=== PATIENT | female | born 1965 | race African-American/Black ===

== ENCOUNTER 2019-09-28 08:46 | Day surgery (SDC) | payer OTHER ==
--- NOTE | 2019-09-24 13:13 | RAD REPORT ---
EXAM DESCRIPTION: RAD - Chest Pa And Lat (2 Views) - 09/24/2019 1:00 pm CLINICAL HISTORY: pre op Chest pain. COMPARISON: Chest Single View dated 02/20/2017; Chest Single View dated 02/16/2017; Chest Pa And Lat (2 Views) dated 02/08/2017; Chest Single View dated 01/30/2017 FINDINGS: The lungs are clear. The heart is normal in size. No displaced fractures. IMPRESSION: No acute or concerning finding suspected.
[2019-09-24 13:45] LABS: Absolute Lymphocytes (CBC) 2.5 K/uL (0.7-4.9); Basophils % 0.7 % (0-1.3); Hematocrit 39.5 % (36.0-45.0); Lymphocytes % 36.2 % (15.3-44.8); MPV 9.6 fL (7.6-11.3); RBC Red Blood Cell Count 4.82 M/uL (3.86-4.86)
[2019-09-24 14:02] LABS: ALT/SGPT 22 U/L (12-78); AST/SGOT 16 U/L (15-37); Albumin 3.5 g/dL (3.4-5.0); Alkaline Phosphatase 84 U/L (45-117); Amylase 81 U/L (25-115); BUN Blood Urea Nitrogen 17 mg/dL (7-18); Bicarbonate 31 mmol/L (21-32); Bilirubin Direct < 0.1 mg/dL (0-0.2); Bilirubin Total 0.3 mg/dL (0.2-1.0); Glucose Level 131 mg/dL (74-106); Potassium 4.1 mmol/L (3.5-5.1); Protein, Total 7.7 g/dL (6.4-8.2); Sodium Level 143 mmol/L (136-145)
[2019-09-28] MEDS ORDERED: NA CHLORIDE 0.9% 1,000 ML ONE (09:14)
[2019-09-28] MEDS ORDERED: CEFOXITIN/SWI 1gm 1 GM/10 ML SYR ONE (09:19)
[2019-09-28] MEDS ORDERED: ALBUTEROL 2.5 MG/3 ML NEB SOL ONE (09:23)
[2019-09-28] MEDS ORDERED: FENTANYL CITR 100 MCG/2 ML ONE (09:30)
[2019-09-28] MEDS ORDERED: MIDAZOLAM HCL 2 MG/2 ML INJ ONE (09:30)
[2019-09-28] MEDS ORDERED: LIDOCAINE 1% MPF 5 ML VIAL ONE (09:30)
[2019-09-28] MEDS ORDERED: propofoL 200 MG/20 ML VIAL IV ONE (09:30)
[2019-09-28] MEDS ORDERED: ROCURONIUM 50 MG/5 ML VIAL IV ONE (09:31)
--- NOTE | 2019-09-28 10:14 | EKG ---
Test Date: 2019-09-28 Test Time: 09:29:46 Installer Soft Top: LETY MEASUREMENT RESULTS: Intervals: Rate: 79 AL: 156 QRSD: 84 QT: 408 QTc: 467 Canby: P: 57 AL: 156 QRS: -3 T: 28 INTERPRETIVE STATEMENTS: Normal sinus rhythm Low voltage QRS Cannot rule out Anterior infarct, age undetermined Abnormal ECG Compared to ECG 02/20/2017 10:36:27 Low QRS voltage now present Sinus arrhythmia no longer present Myocardial infarct finding still present Electronically Signed On 09-28-19 10:13:44 CDT by Joshua Thomas
[2019-09-28] MEDS ORDERED: dexAMETHasone 10 MG/ML VIAL ONE (10:28)
[2019-09-28] MEDS ORDERED: KETOROLAC 30 MG/ML INJ ONE (10:28)
[2019-09-28] MEDS ORDERED: NEOSTIGMINE 1 MG/ML -5 ML ONE (10:28)
[2019-09-28] MEDS ORDERED: GLYCOPYRROLATE 0.2 MG/ML SYR ONE (10:28)
[2019-09-28] MEDS ORDERED: ONDANSETRON 4 MG/2 ML VIAL ONE ×2 (10:28→11:37)
--- OUTSIDE RECORDS SUMMARY | 2019-09-28 11:15 | XMS REPORT | Clinical Summary ---
:1965 Author Organization [facility] Address [address] [place] [id number] Care Team Providers Name Role Phone Unavailable Primary Care Provider Unavailable Allergies Not on File Medications Not on file Active Problems Not on file Social History Tobacco Use Types Packs/Day Years Used Date Never Assessed Sex Assigned at Date Recorded Not on file Job Start Date Occupation Industry Not on file Not on file Not on file Travel History Travel Start Travel End No recent travel history available. Last Filed Vital Signs Not on file Plan of Treatment Not on file Results Not on fileafter 09/27/2018 Insurance Payer Benefit Plan / Group Subscriber ID Type Phone A ddress [employer] EXCHANGE xxxxxxxxxx
[2019-09-28] MEDS: HYDROMORPHONE HCL 1 MG/ML INJ ONE ×2 (11:45→12:15)
--- NOTE | 2019-09-28 12:02 | OP ---
Date of Procedure: 09/28/2019 Surgeon: Dom Sutton MD Sleeve Separator: BILL Francisco. Preoperative Diagnoses: Umbilical hernia and symptomatic cholelithiasis. Postoperative Diagnoses: Umbilical hernia and symptomatic cholelithiasis. Procedures Performed: Laparoscopic cholecystectomy and repair of umbilical hernia. Estimated Blood Loss: Minimal. Specimen: Hernia sac and gallbladder. Findings: As above. Anesthesia: General. Complications: None. Disposition: The patient tolerated procedure in stable condition, taken to Recovery in good general condition. Description Of Procedure: The patient was brought to the OR and placed in supine position. General anesthesia begun. The patient was prepped and draped in usual sterile fashion. Marcaine 0.5% was in filtrated locally. A 15-blade was used to make a 2 cm incision over the hernia itself, just above th e umbilicus. Subcutaneous tissues were divided. Hernia sac was identified and freed from the surrou nding tissue and approximately 2 cm edge remained. Good fascial edges were obtained. #1 Vicryl stay suture was placed. Peritoneal cavity was entered with sharp and blunt dissection. Then, 12 mm troc ar was placed into the peritoneal cavity under direct vision. Pneumoperitoneum was established. Thr ee 5 mm trocars were placed, 1 in the epigastrium, just to the right of midline and 2 in the right lackey bcostal region. Laparoscopy revealed some adhesions to the gallbladder, body and infundibulum which were taken down with sharp and blunt dissection. Bleeding was controlled with cautery. Fundus was r etracted superiorly. Infundibulum was identified and retracted inferolaterally. Cystic duct and cys tic artery were clearly identified with blunt dissection. Clips were placed. Both structures were d ivided. Cautery was used to remove the gallbladder from the liver bed. Bleeding on the liver bed wa s controlled with cautery. The gallbladder was retrieved through the umbilicus via an EndoCatch bag. Right upper quadrant was irrigated. Effluent was clear. No evidence of bleeding or bile leakage a s appreciated. Subsequently, all trocars were removed under direct vision. Stay sutures were tied t o each other to close the hernia defect. Subcutaneous wounds were irrigated. Bleeding was controlle d with cautery. A 3-0 chromic used to approximate the subcutaneous tissue and piyush were used to cl ose the skin. Sterile dressing was applied. The patient was awakened and taken to Recovery in good general condition. Discharge Note: The patient will go to day surgery and home when stable. Disposition: Home. Condition: Stable. Discharge Instructions: Resume home medications and diet. Activity as tolerated. No heavy lifting. Remove outer dressing in 2 days. Shower. Keep wound clean and dry. Follow up in my office in 1 w chipewwa. Call for appointment. Tylenol No. 3 one tablet p.o. q.4 p.r.n. pain. Incentive spirometry as ordered. /MODL Voice ID: [id number] Report ID: [id number]
[2019-09-28] MEDS ORDERED: NA CHLORIDE 0.9% 500 ML ONE (12:20)
[2019-09-28] MEDS ORDERED: HYDROCODONE/APAP 7.5/325 MG TAB ONE (13:10)
[2019-09-28 14:04] VITALS: BP 151/82; TEMP 97.4; O2SAT 92
== END 2019-09-28 13:55 | disposition home or self-care (01) ==
LOC: OR 08:46
PROVIDERS: ATTEND Surgery
PROC: 0FT44ZZ Resection of Gallbladder, Percutaneous Endoscopic Approach (ICD-10-PCS; principal; 2019-09-28 10:00)
PROC: 0WQF0ZZ Repair Abdominal Wall, Open Approach (ICD-10-PCS; 2019-09-28 10:00)
DX: K80.20 Calculus of gallbladder without cholecystitis without obstruction (principal); K42.9 Umbilical hernia without obstruction or gangrene; E11.9 Type 2 diabetes mellitus without complications; I10 Essential (primary) hypertension; I25.10 Atherosclerotic heart disease of native coronary artery without angina pectoris; R01.1 Cardiac murmur, unspecified; E03.9 Hypothyroidism, unspecified; J45.909 Unspecified asthma, uncomplicated; Z11.59 Encounter for screening for other viral diseases; Z80.0 Family history of malignant neoplasm of digestive organs; Z82.49 Family history of ischemic heart disease and other diseases of the circulatory system; Z82.3 Family history of stroke; Z83.3 Family history of diabetes mellitus; Z82.5 Family history of asthma and other chronic lower respiratory diseases
CPT/HCPCS: 93005; 85025; 80048; 36415; 82150; 82947 ×2; 80076; 88302; 88304; 71046; 47562; 49585; U0002; J2704; J2250; J3010; J1100; J1170; J2710; J7040; J7030; J2405 ×2

== ENCOUNTER 2019-12-30 10:14 | Emergency (ER) | payer OTHER ==
[2019-12-30 10:52] LABS: Absolute Lymphocytes (CBC) 2.5 K/uL (0.7-4.9); Basophils % 0.8 % (0-1.3); Hematocrit 39.7 % (36.0-45.0); Lymphocytes % 27.7 % (15.3-44.8); MPV 9.1 fL (7.6-11.3); RBC Red Blood Cell Count 4.91 M/uL (3.86-4.86)
[2019-12-30 11:13] LABS: ALT/SGPT 27 U/L (12-78); AST/SGOT 16 U/L (15-37); Albumin 3.5 g/dL (3.4-5.0); Alkaline Phosphatase 110 U/L (45-117); BUN Blood Urea Nitrogen 15 mg/dL (7-18); Bicarbonate 31 mmol/L (21-32); Bilirubin Direct 0.1 mg/dL (0-0.2); Bilirubin Total 0.4 mg/dL (0.2-1.0); Glucose Level 110 mg/dL (74-106); Lipase 97 U/L (73-393); Potassium 3.7 mmol/L (3.5-5.1); Protein, Total 8.3 g/dL (6.4-8.2); Sodium Level 137 mmol/L (136-145)
[2019-12-30] MEDS ORDERED: NA CHLORIDE 0.9% 1,000 ML ONE (11:43)
[2019-12-30] MEDS ORDERED: KETOROLAC 30 MG/ML INJ ONE (11:43)
--- NOTE | 2019-12-30 12:17 | RAD REPORT ---
EXAM DESCRIPTION: CT - Abdomen Pelvis W Contrast - 12/30/2019 11:58 am CLINICAL HISTORY: Abdominal pain COMPARISON: August 2019 TECHNIQUE: Computed axial tomography of the abdomen pelvis was obtained. 100 cc Isovue-300 was admin istered intravenously. Oral contrast was not requested which limits evaluation of bowel. All CT scans are performed using dose optimization technique as appropriate and may include automated exposure control or mA/KV adjustment according to patient size. FINDINGS: Cholecystectomy. Several splenic lesions without obvious change. The largest measures 2 centimeters Renal cysts unchanged. Mild fatty liver. The pancreas and adrenals unremarkable There is no evidence of diverticulitis. A periumbilical hernia has a neck 2.5 centimeters. It contains a portion of nondilated small bowel IMPRESSION: A periumbilical hernia has a neck 2.5 centimeters. It contains a portion of nondilated s mall bowel Splenic lesions. Ultrasound recommended for further evaluation
--- OUTSIDE RECORDS SUMMARY | 2019-12-30 12:24 | XMS REPORT | Clinical Summary ---
:1965 Author Organization [facility] Address [address] [place] [id number] Care Team Providers Name Role Phone Unavailable Primary Care Provider Unavailable Allergies Not on File Medications Not on file Active Problems Not on file Social History Tobacco Use Types Packs/Day Years Used Date Never Assessed Sex Assigned at Date Recorded Not on file Last Filed Vital Signs Not on file Plan of Treatment Not on file Results Not on fileafter 12/29/2018 Insurance Payer Benefit Plan / Subscriber ID Effective Dates Phone Addre ss Type Group [employer] [id number] 2018-Present EXCHANGE
--- NOTE | 2019-12-30 12:32 | EDPHYS ---
Physician Documentation [facility] Name: Ernestina Link Age: 54 yrs Sex: Female : 1965 Arrival Date: 12/30/2019 Time: 10:16 Bed 5 Private MD: Doni Marie E ED Physician James Sutherland HPI: 12/29 12:25 This 54 yrs old Black Female presents to ER via Ambulatory with complaints of Side Pain.kb 12:29 The patient presents with abdominal pain in the right upper quadrant. Onset: The kb symptoms/episode began/occurred 1 week(s) ago. The symptoms do not radiate. Associated signs and symptoms: none. The symptoms are described as constant. Modifying factors: The symptoms are alleviated by remaining still, the symptoms are aggravated by movement, pressure. Severity of pain: At its worst the pain was moderate in the emergency department the pain is unchanged. The patient has not experienced similar symptoms in the past. The patient has not recently seen a physician. Pt reports RUQ pain that is worse with movement. Denies fever, n/v/d, recent trauma.. 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 - Post-menopause jl7 Historical: - Allergies: 10:38 No Known Allergies; iw - Home Meds: 10:38 metformin 1,000 mg oral tab 2 times per day [Active]; levothyroxine 137 mcg oral tab iw once daily [Active]; lisinopril-hydrochlorothiazide 20-12.5 mg oral tab 1 tab once daily [Active]; nortriptyline 10 mg Oral cap [Active]; sertraline 100 mg oral tab once daily [Active]; hydrocodone-acetaminophen 10-325 mg Oral tab as needed [Active]; montelukast 10 mg oral tab 1 tab once daily [Active]; clonazepam 1 mg Oral tab [Active]; atorvastatin 20 mg oral tab 1 tab once daily [Active]; gabapentin 600 mg oral tab 1 tab 3 times per day [Active]; Centrum Silver 400-250 mcg oral chew daily [Active]; Vitamin B-12 Oral daily [Active]; Melatonin Oral nightly [Active]; - PMHx: 10:38 Asthma; Diabetes - NIDDM; Hypertension; Hypothyroidism; iw - PSHx: 10:38 Tonsillectomy; Appendectomy; Tubal ligation; ; iw - Immunization history:: Adult Immunizations up to date. - Social history:: Smoking status: Patient denies any tobacco usage or history of. ROS: 12:24 Constitutional: Negative for fever, chills, and weight loss, Cardiovascular: Negative kb for chest pain, palpitations, and edema, Respiratory: Negative for shortness of breath, cough, wheezing, and pleuritic chest pain, Back: Negative for injury and pain, MS/Extremity: Negative for injury and deformity, Skin: Negative for injury, rash, and discoloration, Neuro: Negative for headache, weakness, numbness, tingling, and seizure. 12:24 Abdomen/GI: Positive for abdominal pain, Negative for nausea, vomiting, and diarrhea. Exam: 12:24 Constitutional: This is a well developed, well nourished patient who is awake, alert, kb and in no acute distress. Head/Face: Normocephalic, atraumatic. Chest/axilla: Normal chest wall appearance and motion. Nontender with no deformity. No lesions are appreciated. Cardiovascular: Regular rate and rhythm with a normal S1 and S2. No gallops, murmurs, or rubs. Normal PMI, no JVD. No pulse deficits. Respiratory: Lungs have equal breath sounds bilaterally, clear to auscultation and percussion. No rales, rhonchi or wheezes noted. No increased work of breathing, no retractions or nasal flaring. Back: No spinal tenderness. No costovertebral tenderness. Full range of motion. Skin: Warm, dry with normal turgor. Normal color with no rashes, no lesions, and no evidence of cellulitis. MS/ Extremity: Pulses equal, no cyanosis. Neurovascular intact. Full, normal range of motion. Neuro: Awake and alert, GCS 15, oriented to person, place, time, and situation. Cranial nerves II-XII grossly intact. Motor strength 5/5 in all extremities. Sensory grossly intact. Cerebellar exam normal. Normal gait. 12:24 Abdomen/GI: Inspection: obese Bowel sounds: normal, in all quadrants, Palpation: soft, in all quadrants, mild abdominal tenderness, in the right upper quadrant. Vital Signs: 10:33 BP 137 / 76; Pulse 82; Resp 16; Temp 97.9; Pulse Ox 96% on R/A; Weight 122.92 kg; iw Height 5 ft. 11 in. (180.34 cm); Pain 12/17; 12:21 BP 115 / 80; Pulse 70; Resp 15; Pulse Ox 97% ; jl7 10:33 Body Mass Index 37.80 (122.92 kg, 180.34 cm) iw MDM: 10:19 Patient medically screened. kb 12:24 Data reviewed: vital signs, nurses notes. Data interpreted: Pulse oximetry: on room air kb is 97 %. Interpretation: normal. Counseling: I had a detailed discussion with the patient and/or guardian regarding: the historical points, exam findings, and any diagnostic results supporting the discharge/admit diagnosis, lab results, radiology results, the need for outpatient follow up, a family practitioner, to return to the emergency department if symptoms worsen or persist or if there are any questions or concerns that arise at home. 12:30 ED course: Pt reports pain resolved after toradol. No tenderness to periumbilical area. kb Pt educated on splenic lesions that were again noted on CT. . 12/29 10:29 Order name: Basic Metabolic Panel; Complete Time: 11:18 kb 12/29 10:29 Order name: CBC with Diff; Complete Time: 10:55 kb 12/29 10:29 Order name: Hepatic Function; Complete Time: 11:18 kb 12/29 10:29 Order name: Lipase; Complete Time: 11:18 kb 12/29 11:19 Order name: CT Abd/Pelvis - IV Contrast Only; Complete Time: 12:21 kb 12/29 10:29 Order name: IV Saline Lock; Complete Time: 10:48 kb 12/29 10:29 Order name: Labs collected and sent; Complete Time: 10:48 kb Administered Medications: 11:38 Drug: NS 0.9% 1000 ml Route: IV; Rate: 1000 ml; Site: right forearm; iw 11:38 Drug: TORadol - Ketorolac 15 mg Route: IVP; Site: right forearm; iw Disposition: 12/30/19 12:32 Discharged to Home. Impression: Upper abdominal pain, unspecified. - Condition is Stable. - Discharge Instructions: Musculoskeletal Pain, Abdominal Pain, Adult, [id number]. - Prescriptions for Diclofenac Sodium 75 mg Oral Tablet, Delayed Release (E.C.) - take 1 tablet by ORAL route 2 times per day As needed; 30 tablet. - Medication Reconciliation Form, Thank You Letter, Antibiotic Education, Prescription Opioid Use form. - Follow up: Emergency Department; When: As needed; Reason: Worsening of condition. Follow up: Doni Marie MD; When: 2 - 3 days; Reason: Recheck today's complaints, Continuance of care, Re-evaluation by your physician. Addendum: 12/31/2019 14:37 Co-signature as Attending Physician, James Sutherland MD I agree with the assessment and k dr plan of care. Signatures: Dispatcher [employer] EDMS Melissa Lopez, SUPERVISOR STERILE PROCESSING-C SUPERVISOR STERILE PROCESSING-Ckb James Sutherland MD MD kdr Bryanna Naylor RN RN iw Corrections: (The following items were deleted from the chart) 12/29 12:44 12:32 12/30/2019 12:32 Discharged to Home. Impression: Upper abdominal pain, iw unspecified. Condition is Stable. Forms are Medication Reconciliation Form, Thank You Letter, Antibiotic Education, Prescription Opioid Use. Follow up: Emergency Department; When: As needed; Reason: Worsening of condition. Follow up: Doni Marie; When: 2 - 3 days; Reason: Recheck today's complaints, Continuance of care, Re-evaluation by your physician. kb
--- NOTE | 2019-12-30 12:32 | ER ---
Nurse's Notes [facility] Name: Ernestina Link Age: 54 yrs Sex: Female : 1965 Arrival Date: 12/30/2019 Time: 10:16 Bed 5 Private MD: Doni Marie E Diagnosis: Upper abdominal pain, unspecified Presentation: 12/29 10:30 Chief complaint: Patient states: right flank pain X 2 days, tender to touch, denies iw vomiting r diarrhea, reports constipation, last BM was last night is on hydrocodone, also reports dark colored urine. Coronavirus screen: At this time, the client does not indicate any symptoms associated with coronavirus-19. Ebola Screen: Patient negative for fever greater than or equal to 101.5 degrees Fahrenheit, and additional compatible Ebola Virus Disease symptoms Patient denies exposure to infectious person. Patient denies travel to an Ebola-affected area in the 21 days before illness onset. No symptoms or risks identified at this time. Onset of symptoms was December 28, 2019. 10:30 Method Of Arrival: Ambulatory iw 10:30 Acuity: TAHIRA 3 iw 10:33 Initial Sepsis Screen: Does the patient meet any 2 criteria? No. Patient's initial iw sepsis screen is negative. Does the patient have a suspected source of infection? No. Patient's initial sepsis screen is negative. Risk Assessment: Do you want to hurt yourself or someone else? Patient reports no desire to harm self or others. 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-menopause jl7 Historical: - Allergies: 10:38 No Known Allergies; iw - Home Meds: 10:38 metformin 1,000 mg oral tab 2 times per day [Active]; levothyroxine 137 mcg oral tab iw once daily [Active]; lisinopril-hydrochlorothiazide 20-12.5 mg oral tab 1 tab once daily [Active]; nortriptyline 10 mg Oral cap [Active]; sertraline 100 mg oral tab once daily [Active]; hydrocodone-acetaminophen 10-325 mg Oral tab as needed [Active]; montelukast 10 mg oral tab 1 tab once daily [Active]; clonazepam 1 mg Oral tab [Active]; atorvastatin 20 mg oral tab 1 tab once daily [Active]; gabapentin 600 mg oral tab 1 tab 3 times per day [Active]; Centrum Silver 400-250 mcg oral chew daily [Active]; Vitamin B-12 Oral daily [Active]; Melatonin Oral nightly [Active]; - PMHx: 10:38 Asthma; Diabetes - NIDDM; Hypertension; Hypothyroidism; iw - PSHx: 10:38 Tonsillectomy; Appendectomy; Tubal ligation; ; iw - Immunization history:: Adult Immunizations up to date. - Social history:: Smoking status: Patient denies any tobacco usage or history of. Screenin:38 Abuse screen: Denies threats or abuse. Denies injuries from another. Nutritional iw screening: No deficits noted. Tuberculosis screening: No symptoms or risk factors identified. Fall Risk Fall in past 12 months (25 points). Assessment: 10:39 General: Appears in no apparent distress. Behavior is calm, cooperative. Pain: iw Complains of pain in posterior aspect of right lateral abdomen Pain does not radiate. Pain currently is 10 out of 10 on a pain scale. Pain began 2-3 days ago. Is continuous. Neuro: Level of Consciousness is awake, alert, obeys commands, Oriented to person, place, time, situation, Moves all extremities. Full function. Cardiovascular: Patient's skin is warm and dry. Respiratory: Respiratory effort is even, unlabored, Respiratory pattern is regular, symmetrical. GI: Abdomen is round obese, Abd is soft X 4 quads Abdomen is tender to palpation in posterior aspect of right lateral abdomen. Derm: Skin is intact, is healthy with good turgor. Musculoskeletal: Range of motion: intact in all extremities. 11:39 Reassessment: Patient appears in no apparent distress at this time. Patient and/or iw family updated on plan of care and expected duration. Pain level reassessed. Patient is alert, oriented x 3, equal unlabored respirations, skin warm/dry/pink. awaiting CT. Vital Signs: 10:33 BP 137 / 76; Pulse 82; Resp 16; Temp 97.9; Pulse Ox 96% on R/A; Weight 122.92 kg; iw Height 5 ft. 11 in. (180.34 cm); Pain 10/10; 12:21 BP 115 / 80; Pulse 70; Resp 15; Pulse Ox 97% ; jl7 10:33 Body Mass Index 37.80 (122.92 kg, 180.34 cm) iw ED Course: 10:16 Patient arrived in ED. ag5 10:17 Doni Marie MD is Private Physician. ag5 10:19 Melissa Lopez FNP-C [facility] kb 10:19 James Sutherland MD is Attending Physician. kb 10:30 Bryanna Naylor, RN is Primary Nurse. iw 10:33 Triage completed. iw 10:38 Arm band placed on. iw 10:39 Patient has correct armband on for positive identification. iw 10:45 Initial lab(s) drawn, sent to lab. Inserted saline lock: 20 gauge in right forearm, iw using aseptic technique. 11:59 CT Abd/Pelvis - IV Contrast Only In Process Unspecified. EDMS 12:31 Doni Marie MD is Referral Physician. kb 12:43 No provider procedures requiring assistance completed. IV discontinued, intact, iw bleeding controlled, No redness/swelling at site. Pressure dressing applied. Administered Medications: 11:38 Drug: NS 0.9% 1000 ml Route: IV; Rate: 1000 ml; Site: right forearm; iw 11:38 Drug: TORadol - Ketorolac 15 mg Route: IVP; Site: right forearm; iw Outcome: 12:32 Discharge ordered by MD. kb 12:43 Discharged to home ambulatory. iw 12:43 Condition: good 12:43 Discharge instructions given to patient, Instructed on discharge instructions, follow up and referral plans. medication usage, Demonstrated understanding of instructions, follow-up care, medications, Prescriptions given X 2. 12:44 Patient left the ED. iw Signatures: Dispatcher [employer] EDKS Melissa Lopez FNP-C FNP-Ckb Bryanna Naylor, RN RN Anselmo Damian RN RN jl7 Kandis Mccormick ag5
[2019-12-30 12:58] VITALS: TEMP 97.9
[2019-12-30 12:59] VITALS: BP 115/80; O2SAT 97
== END 2019-12-30 12:44 | disposition home or self-care (01) ==
LOC: ER 10:14
DX: R10.11 Right upper quadrant pain (principal); K42.9 Umbilical hernia without obstruction or gangrene; I10 Essential (primary) hypertension; E11.9 Type 2 diabetes mellitus without complications; E03.9 Hypothyroidism, unspecified; J45.909 Unspecified asthma, uncomplicated
CPT/HCPCS: 85025; 80048; 36415; 80076; 83690; 74177; 96374; 99284; Q9967; J7030

== ENCOUNTER 2020-03-02 13:57 | Emergency (ER) | payer OTHER ==
--- OUTSIDE RECORDS SUMMARY | 2020-03-02 14:11 | XMS REPORT | Clinical Summary ---
:1965 Author Organization [facility] Address [address] [place] [id number] Care Team Providers Name Role Phone Unavailable Primary Care Provider Unavailable Allergies Not on File Medications Not on file Active Problems Not on file Social History Tobacco Use Types Packs/Day Years Used Date Never Assessed Sex Assigned at Date Recorded Not on file Last Filed Vital Signs Not on file Plan of Treatment Not on file Results Not on fileafter 03/02/2019 Insurance Payer Benefit Plan / Subscriber ID Effective Dates Phone Addre ss Type Group [employer] [id number] 2018-Present EXCHANGE
--- NOTE | 2020-03-02 17:20 | RAD REPORT ---
EXAM DESCRIPTION: RAD - Chest Single View - 03/02/2020 4:45 pm CLINICAL HISTORY: COUGH Chest pain. COMPARISON: Chest Pa And Lat (2 Views) dated 09/24/2019; Chest Single View dated 02/20/2017; Chest Si ngle View dated 02/16/2017; Chest Pa And Lat (2 Views) dated 02/08/2017 FINDINGS: Portable technique limits examination quality. The lungs are grossly clear. The heart is normal in size. No displaced fractures. IMPRESSION: No acute intrathoracic process suspected.
[2020-03-02 17:31] LABS: Absolute Lymphocytes (CBC) 2.4 K/uL (0.7-4.9); Basophils % 0.7 % (0-1.3); Hematocrit 40.7 % (36.0-45.0); Lymphocytes % 38.9 % (15.3-44.8); MPV 8.8 fL (7.6-11.3); RBC Red Blood Cell Count 5.03 M/uL (3.86-4.86)
[2020-03-02 17:40] LABS: Protime INR 1.08
[2020-03-02] MEDS ORDERED: dexAMETHasone 10 MG/ML VIAL ONE (17:50)
[2020-03-02] MEDS ORDERED: NA CHLORIDE 0.9% 500 ML ONE (17:50)
[2020-03-02] MEDS ORDERED: ASPIRIN 81 MG CHEWABLE TABLET ONE (17:50)
[2020-03-02] MEDS ORDERED: CEFTRIAXONE/SWI 1gm 1 GM/10 ML SYR ONE (17:51)
[2020-03-02] MEDS ORDERED: FAMOTIDINE 20 MG/2 ML VIAL IV ONE (17:51)
[2020-03-02] MEDS ORDERED: NA CHLORIDE 0.9% 250 ML ONE (17:55)
[2020-03-02] MEDS ORDERED: AZITHROMYCIN 500 MG INJ IVPB ONE (17:55)
[2020-03-02] MEDS ORDERED: WATER FOR INJ,STERILE 10 ML ONE (17:56)
[2020-03-02 18:00] LABS: ALT/SGPT 37 U/L (12-78); AST/SGOT 26 U/L (15-37); Albumin 3.4 g/dL (3.4-5.0); Alkaline Phosphatase 96 U/L (45-117); BUN Blood Urea Nitrogen 13 mg/dL (7-18); Bicarbonate 34 mmol/L (21-32); Bilirubin Direct < 0.1 mg/dL (0-0.2); Bilirubin Total 0.3 mg/dL (0.2-1.0); Glucose Level 97 mg/dL (74-106); Magnesium 2.2 mg/dL (1.8-2.4); NT PRO-BNP 7 pg/mL (<125); Potassium 3.4 mmol/L (3.5-5.1); Protein, Total 7.8 g/dL (6.4-8.2); Sodium Level 141 mmol/L (136-145); Troponin (Emerg Dept Use Only) < 0.02 ng/mL (0.0-0.045)
--- NOTE | 2020-03-02 18:32 | RAD REPORT ---
EXAM DESCRIPTION: CT - Chest For Pe Angio - 03/02/2020 6:22 pm CLINICAL HISTORY: Chest pain. CHEST PAIN COMPARISON: Chest For Pe Angio dated 02/16/2017 TECHNIQUE: CT angiogram of the pulmonary arteries was performed with MIP. All CT scans are performed using dose optimization technique as appropriate and may include automated exposure control or mA/KV adjustment according to patient size. FINDINGS: No evidence of pulmonary thromboembolism. No acute aortic finding demonstrated. Mild ground-glass opacity both lung cueva. No significant pericardial or pleural fluid. No concerning bony finding. IMPRESSION: No evidence of pulmonary thromboembolism. Mild bilateral ground-glass opacity may indicate a pneumonitis.
--- NOTE | 2020-03-02 19:02 | EDPHYS ---
Physician Documentation [facility] Name: Ernestina Link Age: 55 yrs Sex: Female : 1965 Arrival Date: 03/02/2020 Time: 14:02 Bed 20 Private MD: ED Physician Kong Borrego HPI: 03/02 16:22 This 55 yrs old Black Female presents to ER via Wheelchair with complaints of Shortness solitario Of Breath - covid+. 16:22 The patient has shortness of breath at rest, with light activity. Onset: The solitario symptoms/episode began/occurred 2 day(s) ago. Duration: The symptoms are continuous, and are steadily getting worse. The patient's shortness of breath has no apparent modifying factors. Associated signs and symptoms: Pertinent positives: chest pain, non-productive cough, dizziness. Severity of symptoms: At their worst the symptoms were mild in the emergency department the symptoms are unchanged. The patient has not experienced similar symptoms in the past. Historical: - Allergies: 14:12 No Known Allergies; ll1 - PMHx: 14:12 Asthma; Hypertension; Hypothyroidism; Diabetes - NIDDM; ll1 - PSHx: 14:12 Tonsillectomy; Appendectomy; Tubal ligation; ; Cholecystectomy; ll1 - Immunization history:: Pneumococcal vaccine is up to date, Flu vaccine is up to date. - Social history:: Smoking status: Patient denies any tobacco usage or history of. - Family history:: not pertinent. ROS: 16:22 Constitutional: Negative for fever, chills, and weight loss, Eyes: Negative for injury, solitario pain, redness, and discharge, ENT: Negative for injury, pain, and discharge, Neck: Negative for injury, pain, and swelling, Abdomen/GI: Negative for abdominal pain, nausea, vomiting, diarrhea, and constipation, Back: Negative for injury and pain, : Negative for injury, bleeding, discharge, and swelling, MS/Extremity: Negative for injury and deformity, Skin: Negative for injury, rash, and discoloration, Neuro: Negative for headache, weakness, numbness, tingling, and seizure, Psych: Negative for depression, anxiety, suicide ideation, homicidal ideation, and hallucinations, Allergy/Immunology: Negative for hives, rash, and allergies, Endocrine: Negative for neck swelling, polydipsia, polyuria, polyphagia, and marked weight changes, Hematologic/Lymphatic: Negative for swollen nodes, abnormal bleeding, and unusual bruising. 16:22 Cardiovascular: Positive for chest pain, palpitations. 16:22 Respiratory: Positive for cough, shortness of breath, at rest. 16:22 MS/extremity: Negative for acute changes. Exam: 16:22 Constitutional: This is a well developed, well nourished patient who is awake, alert, solitario and in no acute distress. Head/Face: Normocephalic, atraumatic. Eyes: Pupils equal round and reactive to light, extra-ocular motions intact. Lids and lashes normal. Conjunctiva and sclera are non-icteric and not injected. Cornea within normal limits. Periorbital areas with no swelling, redness, or edema. ENT: Nares patent. No nasal discharge, no septal abnormalities noted. Tympanic membranes are normal and external auditory canals are clear. Oropharynx with no redness, swelling, or masses, exudates, or evidence of obstruction, uvula midline. Mucous membranes moist. Neck: Trachea midline, no thyromegaly or masses palpated, and no cervical lymphadenopathy. Supple, full range of motion without nuchal rigidity, or vertebral point tenderness. No Meningismus. Chest/axilla: Normal chest wall appearance and motion. Nontender with no deformity. No lesions are appreciated. Respiratory: Lungs have equal breath sounds bilaterally, clear to auscultation and percussion. No rales, rhonchi or wheezes noted. No increased work of breathing, no retractions or nasal flaring. Abdomen/GI: Soft, non-tender, with normal bowel sounds. No distension or tympany. No guarding or rebound. No evidence of tenderness throughout. Back: No spinal tenderness. No costovertebral tenderness. Full range of motion. Skin: Warm, dry with normal turgor. Normal color with no rashes, no lesions, and no evidence of cellulitis. MS/ Extremity: Pulses equal, no cyanosis. Neurovascular intact. Full, normal range of motion. Neuro: Awake and alert, GCS 15, oriented to person, place, time, and situation. Cranial nerves II-XII grossly intact. Motor strength 5/5 in all extremities. Sensory grossly intact. Cerebellar exam normal. Normal gait. 16:22 Cardiovascular: Rate: tachycardic, Rhythm: regular, Pulses: Pulses are 4+ in bilateral radial, brachial, femoral, popliteal, posterior tibial and and dorsalis pedis arteries.. Heart sounds: normal, Edema: is not appreciated, JVD: is not appreciated. 16:22 Musculoskeletal/extremity: DVT Exam: No signs of deep vein thrombosis. no pain, no swelling, no tenderness, negative Homans' sign noted on exam, no appreciated bluish discoloration, no erythema, no increased warmth. 18:22 ECG was reviewed by the Attending Physician. [facility] Vital Signs: 14:10 BP 114 / 83; Pulse 100; Resp 18; Temp 98.6; Pulse Ox 95% on R/A; Weight 122.92 kg; ll1 Height 5 ft. 11 in. (180.34 cm); Pain 6/10; 18:00 BP 122 / 78; Pulse 87; Resp 18; Pulse Ox 97% on R/A; ph 19:15 BP 141 / 83; Pulse 70; Resp 16; Pulse Ox 95% on R/A; jb4 14:10 Body Mass Index 37.80 (122.92 kg, 180.34 cm) ll1 MDM: 16:12 Patient medically screened. [facility] 16:24 Differential diagnosis: Anemia Anxiety Reaction Bronchitis CHF exacerbation, Chronic solitario Obstructive Pulmonary Disease Myocardial Infarction pulmonary edema, Pulmonary Embolism reactive airway disease, Sepsis. Antibiotic administration: Rocephin and Zithromax given. The patient's Wells Deep Vein Thrombosis Score was calculated as follows: Total Score: 0-2 Pts- Low Risk. The patient's pulmonary embolism risk score was calculated as follows: Total Score: 0-2 points. This patient was found to be at low risk for a pulmonary embolism by using the Well's assessment criteria. Immunization status: Influenza vaccine: Data reviewed: vital signs, nurses notes, lab test result(s), EKG, radiologic studies. Data interpreted: curriculum coordinator: rate is 100 beats/min, rhythm is regular, Pulse oximetry: on room air is 95 %. Test interpretation: by ED physician or midlevel provider: ECG, plain radiologic studies. Counseling: I had a detailed discussion with the patient and/or guardian regarding: the historical points, exam findings, and any diagnostic results supporting the discharge/admit diagnosis, lab results, radiology results, the need for outpatient follow up. 03/02 16:21 Order name: Basic Metabolic Panel [facility] 03/02 16:21 Order name: CBC with Diff [facility] 03/02 16:21 Order name: LFT's [facility] 03/02 16:21 Order name: Magnesium [facility] 03/02 16:21 Order name: NT PRO-BNP [facility] 03/02 16:21 Order name: PT-INR [facility] 03/02 16:21 Order name: Troponin (emerg Dept Use Only) [facility] 03/02 16:21 Order name: Blood Culture Adult (2) [facility] 03/02 16:21 Order name: CRP; Complete Time: 18:18 [facility] 03/02 16:21 Order name: Ferritin; Complete Time: 18:18 [facility] 03/02 16:22 Order name: Basic Metabolic Panel; Complete Time: 18:18 [facility] 03/02 16:22 Order name: CBC with Automated Diff; Complete Time: 18:18 [facility] 03/02 16:22 Order name: Liver (Hepatic) Function; Complete Time: 18:18 [facility] 03/02 16:22 Order name: Magnesium; Complete Time: 18:18 [facility] 03/02 16:21 Order name: XRAY Chest (1 view); Complete Time: 17:29 [facility] 03/02 16:21 Order name: EKG; Complete Time: 16:23 [facility] 03/02 16:21 Order name: Cardiac monitoring; Complete Time: 19:36 [facility] 03/02 16:21 Order name: EKG - Nurse/Tech; Complete Time: 17:24 [facility] 03/02 16:21 Order name: CT Chest For PE Angio; Complete Time: 19:01 [facility] 03/02 16:22 Order name: NT PRO-BNP; Complete Time: 18:18 [facility] 03/02 16:22 Order name: Protime (+INR); Complete Time: 18:18 [facility] 03/02 16:22 Order name: Troponin (Emerg Dept Use Only); Complete Time: 18:18 [facility] 03/02 16:21 Order name: IV Saline Lock; Complete Time: 17:19 [facility] 03/02 16:21 Order name: Labs collected and sent; Complete Time: 17:19 [facility] 03/02 16:21 Order name: O2 Per Protocol; Complete Time: 17:24 [facility] 03/02 16:21 Order name: O2 Sat Monitoring; Complete Time: 17:24 [facility] EC:22 Rate is 71 beats/min. Rhythm is regular. QRS Eva is Normal. [place] interval is normal. QRS solitario interval is normal. QT interval is normal. No Q waves. T waves are Normal. No ST changes noted. Clinical impression: NSR w/ Non-specific ST/T Changes and No evidence of ischemia. Interpreted by me. Reviewed by me. Administered Medications: 17:45 Drug: Aspirin 162 mg Route: PO; ph 18:39 Follow up: Response: No adverse reaction ph 17:45 Drug: NS 0.9% 500 ml Route: IV; Rate: bolus; Site: right antecubital; ph 18:41 Follow up: Response: No adverse reaction; IV Status: Completed infusion ph 17:46 Drug: Rocephin 1 grams Route: IV; Rate: per protocol; Site: right antecubital; ph 18:41 Follow up: Response: No adverse reaction; IV Status: Completed infusion ph 17:48 Drug: Decadron - Dexamethasone 6 mg Route: IVP; Site: right antecubital; ph 18:38 Follow up: Response: No adverse reaction ph 17:49 Drug: Pepcid 20 mg Route: IVP; Site: right antecubital; ph 18:40 Follow up: Response: No adverse reaction ph 17:55 Drug: Zithromax 500 mg Route: IVPB; Infused Over: 1 hrs; Site: right antecubital; ph 19:00 Follow up: Response: No adverse reaction; IV Status: Completed infusion; IV Intake: jb4 250ml 19:47 Drug: Potassium Effervescent Tablet 25 mEq Route: PO; jb4 20:02 Follow up: Response: No adverse reaction jb4 20:00 Not Given (Patient Refused): NS 0.9% 1000 ml IV at 125 ml/hr continuous jb4 Disposition: 03/02/20 19:02 Discharged to Home. Impression: Dyspnea, SARS-associated coronavirus as the cause of diseases classified elsewhere - covid 19, Other chest pain, Type 2 diabetes mellitus, Hypokalemia, Other viral pneumonia - bilateral multi focal covid 19. - Condition is Stable. - Discharge Instructions: Nonspecific Chest Pain, Type 2 Diabetes Mellitus, Diagnosis, Adult, Potassium Content of Foods, Shortness of Breath, Shortness of Breath, [id number], Nonspecific Chest Pain, Izig-[id number], Aspirin and Your Heart, Type 2 Diabetes Mellitus, Diagnosis, Adult, Rvyd-[id number], Hypokalemia, COVID-19. - Prescriptions for dexamethasone 2 mg Oral tablet - take 1 tablet by ORAL route 3 times per day; 15 tablet. Pepcid 20 mg Oral Tablet - take 1 tablet by ORAL route every 12 hours for 10 days; 20 tablet. Albuterol Sulfate 2.5 mg /3 mL (0.083 %) Inhalation Solution for Nebulization - inhale 1 unit by NEBULIZATION route every 8 hours As needed; 1 box. Albuterol Sulfate 90 mcg/actuation - inhale 1-2 puff by INHALATION route every 4-6 hours; 1 Inhaler. Zithromax 500 mg Oral Tablet - take 1 tablet by ORAL route once daily for 5 days; 5 tablet. - Medication Reconciliation Form, Thank You Letter, Antibiotic Education, Prescription Opioid Use form. - Follow up: Private Physician; When: 2 - 3 days; Reason: Recheck today's complaints, Continuance of care, Re-evaluation by your physician. Follow up: Paulo Begum; When: 2 - 3 days; Reason: Recheck today's complaints, Continuance of care, Re-evaluation by your physician. - Problem is new. - Symptoms have improved. Signatures: Dispatcher [employer] EDMS Kong Borrego MD MD cha Hall, Patricia, RN RN eRd Pitts RN RN jb4 Rekha Epstein RN RN ll1 Corrections: (The following items were deleted from the chart) 19:03 19:02 03/02/2020 19:02 Discharged to Home. Impression: Dyspnea; SARS-associated solitario coronavirus as the cause of diseases classified elsewhere - covid 19; Other chest pain; Type 2 diabetes mellitus; Hypokalemia. Condition is Stable. Discharge Instructions: Nonspecific Chest Pain, Type 2 Diabetes Mellitus, Diagnosis, Adult, Shortness of Breath, Shortness of Breath, [id number], Nonspecific Chest Pain, Crgc-[id number], Aspirin and Your Heart, Type 2 Diabetes Mellitus, Diagnosis, Adult, Zvau-[id number], COVID-19, Potassium Content of Foods, Hypokalemia. Prescriptions for dexamethasone 2 mg Oral tablet - take 1 tablet by ORAL route 3 times per day; 15 tablet, Pepcid 20 mg Oral Tablet - take 1 tablet by ORAL route every 12 hours for 10 days; 20 tablet, Albuterol Sulfate 2.5 mg /3 mL (0.083 %) Inhalation Solution for Nebulization - inhale 1 unit by NEBULIZATION route every 8 hours As needed; 1 box, Albuterol Sulfate 90 mcg/actuation - inhale 1-2 puff by INHALATION route every 4-6 hours; 1 Inhaler, Zithromax 500 mg Oral Tablet - take 1 tablet by ORAL route once daily for 5 days; 5 tablet. and Forms are Medication Reconciliation Form, Thank You Letter, Antibiotic Education, Prescription Opioid Use. Follow up: Private Physician; When: 2 - 3 days; Reason: Recheck today's complaints, Continuance of care, Re-evaluation by your physician. Follow up: Paulo Begum; When: 2 - 3 days; Reason: Recheck today's complaints, Continuance of care, Re-evaluation by your physician. Problem is new. Symptoms have improved. [facility] 20:02 19:03 03/02/2020 19:02 Discharged to Home. Impression: Dyspnea; SARS-associated jb4 coronavirus as the cause of diseases classified elsewhere - covid 19; Other chest pain; Type 2 diabetes mellitus; Hypokalemia; Other viral pneumonia - bilateral multi focal covid 19. Condition is Stable. Discharge Instructions: Nonspecific Chest Pain, Type 2 Diabetes Mellitus, Diagnosis, Adult, Shortness of Breath, Shortness of Breath, Ekcc-ee-Tjim, Nonspecific Chest Pain, Cmeq-gu-Ehsb, Aspirin and Your Heart, Type 2 Diabetes Mellitus, Diagnosis, Adult, [id number]-[id number], COVID-19, Potassium Content of Foods, Hypokalemia. Prescriptions for dexamethasone 2 mg Oral tablet - take 1 tablet by ORAL route 3 times per day; 15 tablet, Pepcid 20 mg Oral Tablet - take 1 tablet by ORAL route every 12 hours for 10 days; 20 tablet, Albuterol Sulfate 2.5 mg /3 mL (0.083 %) Inhalation Solution for Nebulization - inhale 1 unit by NEBULIZATION route every 8 hours As needed; 1 box, Albuterol Sulfate 90 mcg/actuation - inhale 1-2 puff by INHALATION route every 4-6 hours; 1 Inhaler, Zithromax 500 mg Oral Tablet - take 1 tablet by ORAL route once daily for 5 days; 5 tablet. and Forms are Medication Reconciliation Form, Thank You Letter, Antibiotic Education, Prescription Opioid Use. Follow up: Private Physician; When: 2 - 3 days; Reason: Recheck today's complaints, Continuance of care, Re-evaluation by your physician. Follow up: Paulo Begum; When: 2 - 3 days; Reason: Recheck today's complaints, Continuance of care, Re-evaluation by your physician. Problem is new. Symptoms have improved. solitario
--- NOTE | 2020-03-02 19:02 | ER ---
Nurse's Notes [facility] Name: Ernestina Link Age: 55 yrs Sex: Female : 1965 Arrival Date: 03/02/2020 Time: 14:02 Bed 20 Private MD: Diagnosis: Dyspnea;SARS-associated coronavirus as the cause of diseases classified elsewhere-covid 19;Other chest pain;Type 2 diabetes mellitus;Hypokalemia;Other viral pneumonia-bilateral multi focal covid 19 Presentation: 03/02 14:10 Chief complaint: Patient states: SOB for 1 day. Has had covid symptoms for 11 days, ll1 positive covid test Friday at [facility]. + nausea at times. Coronavirus screen: Client denies travel out of the [place] in the last 14 days. congestion, cough unrelated to allergies, difficulty breathing, fatigue, Client presents with at least one sign or symptom that may indicate coronavirus-19. Standard/surgical mask placed on the client. Client reports previous positive COVID test result. Ebola Screen: Patient denies travel to an Ebola-affected area in the 21 days before illness onset. Initial Sepsis Screen: Does the patient meet any 2 criteria? HR > 90 bpm. No. Patient's initial sepsis screen is negative. Does the patient have a suspected source of infection? Yes: Productive cough/pneumonia. Risk Assessment: Do you want to hurt yourself or someone else? Patient reports no desire to harm self or others. Onset of symptoms was February 20, 2020. 14:10 Method Of Arrival: Wheelchair ll1 14:10 Acuity: TAHIRA 3 ll1 Historical: - Allergies: 14:12 No Known Allergies; ll1 - PMHx: 14:12 Asthma; Hypertension; Hypothyroidism; Diabetes - NIDDM; ll1 - PSHx: 14:12 Tonsillectomy; Appendectomy; Tubal ligation; ; Cholecystectomy; ll1 - Immunization history:: Pneumococcal vaccine is up to date, Flu vaccine is up to date. - Social history:: Smoking status: Patient denies any tobacco usage or history of. - Family history:: not pertinent. Screenin:31 Abuse screen: Denies threats or abuse. Denies injuries from another. Nutritional ph screening: No deficits noted. Tuberculosis screenin:22 Fall Risk None identified. ph Assessment: 17:00 General: Appears in no apparent distress. comfortable, obese, well groomed, Behavior is ph calm, cooperative, appropriate for age, Denies fever. Pain: Denies pain. Neuro: Level of Consciousness is awake, alert, obeys commands, Oriented to person, place, time, situation, Reports weakness. Cardiovascular: Reports shortness of breath, Denies chest pain, Capillary refill < 3 seconds in bilateral fingers Patient's skin is warm and dry. Respiratory: Reports shortness of breath on exertion cough that is Airway is patent Respiratory effort is even, unlabored, Respiratory pattern is regular, symmetrical. GI: Reports nausea, Patient currently denies abdominal pain, diarrhea. : No signs and/or symptoms were reported regarding the genitourinary system. Derm: Skin is intact, is healthy with good turgor, Skin is pink, warm \T\ dry. Musculoskeletal: Circulation, motion, and sensation intact. Range of motion: intact in all extremities. 18:14 Reassessment: Patient appears in no apparent distress at this time. Patient and/or ph family updated on plan of care and expected duration. Pain level reassessed. Patient is alert, oriented x 3, equal unlabored respirations, skin warm/dry/pink. Pt taken to CT via stretcher. 19:00 Reassessment: Patient appears in no apparent distress at this time. Patient and/or jb4 family updated on plan of care and expected duration. Pain level reassessed. Patient is alert, oriented x 3, equal unlabored respirations, skin warm/dry/pink. 20:00 Reassessment: Patient appears in no apparent distress at this time. Patient and/or jb4 family updated on plan of care and expected duration. Pain level reassessed. Patient is alert, oriented x 3, equal unlabored respirations, skin warm/dry/pink. Vital Signs: 14:10 BP 114 / 83; Pulse 100; Resp 18; Temp 98.6; Pulse Ox 95% on R/A; Weight 122.92 kg; ll1 Height 5 ft. 11 in. (180.34 cm); Pain 6/10; 18:00 BP 122 / 78; Pulse 87; Resp 18; Pulse Ox 97% on R/A; ph 19:15 BP 141 / 83; Pulse 70; Resp 16; Pulse Ox 95% on R/A; jb4 14:10 Body Mass Index 37.80 (122.92 kg, 180.34 cm) ll1 ED Course: 14:02 Patient arrived in ED. as 14:09 Arm band placed on. ll1 14:11 Triage completed. ll1 16:11 Kong Borrego MD is Attending Physician. solitario 16:31 Erinn Dumont RN is Primary Nurse. ph 16:45 XRAY Chest (1 view) In Process Unspecified. EDMS 17:10 Inserted saline lock: 22 gauge in right antecubital area, using aseptic technique. ca1 Blood collected. 18:15 Patient has correct armband on for positive identification. Placed in gown. Bed in low ph position. Call light in reach. Side rails up X 1. court monitor on. Pulse ox on. NIBP on. Door closed. Noise minimized. Warm blanket given. 18:22 CT Chest For PE Angio In Process Unspecified. EDMS 19:02 Paulo Begum MD is Referral Physician. [facility] 19:57 Primary Nurse role handed off by Erinn Dumont RN mw2 20:01 No provider procedures requiring assistance completed. IV discontinued, intact, jb4 bleeding controlled, No redness/swelling at site. Administered Medications: 17:45 Drug: Aspirin 162 mg Route: PO; ph 18:39 Follow up: Response: No adverse reaction ph 17:45 Drug: NS 0.9% 500 ml Route: IV; Rate: bolus; Site: right antecubital; ph 18:41 Follow up: Response: No adverse reaction; IV Status: Completed infusion ph 17:46 Drug: Rocephin 1 grams Route: IV; Rate: per protocol; Site: right antecubital; ph 18:41 Follow up: Response: No adverse reaction; IV Status: Completed infusion ph 17:48 Drug: Decadron - Dexamethasone 6 mg Route: IVP; Site: right antecubital; ph 18:38 Follow up: Response: No adverse reaction ph 17:49 Drug: Pepcid 20 mg Route: IVP; Site: right antecubital; ph 18:40 Follow up: Response: No adverse reaction ph 17:55 Drug: Zithromax 500 mg Route: IVPB; Infused Over: 1 hrs; Site: right antecubital; ph 19:00 Follow up: Response: No adverse reaction; IV Status: Completed infusion; IV Intake: jb4 250ml 19:47 Drug: Potassium Effervescent Tablet 25 mEq Route: PO; jb4 20:02 Follow up: Response: No adverse reaction jb4 20:00 Not Given (Patient Refused): NS 0.9% 1000 ml IV at 125 ml/hr continuous jb4 Intake: 19:00 IV: 250ml; Total: 250ml. jb4 Outcome: 19:02 Discharge ordered by MD. jerez 20:01 Discharged to home via wheelchair. jb4 20:01 Condition: stable 20:01 Discharge instructions given to patient, Instructed on discharge instructions, follow up and referral plans. medication usage, Demonstrated understanding of instructions, follow-up care, medications, Prescriptions given X 5 20:02 Patient left the ED. jb4 Signatures: Dispatcher [employer] EDMS Kong Borrego MD MD cha Martinez, Amelia as Hall, Patricia, RN RN Red Pradhan RN RN jb4 Dorie Rodriguez mw2 Radha Milligan RN RN ca1 Rekha Epstein RN RN ll1
[2020-03-02] MEDS ORDERED: POTASSIUM 25 MEQ EFFERV TAB ONE (19:58)
[2020-03-02 20:28] VITALS: TEMP 98.6
[2020-03-02 20:31] VITALS: BP 141/83; O2SAT 95
== END 2020-03-02 20:02 | disposition home or self-care (01) ==
LOC: ER 13:57
DX: U07.1 COVID-19 (principal); J12.89 Other viral pneumonia; E87.6 Hypokalemia; R07.89 Other chest pain; E11.9 Type 2 diabetes mellitus without complications; I10 Essential (primary) hypertension
CPT/HCPCS: 96365; 93005; 87040 ×2; 85025; 80048; 36415; 83735; 85610; 80076; 84484; 82728; 83880; 86140; 71275; 71045; 96375; 99284; Q9967; J0456; J1100; J0696; J7050; J7040

== ENCOUNTER 2022-09-14 14:57 | Emergency (ER) | payer OTHER ==
--- OUTSIDE RECORDS SUMMARY | 2022-09-14 15:00 | XMS REPORT | Continuity of Care Document ---
:1965 Author Organization [facility] t Address [address] [place] [address] Care Team Providers Name Role Phone TORREY ALMANZA Primary Care Physician Unavailable RADIOLOGY Attending Clinician Unavailable Radiology Attending Clinician Unavailable Doctor Unassigned, [place] Attending Clinician Unavailable QUINTIN HARDWICK Attending Clinician Unavailable SANGITA SINGLETON Attending Clinician Unavailable Sangita Martines Attending Clinician Unknown, Attending Attending Clinician Unavailable MACKENZIE ELLIS Admitting Clinician Unavailable TORREY ALMANZA Admitting Clinician Unavailable Payers Payer Name Policy Type Policy Number Effective Date Expiration Date [employer] [id number] 2021 00:00:00 SPRING Problems Condition Condition Condition Status Onset Resolution Last Treating Co mments Source Name Details Category Date Date Treatment Clinician Date Morbid Morbid Disease Active Univers obesity obesity 3-28 [place] mass index 00 Me dical of 50 or of 50 or Branch higher higher Morbid Morbid Disease Recurre Univers obesity obesity nce 3-28 [place] of [place] body [place] mass [place] mass index 00 Me dical of of Branch 40.0-49.9 40.0-49.9 Allergies, Adverse Reactions, Alerts Allergy Allergy Status Severity Reaction(s) Onset Inactive Treating Comm ents Source Name Type Date Date Clinician NO KNOWN Drug Active Univers ALLERGIE Class ity of S [facility] Social History Social Habit Start Date Stop Date Quantity Comments Source Exposure to 2021-12-28 2022-01-07 Not sure [facility] SARS-CoV-2 (event) 00:00:00 13:54:00 Medica l Branch Sex Ass[birth year] EDIN [facility] Medical 00:00:00 00:00:00 Center Smoking Status Start Date Stop Date Source Tobacco [facility] consumption [facility] Medications Ordered Filled Start Stop Current Ordering Indication Dosage Frequency Signature Comments Components Source Medication Medication Date Date Medication? Clinician (SIG) Name Name levoFLOXaci 2021-03- No 500mg Take 500 Univers n 500 mg 0-31 10-31 mg by ity of tablet 14:41: 00:00 mouth [place] 34 :00 every 24 Medical (twenty-fo Branch ur) hours. silver 2021-03- No [id number] Apply to U nivers sulfADIAZIN 0- 1108 area(s) 2 it y of E 00:00: 05:59 (two) [place] (SILVADENE) 00 :00 times Medical 1 % cream daily for Branc h 7 days. cephALEXin 2021-03- No [id number] 500mg Take 1 Univers (KEFLEX) 0-01-15 capsule by ity of 500 mg 00:00: 05:59 mouth 4 [place] capsule 00 :00 (four) Medical times Branch daily for 7 days. cyclobenzap 2016-03 Yes 5mg Take 1 Univ ers rine 5 mg 1-28 tablet by ity o f tablet 00:00: mouth 3 [place] 00 (three) Medical times Branch daily. cyclobenzap 2016-03 Yes 5mg Take 1 Univ ers rine 5 mg 1-28 tablet by ity o f tablet 00:00: mouth 3 [place] 00 (three) Medical times Branch daily. cyclobenzap 2016-03 Yes 5mg Take 1 Univ ers rine 5 mg 1-28 tablet by ity o f tablet 00:00: mouth 3 [place] 00 (three) Medical times Branch daily. cyclobenzap 2016-03 Yes 5mg Take 1 Univ ers rine 5 mg 1-28 tablet by ity o f tablet 00:00: mouth 3 [place] 00 (three) Medical times Branch daily. cyclobenzap 2016-03 Yes 5mg Take 1 Univ ers rine 5 mg 1-28 tablet by ity o f tablet 00:00: mouth 3 [place] 00 (three) Medical times Branch daily. cyclobenzap 2016-03 Yes 5mg Take 1 Univ ers rine 5 mg -28 tablet by ity o f tablet 00:00: mouth 3 [place] 00 (three) Medical times Branch daily. levothyroxi 2016-03 Yes 75ug Take 75 Uni vers ne 75 mcg 1-27 mcg by ity of tablet 23:05: mouth [place] 46 every Medical morning. Branch famotidine 2016-03 Yes 40mg Take 40 mg U nivers 40 mg 1-27 by mouth ity of tablet 23:05: at [place] [address] bedtime. Medical Branch atorvastati 2016-03 Yes 20mg Take 20 mg Univers n 20 mg 1-27 by mouth ity of tablet 23:05: at [place] [address] bedtime. Medical Branch hydroCHLORO 2016-03 Yes 12.5mg Take 12.5 Univers thiazide 1-27 mg by ity of 12.5 mg 23:05: mouth [place] [facility] 46 daily. Medical Branch levothyroxi 2016-03 Yes 75ug Take 75 Uni vers ne 75 mcg 1-27 mcg by ity of tablet 23:05: mouth [place] 46 every Medical morning. Branch clopidogrel 2016-03 Yes 75mg Take 75 mg Univers (PLAVIX) 75 1-27 by mouth ity of mg tablet 23:05: daily. [place] [address] Medical Branch lisinopril 2016-03 Yes 20mg Take 20 mg U nivers 20 mg 1-27 by mouth ity of tablet 23:05: daily. [place] [address] Medical Branch pantoprazol 2016-03 Yes 40mg Take 40 mg Univers e 40 mg EC 1-27 by mouth ity o f tablet 23:05: every [place] [address] morning. Medical Branch SERTraline 2016-03 Yes 50mg Take 50 mg U nivers 50 mg 1-27 by mouth ity of tablet 23:05: daily. [place] [address] Medical Branch metroNIDAZO 2016-03 Yes 500mg Take 500 U nivers LE 500 mg 1-27 mg by ity of tablet 23:05: mouth [place] 46 every 8 Medical (eight) Branch hours. famotidine 2016-03 Yes 40mg Take 40 mg U nivers 40 mg 1-27 by mouth ity of tablet 23:05: at [place] [address] bedtime. Medical Branch levothyroxi 2016-03 Yes 75ug Take 75 Uni vers ne 75 mcg 1-27 mcg by ity of tablet 23:05: mouth [place] 46 every Medical morning. Branch famotidine 2016-03 Yes 40mg Take 40 mg U nivers 40 mg 1-27 by mouth ity of tablet 23:05: at [place] [address] bedtime. Medical Branch atorvastati 2016-03 Yes 20mg Take 20 mg Univers n 20 mg 1-27 by mouth ity of tablet 23:05: at [place] [address] bedtime. Medical Branch hydroCHLORO 2016-03 Yes 12.5mg Take 12.5 Univers thiazide 1-27 mg by ity of 12.5 mg 23:05: mouth [place] capsule 46 daily. Medical Branch clopidogrel 2016-03 Yes 75mg Take 75 mg Univers (PLAVIX) 75 1-27 by mouth ity of mg tablet 23:05: daily. [place] [address] Medical Branch lisinopril 2016-03 Yes 20mg Take 20 mg U nivers 20 mg 1-27 by mouth ity of tablet 23:05: daily. [place] [address] Medical Branch atorvastati 2016-03 Yes 20mg Take 20 mg Univers n 20 mg 1-27 by mouth ity of tablet 23:05: at [place] [address] bedtime. Medical Branch pantoprazol 2016-03 Yes 40mg Take 40 mg Univers e 40 mg EC 1-27 by mouth ity o f tablet 23:05: every [place] [address] morning. Medical Branch SERTraline 2016-03 Yes 50mg Take 50 mg U nivers 50 mg 1-27 by mouth ity of tablet 23:05: daily. [place] [address] Medical Branch metroNIDAZO 2016-03 Yes 500mg Take 500 U nivers LE 500 mg 1-27 mg by ity of tablet 23:05: mouth [place] [address] every 8 Medical (eight) Branch hours. hydroCHLORO 2016-03 Yes 12.5mg Take 12.5 Univers thiazide 1-27 mg by ity of 12.5 mg 23:05: mouth [place] capsule 46 daily. Medical Branch clopidogrel 2016-03 Yes 75mg Take 75 mg Univers (PLAVIX) 75 1-27 by mouth ity of mg tablet 23:05: daily. [place] [address] Medical Branch lisinopril 2016-03 Yes 20mg Take 20 mg U nivers 20 mg 1-27 by mouth ity of tablet 23:05: daily. [place] [address] Medical Branch pantoprazol 2016-03 Yes 40mg Take 40 mg Univers e 40 mg EC 1-27 by mouth ity o f tablet 23:05: every [place] [address] morning. Medical Branch SERTraline 2016-03 Yes 50mg Take 50 mg U nivers 50 mg 1-27 by mouth ity of tablet 23:05: daily. [place] [address] Medical Branch levoFLOXaci 2016-03 Yes 500mg Take 500 U nivers n 500 mg 1-27 mg by ity of tablet 23:05: mouth [place] [address] every 24 Medical (twenty-fo Branch ur) hours. metroNIDAZO 2016-03 Yes 500mg Take 500 U nivers LE 500 mg 1-27 mg by ity of tablet 23:05: mouth [place] [address] every 8 Medical (eight) Branch hours. levothyroxi 2017 Yes 75ug Take 75 Uni vers ne 75 mcg 1-27 mcg by ity of tablet 23:05: mouth [place] [address] every Medical morning. Branch famotidine 2016-03 Yes 40mg Take 40 mg U nivers 40 mg 1-27 by mouth ity of tablet 23:05: at [place] [address] bedtime. Medical Branch atorvastati 2016-03 Yes 20mg Take 20 mg Univers n 20 mg 1-27 by mouth ity of tablet 23:05: at [place] [address] bedtime. Medical Branch hydroCHLORO 2016-03 Yes 12.5mg Take 12.5 Univers thiazide 1-27 mg by ity of 12.5 mg 23:05: mouth [place] [address] daily. Medical Branch clopidogrel 2016-03 Yes 75mg Take 75 mg Univers (PLAVIX) 75 1-27 by mouth ity of mg tablet 23:05: daily. [place] [address] Medical Branch lisinopril 2016-03 Yes 20mg Take 20 mg U nivers 20 mg 1-27 by mouth ity of tablet 23:05: daily. [place] [address] Medical Branch pantoprazol 2016-03 Yes 40mg Take 40 mg Univers e 40 mg EC 1-27 by mouth ity o f tablet 23:05: every [place] [address] morning. Medical Branch SERTraline 2016-03 Yes 50mg Take 50 mg U nivers 50 mg 1-27 by mouth ity of tablet 23:05: daily. [place] [address] Medical Branch levoFLOXaci 2016-03 Yes 500mg Take 500 U nivers n 500 mg 1-27 mg by ity of tablet 23:05: mouth [place] [address] every 24 Medical (twenty-fo Branch ur) hours. metroNIDAZO 2016-03 Yes 500mg Take 500 U nivers LE 500 mg 1-27 mg by ity of tablet 23:05: mouth [place] [address] every 8 Medical (eight) Branch hours. levothyroxi 2016-03 Yes 75ug Take 75 Uni vers ne 75 mcg 1-27 mcg by ity of tablet 23:05: mouth [place] [address] every Medical morning. Branch famotidine 2016-03 Yes 40mg Take 40 mg U nivers 40 mg 1-27 by mouth ity of tablet 23:05: at [place] [address] bedtime. Medical Branch atorvastati 2016-03 Yes 20mg Take 20 mg Univers n 20 mg 1-27 by mouth ity of tablet 23:05: at [place] [address] bedtime. Medical Branch hydroCHLORO 2016-03 Yes 12.5mg Take 12.5 Univers thiazide 1-27 mg by ity of 12.5 mg 23:05: mouth [place] [address] daily. Medical Branch clopidogrel 2016-03 Yes 75mg Take 75 mg Univers (PLAVIX) 75 1-27 by mouth ity of mg tablet 23:05: daily. [place] [address] Medical Branch lisinopril 2016-03 Yes 20mg Take 20 mg U nivers 20 mg 1-27 by mouth ity of tablet 23:05: daily. [place] [address] Medical Branch pantoprazol 2016-03 Yes 40mg Take 40 mg Univers e 40 mg EC 1-27 by mouth ity o f tablet 23:05: every [place] [address] morning. Medical Branch SERTraline 2016-03 Yes 50mg Take 50 mg U nivers 50 mg 1-27 by mouth ity of tablet 23:05: daily. [place] [address] Medical Branch levoFLOXaci 2016-03 Yes 500mg Take 500 U nivers n 500 mg 1-27 mg by ity of tablet 23:05: mouth [place] [address] every 24 Medical (twenty-fo Branch ur) hours. metroNIDAZO 2016-03 Yes 500mg Take 500 U nivers LE 500 mg 1-27 mg by ity of tablet 23:05: mouth [place] [address] every 8 Medical (eight) Branch hours. levothyroxi 2016-03 Yes 75ug Take 75 Uni vers ne 75 mcg 1-27 mcg by ity of tablet 23:05: mouth [place] [address] every Medical morning. Branch famotidine 2016-03 Yes 40mg Take 40 mg U nivers 40 mg 1-27 by mouth ity of tablet 23:05: at [place] [address] bedtime. Medical Branch atorvastati 2016-03 Yes 20mg Take 20 mg Univers n 20 mg 1-27 by mouth ity of tablet 23:05: at [place] [address] bedtime. Medical Branch hydroCHLORO 2016-03 Yes 12.5mg Take 12.5 Univers thiazide 1-27 mg by ity of 12.5 mg 23:05: mouth [facility] 46 daily. Medical Branch clopidogrel 2017 Yes 75mg Take 75 mg Univers (PLAVIX) 75 1-27 by mouth ity of mg tablet 23:05: daily. [place] [address] Medical Branch lisinopril 2017 Yes 20mg Take 20 mg U nivers 20 mg 1-27 by mouth ity of tablet 23:05: daily. [place] [address] Medical Branch pantoprazol 2016-03 Yes 40mg Take 40 mg Univers e 40 mg EC 1-27 by mouth ity o f tablet 23:05: every [place] [address] morning. Medical Branch SERTraline 2016-03 Yes 50mg Take 50 mg U nivers 50 mg 1-27 by mouth ity of tablet 23:05: daily. [place] [address] Medical Branch metroNIDAZO 2016-03 Yes 500mg Take 500 U nivers LE 500 mg 1-27 mg by ity of tablet 23:05: mouth [place] 46 every 8 Medical (eight) Branch hours. albuterol 2017 Yes 2.5mg Inhale 3 Uni vers 2.5 mg /3 3-28 mL every 4 ity of mL (0.083 00:00: (four) [place] %) 00 hours. May Medical nebulizer also Branch solution nebulize one extra every 6 hours. albuterol Yes 2.5mg Inhale 3 Uni vers 2.5 mg /3 3-28 mL every 4 ity of mL (0.083 00:00: ([facility]) [place] %) 00 hours. May Medical nebulizer also Branch solution nebulize one extra every 6 hours. albuterol 2017 Yes 2.5mg Inhale 3 Uni vers 2.5 mg /3 3-28 mL every 4 ity of mL (0.083 00:00: (four) [place] %) 00 hours. May Medical nebulizer also Branch solution nebulize one extra every 6 hours. albuterol Yes 2.5mg Inhale 3 Uni vers 2.5 mg /3 3-28 mL every 4 ity of mL (0.083 00:00: (four) [place] %) 00 hours. May Medical nebulizer also Branch solution nebulize one extra every 6 hours. albuterol 2017-0 Yes 2.5mg Inhale 3 Uni vers 2.5 mg /3 3-28 mL every 4 ity of mL (0.083 00:00: (four) [place] %) 00 hours. May Medical nebulizer also Branch solution nebulize one extra every 6 hours. albuterol 2017-0 Yes 2.5mg Inhale 3 Uni vers 2.5 mg /3 3-28 mL every 4 ity of mL (0.083 00:00: (four) [place] %) 00 hours. May Medical nebulizer also Branch solution nebulize one extra every 6 hours. traMADOL 2016-0 Yes 50mg Take 1 Univers (ULTRAM) 50 5-04 tablet by ity of mg tablet 00:00: mouth [place] 00 every 6 Medical (six) Branch hours as needed for Pain unrelieved by non-narcot ic analgesics . traMADOL 2016-0 Yes 50mg Take 1 Univers (ULTRAM) 50 5-04 tablet by ity of mg tablet 00:00: mouth [place] 00 every 6 Medical (six) Branch hours as needed for Pain unrelieved by non-narcot ic analgesics . traMADOL 2016-0 Yes 50mg Take 1 Univers (ULTRAM) 50 5-04 tablet by ity of mg tablet 00:00: mouth [place] 00 every 6 Medical (six) Branch hours as needed for Pain unrelieved by non-narcot ic analgesics . traMADOL 2016-0 Yes 50mg Take 1 Univers (ULTRAM) 50 5-04 tablet by ity of mg tablet 00:00: mouth [place] 00 every 6 Medical (six) Branch hours as needed for Pain unrelieved by non-narcot ic analgesics . traMADOL 2016-0 Yes 50mg Take 1 Univers (ULTRAM) 50 5-04 tablet by ity of mg tablet 00:00: mouth [place] 00 every 6 Medical (six) Branch hours as needed for Pain unrelieved by non-narcot ic analgesics . traMADOL 2016-0 Yes 50mg Take 1 Univers (ULTRAM) 50 5-04 tablet by ity of mg tablet 00:00: mouth [place] 00 every 6 Medical (six) Branch hours as needed for Pain unrelieved by non-narcot ic analgesics . Vital Signs Vital Name Observation Time Observation Value Comments Source Systolic blood 2022-01-07 19:29:00 167 mm[Hg] Univer sity of pressure [facility] Diastolic blood 2022-01-07 19:29:00 91 mm[Hg] Unive rsity of pressure [facility] Heart rate 2022-01-07 19:28:00 81 /min [facility] Body temperature 2022-01-07 19:28:00 36.94 [facility] 2022-01-07 19:28:00 18 /min [facility] Body height 2022-01-07 19:28:00 180.3 cm [facility] Body weight 2022-01-07 19:28:00 125.828 kg [facility] BMI 2022-01-07 19:28:00 38.69 kg/m2 [facility] Oxygen saturation in 2022-01-07 19:28:00 91 /min [facility] Arterial blood by [facility] Pulse oximetry Branch Procedures Procedure Date / Time Performed Performing Clinician Sour e XR ABDOMEN 2 2022-07-04 15:28:31 Mackenzie Ellis [facility] ASSIGNMENT OF BENEFITS 2022-07-04 15:06:41 Doctor Unassigned, No [facility] XR CERVICAL SPINE 3 2021-06-14 16:36:07 Mackenzie Ellis U [facility] NOTICE OF PRIVACY 2021-06-14 16:04:43 Doctor Unassigned, No [facility] PRACTICES [facility] Medical [place] CONSENT/REFUSAL FOR 2021-06-14 16:04:20 Doctor Unassigned, No [facility] DIAGNOSIS AND [facility] Medical Branch TREATMENT ASSIGNMENT OF BENEFITS 2021-06-14 16:04:01 Doctor Unassigned, No [facility] Medical Branch ASSIGNMENT OF BENEFITS 2021-06-06 16:04:31 Doctor Unassigned, No [facility] Encounters Start End Encounter Admission Attending Care Care Encounter Source Date/Time Date/Time Type Type Clinicians Facility Department ID 2022-07-04 2022-07-04 Outpatient R RADIOLOGY [facility] [id number] Univers 10:08:06 23:59:00 ity [facility] 2022-07-04 2022-07-04 Hospital Radiology [facility] [id number] [id number] Univers 10:08:06 23:59:00 Encounter [place] [id number] [id number] [id number] [facility] [address] [place] 2022-07-04 2022-07-04 Orders Doctor BARBARA [id number] [id number] Univers 00:00:00 00:00:00 Only Unassigned, JADA [id number] ity of [place] [facility] [id number] Frank as [id number] [facility] 009 Branch 2022-06-06 2022-06-06 Outpatient R MULU [facility] [id number] Univers 00:00:00 00:00:00 QUINTIN ity [facility] 2022-01-07 2022-01-07 Outpatient R ARELI [facility] [id number] Univers 13:40:00 14:46:02 SANGITA rodriguez o f [facility] 2022-01-07 2022-01-07 Urgent Sangita Singleton [facility] 1.2.840 .[id number] Univers 13:40:00 14:46:02 Care Unknown, Attending HEALTH [id number] ity of [place] [id number] Frank as GLADIS?BLEA [id number] [address] MEDICAL OFFICE BUILDING 2021-06-14 2021-06-14 Outpatient R RADIOLOGY [facility] [id number] Univers 10:58:24 23:59:00 ity [facility] 2021-06-14 2021-06-14 Hospital Radiology [facility] [id number] Univers 10:58:24 23:59:00 Encounter [place] [id number] it[facility] [id number] [id number] [facility] [address] [place] 2021-06-06 2021-06-06 Outpatient R RADIOLOGY [facility] [id number] Univers 11:08:00 23:59:00 ity of [facility] 2021-06-06 2021-06-06 Hospital Radiology [facility] [id number] Univers 11:00:00 23:59:00 Encounter [place] [id number] ity of [place] 4.2.7.2.686 [facility] [id number] [facility] 800 Branch 2021-06-06 2021-06-06 Orders Doctor BARBARA 1.2.840.114 [id number] 00:00:00 00:00:00 Only Unassigned, JADA [id number] ity of [place] [facility] [id number] [facility] [id number] [facility] 009 Branch Results This patient has no known results.
[2022-09-14] MEDS ORDERED: ONDANSETRON 4 MG/2 ML VIAL ONE (15:18)
[2022-09-14] MEDS ORDERED: NA CHLORIDE 0.9% 1,000 ML ONE (15:18)
[2022-09-14 15:59] LABS: Absolute Lymphocytes (CBC) 2.6 K/uL (0.7-4.9); Hematocrit 41.3 % (36.0-45.0); Lymphocytes % 29.8 % (15.3-44.8); MCV 81.6 fL (80-100); MPV 8.9 fL (7.6-11.3); RBC Red Blood Cell Count 5.06 M/uL (3.86-4.86)
--- NOTE | 2022-09-14 16:01 | RAD REPORT ---
EXAM DESCRIPTION: CT - Head Brain Wo Cont - 09/14/2022 3:31 pm CLINICAL HISTORY: Headache COMPARISON: 2019 TECHNIQUE: Computed axial tomography of the head was obtained. IV contrast was not requested. All CT scans are performed using dose optimization technique as appropriate and may include automated exposure control or mA/KV adjustment according to patient size. FINDINGS: An intracranial bleed is not seen The ventricles are normal in caliber No significant hypodense areas within the brain visualized No extra-axial fluid collection is noted. Fluid within the sinuses/ mastoids is not seen IMPRESSION: No acute intracranial abnormality is seen If patient's symptoms persist MRI of the brain would be recommended
--- NOTE | 2022-09-14 16:02 | RAD REPORT ---
EXAM DESCRIPTION: Diane Single View09/14/2022 3:30 pm CLINICAL HISTORY: cough COMPARISON: 2019 FINDINGS: The lungs appear clear of acute infiltrate. The heart is normal size IMPRESSION: No acute abnormalities displayed
[2022-09-14 16:29] LABS: Albumin 3.4 g/dL (3.4-5.0); Bilirubin Direct 0.1 mg/dL (0-0.2); Bilirubin Indirect, Calculated 0.3 mg/dL (0.2-0.8); Bilirubin Total 0.4 mg/dL (0.2-1.0); Magnesium 1.9 mg/dL (1.6-2.4); Potassium 3.6 mEq/L (3.5-5.1); Protein, Total 7.8 g/dL (6.4-8.2); Troponin High Sensitivity 4.8 pg/mL (<58.9)
[2022-09-14 17:55] LABS: Protime INR 1.06
[2022-09-14] MEDS ORDERED: MECLIZINE HCL 12.5 MG TAB ONE (18:36)
[2022-09-14] MEDS ORDERED: ASPIRIN 81 MG CHEWABLE TABLET ONE (18:36)
--- NOTE | 2022-09-14 19:02 | EDPHYS ---
Physician Documentation [facility] Name: Ernestina Link Age: 57 yrs Sex: Female : 1965 Arrival Date: 09/14/2022 Time: 14:57 Bed 15 Private MD: ED Physician Kong Borrego HPI: 09/14 18:51 This 57 yrs old Black Female presents to ER via EMS with complaints of Nausea, solitario Dizziness, Blurred Vision. 18:51 The patient presents to the emergency department with nausea, vomiting. Onset: The solitario symptoms/episode began/occurred 3 day(s) ago. The symptoms are aggravated by movement, The symptoms are alleviated by remaining still. Historical: - Allergies: 15:04 No Known Allergies; kc6 - PMHx: 15:04 Asthma; Diabetes - NIDDM; Hypertension; Hypothyroidism; neuropathy; kc6 Hypercholesterolemia; spinostenosis; - PSHx: 15:04 Appendectomy; Cholecystectomy; kc6 - Immunization history:: Client reports receiving the 2nd dose of the Covid vaccine, Flu vaccine is up to date. - Social history:: Smoking status: Patient denies any tobacco usage or history of. ROS: 18:52 Constitutional: Negative for fever, chills, and weight loss, ENT: Negative for injury, solitario pain, and discharge, Neck: Negative for injury, pain, and swelling, Cardiovascular: Negative for chest pain, palpitations, and edema, Respiratory: Negative for shortness of breath, cough, wheezing, and pleuritic chest pain, Back: Negative for injury and pain, : Negative for injury, bleeding, discharge, and swelling, MS/Extremity: Negative for injury and deformity, Skin: Negative for injury, rash, and discoloration, Psych: Negative for depression, anxiety, suicide ideation, homicidal ideation, and hallucinations, Allergy/Immunology: Negative for hives, rash, and allergies, Endocrine: Negative for neck swelling, polydipsia, polyuria, polyphagia, and marked weight changes, Hematologic/Lymphatic: Negative for swollen nodes, abnormal bleeding, and unusual bruising. 18:52 Abdomen/GI: Positive for nausea, vomiting. 18:52 Neuro: Positive for dizziness, visual changes, weakness. Exam: 18:53 Constitutional: This is a well developed, well nourished patient who is awake, alert, solitario and in no acute distress. Head/Face: Normocephalic, atraumatic. Eyes: Pupils equal round and reactive to light, extra-ocular motions intact. Lids and lashes normal. Conjunctiva and sclera are non-icteric and not injected. Cornea within normal limits. Periorbital areas with no swelling, redness, or edema. ENT: Nares patent. No nasal discharge, no septal abnormalities noted. Tympanic membranes are normal and external auditory canals are clear. Oropharynx with no redness, swelling, or masses, exudates, or evidence of obstruction, uvula midline. Mucous membranes moist. Neck: Trachea midline, no thyromegaly or masses palpated, and no cervical lymphadenopathy. Supple, full range of motion without nuchal rigidity, or vertebral point tenderness. No Meningismus. Chest/axilla: Normal chest wall appearance and motion. Nontender with no deformity. No lesions are appreciated. Cardiovascular: Regular rate and rhythm with a normal S1 and S2. No gallops, murmurs, or rubs. Normal PMI, no JVD. No pulse deficits. Respiratory: Lungs have equal breath sounds bilaterally, clear to auscultation and percussion. No rales, rhonchi or wheezes noted. No increased work of breathing, no retractions or nasal flaring. Back: No spinal tenderness. No costovertebral tenderness. Full range of motion. Female : Normal external genitalia. Skin: Warm, dry with normal turgor. Normal color with no rashes, no lesions, and no evidence of cellulitis. MS/ Extremity: Pulses equal, no cyanosis. Neurovascular intact. Full, normal range of motion. Neuro: Awake and alert, GCS 15, oriented to person, place, time, and situation. Cranial nerves II-XII grossly intact. Motor strength 5/5 in all extremities. Sensory grossly intact. Cerebellar exam normal. Normal gait. Psych: Awake, alert, with orientation to person, place and time. Behavior, mood, and affect are within normal limits. 18:53 ECG was reviewed by the Attending Physician. 18:53 Abdomen/GI: Inspection: distension, that is mild, Bowel sounds: normal, Palpation: nontender, Liver: no appreciated palpable abnormalities, Hernia: not appreciated. Vital Signs: 15:02 BP 141 / 78; Pulse 93; Resp 18 S; Temp 98.3(O); Pulse Ox 92% on R/A; Weight 122.92 kg kc6 (R); Height 5 ft. 11 in. (R); 15:57 BP 117 / 69; Pulse 80; Resp 19 S; Pulse Ox 93% on R/A; kc6 16:55 BP 136 / 60; Pulse 66; Resp 19 S; Pulse Ox 92% on R/A; kc6 17:46 BP 119 / 60; Pulse 75; Resp 16 S; Pulse Ox 96% on R/A; kc6 19:32 BP 136 / 66; Pulse 76; Resp 17 S; Pulse Ox 97% on R/A; lg3 15:02 Body Mass Index 37.80 (122.92 kg, 180.34 cm) kc6 MDM: 15:03 Patient medically screened. solitario 18:57 Differential diagnosis: viral gastroenteritis, gastroenteritis. Differential diagnosis: solitario cardiac arrhythmia, CVA, generalized weakness, near-syncope, TIA, vertigo. Data reviewed: vital signs, nurses notes, EMS record, lab test result(s), EKG, radiologic studies, CT scan, plain films. Consideration of Admission/Observation Patient was admitted/placed on observation. Escalation of care including admission/observation considered. I considered the following discharge prescriptions or medication management in the emergency department Medications were administered in the Emergency Department. See MAR. Independent interpretation of the following test(s) in the Emergency Department EKG: See my EKG interpretation above. Test considered but Not performed: MRI: mri brain. Care significantly affected by the following chronic conditions: Diabetes, Hypertension, Obesity, hypothroid. Counseling: I had a detailed discussion with the patient and/or guardian regarding: the historical points, exam findings, and any diagnostic results supporting the discharge/admit diagnosis, lab results, radiology results, the need for further work-up and treatment in the hospital. 09/14 15:05 Order name: Basic Metabolic Panel; Complete Time: 18:19 [facility] 09/14 15:05 Order name: CBC with Diff; Complete Time: 16:15 [facility] 09/14 15:05 Order name: LFT's; Complete Time: 18:19 [facility] 09/14 15:05 Order name: Magnesium; Complete Time: 18:19 [facility] 09/14 15:05 Order name: NT PRO-BNP; Complete Time: 18:19 [facility] 09/14 15:05 Order name: PT-INR; Complete Time: 18:19 [facility] 09/14 15:05 Order name: Troponin HS; Complete Time: 18:19 [facility] 09/14 15:05 Order name: Lipase; Complete Time: 18:19 [facility] 09/14 15:05 Order name: Urinalysis w/ reflexes; Complete Time: 19:53 [facility] 09/14 15:05 Order name: XRAY Chest (1 view); Complete Time: 16:15 [facility] 09/14 15:05 Order name: CT Head Brain wo Cont; Complete Time: 16:15 [facility] 09/14 18:22 Order name: CT Head Angio; Complete Time: 19:53 [facility] 09/14 18:22 Order name: CT Neck Angio; Complete Time: 19:53 [facility] 09/14 15:05 Order name: EKG; Complete Time: 15:06 [facility] 09/14 15:05 Order name: Cardiac monitoring; Complete Time: 15:07 [facility] 09/14 15:05 Order name: EKG - Nurse/Tech; Complete Time: 15:16 [facility] 09/14 15:05 Order name: IV Saline Lock; Complete Time: 15: [facility] 09/14 15:05 Order name: Labs collected and sent; Complete Time: 15:24 [facility] 09/14 15:05 Order name: O2 Per Protocol; Complete Time: 15: [facility] 09/14 15:05 Order name: O2 Sat Monitoring; Complete Time: 15: [facility] EC:53 Rate is 95 beats/min. Rhythm is regular. QRS [place] is Normal. [place] interval is normal. QRS solitario interval is normal. QT interval is prolonged at 477 msec. No Q waves. T waves are Normal. No ST changes noted. Clinical impression: NSR w/ Non-specific ST/T Changes and No evidence of ischemia. Interpreted by me. Reviewed by me. Administered Medications: 15:23 Drug: Ondansetron IVP 4 mg Route: IVP; Site: right hand; kc6 15:57 Follow up: Response: No adverse reaction; Nausea is decreased; Vomiting decreased kc6 15:43 Drug: NS 0.9% IV 1000 ml Route: IV; Rate: 1 bolus; Site: right hand; kc6 17:04 Follow up: Response: No adverse reaction; IV Status: Completed infusion; IV Intake: kc6 1000ml 18:33 Drug: Meclizine PO 25 mg Route: PO; kc6 19:11 Follow up: Response: No adverse reaction kc6 18:33 Drug: Aspirin PO Chewable Tablet 162 mg Route: PO; kc6 19:11 Follow up: Response: No adverse reaction kc6 19:31 Drug: Decadron - Dexamethasone IVP 10 mg Route: IVP; Site: right hand; lg3 Disposition Summary: 09/14/22 19:23 Transfer Ordered Transfer Location: 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 COMPRESSION Forms: - Medication Reconciliation Form solitario - SBAR form solitario Signatures: Dispatcher [employer] EDKong Torres MD MD cha Gibson, Lacie, RN RN lg3 Gayatri Gilman RN RN kc6 Corrections: (The following items were deleted from the chart) 19:15 19:01 Observation solitario solitario 19:15 19:01 Jayme Brennan solitario solitario 19:15 19:01 Telemetry/MedSurg (observation) solitario solitario 19:15 19:01 Stable soiltario solitario 19:15 19:01 new solitario solitario 19:15 19:01 have improved solitario solitario 19:15 19:01 Standard solitario solitario 19:15 19:01 solitario solitario 19:15 19:01 Dizziness and giddiness solitario solitario 19:15 19:01 Diplopia solitario solitario 19:15 19:01 Nausea solitario solitario 19:15 19:01 Type 2 diabetes mellitus with hyperglycemia solitario solitario 22:27 19:23 [facility] solitario lg3
--- NOTE | 2022-09-14 19:02 | ER ---
Nurse's Notes [facility] Name: Ernestina Link Age: 57 yrs Sex: Female : 1965 Arrival Date: 09/14/2022 Time: 14:57 Bed 15 Private MD: Diagnosis: Nausea;Dizziness and giddiness;Type 2 diabetes mellitus with hyperglycemia;Unspecified cord compression-Left posterior - lateral disc osteophyte complexC4-C5 WITH SIGNIFICAT CORD COMPRESSION Presentation: 09/14 15:02 Chief complaint: EMS states: nausea, dizziness, and blurred vision that began on 09/11. kc6 BGL en route 176. 4mg of IV zofran given en route. Coronavirus screen: At this time, the client does not indicate any symptoms associated with coronavirus-19. Ebola Screen: No symptoms or risks identified at this time. Initial Sepsis Screen: Does the patient meet any 2 criteria? No. Patient's initial sepsis screen is negative. Does the patient have a suspected source of infection? No. Patient's initial sepsis screen is negative. Risk Assessment: Do you want to hurt yourself or someone else? Patient reports no desire to harm self or others. Onset of symptoms was September 14, 2022. 15:02 Method Of Arrival: EMS: [facility] kc6 15:02 Acuity: TAHIRA 3 kc6 Triage Assessment: 15:04 General: Appears in no apparent distress. comfortable, Behavior is cooperative, kc6 appropriate for age, crying. Pain: Denies pain. EENT: Reports blurred vision since 09/11/22. Neuro: Padron Agitation-Sedation Scale (RASS): 0 - Alert and Calm Level of Consciousness is awake, alert, obeys commands, Oriented to person, place, time, situation, Appropriate for age Screen Roller are equal bilaterally Moves all extremities. Gait is steady, Speech is normal, Facial symmetry appears normal, Pupils are PERRLA, Reports dizziness, since 09/11/22. Cardiovascular: Capillary refill < 3 seconds. Respiratory: Airway is patent Trachea midline Respiratory effort is even, unlabored, Respiratory pattern is regular, symmetrical. GI: Reports nausea, Patient currently denies abdominal pain, diarrhea, vomiting. : No signs and/or symptoms were reported regarding the genitourinary system. Derm: No signs and/or symptoms reported regarding the dermatologic system. Skin is intact, is healthy with good turgor, Skin is pink, warm \T\ dry. Musculoskeletal: No signs and/or symptoms reported regarding the musculoskeletal system. Circulation, motion, and sensation intact. Capillary refill < 3 seconds, Range of motion: intact in all extremities. Historical: - Allergies: 15:04 No Known Allergies; kc6 - PMHx: 15:04 Asthma; Diabetes - NIDDM; Hypertension; Hypothyroidism; neuropathy; kc6 Hypercholesterolemia; spinostenosis; - PSHx: 15:04 Appendectomy; Cholecystectomy; kc6 - Immunization history:: Client reports receiving the 2nd dose of the Covid vaccine, Flu vaccine is up to date. - Social history:: Smoking status: Patient denies any tobacco usage or history of. Screenin:06 [facility] ED Fall Risk Assessment (Adult) History of falling in the last 3 months, kc6 including since admission No falls in past 3 months (0 pts) Confusion or Disorientation No (0 pts) Intoxicated or Sedated No (0 pts) Impaired Gait No (0 pts) Mobility Assist Device Used No (0 pt) Altered Elimination No (0 pt) Score/Fall Risk Level 0 - 2 = Low Risk Oriented to surroundings, Maintained a safe environment, Educated pt \T\ family on fall prevention, incl call for assistance when getting out of bed, Assessed \T\ reinforced patient's understanding of fall precautions, Hourly rounding (assess needs \T\ fall precautionary measures) done. Abuse screen: Denies threats or abuse. Denies injuries from another. Nutritional screening: No deficits noted. Tuberculosis screening: No symptoms or risk factors identified. Assessment: 15:07 Reassessment: please see triage assessment. kc6 15:57 Reassessment: Patient appears in no apparent distress at this time. No changes from 6 previously documented assessment. Patient and/or family updated on plan of care and expected duration. Pain level reassessed. Patient is alert, oriented x 3, equal unlabored respirations, skin warm/dry/pink. 16:55 Reassessment: Patient appears in no apparent distress at this time. No changes from 6 previously documented assessment. Patient and/or family updated on plan of care and expected duration. Pain level reassessed. Patient is alert, oriented x 3, equal unlabored respirations, skin warm/dry/pink. 17:46 Reassessment: Patient appears in no apparent distress at this time. No changes from kc6 previously documented assessment. Patient and/or family updated on plan of care and expected duration. Pain level reassessed. Patient is alert, oriented x 3, equal unlabored respirations, skin warm/dry/pink. Patient denies pain at this time. Patient states feeling better. Patient states symptoms have improved. 18:46 Reassessment: Patient appears in no apparent distress at this time. No changes from kc6 previously documented assessment. Patient and/or family updated on plan of care and expected duration. Pain level reassessed. Patient is alert, oriented x 3, equal unlabored respirations, skin warm/dry/pink. 19:32 General: Appears in no apparent distress. comfortable, Behavior is calm, cooperative. lg3 Pain: Denies pain. Neuro: Padron Agitation-Sedation Scale (RASS): 0 - Alert and Calm Reports blurred vision dizziness. Cardiovascular: No deficits noted. Denies chest pain, shortness of breath, Capillary refill < 3 seconds Clubbing of nail beds is absent JVD is absent Patient's skin is warm and dry. Respiratory: No deficits noted. Airway is patent Respiratory effort is even, unlabored, Respiratory pattern is regular, symmetrical. GI: No deficits noted. Abdomen is round non-distended, obese, Abd is soft and non tender X 4 quads. : No deficits noted. No signs and/or symptoms were reported regarding the genitourinary system. EENT: No deficits noted. Derm: No deficits noted. No signs and/or symptoms reported regarding the dermatologic system. Skin is intact, is healthy with good turgor, Skin is dry, Skin is normal, Skin temperature is warm. Musculoskeletal: No deficits noted. Circulation, motion, and sensation intact. Range of motion: intact in all extremities. 22:23 Reassessment: Patient appears in no apparent distress at this time. No changes from lg3 previously documented assessment. Patient and/or family updated on plan of care and expected duration. Pain level reassessed. Patient is alert, oriented x 3, equal unlabored respirations, skin warm/dry/pink. Patient denies pain at this time. Vital Signs: 15:02 BP 141 / 78; Pulse 93; Resp 18 S; Temp 98.3(O); Pulse Ox 92% on R/A; Weight 122.92 kg kc6 (R); Height 5 ft. 11 in. (R); 15:57 BP 117 / 69; Pulse 80; Resp 19 S; Pulse Ox 93% on R/A; kc6 16:55 BP 136 / 60; Pulse 66; Resp 19 S; Pulse Ox 92% on R/A; kc6 17:46 BP 119 / 60; Pulse 75; Resp 16 S; Pulse Ox 96% on R/A; kc6 19:32 BP 136 / 66; Pulse 76; Resp 17 S; Pulse Ox 97% on R/A; lg3 15:02 Body Mass Index 37.80 (122.92 kg, 180.34 cm) 6 ED Course: 15:02 Patient arrived in ED. kc6 15:02 Kong Borrego MD is Attending Physician. [facility] 15:04 Triage completed. kc6 15:06 Maintain EMS IV. Dressing intact. Good blood return noted. Site clean \T\ dry. Gauge \T\ chitra 6 site: 20G R Hand. 15:07 Gayatri Gilman, RN is Primary Nurse. kc6 15:07 Arm band placed on. kc6 15:07 Patient has correct armband on for positive identification. Bed in low position. Call [facility] light in reach. Side rails up X2. 15:32 XRAY Chest (1 view) In Process Unspecified. EDMS 15:32 CT Head Brain wo Cont In Process Unspecified. EDMS 18:39 Inserted saline lock: 20 gauge in right antecubital area, using aseptic technique. kc6 18:57 CT Head Angio In Process Unspecified. EDMS 18:57 CT Neck Angio In Process Unspecified. EDMS 19:00 Jayme Brennan MD is Hospitalizing Provider. solitario 19:08 Urinalysis w/ reflexes Sent. lg3 19:18 Initiated Transfer with Dea Monzon at [facility]. rv1 19:32 Client placed on continuous cardiac and pulse oximetry monitoring. NIBP monitoring lg3 applied. monitoring tech on. Door closed. Noise minimized. Warm blanket given. 20:23 Pt accepted to [facility] by Dr. Iyer. Dea at transfer center said she will call back rv1 with a bed number for pt. 21:16 Called Dea at [facility] for update on bed placement for Pt and was told they were rv1 waiting for the room to finish being cleaned but will call back when done. 21:32 Pt accepted to [facility] to Rm [id number]. rv1 22:23 No provider procedures requiring assistance completed. Patient transferred, IV remains lg3 in place. intact, No redness/swelling at site. Administered Medications: 15:23 Drug: Ondansetron IVP 4 mg Route: IVP; Site: right hand; kc6 15:57 Follow up: Response: No adverse reaction; Nausea is decreased; Vomiting decreased kc6 15:43 Drug: NS 0.9% IV 1000 ml Route: IV; Rate: 1 bolus; Site: right hand; kc6 17:04 Follow up: Response: No adverse reaction; IV Status: Completed infusion; IV Intake: kc6 1000ml 18:33 Drug: Meclizine PO 25 mg Route: PO; kc6 19:11 Follow up: Response: No adverse reaction kc6 18:33 Drug: Aspirin PO Chewable Tablet 162 mg Route: PO; kc6 19:11 Follow up: Response: No adverse reaction kc6 19:31 Drug: Decadron - Dexamethasone IVP 10 mg Route: IVP; Site: right hand; lg3 Medication: 22:24 VIS not applicable for this client. lg3 Intake: 17:04 IV: 1000ml; Total: 1000ml. kc6 Outcome: 19:01 Decision to Hospitalize by Provider. solitario 19:23 ER care complete, transfer ordered by . solitario 22:23 Transferred by ground EMS to [facility], Transfer form completed. lg3 22:23 Condition: stable 22:23 Instructed on the need for transfer, Demonstrated understanding of instructions. 22:27 Patient left the ED. lg3 Signatures: Dispatcher [employer] Kong Whitney MD MD cha Gibson, Lacie, RN RN lg3 Gayatri Gilman RN RN kc6 Anais Mercer rv1 Corrections: (The following items were deleted from the chart) 17:47 17:46 Reassessment: Patient appears in no apparent distress at this time. No changes kc6 from previously documented assessment. Patient and/or family updated on plan of care and expected duration. Pain level reassessed. Patient is alert, oriented x 3, equal unlabored respirations, skin warm/dry/pink. kc6 19:10 19:00 Reassessment: Patient appears in no apparent distress at this time. No changes kc6 from previously documented assessment. Patient and/or family updated on plan of care and expected duration. Pain level reassessed. Patient is alert, oriented x 3, equal unlabored respirations, skin warm/dry/pink. kc6
--- NOTE | 2022-09-14 19:10 | RAD REPORT ---
EXAM DESCRIPTION: Aj Angio09/14/2022 6:55 pm CLINICAL HISTORY: Blurred vision/dizziness COMPARISON: None TECHNIQUE: 100 cc Isovue 370 was administered intravenously. 3D MIP reconstruction performed All CT scans are performed using dose optimization technique as appropriate and may include automated exposure control or mA/KV adjustment according to patient size. FINDINGS: Mild plaque is present common carotid, internal carotid external carotid arteries bilater ally Vertebral arteries are codominant. No significant stenosis. No dissection. Left posterior-lateral disc osteophyte complex C4-5 results in significant compression of spinal cord . This in combination with spondylosis result in marked bilateral foraminal stenosis IMPRESSION: Mild plaque within carotid arteries NASCET criteria used. Mild 0-49% stenosis Moderate 50-69% stenosis Severe 70-99% stenosis
--- NOTE | 2022-09-14 19:12 | RAD REPORT ---
EXAM DESCRIPTION: CTHead angio09/14/2022 6:55 pm CLINICAL HISTORY: Blurred vision/dizziness COMPARISON: None TECHNIQUE: 100 cc Isovue [address] angiogram of the head was obtained. 3D MIPS reconstruction performed. All CT scans are performed using dose optimization technique as appropriate and may include automated exposure control or mA/KV adjustment according to patient size. FINDINGS: The basilar, internal carotid, anterior cerebral, middle cerebral and posterior cerebral a rteries do not demonstrate a significant stenosis An aneurysm is not seen No large vessel occlusion IMPRESSION: No significant abnormality is displayed
[2022-09-14] MEDS ORDERED: dexAMETHasone 10 MG/ML VIAL ONE (19:35)
[2022-09-14 19:46] LABS: Specific Gravity > 1.030 (1.005-1.030); Urine Bacteria None Seen /HPF (<20); Urine Bilirubin NEGATIVE (Negative); Urine Blood Negative (Negative); Urine Clarity Clear (Clear); Urine Color Yellow (Yellow); Urine Glucose NEGATIVE (Negative); Urine Mucus 1+ /HPF (None Seen); Urine Protein TRACE (Negative); Urine RBC <5 /HPF (None Seen); Urine Urobilinogen 1+ (Normal)
[2022-09-14 23:01] VITALS: TEMP 98.3
[2022-09-14 23:06] VITALS: BP 136/66; O2SAT 97
--- NOTE | 2022-09-16 17:16 | EKG ---
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
== END 2022-09-14 22:27 | disposition short-term general hospital (02) ==
LOC: ER 14:57
DX: E11.65 Type 2 diabetes mellitus with hyperglycemia (principal); R11.2 Nausea with vomiting, unspecified; G95.29 Other cord compression; M25.78 Osteophyte, vertebrae; E11.40 Type 2 diabetes mellitus with diabetic neuropathy, unspecified; I10 Essential (primary) hypertension; E03.9 Hypothyroidism, unspecified; E78.00 Pure hypercholesterolemia, unspecified; Z90.49 Acquired absence of other specified parts of digestive tract
CPT/HCPCS: 96361; 93005; 85025; 81001; 80048; 36415; 83735; 85610; 80076; 84484; 83690; 83880; 70450; 70496; 70498; 71045; 96375; 96374; 99285; Q9967; J8597; J1100; J2405; J7030

== ENCOUNTER 2022-09-24 10:08 | Inpatient (IN) | payer OTHER ==
--- OUTSIDE RECORDS SUMMARY | 2022-09-24 12:10 | XMS REPORT | Continuity of Care Document ---
:1965 Author Organization [facility] t Address [address] [facility] [address] [place] [address] Care Team Providers Name Role Phone TORREY ALMANZA Primary Care Physician Unavailable AMERICA THOMAS Attending Clinician Unavailable DAVID SIMENTAL Attending Clinician Unavailable ABEL KRUEGER Attending Clinician Unavailable AINSLEY RODRIGUEZ Attending Clinician Unavailable RADIOLOGY Attending Clinician Unavailable Radiology Attending Clinician Unavailable Doctor Unassigned, [place] Attending Clinician Unavailable QUINTIN HARDWICK Attending Clinician Unavailable SANGITA SAUL Attending Clinician Unavailable Sangita Martines Attending Clinician Unknown, Attending Attending Clinician Unavailable AINSLEY RODRIGUEZ Admitting Clinician Unavailable MACKENZIE PERALTA Admitting Clinician Unavailable TORREY ALMANZA Admitting Clinician Unavailable Payers Payer Name Policy Type Policy Number Effective Date Expiration Date Frank chambers [facility] [id number] 2022 [facility] 00:00:00 [facility] [id number] 2022 00:00:00 [facility] [id number] 2021 00:00:00 Problems Condition Condition Condition Status Onset Resolution Last Treating Co mments Source Name Details Category Date Date Treatment Clinician Date Morbid Morbid Disease Active [facility] obesity obesity 3-28 ity of with body [...] ents Source Name Type Date Date Clinician JB Allergy Active Other [facility] 09[facility]15 [facility] NO KNOWN Allergy Active [facility] ALLERGIE S NO KNOWN Drug Active Univers ALLERGIE Class ity of S [place] Medical [place] Social History Social Habit Start Date Stop Date Quantity Comments Source Exposure to 2021-12-28 2022-01-07 Not sure [facility] SARS-CoV-2 (event) 00:00:00 13:54:00 Medica l Branch Sex Ass[birth year] At [birth year] [facility] Medical 00:00:00 00:00:00 [place] Smoking Status Start Date Stop Date Source Tobacco smoking consumption [facility] Branch Medications Ordered Filled Start Stop Current Ordering Indication Dosage Frequency Signature Comments Components Source Medication Medication Date Date Medication? Clinician (SIG) Name Name levoFLOXaci 2021-03- No 500mg Take 500 Univers n 500 mg 0-31 10-31 mg by ity of tablet 14:41: 00:00 mouth [place] 34 :00 every 24 Medical (twenty-fo Branch ur) hours. silver 2021-03- No [id number] Apply to U nivers sulfADIAZIN 0-31 11-08 area(s) 2 it y of E 00:00: 05:59 (two) [place] (SILVADENE) 00 :00 times Medical 1 % cream daily for Branc h 7 days. cephALEXin 2021-03- No [id number] 500mg Take 1 Univers (KEFLEX) 0-31 11-08 capsule by ity of 500 mg 00:00: [...] ity o f tablet 00:00: mouth 3 [place] 00 (three) Medical times Branch daily. cyclobenzap 2016-03 Yes 5mg Take 1 Univ ers rine 5 mg 1-28 tablet by ity o f tablet 00:00: mouth 3 [place] 00 (three) Medical times Branch daily. cyclobenzap 2016-03 Yes 5mg Take 1 Univ ers rine 5 mg 1-28 tablet by ity o f tablet 00:00: mouth 3 [place] 00 (three) Medical times Branch daily. levothyroxi 2016-03 Yes 75ug Take 75 Uni vers ne 75 mcg 1-27 mcg by ity of tablet 23:05: mouth [place] [address] every Medical morning. Branch famotidine 2016-03 Yes 40mg Take 40 mg U nivers 40 mg 1-27 by mouth ity of tablet 23:05: at [place] [address] bedtime. Medical Branch atorvastati 2016-03 Yes 20mg Take 20 mg Univers n 20 mg 1-27 by mouth ity of tablet 23:05: at [place] [address] bedtime. Medical Branch hydroCHLORO 2016-03 Yes 12.5mg Take 12.5 Univers thiazide 1-27 mg by ity of 12.5 mg 23:05: mouth [facility] 46 daily. Medical Branch levothyroxi 2016-03 Yes 75ug Take 75 Uni vers ne 75 mcg 1-27 mcg by ity of tablet 23:05: mouth [place] 46 every Medical morning. Branch clopidogrel 2016-03 Yes 75mg Take 75 mg Univers (PLAVIX) 75 1-27 by mouth ity of mg tablet 23:05: daily. [place] [address] Medical Branch lisinopril 2016-03 Yes 20mg Take 20 mg U nivers 20 mg 1-27 by mouth ity of tablet 23:05: daily. [place] [address] Medical Branch pantoprazol 2016-03 Yes 40mg Take 40 mg Univers e 40 mg EC 1-27 by mouth ity o f tablet 23:05: every [place] [address] morning. Medical Branch SERTraline 2016-03 Yes 50mg Take 50 mg U nivers 50 mg 1-27 by mouth ity of tablet 23:05: daily. [place] [address] Medical Branch metroNIDAZO 2016-03 Yes 500mg Take 500 U nivers LE 500 mg 1-27 mg by ity of tablet 23:05: mouth [place] [address] every 8 Medical (eight) Branch hours. famotidine 2016-03 Yes 40mg Take 40 mg U nivers 40 mg 1-27 by mouth ity of tablet 23:05: at [place] [address] bedtime. Medical Branch levothyroxi 2016-03 Yes 75ug Take 75 Uni vers ne 75 mcg 1-27 mcg by ity of tablet 23:05: mouth [place] [address] every Medical morning. Branch famotidine 2016-03 Yes 40mg Take 40 mg U nivers 40 mg 1-27 by mouth ity of tablet 23:05: at [place] [address] bedtime. Medical Branch atorvastati 2016-03 Yes 20mg Take 20 mg Univers n 20 mg 1-27 by mouth ity of tablet 23:05: at [place] [address] bedtime. Medical Branch hydroCHLORO 2016-03 Yes 12.5mg Take 12.5 Univers thiazide 1-27 mg by ity of 12.5 mg 23:05: mouth [place] [address] daily. Medical Branch clopidogrel 2016-03 Yes 75mg Take 75 mg Univers (PLAVIX) 75 1-27 by mouth ity of mg tablet 23:05: daily. [place] [address] Medical Branch lisinopril 2016-03 Yes 20mg Take 20 mg U nivers 20 mg 1-27 by mouth ity of tablet 23:05: daily. [place] [address] Medical Branch atorvastati 2016-03 Yes 20mg Take 20 mg Univers n 20 mg 1-27 by mouth ity of tablet 23:05: at [place] [address] bedtime. Medical Branch pantoprazol 2016-03 Yes 40mg Take 40 mg Univers e 40 mg EC 1-27 by mouth ity o f tablet 23:05: every [place] [address] morning. Medical Branch SERTraline 2016-03 Yes 50mg Take 50 mg U nivers 50 mg 1-27 by mouth ity of tablet 23:05: daily. [place] [address] Medical Branch metroNIDAZO 2016-03 Yes 500mg Take 500 U nivers LE 500 mg 1-27 mg by ity of tablet 23:05: mouth [place] [address] every 8 Medical (eight) Branch hours. hydroCHLORO 2016-03 Yes 12.5mg Take 12.5 Univers thiazide 1-27 mg by ity of 12.5 mg 23:05: mouth [place] capsule 46 daily. Medical Branch clopidogrel 2016-03 Yes 75mg Take 75 mg Univers (PLAVIX) 75 1-27 by mouth ity of mg tablet 23:05: daily. [place] [address] Medical Branch lisinopril 2016-03 Yes 20mg Take 20 mg U nivers 20 mg 1-27 by mouth ity of tablet 23:05: daily. [place] [address] Medical Branch pantoprazol 2016-03 Yes 40mg Take 40 mg Univers e 40 mg EC 1-27 by mouth ity o f tablet 23:05: every [place] [address] morning. Medical Branch SERTraline 2016-03 Yes 50mg Take 50 mg U nivers 50 mg 1-27 by mouth ity of tablet 23:05: daily. [place] [address] Medical Branch levoFLOXaci 2016-03 Yes 500mg Take 500 U nivers n 500 mg 1-27 mg by ity of tablet 23:05: mouth [place] [address] every 24 Medical (twenty-fo Branch ur) hours. metroNIDAZO 2016-03 Yes 500mg Take 500 U nivers LE 500 mg 1-27 mg by ity of tablet 23:05: mouth [place] [address] every 8 Medical (eight) Branch hours. levothyroxi 2016-03 Yes 75ug Take 75 Uni vers ne 75 mcg 1-27 mcg by ity of tablet 23:05: mouth [place] [address] every Medical morning. Branch famotidine 2016-03 Yes 40mg Take 40 mg U nivers 40 mg 1-27 by mouth ity of tablet 23:05: at [place] [address] bedtime. Medical Branch atorvastati 2016-03 Yes 20mg Take 20 mg Univers n 20 mg 1-27 by mouth ity of tablet 23:05: at [place] [address] bedtime. Medical Branch hydroCHLORO 2016-03 Yes 12.5mg Take 12.5 Univers thiazide 1-27 mg by ity of 12.5 mg 23:05: mouth [place] capsule 46 daily. Medical Branch clopidogrel 2016-03 Yes 75mg Take 75 mg Univers (PLAVIX) 75 1-27 by mouth ity of mg tablet 23:05: daily. [place] [address] Medical Branch lisinopril 2016-03 Yes 20mg Take 20 mg U nivers 20 mg 1-27 by mouth ity of tablet 23:05: daily. [place] [address] Medical Branch pantoprazol 2016-03 Yes 40mg Take 40 mg Univers e 40 mg EC 1-27 by mouth ity o f tablet 23:05: every [place] [address] morning. Medical Branch SERTraline 2016-03 Yes 50mg Take 50 mg U nivers 50 mg 1-27 by mouth ity of tablet 23:05: daily. [place] [address] Medical Branch levoFLOXaci 2016-03 Yes 500mg Take 500 U nivers n 500 mg 1-27 mg by ity of tablet 23:05: mouth [place] [address] every 24 Medical (twenty-fo Branch ur) hours. metroNIDAZO 2016-03 Yes 500mg Take 500 U nivers LE 500 mg 1-27 mg by ity of tablet 23:05: mouth [place] [address] every 8 Medical (eight) Branch hours. levothyroxi 2017 Yes 75ug Take 75 Uni vers ne 75 mcg 1-27 mcg by ity of tablet 23:05: mouth [place] [address] every Medical morning. Branch famotidine 2016-03 Yes 40mg Take 40 mg U nivers 40 mg 1-27 by mouth ity of tablet 23:05: at [place] [address] bedtime. Medical Branch atorvastati 2016-03 Yes 20mg Take 20 mg Univers n 20 mg 1-27 by mouth ity of tablet 23:05: at [place] [address] bedtime. Medical Branch hydroCHLORO 2016-03 Yes 12.5mg Take 12.5 Univers thiazide 1-27 mg by ity of 12.5 mg 23:05: mouth [place] [address] daily. Medical Branch clopidogrel 2016-03 Yes 75mg Take 75 mg Univers (PLAVIX) 75 1-27 by mouth ity of mg tablet 23:05: daily. [place] [address] Medical Branch lisinopril 2016-03 Yes 20mg Take 20 mg U nivers 20 mg 1-27 by mouth ity of tablet 23:05: daily. [place] [address] Medical Branch pantoprazol 2016-03 Yes 40mg Take 40 mg Univers e 40 mg EC 1-27 by mouth ity o f tablet 23:05: every [place] [address] morning. Medical Branch SERTraline 2016-03 Yes 50mg Take 50 mg U nivers 50 mg 1-27 by mouth ity of tablet 23:05: daily. [place] [address] Medical Branch levoFLOXaci 2016-03 Yes 500mg Take 500 U nivers n 500 mg 1-27 mg by ity of tablet 23:05: mouth [place] [address] every 24 Medical (twenty-fo Branch ur) hours. metroNIDAZO 2016-03 Yes 500mg Take 500 U nivers LE 500 mg 1-27 mg by ity of tablet 23:05: mouth [place] [address] every 8 Medical (eight) Branch hours. levothyroxi 2016-03 Yes 75ug Take 75 Uni vers ne 75 mcg 1-27 mcg by ity of tablet 23:05: mouth [place] [address] every Medical morning. Branch famotidine 2016-03 Yes 40mg Take 40 mg U nivers 40 mg 1-27 by mouth ity of tablet 23:05: at [place] [address] bedtime. Medical Branch atorvastati 2016-03 Yes 20mg Take 20 mg Univers n 20 mg 1-27 by mouth ity of tablet 23:05: at [place] [address] bedtime. Medical Branch hydroCHLORO 2016-03 Yes 12.5mg Take 12.5 Univers thiazide 1-27 mg by ity of 12.5 mg 23:05: mouth [place] [address] daily. Medical Branch clopidogrel 2016-03 Yes 75mg Take 75 mg Univers (PLAVIX) 75 1-27 by mouth ity of mg tablet 23:05: daily. [place] [address] Medical Branch lisinopril 2016-03 Yes 20mg Take 20 mg U nivers 20 mg 1-27 by mouth ity of tablet 23:05: daily. [place] [address] Medical Branch pantoprazol 2016-03 Yes 40mg Take 40 mg Univers e 40 mg EC 1-27 by mouth ity o f tablet 23:05: every [place] [address] morning. Medical Branch SERTraline 2016-03 Yes 50mg Take 50 mg U nivers 50 mg 1-27 by mouth ity of tablet 23:05: daily. [place] [address] Medical Branch metroNIDAZO 2016-03 Yes 500mg Take 500 U nivers LE 500 mg 1-27 mg by ity of tablet 23:05: mouth [place] [address] every 8 Medical (eight) Branch hours. albuterol Yes 2.5mg Inhale 3 Uni [...] by ity of mg tablet 00:00: mouth [place] 00 every 6 Medical (six) Branch hours as needed for Pain unrelieved by non-narcot ic analgesics . traMADOL 2015-0 Yes 50mg Take 1 Univers (ULTRAM) 50 5-04 tablet by ity of mg tablet 00:00: mouth [place] 00 every 6 Medical (six) Branch hours as needed for Pain unrelieved by non-narcot ic analgesics . Vital Signs Vital Name Observation Time Observation Value Comments Source WEIGHT 2022-09-23 15:00:00 123.832 kg WEIGHT 2022-09-23 08:00:00 123.832 kg WEIGHT 2022-09-22 15:00:00 123.832 kg WEIGHT 2022-09-23 15:00:00 123.832 kg WEIGHT 2022-09-23 08:00:00 123.832 kg WEIGHT 2022-09-22 15:00:00 123.832 kg Systolic blood 2022-01-07 19:29:00 167 [facility]Hg[facility] Diastolic blood 2022-01-07 19:29:00 91 mm[Hg] [facility] Heart rate 2022-01-07 19:28:00 81 /min [facility] Body temperature 2022-01-07 19:28:00 36.94 Kristen [facility] Respiratory rate 2022-01-07 19:28:00 18 /min [facility] Body height 2022-01-07 19:28:00 180.3 cm [facility] Body weight 2022-01-07 19:28:00 125.828 kg [facility] BMI 2022-01-07 19:28:00 38.69 kg/m2 [facility] Oxygen saturation in 2022-01-07 19:28:00 91 /min [facility] blood by [facility] Pulse oximetry Branch Procedures Procedure Date / Time Performed Performing Clinician Sourc e XR ABDOMEN 2 VW 2022-07-04 15:28:31 Mackenzie Peralta [facility] ASSIGNMENT OF BENEFITS 2022-07-04 15:06:41 Doctor Unassigned, No [facility] Medical Branch XR CERVICAL SPINE 3 VW 2021-06-14 16:36:07 Mackenzie Peralta [facility] NOTICE OF PRIVACY 2021-06-14 16:04:43 Doctor Unassigned, No [facility] Name Medical Branch CONSENT/REFUSAL FOR 2021-06-14 16:04:20 Doctor Unassigned, No [facility] DIAGNOSIS AND Name Medical Branch TREATMENT ASSIGNMENT OF BENEFITS 2021-06-14 16:04:01 Doctor Unassigned, No [facility] Medical Branch ASSIGNMENT OF BENEFITS 2021-06-06 16:04:31 Doctor Unassigned, No [facility] Encounters Start End Encounter Admission Attending Care Care Encounter Source Date/Time Date/Time Type Type Clinicians Facility Department ID 2022-09-20 Inpatient ER [facility] [id number] [facility] 11:17:02 [facility] 2022-09-19 Inpatient ER WILLIAM, [facility] [id number] [facility] 21:16:26 [facility] 2022-09-19 [id number] 14:35:03 [facility] 2022-09-18 [facility] [id number] [facility] 13:24:59 [facility] 2022-09-17 Inpatient ER [facility] [id number] [facility] 09:53:04 [facility] 2022-09-17 Inpatient ER GROCHMAL, SLE SLE [id number] [facility] 09:52:49 [facility] 2022-09-16 [facility] [id number] [facility] 15:17:43 [facility] 2022-09-16 Inpatient ER EVANS, SLE SLE [id number] [facility] 08:31:14 [facility] 2022-09-15 Inpatient ER EVANS, SLE SLE [id number] [facility] 11:00:24 [facility] 2022-09-15 [facility] [id number] [facility] 10:44:36 [facility] 2022-09-15 [address] [facility], SLE SLE [id number] SLEH 10:44:28 JOSEVTUD 2022-09-14 2022-09-24 Inpatient ER WILLIAM [facility] Surgery [id number] SLE 23:30:00 10:47:00 MRINALINI 2022-09-16 2022-09-16 Inpatient ER EVANS [facility] [id number] SLE 09:55:36 23:59:00 ABEL 2022-09-16 2022-09-16 Inpatient ER MICHAEL [facility] [id number] SLE 09:56:13 00:00:00 JOSEVTYONATAN 2022-09-16 2022-09-16 Inpatient ER MICHAEL [facility] [id number] SLE 09:55:55 00:00:00 [facility] 2022-07-04 2022-07-04 Outpatient R RADIOLOGY [facility] [id number] Univers 10:08:06 23:59:[address] [facility] 2022-07-04 2022-07-04 Hospital Radiology [facility] [id number] Univers 10:08:06 23:59:00 Encounter [place] 350.1.13.10 ity of [place] 4.2.7.2.686 [facility] [id number] [facility] 807 Branch 2022-07-04 2022-07-04 Orders Doctor BARBARA [id number] Univers 00:00:00 00:00:00 Only Unassigned, JADA 350.1.13.10 ity of [place] [facility] 4.2.7.2.686 [facility] [id number] [facility] 009 Branch 2022-06-06 2022-06-06 Outpatient R MULU [facility] [id number] Univers 00:00:00 00:00:00 QUINTIN rodriguez [facility] 2022-01-07 2022-01-07 Outpatient R ARELI [facility] [id number] Univers 13:40:00 14:46:[address] [facility] 2022-01-07 2022-01-07 Urgent Sangita Saul [facility] 1.2.840 .114 [id number] Univers 13:40:00 14:46:02 Care Unknown, Attending HEALTH 350.1.13.10 ity of [place] 4.2.7.2.686 Frank as GLADIS?BLEA [id number] Md gisell [place] [address] [place] [address] MEDICAL OFFICE BUILDING 2021-06-14 2021-06-14 Outpatient R RADIOLOGY [facility] [id number] Univers 10:58:24 23:59:[address] [facility] 2021-06-14 2021-06-14 Hospital Radiology [facility] [id number] [id number] Univers 10:58:24 23:59:00 Encounter PHYLLIS 350.1.13.10 ity of [place] 4.2.7.2.686 [facility] [id number] [facility] 807 [place] 2021-06-06 2021-06-06 Outpatient R RADIOLOGY [facility] [id number] Univers 11:08:00 23:59:[address] [facility] 2021-06-06 2021-06-06 Hospital Radiology [facility] [id number] [id number] Univers 11:00:00 23:59:00 Encounter PHYLLIS 350.1.13.10 ity of [place] 4.2.7.2.686 [facility] [id number] [facility] [address] [place] 2021-06-06 2021-06-06 Orders Doctor BARBARA 1.2.840.114 [id number] Univers 00:00:00 00:00:00 Only Unassigned, JADA 350.1.13.10 ity of [place] [facility] 4.2.7.2.686 Frank as [id number] [facility] 009 [place] Results Test Description Test Time Test Comments Results Result Comments Source POCT-GLUCOSE METER 2022-09-24 08:33:32 Test Item Value Reference Range Interpretation Comme [facility] POC-GLUCOSE METER (BEAKER) 134 mg/dL 70-110 H : TESTED AT [facility] [address] [place] [address] (test code = 1538) SONIA Munoz, 14919: Revolving Field Assembler/Techni eklsea ID = [id number] for Rusty Rouse POCT-GLUCOSE [id number] 21:12:41 Test Item Value Reference Range Interpretation Comments POC-GLUCOSE METER 181 mg/dL 70-110 H : TESTED A T [facility] 6720 (BEAKER) (test code = [facility], 1538) 82538: Revolving Field Assembler/Techni kelsea ID = [id number] for YAAKOV SANTANA POCT-GLUCOSE [id number] 17:14:31 Test Item Value Reference Range Interpretation Comments POC-GLUCOSE METER 141 mg/dL 70-110 H : TESTED A T [facility] 67[address] (BEAKER) (test code = [facility], 1538) 59970: Revolving Field Assembler/Techni kelsea ID = [id number] for Um eh, Akumbu [id number] 14:00:14 Test Item Value Reference Range Interpretation Comments D-DIMER QUANTITATIVE (BEAKER) 3.89 MG/L FEU <0.50 H (test code = 671) Intended Use: The D-Dimer Assay can be used to aid in the diagnosis of Deep Vein Thrombosis (DVT) and Pulmonary Embolism Disease (PED).In patients with low pre- test probability, various studies concerning STA Liatest D-dimer test have reported that with a cutoff value of 0.50 MG/L FEU, the Negative Predictive Value (NPV) regarding the exclusion of thrombosis is within 95-100% range.POCT- GLUCOSE [id number] 13:06:45 Test Item Value Reference Range Interpretation Comments POC-GLUCOSE METER 109 mg/dL 70-110 : TESTED A T [facility] 67[facility] (BEAKER) (test code = [facility], 1538) 47825: Revolving Field Assembler/Techni kelsea ID = [id number] for Um eh, Akumbu POCT-GLUCOSE [id number] 07:22:38 Test Item Value Reference Range Interpretation Comments POC-GLUCOSE METER 139 mg/dL 70-110 H : TESTED A T [facility] 67[address] (BEAKER) (test code = [facility], 1538) 31450: Revolving Field Assembler/Techni kelsea ID = [id number] for Um eh, Akumbu POCT-GLUCOSE [id number] 21:48:50 Test Item Value Reference Range Interpretation Comments POC-GLUCOSE METER 194 mg/dL 70-110 H : TESTED A T [facility] 67[address] (BEAKER) (test code = [facility], 1538) 47766: Revolving Field Assembler/Techni kelsea ID = [id number] for Jesenia Balderas POCT-GLUCOSE [id number] 17:13:35 Test Item Value Reference Range Interpretation Comments POC-GLUCOSE METER 182 mg/dL 70-110 H : TESTED A T [facility] 6720 (BEAKER) (test code = [facility], 1538) 94388: Revolving Field Assembler/Techni kelsea ID = [id number] for An derson, Lian POCT-GLUCOSE [id number] 13:33:56 Test Item Value Reference Range Interpretation Comments POC-GLUCOSE METER 175 mg/dL 70-110 H : TESTED A T [facility] 67[address] (BEAKER) (test code = [facility], 1538) 33829: Revolving Field Assembler/Techni kelsea ID = [id number] for An derson, Lian POCT-GLUCOSE [id number] 08:05:03 Test Item Value Reference Range Interpretation Comments POC-GLUCOSE METER 141 mg/dL 70-110 H : TESTED A T [facility] 67[address] (BEAKER) (test code = [facility], 1538) 88379: Revolving Field Assembler/Techni kelsea ID = [id number] for An derson, Lian POCT-GLUCOSE [id number] 22:06:48 Test Item Value Reference Range Interpretation Comments POC-GLUCOSE METER 187 mg/dL 70-110 H : TESTED A T [facility] 6720 (BEAKER) (test code = [facility], 1538) 12787: Revolving Field Assembler/Techni kelsea ID = [id number] for CASS MCLEOD POCT-GLUCOSE [id number] 18:29:32 Test Item Value Reference Range Interpretation Comments POC-GLUCOSE METER 184 mg/dL 70-110 H : TESTED A T [facility] 6720 (BEAKER) (test code = [facility], 1538) 06611: Revolving Field Assembler/Techni kelsea ID = [id number] for An derson, Lian POCT-GLUCOSE [id number] 12:50:45 Test Item Value Reference Range Interpretation Comments POC-GLUCOSE METER 164 mg/dL 70-110 H : TESTED A T [facility] 6720 (BEAKER) (test code = [facility], 1538) 23585: Revolving Field Assembler/Techni kelsea ID = [id number] for An derson, Lian POCT-GLUCOSE [id number] 07:46:40 Test Item Value Reference Range Interpretation Comments POC-GLUCOSE METER 147 mg/dL 70-110 H : TESTED A T [facility] 6720 (BEAKER) (test code = [facility], 1538) 03520: Revolving Field Assembler/Techni kelsea ID = [id number] for An kandis Lian POCT-GLUCOSE [id number] 21:47:25 Test Item Value Reference Range Interpretation Comments POC-GLUCOSE METER 203 mg/dL 70-110 H : TESTED A T [facility] 6720 (BEAKER) (test code = [facility], 1538) 33208: Revolving Field Assembler/Techni kelsea ID = [id number] for Jesenia Balderas POCT-GLUCOSE [id number] 08:44:32 Test Item Value Reference Range Interpretation Comments POC-GLUCOSE METER 166 mg/dL 70-110 H : TESTED A T [facility] 67[address] (BEAKER) (test code = [facility], 1538) 28573: Revolving Field Assembler/Techni kelsea ID = [id number] for Um eh, Gibranu XR SPINE CERVICAL 2 OR 3 [id number] 07:56:17 [facility] 1965 Sex: FXR SPINECERVICAL 2 OR 3 VIEWSCLINICAL INDICATION: s/p CERVICAL LEVEL 4 TO LEVEL 6 DECOMPRESSION ANDFUSION WITH C-ARMstandingCOMPARISON: September 16, 2022FINDINGS: 5 views of the cervical spine.IMPRESSION:Status post facet screw and vertical charlie placement at C3-C6 withhorizontal crossbar and laminectomy changes. Right C5 facet is spared.Hardware appears intact. Osseous alignment is within normal limits.Dorsal soft tissue gas and surgical drain present. No prevertebral softtissue swelling. Intervertebral disc spaces are stable. No suspiciousosseous lesion. Odontoid is intact.Electronically Signed By: Luis A Devine09/20/2022 07:58 CDTWorkstation Name: [id number] W/PLT COUNT & AUTO [id number] 05:51:29 Test Item Value Reference Range Interpretation Comments WHITE BLOOD CELL COUNT (BEAKER) 11.3 K/ L 3.5-10.5 H (test code = 775) RED BLOOD CELL COUNT (BEAKER) 3.75 M/ L 3.93-5.22 L (test code = 761) HEMOGLOBIN (BEAKER) (test code = 9.4 GM/DL 11.2-15.7 L 410) HEMATOCRIT (BEAKER) (test code = 31.9 % 34.1-44.9 L 411) MEAN CORPUSCULAR VOLUME (BEAKER) 85 fL 79-95 (test code = 753) MEAN CORPUSCULAR HEMOGLOBIN 25.1 pg 25.6-32.2 L (BEAKER) (test code = 751) MEAN CORPUSCULAR HEMOGLOBIN CONC 29.5 GM/DL 32.2-35.5 L (BEAKER) (test code = 752) RED CELL DISTRIBUTION WIDTH 14.9 % 11.7-14.4 H (BEAKER) (test code = 412) PLATELET COUNT (BEAKER) (test 170 K/CU MM 150-450 code = 756) MEAN PLATELET VOLUME (BEAKER) 10.5 fL 9.4-12.3 (test code = 754) NUCLEATED RED BLOOD CELLS 0 /100 WBC 0-0 (BEAKER) (test code = 413) NEUTROPHILS RELATIVE PERCENT 55 % (BEAKER) (test code = 429) LYMPHOCYTES RELATIVE PERCENT 36 % (BEAKER) (test code = 430) MONOCYTES RELATIVE PERCENT 7 % (BEAKER) (test code = 431) EOSINOPHILS RELATIVE PERCENT 1 % (BEAKER) (test code = 432) BASOPHILS RELATIVE PERCENT 0 % (BEAKER) (test code = 437) NEUTROPHILS ABSOLUTE COUNT 6.22 K/ L 1.56-6.13 H (BEAKER) (test code = 670) LYMPHOCYTES ABSOLUTE COUNT 4.04 K/ L 1.18-3.74 H (BEAKER) (test code = 414) MONOCYTES ABSOLUTE COUNT (BEAKER) 0.75 K/ L 0.24-0.36 H (test code = 415) EOSINOPHILS ABSOLUTE COUNT 0.14 K/ L 0.04-0.36 (BEAKER) (test code = 416) BASOPHILS ABSOLUTE COUNT (BEAKER) 0.04 K/ L 0.01-0.08 (test code = 417) IMMATURE GRANULOCYTES-RELATIVE 1.20 % 0.00-1.00 H PERCENT (BEAKER) (test code = 2801) POCT-GLUCOSE [id number] 22:27:11 Test Item Value Reference Range Interpretation Comments POC-GLUCOSE METER 267 mg/dL 70-110 H : TESTED A T [facility] 6720 (BEAKER) (test code = [facility], 153) [id number]: Revolving Field Assembler/Techni kelsea ID = [id number] for CASS MCLEOD POCT-GLUCOSE [id number] 17:39:51 Test Item Value Reference Range Interpretation Comments POC-GLUCOSE METER 267 mg/dL 70-110 H : TESTED A T [facility] 6720 (BEAKER) (test code = [facility], [facility]) [id number]: Revolving Field Assembler/Techni kelsea ID = [id number] for Jorgito melgoza, Nikolashmanjinder POCT-GLUCOSE [id number] 12:20:17 Test Item Value Reference Range Interpretation Comments POC-GLUCOSE METER 179 mg/dL 70-110 H : TESTED A T [facility] 6720 (BEAKER) (test code = [facility], 153) [id number]: Revolving Field Assembler/Techni kelsea ID = [id number] for Jorgito melgoza, Nikolashja POCT-GLUCOSE [id number] 07:19:46 Test Item Value Reference Range Interpretation Comments POC-GLUCOSE METER 226 mg/dL 70-110 H : TESTED A T [facility] 6720 (BEAKER) (test code = [facility], 153) [id number]: Revolving Field Assembler/Techni kelsea ID = [id number] for Wi mbley, Tahja CBC W/PLT COUNT & AUTO [id number] 05:21:52 Test Item Value Reference Range Interpretation Comments WHITE BLOOD CELL COUNT (BEAKER) 12.8 K/ L 3.5-10.5 H (test code = 775) RED BLOOD CELL COUNT (BEAKER) 3.92 M/ L 3.93-5.22 L (test code = 761) HEMOGLOBIN (BEAKER) (test code = 10.0 GM/DL 11.2-15.7 L 410) HEMATOCRIT (BEAKER) (test code = 33.2 % 34.1-44.9 L 411) MEAN CORPUSCULAR VOLUME (BEAKER) 85 fL 79-95 (test code = 753) MEAN CORPUSCULAR HEMOGLOBIN 25.5 pg 25.6-32.2 L (BEAKER) (test code = 751) MEAN CORPUSCULAR HEMOGLOBIN CONC 30.1 GM/DL 32.2-35.5 L (BEAKER) (test code = 752) RED CELL DISTRIBUTION WIDTH 14.8 % 11.7-14.4 H (BEAKER) (test code = 412) PLATELET COUNT (BEAKER) (test 185 K/CU MM 150-450 code = 756) MEAN PLATELET VOLUME (BEAKER) 11.2 fL 9.4-12.3 (test code = 754) NUCLEATED RED BLOOD CELLS 0 /100 WBC 0-0 (BEAKER) (test code = 413) NEUTROPHILS RELATIVE PERCENT 59 % (BEAKER) (test code = 429) LYMPHOCYTES RELATIVE PERCENT 32 % (BEAKER) (test code = 430) MONOCYTES RELATIVE PERCENT 7 % (BEAKER) (test code = 431) EOSINOPHILS RELATIVE PERCENT 1 % (BEAKER) (test code = 432) BASOPHILS RELATIVE PERCENT 0 % (BEAKER) (test code = 437) NEUTROPHILS ABSOLUTE COUNT 7.61 K/ L 1.56-6.13 H (BEAKER) (test code = 670) LYMPHOCYTES ABSOLUTE COUNT 4.05 K/ L 1.18-3.74 H (BEAKER) (test code = 414) MONOCYTES ABSOLUTE COUNT (BEAKER) 0.93 K/ L 0.24-0.36 H (test code = 415) EOSINOPHILS ABSOLUTE COUNT 0.06 K/ L 0.04-0.36 (BEAKER) (test code = 416) BASOPHILS ABSOLUTE COUNT (BEAKER) 0.02 K/ L 0.01-0.08 (test code = 417) IMMATURE GRANULOCYTES-RELATIVE 1.00 % 0.00-1.00 PERCENT (BEAKER) (test code = 2801) POCT-GLUCOSE [id number] 22:25:32 Test Item Value Reference Range Interpretation Comments POC-GLUCOSE METER 246 mg/dL 70-110 H : TESTED A T [facility] 6720 (BEAKER) (test code = [facility]ANDAN Ling [facility], 1538) [id number]: Revolving Field Assembler/Techni kelsea ID = [id number] for Elli Hernandez POCT-GLUCOSE [id number] 13:55:49 Test Item Value Reference Range Interpretation Comments POC-GLUCOSE METER 317 mg/dL 70-110 H : TESTED A T [facility] 6720 (BEAKER) (test code = CHANDAN Ling [facility], 1538) [id number]: Revolving Field Assembler/Techni kelsea ID = [id number] for STONE MATIAS BASIC METABOLIC [id number] 07:08:13 Test Item Value Reference Range Interpretation Comments SODIUM (BEAKER) 141 meq/L 136-145 (test code = 381) POTASSIUM 3.6 meq/L 3.5-5.1 (BEAKER) (test code = 379) CHLORIDE (BEAKER) 103 meq/L 98-107 (test code = 382) CO2 (BEAKER) 29 meq/L 22-29 (test code = 355) BLOOD UREA 18 mg/dL 7-21 NITROGEN (BEAKER) (test code = 354) CREATININE 0.70 mg/dL 0.57-1.25 (BEAKER) (test code = 358) GLUCOSE RANDOM 239 mg/dL 70-105 H (BEAKER) (test code = 652) CALCIUM (BEAKER) 8.6 mg/dL 8.4-10.2 (test code = 697) EGFR (BEAKER) 101 Interpretatio n of eGFR (test code = mL/min/1.73 values Stage De scription 1092) sq m Result G1 Sonal l or high >=90 G2 Mildly decreased 60-89 G3a Mildl y to moderately 45-5 9 G3b Moderately to s everely 30-44 G4 Severl y decreased 15-29 G5 Kidney failure <15Reported eGF R is based on the CKD-EPI 2021 equation that d oes not use a race coefficientEsti mated GFR is not as accur ate as Creatinine Bibi muniz in predicting glom erular filtration rate . Estimated GFR is not appl icable for dialysis patien ts Revolving Field Assembler ID - JUSTA WCBC W/PLT COUNT & AUTO [id number] 06:34:07 Test Item Value Reference Range Interpretation Comments WHITE BLOOD CELL COUNT (BEAKER) 13.1 K/ L 3.5-10.5 H (test code = 775) RED BLOOD CELL COUNT (BEAKER) 4.11 M/ L 3.93-5.22 (test code = 761) HEMOGLOBIN (BEAKER) (test code = 10.3 GM/DL 11.2-15.7 L 410) HEMATOCRIT (BEAKER) (test code = 34.6 % 34.1-44.9 411) MEAN CORPUSCULAR VOLUME (BEAKER) 84 fL 79-95 (test code = 753) MEAN CORPUSCULAR HEMOGLOBIN 25.1 pg 25.6-32.2 L (BEAKER) (test code = 751) MEAN CORPUSCULAR HEMOGLOBIN CONC 29.8 GM/DL 32.2-35.5 L (BEAKER) (test code = 752) RED CELL DISTRIBUTION WIDTH 14.7 % 11.7-14.4 H (BEAKER) (test code = 412) PLATELET COUNT (BEAKER) (test 213 K/CU MM 150-450 code = 756) MEAN PLATELET VOLUME (BEAKER) 11.1 fL 9.4-12.3 (test code = 754) NUCLEATED RED BLOOD CELLS 0 /100 WBC 0-0 (BEAKER) (test code = 413) NEUTROPHILS RELATIVE PERCENT 64 % (BEAKER) (test code = 429) LYMPHOCYTES RELATIVE PERCENT 26 % (BEAKER) (test code = 430) MONOCYTES RELATIVE PERCENT 10 % (BEAKER) (test code = 431) EOSINOPHILS RELATIVE PERCENT 0 % (BEAKER) (test code = 432) BASOPHILS RELATIVE PERCENT 0 % (BEAKER) (test code = 437) NEUTROPHILS ABSOLUTE COUNT 8.30 K/ L 1.56-6.13 H (BEAKER) (test code = 670) LYMPHOCYTES ABSOLUTE COUNT 3.40 K/ L 1.18-3.74 (BEAKER) (test code = 414) MONOCYTES ABSOLUTE COUNT (BEAKER) 1.25 K/ L 0.24-0.36 H (test code = 415) EOSINOPHILS ABSOLUTE COUNT 0.00 K/ L 0.04-0.36 L (BEAKER) (test code = 416) BASOPHILS ABSOLUTE COUNT (BEAKER) 0.01 K/ L 0.01-0.08 (test code = 417) IMMATURE GRANULOCYTES-RELATIVE 0.80 % 0.00-1.00 PERCENT (BEAKER) (test code = 2801) POCT-GLUCOSE [id number] 21:50:02 Test Item Value Reference Range Interpretation Comments POC-GLUCOSE METER 308 mg/dL 70-110 H : TESTED A T [facility] 6720 ([facility]) (test code = [facility], 1538) 20947: Revolving Field Assembler/Techni kelsea ID = [id number] for Ty ler, Reshawn POCT-GLUCOSE [id number] 18:03:56 Test Item Value Reference Range Interpretation Comments POC-GLUCOSE METER 312 mg/dL 70-110 H : TESTED A T [facility] 6720 ([facility]) (test code = [facility], 1538) 57831: Revolving Field Assembler/Techni kelsea ID = [id number] for Um eh, Akumbu POCT-GLUCOSE [id number] 15:07:17 Test Item Value Reference Range Interpretation Comments POC-GLUCOSE METER 296 mg/dL 70-110 H : TESTED A T [facility] 6720 ([facility]) (test code = [facility], 1538) 01001: Revolving Field Assembler/Techni kelsea ID = [id number] for Toshia Monreal [id number] 14:47:50 Test Item Value Reference Range Interpretation Comments POTASSIUM (BEAKER) (test code = 3.7 meq/L 3.5-5.1 379) POCT-GLUCOSE [id number] 13:26:23 Test Item Value Reference Range Interpretation Comments POC-GLUCOSE METER 299 mg/dL 70-110 H : TESTED A T [facility] 6720 (BEAKER) (test code [facility], = 1538) 80156: Revolving Field Assembler/Techni kelsea ID = [id number] for Kiran on, [place] FLUORO NON-SPECIFIC UP TO 1 [id number] 11:30:39 [facility] 1965 Sex: FThis is a non- reportable study with no Radiologist dictation. Please refer to your PACS to review images, or Doc Flowsheets for documentation on studies without images. POTASSIUM-STAT [id number] 10:30:15 Test Item Value Reference Range Interpretation Comments POTASSIUM (BEAKER) (test code = 2.9 meq/L 3.6-5.5 L 379) CALCIUM, [id number] 10:30:14 Test Item Value Reference Range Interpretation Comments CALCIUM IONIZED (BEAKER) (test 0.98 mmol/L 1.12-1.27 L code = 698) PH, BLOOD (BEAKER) (test code = 7.43 1810) BLOOD GAS, [id number] 10:30:14 Test Item Value Reference Range Interpretation Comments PH ARTERIAL (BEAKER) (test code = 7.44 7.35-7.45 383) PCO2 ARTERIAL (BEAKER) (test code 36 mm Hg 35-45 = 384) PO2 ARTERIAL (BEAKER) (test code = 291 mm Hg 80-90 H 385) O2 SATURATION ARTERIAL (BEAKER) 99.7 % 96.0-97.0 H (test code = 386) HCO3 ARTERIAL (BEAKER) (test code 25 mmol/L 21-29 = 388) BASE EXCESS ARTERIAL (BEAKER) 0.4 mmol/L -2.0-3.0 (test code = 387) PATIENT TEMPERATURE (BEAKER) (test 35.7 code = 1818) FIO2 (BEAKER) (test code = 1819) 95.0 SODIUM NA-STAT [id number] 10:29:30 Test Item Value Reference Range Interpretation Comments SODIUM (BEAKER) (test code = 381) 139 meq/L 136-145 HGB/HCT (H&H) - STAT [id number] 10:29:30 Test Item Value Reference Range Interpretation Comments HEMOGLOBIN (BEAKER) (test code = 12.5 GM/DL 12.0-15.0 410) HEMATOCRIT (BOB) (test code = 37.0 % 36.0-45.0 411) GLUCOSE-STAT [id number] 10:29:29 Test Item Value Reference Range Interpretation Comments GLUCOSE RANDOM (BOB) (test code 288 mg/dL 70-110 H = 652) FL FLUORO NON-SPECIFIC UP TO 1 [id number] 10:03:37 [facility] 1965 Sex: FFL FLUORO NON- SPECIFIC UP TO 1 HOURIntraoperative fluoroscopy films performed by the referring physician. A fluoroscopic unit was utilized for a procedure performed in the operating room. No interpretation was requested. Please refer to the operative report regarding findings. Please refer to PACS for patient radiation dose information.Localization findings of surgical instrument overlying dorsal C3 leveldiscussed with Dr. Simental, 09/17/2022, 10:02 AM.Electronically Signed By: Luis A Devine09/17/2022 10:05CDTWorkstation Name: [id number] A1C 2022-09-17 09:17:40 Test Item Value Reference Range Interpretation Comments HEMOGLOBIN A1C 9.2 % See_Comment H [Automated m essage] ELECTROPHORESIS (BOB) The system which (test code = 3811) generated this result transmitted ref erence range: <=5.6%. The reference range was not used to int erpret this result as normal/abnormal . "The A1c is measured using a NGSP-certified method. HbA1c value equal to or greater than 6.5% as thediagnosis cutoff for diabetes. An HbA1c value of 5.7- 6.4% indicates increased risk for diabetes (prediabetes)."Revolving Field Assembler ID - ADMOperator ID - ADMBASIC METABOLIC [id number] 06:31:25 Test Item Value Reference Range Interpretation Comments SODIUM (BEAKER) 139 meq/L 136-145 (test code = 381) POTASSIUM 3.8 meq/L 3.5-5.1 (BEAKER) (test code = 379) CHLORIDE (BEAKER) 100 meq/L 98-107 (test code = 382) CO2 (BEAKER) 30 meq/L 22-29 H (test code = 355) BLOOD UREA 25 mg/dL 7-21 H NITROGEN (BEAKER) (test code = 354) CREATININE 0.74 mg/dL 0.57-1.25 (BEAKER) (test code = 358) GLUCOSE RANDOM 340 mg/dL 70-105 H (BEAKER) (test code = 652) CALCIUM (BEAKER) 9.0 mg/dL 8.4-10.2 (test code = 697) EGFR (BEAKER) 94 Interpretatio n of eGFR (test code = mL/min/1.73 values Stage De scription 1092) sq m Result G1 Sonal l or high >=90 G2 Mildly decreased 60-89 G3a Mildl y to moderately 45-5 9 G3b Moderately to s everely 30-44 G4 Severl y decreased 15-29 G5 Kidney failure <15Reported eGF R is based on the CKD-EPI 2020 equation that d oes not use a race coefficientEsti mated GFR is not as accur ate as Creatinine Bibi flavio in predicting glom erular filtration rate . Estimated GFR is not appl icable for dialysis patien ts Revolving Field Assembler ID - JUSTA WCBC W/PLT COUNT & AUTO [id number] 06:22:55 Test Item Value Reference Range Interpretation Comments WHITE BLOOD CELL COUNT (BEAKER) 12.8 K/ L 3.5-10.5 H (test code = 775) RED BLOOD CELL COUNT (BEAKER) 4.86 M/ L 3.93-5.22 (test code = 761) HEMOGLOBIN (BEAKER) (test code = 12.4 GM/DL 11.2-15.7 410) HEMATOCRIT (BEAKER) (test code = 40.9 % 34.1-44.9 411) MEAN CORPUSCULAR VOLUME (BEAKER) 84 fL 79-95 (test code = 753) MEAN CORPUSCULAR HEMOGLOBIN 25.5 pg 25.6-32.2 L (BEAKER) (test code = 751) MEAN CORPUSCULAR HEMOGLOBIN CONC 30.3 GM/DL 32.2-35.5 L (BEAKER) (test code = 752) RED CELL DISTRIBUTION WIDTH 14.7 % 11.7-14.4 H (BEAKER) (test code = 412) PLATELET COUNT (BEAKER) (test 271 K/CU MM 150-450 code = 756) MEAN PLATELET VOLUME (BEAKER) 10.7 fL 9.4-12.3 (test code = 754) NUCLEATED RED BLOOD CELLS 0 /100 WBC 0-0 (BEAKER) (test code = 413) NEUTROPHILS RELATIVE PERCENT 77 % (BEAKER) (test code = 429) LYMPHOCYTES RELATIVE PERCENT 17 % (BEAKER) (test code = 430) MONOCYTES RELATIVE PERCENT 5 % (BEAKER) (test code = 431) EOSINOPHILS RELATIVE PERCENT 0 % (BEAKER) (test code = 432) BASOPHILS RELATIVE PERCENT 0 % (BEAKER) (test code = 437) NEUTROPHILS ABSOLUTE COUNT 9.85 K/ L 1.56-6.13 H (BEAKER) (test code = 670) LYMPHOCYTES ABSOLUTE COUNT 2.14 K/ L 1.18-3.74 (BEAKER) (test code = 414) MONOCYTES ABSOLUTE COUNT (BEAKER) 0.68 K/ L 0.24-0.36 H (test code = 415) EOSINOPHILS ABSOLUTE COUNT 0.00 K/ L 0.04-0.36 L (BEAKER) (test code = 416) BASOPHILS ABSOLUTE COUNT (BEAKER) 0.01 K/ L 0.01-0.08 (test code = 417) IMMATURE GRANULOCYTES-RELATIVE 1.10 % 0.00-1.00 H PERCENT (BEAKER) (test code = 2801) XR CERVICAL SPINE COMP WITH FLEX AND [id number] 01:18:03 [facility] 1965 Sex: FCLINICALHISTORY: Preoperative evaluation, surgery unspecified.FINDINGS:AP, lateral, bilateral oblique, swimmer's, lateral flexion and extensionand open-mouth views of the cervical spine are submitted withoutcomparison. The skullbase through cervicothoracic junction are wellvisualized.There is no acute fracture or malalignment. The prevertebral softtissues are normal.There is mild degenerative disc space lossof height from C3-C4 andC5-C6. Small anterolateral vertebral body osteophytes are present atC4-C5 and C5-C6.There is mild to moderate multilevel facet hypertrophy in the mid tolower cervical spine. There is no significant osseous neural foraminalnarrowing.There is no abnormal cervical motion on flexion or extension views.The lung apices are clear.IMPRESSION:No acute fracture or subluxation.No abnormal cervical motion on flexion or extension views.Degenerative changes, as described.Electronically Signed By: Valeriy Coombs09/17/2022 01:20 CDTWorkstation Name: [id number] METER 2022-09-16 21:06:21 Test Item Value Reference Range Interpretation Comments POC-GLUCOSE METER 338 mg/dL 70-110 H : TESTED A T That{img}C 6720 ([facility]) (test code [facility], = 1538) 30286: Revolving Field Assembler/Techni kelsea ID = [id number] for Steve Dillard POCT-GLUCOSE [id number] 17:24:58 Test Item Value Reference Range Interpretation Comments POC-GLUCOSE METER 364 mg/dL 70-110 H : TESTED A T [facility] 6720 ([facility]) (test code = MATHEUSGUERA Ling [facility], 1538) 09427: Revolving Field Assembler/Techni kelsea ID = [id number] for Rusty Mckeon [id number] 14:48:43 Test Item Value Reference Range Interpretation Comments RPR SCREEN ([facility]) (test code = Nonreactive Nonreactive 420) CTA [id number] 12:50:40 [facility] 1965 Sex: FCTA CAROTID, CTA BRAINBRAIN CT WITHOUT CONTRASTINDICATION: Stroke, follow upCOMPARISON: NoneTECHNIQUE:Rapid acquisition spiral images were obtained between the aortic archand the cranial vertex during intravenous contrast infusion toreconstruct axial images and angiographic 3D maximum intensityprojections (MIP). 3-D volumetric reformatted images were created at [employer] [employer] workstation. Precontrast images of the brain were alsoobtained. Stenosis evaluation reported in compliance with NASCET criteria.DOSE REDUCTION: Dose modulation, iterative reconstruction, and/orweight-based adjustment of the mA/kV was utilized to reduce theradiation dose to as low as reasonably achievable.FINDINGS:CT BRAIN:No intracranial hemorrhage, midline shift or mass effect. Midlinestructures are normally developed. Hypoattenuation within theperiventricular and subcortical white matter is present, nonspecific byimaging, however, statistically representing chronic microvascularchanges in this age group. Diffuse senescent parenchymalvolume loss.No hydrocephalus.Atherosclerotic calcification of the intracranial internal carotid andvertebral arteries. Orbits are within normal limits. No obstructive paranasal sinus disease.CTA BRAIN:Internal carotid arteries: Petrous, cavernous and supraclinoid portionspatent. Middle cerebral arteries: Patent to distal branches.Anterior cerebral arteries: Patent. No A- comm aneurysm.Basilar system: Patent vertebrobasilar system.Posterior cerebral arteries:Patent P1 and P2 segments. Venous opacification: Major dural sinuses unremarkable for bolus timing.Additional findings: None.CTA NECK:Common carotid arteries: The common carotid arteries are normal in size. Bifurcations: No flow- limiting stenosis. Cervical internal carotid arteries: No flow limiting stenosis.Vertebral arteries: Codominant. No origin stenosis.Arch anatomy: Conventional.Nonvascular findings:Osseous structures: No acute osseous ab normality. Intact calvarium andskull base. Mild to moderate spondylosis and facet arthropathy arepresent within the spine. Moderate to severe degenerative spinal canalstenosis at C4-U5Bvqudjnh soft tissues: No adenopathy. Patent aerodigestive tract.Lung apices: No apical consolidation or pneumothorax.I MPRESSION:CTA head and neck:1. No acute vascular abnormality in the head and neck.Electronically Signed By: Miguel Spaulding09/16/2022 12:52 CDTWorkstation Name: [id number] 12:50:40 [facility] : 1965 Sex: FCTA CAROTID, CTA BRAINBRAIN CT WITHOUT CONTRASTINDICATION: Stroke, follow upCOMPARISON: NoneTECHNIQUE:Rapid acquisition spiral images were obtained between the aortic archand the cranial vertex during intravenous contrast infusion toreconstruct axial images and angiographic 3D maximum intensityprojections (MIP). 3-D volumetric reformatted images were created at [facility] [employer] workstation. Precontrast images of the brain were alsoobtained. Stenosis evaluation reported in compliance with NASCET criteria.DOSE REDUCTION: Dose modulation, iterative reconstruction, and/orweight-based adjustment of the mA/kV was utilized to reduce theradiation dose to as low as reasonably achievable.FINDINGS:CT BRAIN:No intracranial hemorrhage, midline shift or mass effect. Midlinestructures are normally developed. Hypoattenuation within theperiventricular and subcortical white matter is present, nonspecific byimaging, however, statistically representing chronic microvascularchanges in this age group. Diffuse senescent parenchymalvolume loss.No hydrocephalus.Atherosclerotic calcification of the intracranial internal carotid andvertebral arteries. Orbits are within normal limits. No obstructive paranasal sinus disease.CTA BRAIN:Internal carotid arteries: Petrous, cavernous and supraclinoid portionspatent. Middle cerebral arteries: Patent to distal branches.Anterior cerebral arteries: Patent. No A- comm aneurysm.Basilar system: Patent vertebrobasilar system.Posterior cerebral arteries:Patent P1 and P2 segments. Venous opacification: Major dural sinuses unremarkable for bolus timing.Additional findings: None.CTA NECK:Common carotid arteries: The common carotid arteries are normal in size. Bifurcations: No flow- limiting stenosis. Cervical internal carotid arteries: No flow limiting stenosis.Vertebral arteries: Codominant. No origin stenosis.Arch anatomy: Conventional.Nonvascular findings:Osseous structures: No acute osseous ab normality. Intact calvarium andskull base. Mild to moderate spondylosis and facet arthropathy arepresent within the spine. Moderate to severe degenerative spinal canalstenosis at C4-W9Bdbufdln soft tissues: No adenopathy. Patent aerodigestive tract.Lung apices: No apical consolidation or pneumothorax.I MPRESSION:CTA head and neck:1. No acute vascular abnormality in the head and neck.Electronically Signed By: Miguel Spaulding09/16/2022 12:52 CDTWorkstation Name: [id number] SPINE CERVICAL WITHOUT IV [id number] 11:02:41 [facility] 1965 Sex: FCT Cervical Spine without contrastHistory: neck painComparison: NoneTechnique: serial axial imaging was performed without intravenouscontrast as per departmental protocol. Multiplanar images arereconstructed and reviewed when indicated. This CT examination is performed using one or more of the following dosereduction techniques:Automated exposure control, adjustment of the mA and /or kV according topatient size, and/or use of iterative reconstruction technique.Findings:No acute fracture, dislocation, or subluxation. Moderate spondylosis and facet arthropathy are present within thespine. Posterior disc osteophyte complex at C4-C5 causing severe spinal canalstenosis and moderate to severe bilateral neural foraminal stenosisModerate degenerative spinal canal stenosis C5-C6. Moderate to severebilateral neuralfrom stenosis at C5-C6. Unremarkable prevertebral soft tissues. Visualized lung apices appear clear.I MPRESSION:Impression:1. Degenerative changes within the spine, as detailed above, withoutacute fracture or malalignment identified.2. Severe degenerative spinal canal stenosis at C4-C5.3. Moderate to severe degenerative neural foraminal stenosis at thebilateral C4-C5 and C5-C6 levels. Electronically Signed By: Miguel Spaulding09/16/2022 11:04 CDTWorkstation Name: [id number] CHEST 1 VIEW PORTABLE / [id number] 10:07:50 [facility] 1965 Sex: FXR CHEST1 VIEW PORTABLE / BEDSIDEINDICATION: Pre-opCOMPARISON: NoneFINDINGS: Portable frontal view of the chest. IMPRESSION:Support Lines: None Lungs and pleura: Minimal left lung base atelectasis or scarring.Otherwise, the lungs are clear. No significant pleural effusion. Nopneumothorax.Heart and mediastinum: Within normal limits for AP projection. Additional findings: Intact osseous structures.Electronically Signed By: Luis A Devine09/16/2022 10:09 CDTWorkstation Name: [id number] GLUCOSE [id number] 07:25:43 Test Item Value Reference Range Interpretation Comments POC-GLUCOSE METER 316 mg/dL 70-110 H : TESTED A T [facility] 6720 (BEAKER) (test code = [facility], 1538) [address]: Revolving [employer] Assembler/Techni kelsea ID = [id number] for Um eh, [place] BASIC METABOLIC [id number] 05:02:40 Test Item Value Reference Range Interpretation Comments SODIUM (BEAKER) 139 meq/L 136-145 (test code = 381) POTASSIUM 3.6 meq/L 3.5-5.1 (BEAKER) (test code = 379) CHLORIDE (BEAKER) 99 meq/L 98-107 (test code = 382) CO2 (BEAKER) 30 meq/L 22-29 H (test code = 355) BLOOD UREA 12 mg/dL 7-21 NITROGEN (BEAKER) (test code = 354) CREATININE 0.70 mg/dL 0.57-1.25 (BEAKER) (test code = 358) GLUCOSE RANDOM 300 mg/dL 70-105 H (BEAKER) (test code = 652) CALCIUM (BEAKER) 9.3 mg/dL 8.4-10.2 (test code = 697) EGFR (BEAKER) 101 Interpretatio n of eGFR (test code = mL/min/1.73 values Stage De scription 1092) sq m Result G1 Sonal l or high >=90 G2 Mildly decreased 60-89 G3a Mildl y to moderately 45-5 9 G3b Moderately to s everely 30-44 G4 Severl y decreased 15-29 G5 Kidney failure <15Reported eGF R is based on the CKD-EPI 2020 equation that d oes not use a race coefficientEsti mated GFR is not as accur ate as Creatinine Bibi muniz in predicting glom erular filtration rate . Estimated GFR is not appl icable for dialysis patien ts Revolving Field Assembler ID - EOOPOCT-GLUCOSE [id number] 00:06:40 Test Item Value Reference Range Interpretation Comments POC-GLUCOSE METER 244 mg/dL 70-110 H : TESTED A T [facility] 6720 (BEAKER) (test code = MATHEUSAL Sushil [facility], 1538) [id number]: Revolving Field Assembler/Techni kelsea ID = [id number] for Ty Dany noblehawn POCT-GLUCOSE [id number] 19:53:42 Test Item Value Reference Range Interpretation Comments POC-GLUCOSE METER 353 mg/dL 70-110 H : TESTED A T [facility] 6720 (BEAKER) (test code = [facility], 1538) 61882: Revolving Field Assembler/Techni kelsea ID = [id number] for Ty real Reshawn POCT-GLUCOSE [id number] 16:44:31 Test Item Value Reference Range Interpretation Comments POC-GLUCOSE METER 376 mg/dL 70-110 H : TESTED A T [facility] 6720 (BEAKER) (test code = [facility], 1538) 26112: Revolving Field Assembler/Techni kelsea ID = [id number] for Cristin Arroyo POCT-GLUCOSE [id number] 12:57:53 Test Item Value Reference Range Interpretation Comments POC-GLUCOSE METER 215 mg/dL 70-110 H : TESTED A T [facility] 6720 (BEAKER) (test code = [facility], 1538) [id number]: Revolving Field Assembler/Techni kelsea ID = [id number] for Cristin Arroyo MR CERVICAL SPINE WITHOUT IV [id number] 12:42:10 [facility] 1965 Sex: FMR BRAINWITHOUT IV CONTRAST, MR CERVICAL SPINE WITHOUT IV CONTRASTINDICATION: Neuro deficit, acute, stroke suspectedCOMPARISON: NoneTECHNIQUE: Multiplanar, multisequence MR imaging of the brain andcervical spine was obtained. FINDINGS:MRI BRAIN:Brain parenchyma is normal in morphology. Cerebellar tonsils arelow-lying, approximately 5 mm below the level of the foramen magnum,borderline for Chiari malformation. No restricted diffusion to suggestrecent ischemic insult. No abnormal susceptibility.Scattered T2/FLAIR hyperintense foci within the periventricular andsubcortical white matter are nonspecific, however, statisticallyrepresent chronic microvascular ischemic changes.No hydrocephalus.Orbits are within normal limits.No obstructive paranasal sinus disease.CERVICAL SPINE:There is straightening of cervicallordosis.Vertebral body height is maintained. No acute fracture.Multilevel disc space height loss.Noacute findings within the paraspinal soft tissues.Findings by level:C2/C3: No significant spinal canal or foraminal stenosis.C3/C4: Left paracentral disc herniation, which effaces the ventralthecal sacand flattens the ventral cervical cord. Bilateraluncovertebral and facet arthropathy. Moderate spinal canal stenosis.Severe bilateral foraminal stenosis.C4/C5: Left paracentral disc extrusion with cranial and caudal migrationof disc material. Bilateral uncovertebral and facet arthropathy.Ligamentum flavum thickening. Severe spinal canal stenosis. Severebilateral foraminal stenosis.C5/C6: Left paracentral and foraminal disc herniation effaces theventral thecal sac and flattens the ventral cervical cord. Ligamentumflavum thickening. Severe spinal canal stenosis. Bilateral uncovertebralfacet arthropathy. Severe bilateral foraminal stenosis.C6/C7: Central disc herniation. Bilateral uncovertebral and facetarthropathy. Mild bilateral foraminal stenosis. No significant spinalcanal stenosis.C7/T1: No sign ificant spinal canal or foraminal stenosis.IMPRESSION:1. No acute findings within the brain parenchyma.2. Cerebellar tonsils are low-lying, approximately 5 mm below the levelof the foramen magnum, borderline for Chiari malformation.3. Multilevel severe degenerative changes of the cervical spine withsevere spinal canal stenosis at C4-C5 and C5-C6 and moderate spinalcanal stenosis at C3-C4.4. Multilevel foraminal stenosis as per above.5. Cervical cord is decreased in size and demonstrates ill-defined [id number] signal at multiple levels, presumably representingmyelopathy due to long-standing compression and disc degeneration. Electronically Signed By: Mago Lovelace09/15/2022 12:44 CDTWorkstation Name: [id number] BRAIN WITHOUT IV [id number] 12:42:10 [facility] 1965 Sex: FMR BRAINWITHOUT IV CONTRAST, MR CERVICAL SPINE WITHOUT IV CONTRASTINDICATION: Neuro deficit, acute, stroke suspectedCOMPARISON: NoneTECHNIQUE: Multiplanar, multisequence MR imaging of the brain andcervical spine was obtained. FINDINGS:MRI BRAIN:Brain parenchyma is normal in morphology. Cerebellar tonsils arelow-lying, approximately 5 mm below the level of the foramen magnum,borderline for Chiari malformation. No restricted diffusion to suggestrecent ischemic insult. No abnormal susceptibility.Scattered T2/FLAIR hyperintense foci within the periventricular andsubcortical white matter are nonspecific, however, statisticallyrepresent chronic microvascular ischemic changes.No hydrocephalus.Orbits are within normal limits.No obstructive paranasal sinus disease.CERVICAL SPINE:There is straightening of cervicallordosis.Vertebral body height is maintained. No acute fracture.Multilevel disc space height loss.Noacute findings within the paraspinal soft tissues.Findings by level:C2/C3: No significant spinal canal or foraminal stenosis.C3/C4: Left paracentral disc herniation, which effaces the ventralthecal sacand flattens the ventral cervical cord. Bilateraluncovertebral and facet arthropathy. Moderate spinal canal stenosis.Severe bilateral foraminal stenosis.C4/C5: Left paracentral disc extrusion with cranial and caudal migrationof disc material. Bilateral uncovertebral and facet arthropathy.Ligamentum flavum thickening. Severe spinal canal stenosis. Severebilateral foraminal stenosis.C5/C6: Left paracentral and foraminal disc herniation effaces theventral thecal sac and flattens the ventral cervical cord. Ligamentumflavum thickening. Severe spinal canal stenosis. Bilateral uncovertebralfacet arthropathy. Severe bilateral foraminal stenosis.C6/C7: Central disc herniation. Bilateral uncovertebral and facetarthropathy. Mild bilateral foraminal stenosis. No significant spinalcanal stenosis.C7/T1: No sign ificant spinal canal or foraminal stenosis.IMPRESSION:1. No acute findings within the brain parenchyma.2. Cerebellar tonsils are low-lying, approximately 5 mm below the levelof the foramen magnum, borderline for Chiari malformation.3. Multilevel severe degenerative changes of the cervical spine withsevere spinal canal stenosis at C4-C5 and C5-C6 and moderate spinalcanal stenosis at C3-C4.4. Multilevel foraminal stenosis as per above.5. Cervical cord is decreased in size and demonstrates ill-defined [id number] signal at multiple levels, presumably representingmyelopathy due to long-standing compression and disc degeneration. Electronically Signed By: Mago Lovelace09/15/2022 12:44 CDTWorkstation Name: [id number] 11:19:35 Test Item Value Reference Range Interpretation Comments HEMOGLOBIN A1C 9.3 % See_Comment H [Automated m essage] ELECTROPHORESIS ([email or web address]) The system which (test code = 3811) generated this result transmitted ref erence range: <=5.6%. The reference range was not used to int erpret this result as normal/abnormal . "The A1c is measured using a NGSP-certified method. HbA1c value equal to or greater than 6.5% as thediagnosis cutoff for diabetes. An HbA1c value of 5.7- 6.4% indicates increased risk for diabetes (prediabetes)."Revolving Field Assembler ID - ADMOperator ID - ADMPOCT-GLUCOSE [id number] 08:15:04 Test Item Value Reference Range Interpretation Comments POC-GLUCOSE METER 203 mg/dL 70-110 H : TESTED A T [facility] 6720 ([email or web address]) (test code = [facility], 1538) 75159: Revolving Field Assembler/Techni kelsea ID = [id number] for Jorgito anyiCristin cespedes VITAMIN [id number] 07:42:18 Test Item Value Reference Range Interpretation Comments VITAMIN B12 ([email or web address]) (test code = 367 pg/mL 213-373 224) CBC W/PLT COUNT & AUTO [id number] 07:21:17 Test Item Value Reference Range Interpretation Comments WHITE BLOOD CELL COUNT (BEAKER) 9.6 K/ L 3.5-10.5 (test code = 775) RED BLOOD CELL COUNT (BEAKER) 5.02 M/ L 3.93-5.22 (test code = 761) HEMOGLOBIN (BEAKER) (test code = 12.7 GM/DL 11.2-15.7 410) HEMATOCRIT (BEAKER) (test code = 42.1 % 34.1-44.9 411) MEAN CORPUSCULAR VOLUME (BEAKER) 84 fL 79-95 (test code = 753) MEAN CORPUSCULAR HEMOGLOBIN 25.3 pg 25.6-32.2 L (BEAKER) (test code = 751) MEAN CORPUSCULAR HEMOGLOBIN CONC 30.2 GM/DL 32.2-35.5 L (BEAKER) (test code = 752) RED CELL DISTRIBUTION WIDTH 14.7 % 11.7-14.4 H (BEAKER) (test code = 412) PLATELET COUNT (BEAKER) (test 277 K/CU MM 150-450 code = 756) MEAN PLATELET VOLUME (BEAKER) 11.0 fL 9.4-12.3 (test code = 754) NUCLEATED RED BLOOD CELLS 0 /100 WBC 0-0 (BEAKER) (test code = 413) NEUTROPHILS RELATIVE PERCENT 80 % (BEAKER) (test code = 429) LYMPHOCYTES RELATIVE PERCENT 18 % (BEAKER) (test code = 430) MONOCYTES RELATIVE PERCENT 1 % (BEAKER) (test code = 431) EOSINOPHILS RELATIVE PERCENT 0 % (BEAKER) (test code = 432) BASOPHILS RELATIVE PERCENT 0 % (BEAKER) (test code = 437) NEUTROPHILS ABSOLUTE COUNT 7.69 K/ L 1.56-6.13 H (BEAKER) (test code = 670) LYMPHOCYTES ABSOLUTE COUNT 1.76 K/ L 1.18-3.74 (BEAKER) (test code = 414) MONOCYTES ABSOLUTE COUNT (BEAKER) 0.11 K/ L 0.24-0.36 L (test code = 415) EOSINOPHILS ABSOLUTE COUNT 0.00 K/ L 0.04-0.36 L (BEAKER) (test code = 416) BASOPHILS ABSOLUTE COUNT (BEAKER) 0.02 K/ L 0.01-0.08 (test code = 417) IMMATURE GRANULOCYTES-RELATIVE 0.40 % 0.00-1.00 PERCENT (BEAKER) (test code = 2801) T4, [id number] 06:24:27 Test Item Value Reference Range Interpretation Comments FREE T4 (BEAKER) (test code = 655) 1.13 ng/dL 0.70-1.48 Revolving Field Assembler ID - FAMILIA BLIPID [id number] 05:52:10 Test Item Value Reference Range Interpretation Comments TRIGLYCERIDES (BEAKER) (test code = 52 mg/dL 540) CHOLESTEROL (BEAKER) (test code = 208 mg/dL 631) HDL CHOLESTEROL (BEAKER) (test code 46 mg/dL = 976) LDL CHOLESTEROL CALCULATED (BEAKER) 152 mg/dL (test code = 633) Triglyceride Reference Range: Low Risk <150 Borderline 150-199 High Risk 200- 499 Very High Risk >=500Cholesterol Reference Range: Low Risk <200 Borderline 200-239 High Risk >240HDL Cholesterol Reference Range: Low Risk >=60 High Risk <40LDL Cholesterol Reference Range: Optimal <100 Near Optimal 100-129 Borderline 130-159 High 160-189 Very High >=190 Revolving Field Assembler ID - FAMILIA BCOMPREHENSIVE METABOLIC [id number] 05:52:09 Test Item Value Reference Range Interpretation Comments TOTAL PROTEIN 7.4 gm/dL 6.0-8.3 (BEAKER) (test code = 770) ALBUMIN (BEAKER) 3.8 g/dL 3.5-5.0 (test code = 1145) ALKALINE 104 U/L 40-150 PHOSPHATASE (BEAKER) (test code = 346) BILIRUBIN TOTAL 0.4 mg/dL 0.2-1.2 (BEAKER) (test code = 377) SODIUM (BEAKER) 136 meq/L 136-145 (test code = 381) POTASSIUM (BEAKER) 3.6 meq/L 3.5-5.1 (test code = 379) CHLORIDE (BEAKER) 99 meq/L 98-107 (test code = 382) CO2 (BEAKER) (test 28 meq/L 22-29 code = 355) BLOOD UREA 14 mg/dL 7-21 NITROGEN (BEAKER) (test code = 354) CREATININE 0.65 mg/dL 0.57-1.25 (BEAKER) (test code = 358) GLUCOSE RANDOM 233 mg/dL 70-105 H ([email or web address]) (test code = 652) CALCIUM (Swag Of The MonthAKER) 9.0 mg/dL 8.4-10.2 (test code = 697) AST (SGOT) 18 U/L 5-34 (BEAKER) (test code = 353) ALT (SGPT) 22 U/L 6-55 (Swag Of The MonthAKER) (test code = 347) EGFR ([facility]) 103 Interpretatio n of eGFR (test code = 1092) mL/min/1.[address] age Description sq m Result G1 Norm al or high >=90 G2 Mildly decreased 60-89 G3a Mildl y to moderately 45-5 9 G3b Moderately to s everely 30-44 G4 Severl y decreased 15-29 G5 Kidney failure <15Reported eGF R is based on the CKD-EPI 2020 equation that d oes not use a race coefficientEsti mated GFR is not as accur ate as Creatinine Bibi flavio in predicting glom erular filtration rate . Estimated GFR is not appl icable for dialysis patien ts Revolving Field Assembler ID - FAMILIA BTSH/FREE T4 IF [id number] 05:37:35 Test Item Value Reference Range Interpretation Comments THYROID STIMULATING HORMONE 0.226 uIU/mL 0.350-4.940 L ([email or web address]) (test code = 772) Revolving Field Assembler ID - FAMILIA BHIV-1 ANTIGEN WITH HIV-1/2 [id number] 05:37:16 Test Item Value Reference Range Interpretation Comments HIV-1 ANTIGEN WITH HIV 1\\T\\2 Nonreactive Nonreactive ANTIBODY (2) ([email or web address]) (test code = 2586) Revolving Field Assembler ID - FAMILIA [id number] 04:58:16 Test Item Value Reference Range Interpretation Comments PARTIAL THROMBOPLASTIN TIME 28.4 seconds 22.5-36.0 ([email or web address]) (test code = 760) PROTHROMBIN TIME/[id number] 04:57:33 Test Item Value Reference Range Interpretation Comments PROTIME ([email or web address]) (test code = 14.6 seconds 11.9-14.2 H 759) INR ([email or web address]) (test code = 370) 1.21 <=5.90 RECOMMENDED COUMADIN/WARFARIN INR THERAPY RANGESSTANDARD DOSE: 2.0 - 3.0 Includes: PROPHYLAXIS for venous thrombosis, systemic embolization; TREATMENT for venous thrombosis and/or pulmonary embolus.HIGH RISK: Target INR is 2.5-3.5 for patients with mechanical heart valves.
[2022-09-24 13:19] VITALS: BMI 36.8
[2022-09-24] MEDS ORDERED: BISACODYL E.C. 5 MG TAB PO PRN (13:22)
[2022-09-24] MEDS: Oxycodone HCl/Acetaminophen 1 TAB TAB PO PRN ×2 (13:44→19:58)
[2022-09-24 14:01] LABS: Specific Gravity 1.021 (1.005-1.030); Urine Bacteria <20 /HPF (<20); Urine Bilirubin NEGATIVE (Negative); Urine Blood Negative (Negative); Urine Clarity Extremely Turbid (Clear); Urine Color Yellow (Yellow); Urine Glucose NEGATIVE (Negative); Urine Mucus Slight /HPF (None Seen); Urine Protein TRACE (Negative); Urine RBC <5 /HPF (None Seen); Urine Urobilinogen 1+ (Normal)
[2022-09-24] MEDS ORDERED: D50W 25 GM/50 ML SYRINGE IV PRN ×2 (14:03→14:12)
[2022-09-24] MEDS ORDERED: GLUCAGON 1 MG/VIAL IM PRN ×2 (14:03→14:12)
[2022-09-24] MEDS ORDERED: ALBUTEROL 2.5 MG/3 ML NEB SOL NEB PRN (14:13)
[2022-09-24] MEDS ORDERED: IPRATROPIUM BROM 0.5MG/2.5ML NEB PRN (14:14)
[2022-09-24] MEDS ORDERED: POLYETHYL GLY 3350 17 GM/DOSE PO PRN (14:15)
[2022-09-24] MEDS ORDERED: D10W 125 ML IV PRN (14:24)
[2022-09-24] MEDS ORDERED: ACETAMINOPHEN 500 MG TAB PO PRN (14:37)
[2022-09-24] MEDS: INSULIN -REGULAR HUMAN 50 UNIT/0.5 ML ML SQ SCH ×2 (16:30→20:36)
[2022-09-24] MEDS: AMITIZA 8 MCG PO SCH (17:00)
[2022-09-24] MEDS ORDERED: LUBIPROSTONE 24 MCG CAP PO SCH (17:00)
[2022-09-24] MEDS: METFORMIN HCL 500 MG TAB PO SCH (17:58)
[2022-09-24] MEDS: INSULIN LISPRO 100 UNIT/1 ML SQ SCH (17:59)
[2022-09-24] MEDS: GABAPENTIN 400 MG CAP PO SCH (19:57)
[2022-09-24] MEDS: DOCUSATE NA/SENNA CONC 1 TAB PO SCH ×2 (19:57→20:37)
[2022-09-24] MEDS: MAGNESIUM OXIDE 400 MG TAB PO SCH ×2 (19:57→20:00)
[2022-09-24] MEDS: BUSPIRONE HCL 5 MG TABLET PO SCH (19:57)
[2022-09-24] MEDS: MELATONIN 3 MG TABLET PO PRN (19:58)
[2022-09-24] MEDS: ATORVASTATIN 20 MG TAB PO SCH (19:58)
[2022-09-24] MEDS: TAMSULOSIN 0.4 MG SR CAP PO SCH (19:59)
[2022-09-24] MEDS: APIXABAN 2.5 MG TABLET PO SCH (19:59)
[2022-09-24] MEDS ORDERED: GABAPENTIN 100 MG CAP PO SCH (20:00)
[2022-09-24] MEDS: INSULIN GLARGINE 100 UNIT/ML SQ SCH (20:36)
--- NOTE | 2022-09-24 22:44 | HP ---
Date of Admission: 09/24/2022 Time Of Service: 1:30 p.m. Chief Complaint: "I had neck surgery, pain, weakness. I have double vision." History Of Present Illness: Ms. 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 Her workup included a stroke evaluat ion with CT scan of the head and CT angiogram of head and neck. CT angiogram of her neck identified a large left lateral posterior disk complex at C4-5 resulting in significant spinal cord compression in combination with marked bilateral foraminal stenosis. She was sent to [facility] level of care where she was seen by the neurologist. Neurosurgery also saw her and did a C3 to C6 posterior decompression and fusion on 09/17. She subsequently has been treated for her comorbid cond itions with atorvastatin for dyslipidemia, Synthroid for hypothyroidism, losartan for hypertension, b uspirone and citalopram for anxiety. She has had the diplopia when looking to either side and has anderson d an eye patch placed on either eye to help reduce the ongoing headaches associated with double visio n. Her brain MRI was however negative, but the neurologist in [place] suggested likely with a small right-sided pontine stroke producing her symptoms. She was treated with steroids, which worsened her diabetes mellitus while she was on steroids and requiring insulin for optimization. She has had sig nificant weakness in the lower extremities with debility, double vision, and decline in her capacity to perform her activities of daily living. As a result, she is a candidate for aggressive inpatient rehabilitation to manage her multiple comorbid medical conditions and to provide aggressive physical, occupational, and speech therapy. Past Medical History: Anxiety, depression, dyslipidemia, hypertension, hypothyroidism, spinal stenos is, diabetes mellitus type 2. Past Surgical History: Cervical laminectomy with fusion at multiple levels. She did have intraopera tive monitoring. X-ray/imaging: CT scan from 09/15 shows C4-C5 large disk osteophyte complex resulting in severe spin al stenosis. On 09/20/2022 imaging of the neck showed posterior facet screw and vertical charlie placeme nt from C3 to C6 with horizontal crossbar and findings. Hardware appeared intact. Cubital spaces we re stable. Allergies: LISINOPRIL. Current Medications: Tylenol Extra Strength 500 mg every 6 hours, albuterol 2.5 nebulized every 6 ho urs as needed, Eliquis 2.5 mg twice daily, aspirin 81 mg daily, Lipitor 20 mg at bedtime, Dulcolax 5 mg daily for constipation, BuSpar 10 mg twice daily, gabapentin 800 mg 3 times daily, Lexapro 20 mg d aily, Semglee insulin 10 units twice daily, lispro insulin 8 units 3 times daily with meals, Atrovent nebulizer 0.5 mg every 6 hours as needed, Synthroid 0.112 mg daily plus 0.05 mg daily of Synthroid, lidocaine 2 patches applied daily, magnesium oxide 400 mg twice daily, Glucophage 500 mg twice daily, Singulair 10 mg daily, Percocet 5/325 one every 4 hours as needed, Senokot S 2 at bedtime, Flomax 0. 4 mg at bedtime. Family History: Noncontributory. Social History: No alcohol, tobacco, or IV drug use. Review of Systems: Ms. Link does report double vision, occasionally causing headaches and posterior neck pain where sh emily had her surgery. Also, weakness, some loss of balance and coordination. Otherwise, denies any wor sening psychiatric issues, but still endorses features of depression. No rash. No active dermatolog ical issues. No active pulmonary issues. No genitourinary or gastrointestinal issues. Physical Examination: Vital Signs: Blood pressure 134/69, pulse up to 111, respiratory rate 16, temperature 97.5, oxygen s aturation 93%. General: Ms. Link is sitting in the chair, just got into the unit. She does have a healing scar i n the midline in the back of her neck from her recent laminectomy. HEENT: Otherwise atraumatic and anicteric. Oropharynx moist. Neck: Supple. Chest: Clear. Heart: Regular. Extremities: Show no significant edema or cyanosis or clubbing. Neurological: She has outward deviation of both eyes, more on the right and there is nystagmus when she looks to either direction going on either eye out laterally. She is unable to cross the midline with either eye consistent with an intranuclear ophthalmoplegia. Otherwise, she has no focal cranial nerve deficits. Motor examination: Upper extremities diffuse weakness, legs more than arms symmetr ically 4/5. Sensation intact in upper and lower extremities. Coordination slow, but intact in upper and lower extremities. She has some difficulty due to her diplopia reaching targets when extending her upper extremities. Current Level Of Functioning: Currently, setup assistance required for eating and oral hygiene, mode rate assistance for toileting, dependent for bathing, moderate assistance with upper body dressing, m aximal assistance with lower body dressing, dependent for donning and doffing footwear, moderate assi stance for rolling left and right and right to left. [id number] moderate assistance. Transfer to chair to toilet, moderate assistance. She ambulated 55 feet with rolling walker with contact guard a ssistance. Rehabilitation And Medical Assessment And Plan: Ms. Link is admitted to the inpatient rehabilitati on unit with impairment category 05 spinal cord dysfunction nontraumatic. Her impairment group code is 0.130, other nontraumatic spinal cord dysfunction and her etiologic diagnosis is cervical myelopat hy, status post decompression. Comorbidities are diabetes mellitus type 2, dyslipidemia, hypertensio n, hypothyroidism, obesity, peripheral neuropathy, spinal stenosis, weakness, and anxiety. Plan: 1.She will have physical and occupational along with speech therapy for 3.5 hours, 5 of 7 days. 2.For diabetes mellitus, continue insulin and a sliding scale as noted. 3.Hypertension. Continue with blood pressure per shift and may adjust medications as appropriate. 4.For urinary retention, continue Flomax for constipation. Continue Senokot for insomnia. Continue metformin for hypothyroidism. Continue Synthroid for neuropathic pain. Continue gabapentin for dep ression. Continue Lexapro and BuSpar. We will continue Eliquis 2.5 mg twice daily, aspirin 81 mg da jayme for DVT prophylaxis. Impact Of Comorbidities: Currently, due to the diplopia, she does have some difficulty with ambulati ng steadily because she sees 2 objects with her eyes. When a patch is placed over 1 eye, she has dif ficulty with depth perception and is in easy risk of falling. In combination with her cervical canal stenosis with recent decompression, she is a higher risk of falling and will have fall precautions a dhered to very strictly which includes gait belt and ambulating with a walker at all times. Rehab Specific Plan: 1.She will have physical, occupational, and speech therapy for 3.5 hours, 5 of 7 days to improve her ability to dress upper and lower body and don and doff shoes, to transfer from bed to chair to toile t commode. 2.Performing toileting and showering. 3.Ambulate 250 feet with modified independence. 4.Propel a wheelchair 250 feet with modified independence. 5.Ascend and descend 25 steps with modified independence. 6.Perform cognitive functioning with modified independence. 7.Ms. Link has a good understanding of the process of admission to the inpatient rehabilitation un it and how she may benefit from all 3 disciplines. If need be, additional services such as the diabe tic teaching service, Wound Care, and Ophthalmology will be consulted as appropriate. Given the comp dionicio medical condition and risk of further complications, rehabilitation cannot be safely or effective ly performed at a lower level facility such as the care home facility. Barriers To Discharge: 1.Her diplopia with nystagmus on either side is a potential barrier. We will place the eye patch an d alternate eyes as appropriate. 2.Her recent cervical decompression puts her at risk for spinal infection and worsening injury. She will be followed by nursing staff for any potential fever, any worsening stiff neck, any myalgias, w hich can suggest an infection in the cervical region. White blood cell count also will be followed. Estimated Length Of Stay: About 10 days. Disposition: Home with family. Prognosis: Good. Rehabilitation Goals: 1.Become independent with upper and lower body dressing. 2.Independent with transferring including to toilet, to shower. 3.Independent performing toileting and shower. 4.Independent with ambulating 250 feet. 5.Independent with going up and down 25 steps. 6.Independent with cognitive functioning. 7.I have reviewed these goals with Ms. Link and she is in agreement. I acknowledge, I personally performed a full physical examination on Ms. Link no later than 24 hour s after her admission to the inpatient rehabilitation facility and determined that she is able to fabi erate the above course of treatment at an intensive level for reasonable period of time. A detailed individualized plan of care for her will be completed by hospital day 4 based on the preadmission scr een, history and physical, and therapy evaluations. LISET/CONNIE Voice ID: [id number]
[2022-09-25] MEDS: LEVOTHYROXINE SOD 0.025 MG TAB PO SCH (05:10)
[2022-09-25] MEDS: LEVOTHYROXINE SOD 0.112 MG TAB PO SCH (05:10)
[2022-09-25 06:39] LABS: Absolute Lymphocytes (CBC) 2.6 K/uL (0.7-4.9); Hematocrit 29.3 % (36.0-45.0); MCV 82.1 fL (80-100); MPV 7.7 fL (7.6-11.3); RBC Red Blood Cell Count 3.57 M/uL (3.86-4.86)
[2022-09-25 06:59] LABS: Albumin 2.5 g/dL (3.4-5.0); Potassium 3.7 mEq/L (3.5-5.1); Prealbumin 12.4 mg/dL (20-40)
[2022-09-25] MEDS: INSULIN -REGULAR HUMAN 50 UNIT/0.5 ML ML SQ SCH ×4 (07:28→20:13)
[2022-09-25] MEDS: BUSPIRONE HCL 5 MG TABLET PO SCH ×2 (07:29→19:32)
[2022-09-25] MEDS: ASPIRIN EC 81 MG TAB PO SCH (07:29)
[2022-09-25] MEDS: APIXABAN 2.5 MG TABLET PO SCH ×2 (07:29→19:32)
[2022-09-25] MEDS: ESCITALOPRAM 20 MG TAB PO SCH (07:29)
[2022-09-25] MEDS: MONTELUKAST 10 MG TAB PO SCH (07:29)
[2022-09-25] MEDS ORDERED: LIDOCAINE 4% PATCH TOP SCH (08:00)
[2022-09-25] MEDS: Oxycodone HCl/Acetaminophen 1 TAB TAB PO PRN ×2 (08:24→19:33)
[2022-09-25] MEDS: LIDOCAINE 4% PATCH TOP SCH (08:24)
[2022-09-25] MEDS: METFORMIN HCL 500 MG TAB PO SCH ×2 (08:25→17:09)
[2022-09-25] MEDS: AMITIZA 8 MCG PO SCH ×2 (08:25→17:16)
[2022-09-25] MEDS: FAMOTIDINE 20 MG TAB PO SCH ×2 (08:26→19:32)
[2022-09-25] MEDS: INSULIN LISPRO 100 UNIT/1 ML SQ SCH ×3 (08:28→17:09)
[2022-09-25] MEDS: INSULIN GLARGINE 100 UNIT/ML SQ SCH ×2 (08:28→20:37)
[2022-09-25] MEDS: MAGNESIUM OXIDE 400 MG TAB PO SCH ×2 (09:31→19:31)
[2022-09-25] MEDS: GABAPENTIN 400 MG CAP PO SCH ×3 (09:33→19:32)
[2022-09-25] MEDS: methocarbamoL 750 MG TAB PO PRN (13:31)
[2022-09-25] MEDS ORDERED: carvediloL 3.125 MG TAB PO SCH (15:00)
[2022-09-25] MEDS: DOCUSATE NA/SENNA CONC 1 TAB PO SCH (19:31)
[2022-09-25] MEDS: CRANBERRY FRUIT EXTRACT 200 MG CAP PO SCH (19:32)
[2022-09-25] MEDS: MELATONIN 3 MG TABLET PO PRN (19:32)
[2022-09-25] MEDS: ATORVASTATIN 20 MG TAB PO SCH (19:32)
[2022-09-25] MEDS: TAMSULOSIN 0.4 MG SR CAP PO SCH (19:32)
[2022-09-25] MEDS: GLUCERNA SHAKE 237 ML CAN PO SCH (19:33)
--- NOTE | 2022-09-25 20:20 | RAD REPORT ---
EXAM DESCRIPTION: Diane Single View09/25/2022 7:54 pm CLINICAL HISTORY: Chest pain COMPARISON: September 14, 2022 FINDINGS: The lungs appear clear of acute infiltrate. The heart is normal size IMPRESSION: No acute abnormalities displayed
[2022-09-25] MEDS ORDERED: LORAZEPAM 0.5 MG TABLET PO PRN (20:29)
[2022-09-26] MEDS: LEVOTHYROXINE SOD 0.025 MG TAB PO SCH (05:22)
[2022-09-26] MEDS: LEVOTHYROXINE SOD 0.112 MG TAB PO SCH (05:22)
[2022-09-26] MEDS: INSULIN -REGULAR HUMAN 50 UNIT/0.5 ML ML SQ SCH ×4 (06:49→19:11)
[2022-09-26] MEDS: LIDOCAINE 4% PATCH TOP SCH (08:35)
[2022-09-26] MEDS: FERROUS SULFATE 325 MG TAB PO SCH (08:35)
[2022-09-26] MEDS: CRANBERRY FRUIT EXTRACT 200 MG CAP PO SCH ×2 (08:35→19:04)
[2022-09-26] MEDS: FE SULF/FA/VIT B COMP & C TAB PO SCH (08:35)
[2022-09-26] MEDS: APIXABAN 2.5 MG TABLET PO SCH ×2 (08:36→19:05)
[2022-09-26] MEDS: METFORMIN HCL 500 MG TAB PO SCH ×2 (08:36→17:04)
[2022-09-26] MEDS: BUSPIRONE HCL 5 MG TABLET PO SCH ×2 (08:36→19:04)
[2022-09-26] MEDS: carvediloL 3.125 MG TAB PO SCH (08:37)
[2022-09-26] MEDS: ASPIRIN EC 81 MG TAB PO SCH (08:37)
[2022-09-26] MEDS: MONTELUKAST 10 MG TAB PO SCH (08:37)
[2022-09-26] MEDS: ESCITALOPRAM 20 MG TAB PO SCH (08:38)
[2022-09-26] MEDS: FAMOTIDINE 20 MG TAB PO SCH ×2 (08:39→19:04)
[2022-09-26] MEDS: MAGNESIUM OXIDE 400 MG TAB PO SCH ×2 (08:39→19:04)
[2022-09-26] MEDS: Oxycodone HCl/Acetaminophen 1 TAB TAB PO PRN ×2 (08:42→19:05)
[2022-09-26] MEDS: AMITIZA 8 MCG PO SCH ×2 (08:43→17:04)
[2022-09-26] MEDS: INSULIN GLARGINE 100 UNIT/ML SQ SCH ×2 (08:43→19:11)
[2022-09-26] MEDS: GLUCERNA SHAKE 237 ML CAN PO SCH ×2 (08:44→19:09)
[2022-09-26] MEDS: INSULIN LISPRO 100 UNIT/1 ML SQ SCH ×3 (08:44→17:43)
[2022-09-26] MEDS: GABAPENTIN 400 MG CAP PO SCH ×3 (10:00→19:04)
[2022-09-26] MEDS: DOCUSATE NA/SENNA CONC 1 TAB PO SCH (19:04)
[2022-09-26] MEDS: ATORVASTATIN 20 MG TAB PO SCH (19:05)
[2022-09-26] MEDS: TAMSULOSIN 0.4 MG SR CAP PO SCH (19:05)
[2022-09-26] MEDS: JUVEN PACKET PO SCH (19:09)
[2022-09-26] MEDS: MELATONIN 3 MG TABLET PO PRN (22:21)
--- NOTE | 2022-09-27 01:59 | PN ---
Date of Progress Note: 09/26/2022 Gvxz-[id number] progress note visit. Time Of Service: 1:30 p.m. Subjective: Ms. Link is feeling better about her therapy so far, but she is still frustrated by he r double vision and having to wear an eye patch alternating on one eye, then the other. She is also having some neck muscle spasms where she has had extensive posterior laminectomy. Otherwise, no new complaints. Review of Systems: Again, the double vision with eye patch on alternating eyes and muscle spasms in the neck, some pain around the shoulders, stiffness in the legs and arms. Otherwise, negative on a 10-point systems revi ew. Objective: Vital Signs: Blood pressure 117/71, pulse of 96, respiratory rate 16, temperature 97, ox ygen saturation 94%. General: Ms. Link is sitting in a chair. HEENT: She has good hemostasis at the posterior neck surgical site. She does have divergent eyes wi th nystagmus when trying to look off to either side and the nystagmus is beating outwards with each e ye. She does have double vision when trying to look with both eyes. Extremities: She does have increased tone in upper and lower extremities. Some mild incoordination noted. Diffuse weakness in the more distal than proximal upper extremities. Laboratory Studies: White blood cell count 10.6, hemoglobin 9.3, platelets 245. Sodium 142, potassi um 3.7, chloride 106, carbon dioxide 34, BUN 15, creatinine 0.47, prealbumin 12.4, albumin 2.5. Crea barrera kinase is 158. Glucose ranged from 107 to 174. Urinalysis was extremely turbid, 1+ ketones, 1+ urobilinogen, 75 esterase, red blood cells without any yeast, trace protein and cultures did grow between 10,000 and 100,000 colony-forming units. X-ray Imaging: Chest x-ray done last night shows lungs are clear of acute infiltrate. Heart is of n ormal size. No acute abnormalities. It is noted the patient did have some left-sided pain last nigh t around the chest area. EKG was done. The study did not show significant abnormalities. It was compared to EKGs done from 2 017 and subsequent EKG essentially unchanged. Cardiac enzymes were negative. Medications: Tylenol Extra Strength 500 mg every 6 hours, albuterol 2.5 mg nebulizer every 6 hours, Eliquis 2.5 mg twice daily, aspirin 81 mg daily, Lipitor 20 mg at bedtime, Dulcolax 5 mg daily for co nstipation, BuSpar 10 mg twice daily, Coreg 3.125 mg daily, Lexapro 20 mg daily, Pepcid 20 mg twice d aily, ferrous sulfate 325 mg daily, gabapentin 800 mg 3 times daily, Semglee insulin 10 units subcuta neously twice daily, lispro 8 units 3 times daily, Atrovent 0.5 mg nebulizer every 6 hours, Omar 1 p acket twice daily, Synthroid a total of 0.137 mg daily, lidocaine patches 2 daily, Ativan 0.5 mg at n ight for anxiety, magnesium oxide 400 mg twice daily, melatonin 3 mg at bedtime, Glucophage 500 mg tw ice daily, Robaxin 750 mg every 6 hours as needed, Singulair 10 mg daily, Hemocyte Plus 1 tablet with breakfast, Percocet 5/325 every 4 hours as needed, Flomax 0.4 mg daily, Senokot-S 2 at bedtime. Current Functional Status: Today, she ambulated 100 feet with contact guard assistance using a [employer] ng walker. Hgc-hs-hovwt transfers done with contact guard assistance and verbal cues. With speech t herapy, she required minimum assistance with short-term memory, word retrieval, temporal orientation and memory. She recalled 4/4 unrelated items independently after 3 minutes. With occupational thera py, lower body training was introduced and patient did have education on donning and doffing socks, s tressing lower body, performing ADLs. She was standby assistance for toilet transfer, wheelchair mob ilization, minimum assistance wheelchair to mat transfer, contact guard assistance. Progress Towards Rehabilitation Goals: Ms. Link is making fair progress so far with her goals of b ecoming independent with upper and lower body dressing, transferring, toileting, showering, ambulatin g 250 feet with modified independence, up and down 10 steps with modified independence and continuing to perform cognitive functioning with modified independence. She is likely to have ongoing diplopia . She most likely suffered a stroke, which produced the equivalent of an intranuclear ophthalmoplegi a. Assessment: Ms. Link is a 57-year-old patient in the rehabilitation unit with cervical spinal sten osis status post decompression. 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 She has diabetes mellitus, hypertension, dyslipidemia, anxiety, depression, asthma, a nd obesity. Plan: 1.Physical, occupational, speech therapy for 3.5 hours, 5 out of 7 days. 2.She has list of comorbid conditions that I have mentioned. She will continue with medications, wh ich are indicated above. Comorbids That Continue To Impact Rehabilitation: Most significant one is the diplopia coming from h er stroke and she is having to use eye patches that are alternating left and right side and that is l ikely making it difficult for her to have good depth perception, putting her at risk of falling, ruthei gabrielley since she had cervical canal stenosis, which is already a high risk factor for falling. She w ould require fall precautions to be maintained at all times and ambulate with a walker and gait belt, especially important given the risk of complication if she were to have any fall and any type of whi plash injury. LISET/CONNIE Voice ID: [id number] Report ID: [id number]
[2022-09-27] MEDS: LEVOTHYROXINE SOD 0.025 MG TAB PO SCH (07:00)
[2022-09-27] MEDS: LEVOTHYROXINE SOD 0.112 MG TAB PO SCH (07:00)
[2022-09-27] MEDS: INSULIN -REGULAR HUMAN 50 UNIT/0.5 ML ML SQ SCH ×4 (07:09→20:44)
[2022-09-27] MEDS: APIXABAN 2.5 MG TABLET PO SCH ×2 (09:00→20:41)
[2022-09-27] MEDS: CRANBERRY FRUIT EXTRACT 200 MG CAP PO SCH ×2 (09:22→20:42)
[2022-09-27] MEDS: BUSPIRONE HCL 5 MG TABLET PO SCH ×2 (09:22→20:42)
[2022-09-27] MEDS: MAGNESIUM OXIDE 400 MG TAB PO SCH ×2 (09:23→20:41)
[2022-09-27] MEDS: FAMOTIDINE 20 MG TAB PO SCH ×2 (09:23→20:42)
[2022-09-27] MEDS: methocarbamoL 750 MG TAB PO PRN (09:23)
[2022-09-27] MEDS: FERROUS SULFATE 325 MG TAB PO SCH (09:23)
[2022-09-27] MEDS: FE SULF/FA/VIT B COMP & C TAB PO SCH (09:24)
[2022-09-27] MEDS: carvediloL 3.125 MG TAB PO SCH (09:24)
[2022-09-27] MEDS: MONTELUKAST 10 MG TAB PO SCH (09:24)
[2022-09-27] MEDS: GABAPENTIN 400 MG CAP PO SCH ×3 (09:24→20:43)
[2022-09-27] MEDS: ESCITALOPRAM 20 MG TAB PO SCH (09:25)
[2022-09-27] MEDS: METFORMIN HCL 500 MG TAB PO SCH ×2 (09:25→17:04)
[2022-09-27] MEDS: ASPIRIN EC 81 MG TAB PO SCH (09:25)
[2022-09-27] MEDS: INSULIN GLARGINE 100 UNIT/ML SQ SCH ×2 (09:28→20:43)
[2022-09-27] MEDS: INSULIN LISPRO 100 UNIT/1 ML SQ SCH ×3 (09:29→16:51)
[2022-09-27] MEDS: GLUCERNA SHAKE 237 ML CAN PO SCH ×2 (10:16→20:42)
[2022-09-27] MEDS: AMITIZA 8 MCG PO SCH ×2 (10:16→17:03)
[2022-09-27] MEDS: JUVEN PACKET PO SCH ×2 (10:16→20:42)
[2022-09-27] MEDS: LIDOCAINE 4% PATCH TOP SCH (10:17)
--- NOTE | 2022-09-27 13:48 | P.RH.PN ---
Estimated Length of Stay: 11 Expected Discharge Date: 10/04/22 Discharge Disposition Plan: Home Family Support: Yes Care Home Goal: Mobility, Transfers, Self Care Vital Signs: Last Vital Signs Temp 97.1 F 09/27/22 07:01 Pulse 88 09/27/22 09:24 Resp 18 09/27/22 09:23 BP 123/58 L 09/27/22 09:24 Pulse Ox 98 09/27/22 09:23 Laboratory: Laboratory Last Values WBC 10.60 thou/uL (4.3-10.9) 09/25/22 06:16 RBC 3.57 M/uL (3.86-4.86) L 09/25/22 06:16 Hgb 9.3 g/dL (12.0-15.0) L 09/25/22 06:16 Hct 29.3 % (36.0-45.0) L 09/25/22 06:16 MCV 82.1 fL (80-100) 09/25/22 06:16 MCH 26.1 pg (27.0-35.0) L 09/25/22 06:16 MCHC 31.8 g/dL (32.0-36.0) L 09/25/22 06:16 RDW 15.0 % (12.1-15.2) 09/25/22 06:16 Plt Count 245 thou/uL (152-406) 09/25/22 06:16 MPV 7.7 fL (7.6-11.3) 09/25/22 06:16 Neutrophils % 61.6 % (41.7-73.7) 09/25/22 06:16 Lymphocytes % 25.0 % (15.3-44.8) 09/25/22 06:16 Monocytes % 10.5 % (3.3-12.3) 09/25/22 06:16 Eosinophils % 2.2 % (0-4.4) 09/25/22 06:16 Basophils % 0.7 % (0-1.3) 09/25/22 06:16 Absolute Neutrophils 6.5 K/uL (1.8-8.0) 09/25/22 06:16 Absolute Lymphocytes 2.6 K/uL (0.7-4.9) 09/25/22 06:16 Absolute Monocytes 1.1 K/uL (0.1-1.3) 09/25/22 06:16 Absolute Eosinophils 0.2 K/uL (0-0.5) 09/25/22 06:16 Absolute Basophils 0.1 K/uL (0-0.5) 09/25/22 06:16 Sodium 142 mEq/L (136-145) 09/25/22 06:16 Potassium 3.7 mEq/L (3.5-5.1) 09/25/22 06:16 Chloride 106 mEq/L (98-107) 09/25/22 06:16 Carbon Dioxide 34 mEq/L (21-32) H 09/25/22 06:16 Anion Gap 5.7 mEq/L (5.0-15.0) 09/25/22 06:16 BUN 15 mg/dL (7-18) 09/25/22 06:16 Creatinine 0.47 mg/dL (0.55-1.02) L 09/25/22 06:16 Est GFR (CKD-EPI) 111 ml/min (=/>90) 09/25/22 06:16 Glucose 151 mg/dL (74-106) H 09/25/22 06:16 POC Glucose 154 mg/dL (65-120) H 09/27/22 11:44 Calcium 8.1 mg/dL (8.5-10.1) L 09/25/22 06:16 Magnesium 2.0 mg/dL (1.6-2.4) 09/25/22 06:16 Creatine Kinase 158 U/L (26-192) 09/25/22 19:49 Albumin 2.5 g/dL (3.4-5.0) L 09/25/22 06:16 Prealbumin 12.4 mg/dL (20-40) L 09/25/22 06:16 Urine Color Yellow (Yellow) 09/24/22 13:15 Urine Clarity Extremely turbid (Clear) H 09/24/22 13:15 Urine pH 6.0 (5.0-7.0) 09/24/22 13:15 Ur Specific [place] 1.021 (1.005-1.030) 09/24/22 13:15 Glucose (UA)(Auto) Negative (Negative) 09/24/22 13:15 Urine Ketones 1+ (Negative) H 09/24/22 13:15 Urine Blood Negative (Negative) 09/24/22 13:15 Urine Nitrite Negative (Negative) 09/24/22 13:15 Urine Bilirubin Negative (Negative) 09/24/22 13:15 Urine Urobilinogen 1+ (Normal) H 09/24/22 13:15 Ur Leukocyte Esterase 75 Jd/uL (Negative) H 09/24/22 13:15 Urine RBC <5 /HPF (None Seen) 09/24/22 13:15 Urine WBC 10-20 /HPF (<5) H 09/24/22 13:15 Ur Squamous Epith Cells 5-10 /HPF (None Seen) 09/24/22 13:15 U Non-Squamous Epi Cells <5 /HPF (None Seen) 09/24/22 13:15 Urine Bacteria <20 /HPF (<20) 09/24/22 13:15 Urine Mucus Slight /HPF (None Seen) 09/24/22 13:15 Urine Yeast (Budding) Few /HPF (None Seen) H 09/24/22 13:15 Urine Culture Reflexed Reflexed 09/24/22 13:15 Urine Total Protein Trace (Negative) H 09/24/22 13:15 Weight: 263 lb 14.4 oz Wound Present: No Closed Surgical Incision Present: No Negative Pressure Wound Therapy Present: No Physician Update: She has O2 drop at night likely due to decreased ventilation. BIMS 15, SLUMS 23 and has word finding difficulty. Met 2/4 goals at [facility], 100' with walker. She has an SILVA stroke with double vision. Summary: Patient's care plan and ad terminal makeup operator goals have been reviewed and revised as necessary. Please see the Rehabilitation Signature page for all necessary signatures.
[2022-09-27] MEDS ORDERED: ALBUTEROL INHALER 60 PUFF/8 GM IH PRN (16:54)
[2022-09-27] MEDS: ALBUTEROL 2.5 MG/3 ML NEB SOL NEB SCH (19:20)
[2022-09-27] MEDS: ATORVASTATIN 20 MG TAB PO SCH (20:41)
[2022-09-27] MEDS: TAMSULOSIN 0.4 MG SR CAP PO SCH (20:42)
[2022-09-27] MEDS: DOCUSATE NA/SENNA CONC 1 TAB PO SCH ×2 (20:43→21:00)
[2022-09-27] MEDS: MELATONIN 3 MG TABLET PO PRN (21:00)
[2022-09-27] MEDS: Oxycodone HCl/Acetaminophen 1 TAB TAB PO PRN (22:38)
[2022-09-28] MEDS: LEVOTHYROXINE SOD 0.112 MG TAB PO SCH (06:49)
[2022-09-28] MEDS: LEVOTHYROXINE SOD 0.025 MG TAB PO SCH (06:49)
[2022-09-28] MEDS: INSULIN -REGULAR HUMAN 50 UNIT/0.5 ML ML SQ SCH ×4 (07:12→19:53)
[2022-09-28] MEDS: ALBUTEROL 2.5 MG/3 ML NEB SOL NEB SCH ×2 (08:00→20:01)
[2022-09-28] MEDS: GABAPENTIN 400 MG CAP PO SCH ×3 (08:12→19:51)
[2022-09-28] MEDS: AMITIZA 8 MCG PO SCH ×2 (08:12→17:15)
[2022-09-28] MEDS: METFORMIN HCL 500 MG TAB PO SCH ×2 (08:12→17:15)
[2022-09-28] MEDS: MONTELUKAST 10 MG TAB PO SCH (08:13)
[2022-09-28] MEDS: FAMOTIDINE 20 MG TAB PO SCH ×2 (08:13→19:52)
[2022-09-28] MEDS: carvediloL 3.125 MG TAB PO SCH (08:13)
[2022-09-28] MEDS: MAGNESIUM OXIDE 400 MG TAB PO SCH ×2 (08:13→19:51)
[2022-09-28] MEDS: BUSPIRONE HCL 5 MG TABLET PO SCH ×2 (08:15→19:51)
[2022-09-28] MEDS: APIXABAN 2.5 MG TABLET PO SCH ×2 (08:15→19:51)
[2022-09-28] MEDS: CRANBERRY FRUIT EXTRACT 200 MG CAP PO SCH ×2 (08:15→19:51)
[2022-09-28] MEDS: LIDOCAINE 4% PATCH TOP SCH (08:16)
[2022-09-28] MEDS: FE SULF/FA/VIT B COMP & C TAB PO SCH (08:16)
[2022-09-28] MEDS: FERROUS SULFATE 325 MG TAB PO SCH (08:16)
[2022-09-28] MEDS: ASPIRIN EC 81 MG TAB PO SCH (08:16)
[2022-09-28] MEDS: ESCITALOPRAM 20 MG TAB PO SCH (08:16)
[2022-09-28] MEDS: GLUCERNA SHAKE 237 ML CAN PO SCH ×2 (08:19→19:52)
[2022-09-28] MEDS: INSULIN GLARGINE 100 UNIT/ML SQ SCH ×2 (08:19→19:51)
[2022-09-28] MEDS: INSULIN LISPRO 100 UNIT/1 ML SQ SCH ×3 (08:19→17:49)
[2022-09-28] MEDS: methocarbamoL 750 MG TAB PO PRN ×2 (08:25→19:51)
[2022-09-28] MEDS: JUVEN PACKET PO SCH ×2 (12:51→19:52)
--- NOTE | 2022-09-28 17:08 | PN ---
Date of Progress Note: 09/28/2022 Time Of Service: 3 p.m. Subjective: Ms. Link is in bed in between therapy sessions. She said her vision is improving, les s double vision when she looks to the CV. It looks somewhat broadened, but the double vision is less . She also knows that her son says her eye seem to be moving together better. No other complaints o n subjective. Review of Systems: The vision is still present, but improving. No fevers, chills, nausea, vomiting. No myalgias, arthr algias, rash, headache, weight change. No psychiatric issues. Her pulmonary issues improving. Physical Examination: Blood pressure 110/56, pulse 87, respiratory rate 16, temperature 97.0, and oxygen saturation 98% on 2 L. Ms. Link is resting in bed after therapy is complete. She has healing scar in the neck from her laminectomy. She has some difficulty converging with the eyes and when looking laterally, she anderson s nystagmus in either eye going outwards. Otherwise, no cranial nerve deficits in terms of her motor , some diffuse weakness in upper and lower extremities, difficulty with coordination likely related t o eye movement problems. Laboratory Studies: Blood sugars ranged from 155 to 166. X-ray/imaging: No new x-rays or imaging. Medications: Her medications have been reviewed and are unchanged. Current Functional Status: Today, she ambulated 250 feet twice, then 150 feet, 50 feet and 60 feet w ith contact guard assistance and a rolling walker. Cmk-ub-iwhgd transfers done with contact guard as sistance. Stand pivot transfers done with contact guard assistance. She did upper body exercises to improve strength and tolerance, and she is working with incentive spirometry. Progress Towards Rehabilitation Goals: Ms. Link is making great progress towards her goals of beco graham independent with upper and lower body dressing, transferring, toileting, showering, ambulating 2 50 feet with modified independence, up and down 10 steps with modified independence and performing co gnitive functioning with independence. Assessment: Ms. Link is a 57-year-old patient in the unit with cervical spinal stenosis, status po st decompression, who has a stroke in the brainstem causing diplopia. The stroke is likely an intran uclear ophthalmoplegia. She is improving from that. She has diabetes mellitus, hypertension, dyslip idemia, anxiety, depression, asthma, and obesity. Plan: 1.Continue with physical, occupational, speech therapy for 3.5 hours, 5 of 7 days. 2.Her comorbid conditions as listed above are addressed by continuing all of her medications, which are noted. Blood sugars have improved. Comorbids That Continue To Impact Rehabilitation: At this point, double vision is making it difficul t to ambulate, but that is improving. She is alternating eye patching . Also, she did hav e some drop in oxygen saturation with ambulation, likely related to recent surgery in the neck and di fficulty moving air plus she has obstructive sleep apnea and does benefit from the CPAP at night. LB/MODL Voice ID: [id number] Report ID: [id number]
[2022-09-28] MEDS: DOCUSATE NA/SENNA CONC 1 TAB PO SCH (19:51)
[2022-09-28] MEDS: MELATONIN 3 MG TABLET PO PRN (19:52)
[2022-09-28] MEDS: ATORVASTATIN 20 MG TAB PO SCH (19:52)
[2022-09-28] MEDS: TAMSULOSIN 0.4 MG SR CAP PO SCH (19:54)
[2022-09-28] MEDS: IPRATROPIUM BROM 0.5MG/2.5ML NEB SCH (20:01)
[2022-09-29] MEDS: LEVOTHYROXINE SOD 0.025 MG TAB PO SCH (06:19)
[2022-09-29] MEDS: LEVOTHYROXINE SOD 0.112 MG TAB PO SCH (06:19)
[2022-09-29] MEDS: INSULIN -REGULAR HUMAN 50 UNIT/0.5 ML ML SQ SCH ×4 (07:30→19:11)
[2022-09-29] MEDS: carvediloL 3.125 MG TAB PO SCH (07:42)
[2022-09-29] MEDS: METFORMIN HCL 500 MG TAB PO SCH ×2 (07:43→16:44)
[2022-09-29] MEDS: MAGNESIUM OXIDE 400 MG TAB PO SCH ×2 (07:43→19:10)
[2022-09-29] MEDS: FAMOTIDINE 20 MG TAB PO SCH ×2 (07:43→19:10)
[2022-09-29] MEDS: GABAPENTIN 400 MG CAP PO SCH ×3 (07:43→19:09)
[2022-09-29] MEDS: FERROUS SULFATE 325 MG TAB PO SCH (07:43)
[2022-09-29] MEDS: JUVEN PACKET PO SCH ×2 (07:44→19:10)
[2022-09-29] MEDS: INSULIN LISPRO 100 UNIT/1 ML SQ SCH ×3 (07:44→16:22)
[2022-09-29] MEDS: BUSPIRONE HCL 5 MG TABLET PO SCH ×2 (07:45→19:09)
[2022-09-29] MEDS: ESCITALOPRAM 20 MG TAB PO SCH (07:45)
[2022-09-29] MEDS: AMITIZA 8 MCG PO SCH ×2 (07:45→16:44)
[2022-09-29] MEDS: CRANBERRY FRUIT EXTRACT 200 MG CAP PO SCH ×2 (07:45→19:10)
[2022-09-29] MEDS: MONTELUKAST 10 MG TAB PO SCH (07:45)
[2022-09-29] MEDS: INSULIN GLARGINE 100 UNIT/ML SQ SCH ×2 (07:45→19:08)
[2022-09-29] MEDS: ASPIRIN EC 81 MG TAB PO SCH (07:45)
[2022-09-29] MEDS: FE SULF/FA/VIT B COMP & C TAB PO SCH (07:46)
[2022-09-29] MEDS: APIXABAN 2.5 MG TABLET PO SCH ×2 (07:46→19:09)
[2022-09-29] MEDS: IPRATROPIUM BROM 0.5MG/2.5ML NEB SCH ×2 (07:48→19:46)
[2022-09-29] MEDS: ALBUTEROL 2.5 MG/3 ML NEB SOL NEB SCH ×2 (07:48→19:46)
[2022-09-29] MEDS: GLUCERNA SHAKE 237 ML CAN PO SCH ×2 (07:48→19:10)
[2022-09-29] MEDS: LIDOCAINE 4% PATCH TOP SCH (07:48)
[2022-09-29] MEDS: methocarbamoL 750 MG TAB PO PRN ×2 (09:17→15:44)
[2022-09-29] MEDS: DOCUSATE NA/SENNA CONC 1 TAB PO SCH (19:09)
[2022-09-29] MEDS: ATORVASTATIN 20 MG TAB PO SCH (19:09)
[2022-09-29] MEDS: MELATONIN 3 MG TABLET PO PRN (19:10)
[2022-09-29] MEDS: TAMSULOSIN 0.4 MG SR CAP PO SCH (19:10)
[2022-09-29] MEDS: HYDROCODONE/APAP 5/325 MG TAB PO PRN (19:10)
[2022-09-30] MEDS: LEVOTHYROXINE SOD 0.025 MG TAB PO SCH (05:03)
[2022-09-30] MEDS: LEVOTHYROXINE SOD 0.112 MG TAB PO SCH (05:03)
[2022-09-30] MEDS: INSULIN -REGULAR HUMAN 50 UNIT/0.5 ML ML SQ SCH ×4 (07:26→19:51)
[2022-09-30] MEDS: AMITIZA 8 MCG PO SCH ×2 (07:27→16:59)
[2022-09-30] MEDS: carvediloL 3.125 MG TAB PO SCH (07:27)
[2022-09-30] MEDS: GABAPENTIN 400 MG CAP PO SCH ×3 (07:27→19:50)
[2022-09-30] MEDS: JUVEN PACKET PO SCH ×2 (07:28→19:52)
[2022-09-30] MEDS: MONTELUKAST 10 MG TAB PO SCH (07:28)
[2022-09-30] MEDS: ASPIRIN EC 81 MG TAB PO SCH (07:28)
[2022-09-30] MEDS: CRANBERRY FRUIT EXTRACT 200 MG CAP PO SCH ×2 (07:28→19:50)
[2022-09-30] MEDS: FERROUS SULFATE 325 MG TAB PO SCH (07:28)
[2022-09-30] MEDS: GLUCERNA SHAKE 237 ML CAN PO SCH ×2 (07:28→19:52)
[2022-09-30] MEDS: ESCITALOPRAM 20 MG TAB PO SCH (07:28)
[2022-09-30] MEDS: FAMOTIDINE 20 MG TAB PO SCH ×2 (07:28→19:50)
[2022-09-30] MEDS: BUSPIRONE HCL 5 MG TABLET PO SCH ×2 (07:28→19:51)
[2022-09-30] MEDS: FE SULF/FA/VIT B COMP & C TAB PO SCH (07:28)
[2022-09-30] MEDS: INSULIN LISPRO 100 UNIT/1 ML SQ SCH ×3 (07:29→16:19)
[2022-09-30] MEDS: APIXABAN 2.5 MG TABLET PO SCH ×2 (07:29→19:51)
[2022-09-30] MEDS: METFORMIN HCL 500 MG TAB PO SCH ×2 (07:29→16:59)
[2022-09-30] MEDS: MAGNESIUM OXIDE 400 MG TAB PO SCH ×2 (07:29→19:50)
[2022-09-30] MEDS: INSULIN GLARGINE 100 UNIT/ML SQ SCH ×2 (07:29→19:49)
[2022-09-30] MEDS: IPRATROPIUM BROM 0.5MG/2.5ML NEB SCH ×2 (08:00→20:35)
[2022-09-30] MEDS: ALBUTEROL 2.5 MG/3 ML NEB SOL NEB SCH ×2 (08:00→20:35)
[2022-09-30] MEDS: methocarbamoL 750 MG TAB PO PRN ×2 (08:38→12:48)
[2022-09-30] MEDS: LIDOCAINE 4% PATCH TOP SCH (10:06)
[2022-09-30] MEDS: HYDROCODONE/APAP 5/325 MG TAB PO PRN ×2 (10:10→19:49)
[2022-09-30] MEDS: MELATONIN 3 MG TABLET PO PRN (19:49)
[2022-09-30] MEDS: ATORVASTATIN 20 MG TAB PO SCH (19:50)
[2022-09-30] MEDS: TAMSULOSIN 0.4 MG SR CAP PO SCH (19:50)
[2022-09-30] MEDS: DOCUSATE NA/SENNA CONC 1 TAB PO SCH (19:51)
--- NOTE | 2022-10-01 01:09 | PN ---
Date of Progress Note: 09/30/2022 Time Of Service: 1:15 p.m. Subjective: Ms. Link is getting ready to ambulate with physical therapist. She is feeling much be tter about her double vision, which is slowly improving. Her shortness of breath is also improving a s she is doing incentive spirometry and she has no new complaints there. Review of Systems: No fevers, chills, nausea, vomiting. No myalgias or arthralgias. Still has double vision when looki ng laterally at either direction. Some mild shortness of breath with exertion. Physical Examination: Vital Signs: Blood pressure 113/58, pulse 87, respiratory rate 19, temperature 97.6, oxygen saturati on 96%. Neuro: Ms. Link has had intranuclear ophthalmoplegia as she looks in either direction. Either eye does not cross the midline and there is nystagmus in the opposite eye outward. In terms of the rest of her cranial nerve examination, her lower extremities, she has stiffness, but is able to exert goo d force. She has some neck pain, but that is improving and that is where she had her cervical canal decompression. There was good hemostasis in that area as well. Laboratory Studies: Blood sugars ranged from 84 to 129. X-ray/imaging: No new x-rays or imaging. Medications: Her medications have been reviewed and remained unchanged. Current Functional Status: Today, she ambulated 125 foot twice and another 350 feet twice with stand by assistance with a rolling walker. She ascended and descended 15 steps and then 10 steps with bila teral handrails with contact guard assistance. Sit to stand done with standby assistance and verbal cues. With speech therapy, she could recall 2 sets of a 4/4 unrelated items after 5 minutes. She wa s independent with eating tasks associated with word retrieval and needed minimum assistance for temp oral orientation tasks as well as working memory tasks. She is doing her eye muscle exercises. Progress Towards Rehabilitation Goals: Ms. Link is making good progress so far with her goals of b ecoming independent with upper and lower body dressing, transferring, toileting, showering, ambulatin g 500 feet with independence up and down 25 steps with independence and performing cognitive function ing with independent and improving her vision to seeing a single object when looking with eyes. Assessment: Ms. Link is a 57-year-old patient in the rehabilitation unit with cervical cord stenos is, status post decompression. She had a stroke causing diplopia. Stroke is identified as an intran uclear ophthalmoplegia. She has hypertension, dyslipidemia, anxiety, depression, asthma, obesity. Plan: 1.Continue with physical, occupational, and speech therapy. 2.Continue medications for comorbid conditions, which are listed above. She will continue Eliquis 2 .5 mg twice daily, aspirin 81 mg daily, Lipitor 20 mg at bedtime, Maybee and Tylenol along with gabape ntin, Semglee insulin, Synthroid, Robaxin, Flomax. Comorbids That Continue To Impact Rehabilitation: Her double vision is the biggest comorbid impactin g rehabilitation as she has difficulty looking to either side and has double vision with nystagmus. Her blood sugars are improving. Her ability to ambulate without the need for oxygen is improving as her saturations are now much better. She is 96% and that was on 2 L. However, when she ambulated wi thout oxygen and breathing well she also was able to get 96% saturation. The goal is for her to not require oxygen when breathing. LB/MODL Voice ID: [id number] Report ID: [id number]
[2022-10-01] MEDS: LEVOTHYROXINE SOD 0.112 MG TAB PO SCH (06:28)
[2022-10-01] MEDS: LEVOTHYROXINE SOD 0.025 MG TAB PO SCH (06:28)
[2022-10-01] MEDS: INSULIN -REGULAR HUMAN 50 UNIT/0.5 ML ML SQ SCH ×4 (07:30→19:01)
[2022-10-01] MEDS: LIDOCAINE 4% PATCH TOP SCH (07:36)
[2022-10-01] MEDS: CRANBERRY FRUIT EXTRACT 200 MG CAP PO SCH ×2 (07:37→18:59)
[2022-10-01] MEDS: FAMOTIDINE 20 MG TAB PO SCH ×2 (07:37→18:59)
[2022-10-01] MEDS: FERROUS SULFATE 325 MG TAB PO SCH (07:37)
[2022-10-01] MEDS: FE SULF/FA/VIT B COMP & C TAB PO SCH (07:37)
[2022-10-01] MEDS: AMITIZA 8 MCG PO SCH ×2 (07:37→17:04)
[2022-10-01] MEDS: ASPIRIN EC 81 MG TAB PO SCH (07:37)
[2022-10-01] MEDS: carvediloL 3.125 MG TAB PO SCH (07:38)
[2022-10-01] MEDS: GABAPENTIN 400 MG CAP PO SCH ×3 (07:38→18:58)
[2022-10-01] MEDS: BUSPIRONE HCL 5 MG TABLET PO SCH ×2 (07:38→18:58)
[2022-10-01] MEDS: METFORMIN HCL 500 MG TAB PO SCH ×2 (07:38→17:02)
[2022-10-01] MEDS: APIXABAN 2.5 MG TABLET PO SCH ×2 (07:38→18:59)
[2022-10-01] MEDS: INSULIN GLARGINE 100 UNIT/ML SQ SCH ×2 (07:39→19:00)
[2022-10-01] MEDS: INSULIN LISPRO 100 UNIT/1 ML SQ SCH ×3 (07:39→17:02)
[2022-10-01] MEDS: MAGNESIUM OXIDE 400 MG TAB PO SCH ×2 (07:39→18:59)
[2022-10-01] MEDS: ESCITALOPRAM 20 MG TAB PO SCH (07:39)
[2022-10-01] MEDS: MONTELUKAST 10 MG TAB PO SCH (07:39)
[2022-10-01] MEDS: JUVEN PACKET PO SCH ×2 (07:41→19:01)
[2022-10-01] MEDS: GLUCERNA SHAKE 237 ML CAN PO SCH ×2 (07:41→19:01)
[2022-10-01] MEDS: HYDROCODONE/APAP 5/325 MG TAB PO PRN ×2 (08:39→18:59)
[2022-10-01] MEDS: IPRATROPIUM BROM 0.5MG/2.5ML NEB SCH ×2 (09:35→21:40)
[2022-10-01] MEDS: ALBUTEROL 2.5 MG/3 ML NEB SOL NEB SCH ×2 (09:35→21:40)
--- NOTE | 2022-10-01 15:14 | EKG ---
Test Date: 2022-09-25 Test Time: 20:06:53 Employment Appeals Examiner: KYLER MEASUREMENT RESULTS: Intervals: Rate: 110 CA: 138 QRSD: 76 QT: 336 QTc: 454 [place]: P: 52 CA: 138 QRS: 0 T: -14 INTERPRETIVE STATEMENTS: Sinus tachycardia Cannot rule out Anterior infarct, age undetermined T wave abnormality, consider inferior ischemia Abnormal ECG Compared to ECG 09/25/2022 20:04:28 T-wave abnormality now present Possible ischemia now present Myocardial infarct finding still present Electronically Signed On 10-01-22 15:04:16 CDT by Mike Elizabeth
--- NOTE | 2022-10-01 15:15 | EKG ---
Test Date: 2022-09-25 Test Time: 20:04:28 Tobacco Cloth Reclaimer: KYLER MEASUREMENT RESULTS: Intervals: Rate: 111 RI: 146 QRSD: 78 QT: 346 QTc: 470 [place]: P: 51 RI: 146 QRS: 2 T: 3 INTERPRETIVE STATEMENTS: Sinus tachycardia Cannot rule out Anterior infarct, age undetermined Abnormal ECG Compared to ECG 09/14/2022 15:14:55 Myocardial infarct finding now present Sinus rhythm no longer present T-wave abnormality no longer present Prolonged QT interval no longer present Electronically Signed On 10-01-22 15:04:18 CDT by Mike Elizabeth
[2022-10-01] MEDS: methocarbamoL 750 MG TAB PO PRN (15:59)
[2022-10-01] MEDS: DOCUSATE NA/SENNA CONC 1 TAB PO SCH (18:58)
[2022-10-01] MEDS: MELATONIN 3 MG TABLET PO PRN (18:59)
[2022-10-01] MEDS: TAMSULOSIN 0.4 MG SR CAP PO SCH (19:00)
[2022-10-01] MEDS: ATORVASTATIN 20 MG TAB PO SCH (19:00)
[2022-10-02] MEDS: HYDROCODONE/APAP 5/325 MG TAB PO PRN ×2 (03:47→19:49)
--- NOTE | 2022-10-02 04:11 | PN ---
Date of Progress Note: 10/01/2022 Lgvh-qv-qvye Progress Note Visit Time Of Service: 1:30 a.m. Subjective: Ms. Link is doing well. She says her vision is better. She is seeing one object when looking straight ahead. She does see 2 objects when looking to either side. She still has some honey rtness of breath with ambulation and when sleeping at night. Otherwise, when oxygen is supplemented, she does very well. Review of Systems: No fevers or chills. Mild shortness of breath and still double vision when looking at either side. No other new findings. Physical Examination: Vital Signs: Blood pressure 134/64, pulse 67, respiratory rate 18, temperature 97.1, oxygen saturati on 92% on room air. General: Ms. Likn is doing well. Again, she has diplopia when looking at either side with nystagm us on the outer eye, with looking to either right or left. She has some improvement in her diffuse w eakness. She has good hemostasis of the posterior neck, where her laminectomy site is healing well. Laboratory Studies: Blood sugars ranged from 120 to 131. X-ray Imaging: No new x-ray imaging. Medications: Medications are unchanged and have been reviewed. Current Functional Status: Today, she ambulated 200 feet twice and 350 feet twice with independence. She ascended 15 and descended 15 steps with bilateral handrails with standby assistance. Her oxyge n was kept between 90 and 92 while on room air, and she is actually using incentive spirometry well i n between exercise sessions. Qar-qs-ojqbn done independently, as well as supine to sit, completed in dependently. With Speech Therapy, she did recall 4 items when deciding on an inclusive category. Sh e sequenced 4 steps of activities of daily living with 100% accuracy. She completed reading and writ ing without an eye patch with 95% accuracy. With Occupational Therapy, she was from the room to gym with a rolling walker, did surgical cones and picked those up with a railroad mechanic with verbal cues. She i s doing well with her spinal precautions. Progress Towards Rehabilitation Goals: Ms. Link is making excellent progress towards her goals of becoming independent with upper and lower body dressing, transferring, toileting, ambulating 500 feet , up and down 25 steps with independence and performing cognitive functioning with independence. Assessment: Ms. Link is a 57-year-old patient with cervical spinal stenosis, status post decompres estella. She has a brainstem stroke and is recovering slowly from that. She has hypertension, dyslipid emia, anxiety, depression, asthma, and obesity. Plan: 1.Continue with physical and occupational therapy for 3-1/2 hours, 5 to 7 days. 2.Continue with [place], aspirin, Tylenol, Eliquis, Semglee, gabapentin, Synthroid, Robaxin, and Floma x for her comorbid conditions. Comorbids That Continue To Impact The Rehabilitation Process: Her double vision is improving. Her s hortness of breath with exertion improving. She is able to withstand exercise on room air, and she i s using incentive spirometry very well. She is ambulating well with the rolling walker, and those ba rriers are being overcome. LB/MODL Voice ID: [id number] Report ID: [id number]
[2022-10-02] MEDS: LEVOTHYROXINE SOD 0.112 MG TAB PO SCH (06:58)
[2022-10-02] MEDS: LEVOTHYROXINE SOD 0.025 MG TAB PO SCH (06:58)
[2022-10-02] MEDS: INSULIN -REGULAR HUMAN 50 UNIT/0.5 ML ML SQ SCH ×4 (07:12→19:51)
[2022-10-02] MEDS: ALBUTEROL 2.5 MG/3 ML NEB SOL NEB SCH ×2 (08:00→20:00)
[2022-10-02] MEDS: IPRATROPIUM BROM 0.5MG/2.5ML NEB SCH ×2 (08:00→20:00)
[2022-10-02] MEDS: GABAPENTIN 400 MG CAP PO SCH ×3 (08:58→19:48)
[2022-10-02] MEDS: CRANBERRY FRUIT EXTRACT 200 MG CAP PO SCH ×2 (08:58→19:48)
[2022-10-02] MEDS: ESCITALOPRAM 20 MG TAB PO SCH (08:59)
[2022-10-02] MEDS: METFORMIN HCL 500 MG TAB PO SCH ×2 (08:59→17:49)
[2022-10-02] MEDS: MAGNESIUM OXIDE 400 MG TAB PO SCH ×2 (08:59→19:50)
[2022-10-02] MEDS: APIXABAN 2.5 MG TABLET PO SCH ×2 (08:59→19:50)
[2022-10-02] MEDS: BUSPIRONE HCL 5 MG TABLET PO SCH ×2 (09:00→19:49)
[2022-10-02] MEDS: ASPIRIN EC 81 MG TAB PO SCH (09:00)
[2022-10-02] MEDS: FE SULF/FA/VIT B COMP & C TAB PO SCH (09:00)
[2022-10-02] MEDS: FERROUS SULFATE 325 MG TAB PO SCH (09:00)
[2022-10-02] MEDS: FAMOTIDINE 20 MG TAB PO SCH ×2 (09:01→19:50)
[2022-10-02] MEDS: MONTELUKAST 10 MG TAB PO SCH (09:02)
[2022-10-02] MEDS: carvediloL 3.125 MG TAB PO SCH (09:02)
[2022-10-02 09:04] VITALS: O2SAT 95
[2022-10-02] MEDS: LIDOCAINE 4% PATCH TOP SCH (09:04)
[2022-10-02] MEDS: AMITIZA 8 MCG PO SCH ×2 (09:12→17:49)
[2022-10-02] MEDS: GLUCERNA SHAKE 237 ML CAN PO SCH ×2 (09:13→19:50)
[2022-10-02] MEDS: INSULIN LISPRO 100 UNIT/1 ML SQ SCH ×3 (09:13→17:49)
[2022-10-02] MEDS: INSULIN GLARGINE 100 UNIT/ML SQ SCH ×2 (09:13→19:50)
[2022-10-02] MEDS: JUVEN PACKET PO SCH ×2 (09:14→19:50)
[2022-10-02] MEDS: methocarbamoL 750 MG TAB PO PRN (14:35)
[2022-10-02] MEDS: DOCUSATE NA/SENNA CONC 1 TAB PO SCH (19:48)
[2022-10-02] MEDS: MELATONIN 3 MG TABLET PO PRN (19:49)
[2022-10-02] MEDS: TAMSULOSIN 0.4 MG SR CAP PO SCH (19:50)
[2022-10-02] MEDS: ATORVASTATIN 20 MG TAB PO SCH (19:50)
--- NOTE | 2022-10-03 00:45 | PN ---
Date of Progress Note: 10/02/2022 Time Of Service: 1:00 p.m. Subjective: Ms. Link is doing well. She is happy about going home tomorrow. She has double visio n, has improved and when looking straight ahead, she sees 1 object, when looking to the 2 side still has double vision. Her shortness of breath is still there, but has improved and she did have home ox ygen improving. Review of Systems: No fevers, chills. No significant shortness of breath when sitting without ambulation. However, whe n walking she has some mild shortness of breath. Otherwise, no other positives on systems review. Physical Examination: Vital Signs: Blood pressure 129/64, pulse of 76, respiratory rate 16, temperature 97, oxygen saturat ion 95%. Pain level between 1 and 2. General: Ms. Link is resting comfortably. Neuro: She has some rightward and leftward diplopia, but central vision she sees a single object. O therwise, cranial nerves are intact. She has some incoordination in the upper and lower extremities, possibly related to her visual challenges. She has good air movement. Abdomen: Soft. Neck: The posterior neck surgical site has good hemostasis. Laboratory Studies: Blood sugars ranged from 85 to 168. X-ray/imaging: No new x-rays or imaging. Medications: Medications have been reviewed and are unchanged. Current Functional Status: Today, she ambulated 250 feet, another 300 twice, and 350 feet twice inde pendently with her Rollator. She ascended and descended 20 steps with bilateral handrails independen tly. Her oxygen saturation on room air was between 90% and 93% while she was doing her therapy. Mul tiple kki-ge-ojkwl transfers and iidbfu-ez-zqc transfers done independently. With speech therapy, sanjuana diaz demonstrated short-term recall 4/4 unrelated pictures after 7 minutes without cues. She used word retrieval to recall specific words based on with each category with 100% accuracy and mini mum assistance. Temporal orientation skills done with 100% accuracy. Assessment: Ms. Link is a 57-year-old patient in the rehabilitation unit with cervical spinal sten osis, status post surgical decompression. She had a brainstem stroke, which she is recovering from. Stroke caused an internuclear ophthalmoplegia with double vision when looking to either side. She h as dyslipidemia, hypertension, anxiety, depression, asthma, obesity. She has some shortness of breat h, which is improving. Plan: 1.Continue with physical, occupational, and speech therapy for 3.5 hours, 5 of 7 days. 2.She has multiple medications, which are listed and continued for her comorbid conditions and are n oted above. 3.She will be discharged in the morning to continue home health and physical therapy. Comorbids That Continue To Impact Rehabilitation: Her diplopia is impacting her ability to have good depth perception, but she is improving. In addition her shortness of breath is the factor that may impact her, but she still can ambulate 350 independently with a Rollator. LISET/CONNIE Voice ID: [id number] Report ID: [id number]
[2022-10-03] MEDS ORDERED: BISACODYL 10 MG RECTAL SUPP PR ONE (06:49)
[2022-10-03] MEDS: LEVOTHYROXINE SOD 0.025 MG TAB PO SCH (06:52)
[2022-10-03] MEDS: LIDOCAINE 4% PATCH TOP SCH (06:52)
[2022-10-03] MEDS: LEVOTHYROXINE SOD 0.112 MG TAB PO SCH (06:52)
[2022-10-03 07:19] VITALS: BP 107/54; TEMP 96.9
[2022-10-03 07:20] LABS: Absolute Lymphocytes (CBC) 2.6 K/uL (0.7-4.9); Hematocrit 28.4 % (36.0-45.0); Lymphocytes % 31.5 % (15.3-44.8); MCV 82.8 fL (80-100); MPV 7.4 fL (7.6-11.3); RBC Red Blood Cell Count 3.44 M/uL (3.86-4.86)
[2022-10-03] MEDS: INSULIN -REGULAR HUMAN 50 UNIT/0.5 ML ML SQ SCH ×2 (07:30→11:30)
[2022-10-03 07:44] LABS: Albumin 2.6 g/dL (3.4-5.0); Magnesium 2.1 mg/dL (1.6-2.4); Potassium 3.8 mEq/L (3.5-5.1); Prealbumin 15.4 mg/dL (20-40)
[2022-10-03] MEDS: ALBUTEROL 2.5 MG/3 ML NEB SOL NEB SCH (08:00)
[2022-10-03] MEDS: IPRATROPIUM BROM 0.5MG/2.5ML NEB SCH (08:00)
[2022-10-03] MEDS: AMITIZA 8 MCG PO SCH (08:32)
[2022-10-03] MEDS: FERROUS SULFATE 325 MG TAB PO SCH (08:32)
[2022-10-03] MEDS: ASPIRIN EC 81 MG TAB PO SCH (08:33)
[2022-10-03] MEDS: carvediloL 3.125 MG TAB PO SCH (08:33)
[2022-10-03] MEDS: BUSPIRONE HCL 5 MG TABLET PO SCH (08:33)
[2022-10-03] MEDS: APIXABAN 2.5 MG TABLET PO SCH (08:33)
[2022-10-03] MEDS: CRANBERRY FRUIT EXTRACT 200 MG CAP PO SCH (08:33)
[2022-10-03] MEDS: FE SULF/FA/VIT B COMP & C TAB PO SCH (08:33)
[2022-10-03] MEDS: GABAPENTIN 400 MG CAP PO SCH (08:34)
[2022-10-03] MEDS: MONTELUKAST 10 MG TAB PO SCH (08:34)
[2022-10-03] MEDS: FAMOTIDINE 20 MG TAB PO SCH (08:34)
[2022-10-03] MEDS: ESCITALOPRAM 20 MG TAB PO SCH (08:34)
[2022-10-03] MEDS: METFORMIN HCL 500 MG TAB PO SCH (08:34)
[2022-10-03] MEDS: MAGNESIUM OXIDE 400 MG TAB PO SCH (08:35)
[2022-10-03] MEDS: INSULIN LISPRO 100 UNIT/1 ML SQ SCH ×2 (09:28→12:26)
[2022-10-03] MEDS: GLUCERNA SHAKE 237 ML CAN PO SCH (09:28)
[2022-10-03] MEDS: INSULIN GLARGINE 100 UNIT/ML SQ SCH (09:28)
[2022-10-03] MEDS: JUVEN PACKET PO SCH (09:28)
[2022-10-03] MEDS ORDERED: IPRATROPIUM BROM 0.5MG/2.5ML NEB SCH (20:00)
== END 2022-10-03 13:30 | disposition home health service (06) | DRG 561 ==
LOC: 5TH 12:00
PROVIDERS: ADMIT Psychiatry & Neurology Neurology with Special Qualifications in Child Neurology; ATTEND Psychiatry & Neurology Neurology with Special Qualifications in Child Neurology
DX: Z47.89 Encounter for other orthopedic aftercare (principal); E66.9 Obesity, unspecified; Z68.36 Body mass index [BMI] 36.0-36.9, adult; J45.909 Unspecified asthma, uncomplicated; E11.9 Type 2 diabetes mellitus without complications; I10 Essential (primary) hypertension; E78.5 Hyperlipidemia, unspecified; F41.8 Other specified anxiety disorders; H53.2 Diplopia; R53.81 Other malaise; E03.9 Hypothyroidism, unspecified; G62.9 Polyneuropathy, unspecified; R33.9 Retention of urine, unspecified; H51.23 Internuclear ophthalmoplegia, bilateral; I69.398 Other sequelae of cerebral infarction
CPT/HCPCS: 36415; 71045; 80048; 81001; 82040; 82550; 82947; 83735; 84134; 85025; 87086; 87088; 92523; 92610; 93005; 94010; 94640; 97010; 97110; 97116; 97124; 97129; 97162; 97165; 97530; 97542; J1815; J2001; J7613; J7644

== ENCOUNTER 2023-05-02 09:39 | Inpatient (IN) | payer OTHER ==
[2023-05-02 10:22] LABS: Absolute Lymphocytes (CBC) 2.1 K/uL (0.7-4.9); Hematocrit 34.5 % (36.0-45.0); Lymphocytes % 25.6 % (15.3-44.8); MCV 80.3 fL (80-100); MPV 7.9 fL (7.6-11.3); Platelets 274 thou/uL (152-406)
[2023-05-02 10:27] LABS: Protime INR 1.07
--- NOTE | 2023-05-02 10:33 | RAD REPORT ---
EXAM DESCRIPTION: RAD - Chest Single View - 05/02/2023 10:15 am CLINICAL HISTORY: DYSPNEA Chest pain. COMPARISON: Chest Single View dated 09/25/2022; Chest Single View dated 09/14/2022; Chest Single View d ated 03/02/2020; Chest Pa And Lat (2 Views) dated 09/24/2019 FINDINGS: Portable technique limits examination quality. The lungs are grossly clear. The heart is normal in size. No displaced fractures. IMPRESSION: No acute intrathoracic process suspected.
[2023-05-02 10:41] LABS: Albumin 3.3 g/dL (3.4-5.0); Bilirubin Direct 0.1 mg/dL (0-0.2); Bilirubin Indirect, Calculated 0.1 mg/dL (0.2-0.8); Bilirubin Total 0.2 mg/dL (0.2-1.0); Magnesium 1.9 mg/dL (1.6-2.4); Potassium 3.8 mEq/L (3.5-5.1); Protein, Total 7.5 g/dL (6.4-8.2); Troponin High Sensitivity 3.1 pg/mL (<58.9)
[2023-05-02 10:48] LABS: SARS-CoV-2 Antigen Rapid Res Negative (Negative)
[2023-05-02] MEDS ORDERED: NA CHLORIDE 0.9% 1,000 ML ONE (11:00)
[2023-05-02] MEDS ORDERED: ALBUTEROL 2.5 MG/3 ML NEB SOL ONE (12:58)
[2023-05-02] MEDS ORDERED: IPRATROPIUM BROM 0.5MG/2.5ML ONE (12:58)
--- NOTE | 2023-05-02 13:08 | ER ---
Nurse's Notes [facility] Name: Ernestina Link Age: 58 yrs Sex: Female : 1965 Arrival Date: 05/02/2023 Time: 09:39 Bed 6 Private MD: Mackenzie Ellis Diagnosis: Acute bronchitis;Lactic acidosis Presentation: 05/02 09:50 Chief complaint: Patient states: "I've been feeling SOB and sort of dizzy for the past rs5 two weeks". 09:50 Coronavirus screen: At this time, the client does not indicate any symptoms associated rs5 with coronavirus-19. Ebola Screen: No symptoms or risks identified at this time. Initial Sepsis Screen: Does the patient meet any 2 criteria? No. Patient's initial sepsis screen is negative. Does the patient have a suspected source of infection? No. Patient's initial sepsis screen is negative. Risk Assessment: Do you want to hurt yourself or someone else? Patient reports no desire to harm self or others. Onset of symptoms was April 18, 2023. 09:50 Method Of Arrival: Wheelchair rs5 09:50 Acuity: TAHIRA 3 rs5 Historical: - Allergies: 09:58 lisinopril; rs5 - PMHx: 09:58 Asthma; Diabetes - NIDDM; Hypercholesterolemia; Hypertension; Hypothyroidism; rs5 neuropathy; spinostenosis; - PSHx: 09:58 Appendectomy; Cholecystectomy; rs5 - Immunization history:: Adult Immunizations unknown. - Social history:: Smoking status: unknown. - Family history:: not pertinent. Screenin:46 [facility] ED Fall Risk Assessment (Adult) History of falling in the last 3 months, rs5 including since admission No falls in past 3 months (0 pts) Confusion or Disorientation No (0 pts) Intoxicated or Sedated No (0 pts) Impaired Gait Yes (1 pt) Mobility Assist Device Used Yes (1 pt) Altered Elimination No (0 pt) Score/Fall Risk Level 0 - 2 = Low Risk Oriented to surroundings, Maintained a safe environment. 09:46 Abuse screen: Denies threats or abuse. Nutritional screening: No deficits noted. rs5 Tuberculosis screening: No symptoms or risk factors identified. Assessment: 09:47 General: Appears in no apparent distress. uncomfortable, Behavior is calm, cooperative. rs5 Pain: Denies pain. Neuro: Level of Consciousness is awake, alert, obeys commands, Oriented to person, place, time, situation. Cardiovascular: Heart tones S1 S2 present Patient's skin is warm and dry. Rhythm is regular. Respiratory: Airway is patent Respiratory effort is even, unlabored, Respiratory pattern is regular, symmetrical, Breath sounds are clear bilaterally. GI: Abdomen is round non-distended, Bowel sounds present X 4 quads. Abd is soft and non tender X 4 quads. : No signs and/or symptoms were reported regarding the genitourinary system. EENT: No signs and/or symptoms were reported regarding the EENT system. Derm: Skin is intact, Skin is pink, warm \\T\\ dry. Musculoskeletal: Range of motion: intact in all extremities. 11:02 Reassessment: No changes from previously documented assessment. rs5 12:10 Reassessment: Patient and/or family updated on plan of care and expected duration. Pain rs5 level reassessed. Patient is alert, oriented x 3, equal unlabored respirations, skin warm/dry/pink. Patient denies pain at this time. Cardiovascular: Rhythm is regular. Respiratory: Respiratory effort is even, unlabored, Respiratory pattern is regular, symmetrical. 13:15 Reassessment: No changes from previously documented assessment. rs5 Vital Signs: 09:50 BP 106 / 59; Pulse 81; Resp 18; Temp 97.8(O); Pulse Ox 99% on R/A; rs5 10:38 BP 89 / 58; Pulse 74; Resp 18; Pulse Ox 92% on R/A; ld1 11:20 BP 91 / 56; Pulse 72; Resp 18; Pulse Ox 95% on R/A; ld1 11:45 BP 98 / 54; Pulse 57; Resp 17; Pulse Ox 96% on R/A; ld1 12:17 BP 98 / 54; Pulse 59; Resp 18; Pulse Ox 96% on R/A; ld1 ED Course: 09:44 Patient arrived in ED. mr 09:44 Jordan Zepeda MD is Attending Physician. rt 09:44 Mackenzie Ellis is Private Physician. mr 09:46 Patient has correct armband on for positive identification. Bed in low position. Side rs5 rails up X 1. Side rails up X2. 09:46 No provider procedures requiring assistance completed. rs5 09:52 Inserted saline lock: 18 gauge in right antecubital area, using aseptic technique. rs5 Blood collected. 09:54 Jhon Paul Reese, RN is Primary Nurse. rs5 09:58 Triage completed. rs5 10:18 XRAY Chest (1 view) In Process Unspecified. EDMS 13:07 Jayme Brennan MD is Hospitalizing Provider. rt 15:01 Arm band placed on right wrist. ld1 15:01 Provided Education on: admit. ld1 15:01 Patient admitted, IV remains in place. ld1 Administered Medications: 11:05 Drug: NS 0.9% IV 1000 ml IV at 1 bolus Per protocol; 1000 mL bolus Route: IV; Rate: 1 rs5 bolus; Site: right antecubital; 11:20 Follow up: Response: No adverse reaction rs5 12:01 Follow up: IV Status: Completed infusion rs5 13:09 Drug: DuoNeb Nebulize (3:1) (2.5 mg - 0.5 mg) 3 ml Nebulizer once Route: Nebulizer; ld1 13:50 Drug: MethylPrednisoLONE IVP 125 mg IVP once Route: IVP; Site: right antecubital; ld1 Medication: 10:14 VIS not applicable for this client. rs5 Outcome: 13:07 Decision to Hospitalize by Provider. rt 15:01 Admitted to Med/surg accompanied by tech, room 213, ld1 15:01 Condition: stable 15:01 Instructed on the need for admit, 15:32 Patient left the ED. ld1 Signatures: Dispatcher [employer] EDNE Deanna Hi, Reg Reg Amanda Landry, VOLODYMYR RN ld1 Jordan Zepeda MD MD rt John Paul Reese, VOLODYMYR RN rs5
--- NOTE | 2023-05-02 13:08 | EDPHYS ---
Physician Documentation [facility] Name: Ernestina Link Age: 58 yrs Sex: Female : 1965 Arrival Date: 05/02/2023 Time: 09:39 Bed 6 Private MD: Mackenzie Ellis ED Physician Jordan Zepeda HPI: 05/02 17:37 This 58 yrs old Black Female presents to ER via Wheelchair with complaints of Wheezing, rt Low BP. 17:37 Patient presents to the ED with wheezing, reported low blood pressures and dizziness rt for the past 2 weeks. Has been progressively worsening. Patient was seen by her primary care, completed a course of steroids, azithromycin and is currently taking bronchodilators. States that symptoms have not improved. Denies acute complaints, symptoms are moderate in severity, no other aggravating or alleviating factors.. Historical: - Allergies: 09:58 lisinopril; rs5 - PMHx: 09:58 Asthma; Diabetes - NIDDM; Hypercholesterolemia; Hypertension; Hypothyroidism; rs5 neuropathy; spinostenosis; - PSHx: 09:58 Appendectomy; Cholecystectomy; rs5 - Immunization history:: Adult Immunizations unknown. - Social history:: Smoking status: unknown. - Family history:: not pertinent. ROS: 17:37 Constitutional: Negative for fever, chills, and weight loss, Cardiovascular: Negative rt for chest pain, palpitations, and edema, Abdomen/GI: Negative for abdominal pain, nausea, vomiting, diarrhea, and constipation, MS/Extremity: Negative for injury and deformity, Skin: Negative for injury, rash, and discoloration, Psych: Negative for depression, anxiety, suicide ideation, homicidal ideation, and hallucinations, 17:37 Respiratory: Positive for cough, wheezing, 17:37 Neuro: Positive for near syncope, Negative for altered mental status, Exam: 17:37 ECG was reviewed by the Attending Physician. rt 17:37 Respiratory: Faint wheezes heard on all lung cueva, no respiratory distress, 17:37 Constitutional: This is a well developed, well nourished patient who is awake, alert, rt and in no acute distress. Head/Face: Normocephalic, atraumatic. Chest/axilla: Normal chest wall appearance and motion. Nontender with no deformity. No lesions are appreciated. Cardiovascular: Regular rate and rhythm with a normal S1 and S2. No gallops, murmurs, or rubs. Normal PMI, no JVD. No pulse deficits. Abdomen/GI: Soft, non-tender, with normal bowel sounds. No distension or tympany. No guarding or rebound. No evidence of tenderness throughout. Skin: Warm, dry with normal turgor. Normal color with no rashes, no lesions, and no evidence of cellulitis. MS/ Extremity: Pulses equal, no cyanosis. Neurovascular intact. Full, normal range of motion. Neuro: Awake and alert, GCS 15, oriented to person, place, time, and situation. Cranial nerves II-XII grossly intact. Motor strength 5/5 in all extremities. Sensory grossly intact. Cerebellar exam normal. Normal gait. Vital Signs: 09:50 BP 106 / 59; Pulse 81; Resp 18; Temp 97.8(O); Pulse Ox 99% on R/A; rs5 10:38 BP 89 / 58; Pulse 74; Resp 18; Pulse Ox 92% on R/A; ld1 11:20 BP 91 / 56; Pulse 72; Resp 18; Pulse Ox 95% on R/A; ld1 11:45 BP 98 / 54; Pulse 57; Resp 17; Pulse Ox 96% on R/A; ld1 12:17 BP 98 / 54; Pulse 59; Resp 18; Pulse Ox 96% on R/A; ld1 MDM: 09:47 Patient medically screened. rt 17:37 Differential Diagnosis Bronchitis, pneumonia, anemia. Data reviewed: vital signs, rt nurses notes. Consideration of Admission/Observation Patient was admitted/placed on observation. Management of patient was discussed with the following: Primary Care Provider: Agrees to admit. I considered the following discharge prescriptions or medication management in the emergency department Medications were administered in the Emergency Department. See MAR. Independent interpretation of the following test(s) in the Emergency Department X-Ray: My interpretation is No pneumonia seen on interpretation of x-ray images. Test considered but Not performed: CT: Low suspicion for pulmonary embolism, CT angiogram not decayed. Care significantly affected by the following chronic conditions: Diabetes, Asthma. Counseling: I had a detailed discussion with the patient and/or guardian regarding the historical points, exam findings, and any diagnostic results supporting the discharge/admit diagnosis, lab results, radiology results, the need for further work-up and treatment in the hospital. Response to treatment: the patient's symptoms have mildly improved after treatment. 05/02 09:54 Order name: Basic Metabolic Panel; Complete Time: 10:54 rt 05/02 09:54 Order name: CBC with Diff; Complete Time: 10:54 rt 05/02 09:54 Order name: LFT's; Complete Time: 10:54 rt 05/02 09:54 Order name: Magnesium; Complete Time: 10:54 rt 05/02 09:54 Order name: NT PRO-BNP; Complete Time: 10:54 rt 05/02 09:54 Order name: Troponin HS; Complete Time: 10:54 rt 05/02 09:54 Order name: Blood Culture Adult (2) rt 05/02 09:54 Order name: Lactate w/ 2H reflex if indic.; Complete Time: 10:54 rt 05/02 09:54 Order name: Protime (+inr); Complete Time: 10:54 rt 05/02 09:54 Order name: Ptt, Activated; Complete Time: 10:54 rt 05/02 09:54 Order name: Urinalysis w/ reflexes; Complete Time: 13:19 rt 05/02 09:54 Order name: SARS RAPID; Complete Time: 10:54 rt 05/02 09:54 Order name: Influenza Screen (a \T\ B); Complete Time: 11:50 rt 05/02 13:25 Order name: Lactate Sepsis 2 HR Follow-up; Complete Time: 13:31 EDMS 05/02 09:54 Order name: XRAY Chest (1 view); Complete Time: 10:54 rt 05/02 09:54 Order name: EKG; Complete Time: 09:54 rt 05/02 09:54 Order name: Cardiac monitoring; Complete Time: 10:14 rt 05/02 09:54 Order name: EKG - Nurse/Tech; Complete Time: 10:14 rt 05/02 09:54 Order name: IV Saline Lock; Complete Time: 10:15 rt 05/02 09:54 Order name: Labs collected and sent; Complete Time: 10:15 rt 05/02 09:54 Order name: O2 Per Protocol; Complete Time: 10:15 rt 05/02 09:54 Order name: O2 Sat Monitoring; Complete Time: 10:15 rt 05/02 09:54 Order name: Accucheck; Complete Time: 09:59 rt 05/02 09:54 Order name: IV Saline Lock - Large Bore; Complete Time: :14 rt 05/02 09:54 Order name: Vital Signs; Complete Time: : rt EC:37 Rate is 77 beats/min. Rhythm is regular, Normal Sinus Rhythm with No ectopy. QRS [place] rt is Normal. NE interval is normal. QRS interval is normal. QT interval is normal. No Q waves. T waves are Normal. No ST changes noted. Interpreted by me. Administered Medications: 11:05 Drug: NS 0.9% IV 1000 ml IV at 1 bolus Per protocol; 1000 mL bolus Route: IV; Rate: 1 rs5 bolus; Site: right antecubital; 11:20 Follow up: Response: No adverse reaction rs5 12:01 Follow up: IV Status: Completed infusion rs5 13:09 Drug: DuoNeb Nebulize (3:1) (2.5 mg - 0.5 mg) 3 ml Nebulizer once Route: Nebulizer; ld1 13:50 Drug: MethylPrednisoLONE IVP 125 mg IVP once Route: IVP; Site: right antecubital; ld1 Disposition Summary: 05/02/23 13:07 Hospitalization Ordered Notes: Hospitalization Status: Observation rt Provider: Jayme Brennan rt Location: Telemetry/MedSurg (observation) rt Condition: Stable rt Problem: new rt Symptoms: have improved rt Bed/Room Type: Standard rt Room Assignment: 213(05/02/23 13:47) eb Diagnosis - Acute bronchitis rt - Lactic acidosis rt Forms: - Medication Reconciliation Form rt - SBAR form rt - Leadership Thank You Letter rt Signatures: Dispatcher [employer] Vira Ornelas Lauren, RN RN ld1 Jordan Zepeda MD MD rt John Paul Reese RN RN rs5 Corrections: (The following items were deleted from the chart) 13:47 13:07 rt eb
[2023-05-02 13:17] LABS: Specific Gravity 1.017 (1.005-1.030); Urine Bacteria 20-50 /HPF (<20); Urine Bilirubin NEGATIVE (Negative); Urine Blood Negative (Negative); Urine Clarity Extremely Turbid (Clear); Urine Color Light-Yellow (Yellow); Urine Glucose NEGATIVE (Negative); Urine Mucus Slight /HPF (None Seen); Urine Protein NEGATIVE (Negative); Urine RBC <5 /HPF (None Seen); Urine Urobilinogen Normal (Normal); Urine pH 5.5 (5.0-7.0)
[2023-05-02] MEDS ORDERED: METHYLPREDNISOLONE 125 MG INJ ONE (13:41)
[2023-05-02 18:55] VITALS: BMI 35.1
--- NOTE | 2023-05-02 19:21 | P.HP ---
Certification for Inpatient Patient admitted to: Observation With expected LOS: <2 Midnights Patient will require the following post-hospital care: None Practitioner: I am a practitioner with admitting privileges, knowledge of patient current condition, hospital course, and medical plan of care. Services: Services provided to patient in accordance with Admission requirements found in Title 42 Section 412.3 of the Code of Federal Regulations Patient History Date of Service: 05/02/23 Primary Care Provider: Caleb Reason for admission: asthma exacerbation History of Present Illness: Patient has a history of cad, dm2, mild intermittent asthma. She has been having sob for the past 2 weeks. She went to [facility] and got a 3 day course of prednisone. The patient then got a zpac. She was not complaining of nasal congestion. However she would not sleep in a bed as she has been having worsening breathing. She has a dry sore throat in the morning though Allergies lisinopril Adverse Reaction (Verified 09/24/22 14:53) Nausea/Vomiting Home Medications: Atorvastatin Calcium [Lipitor*] 20 mg PO BEDTIME #30 tab 02/01/17 Gabapentin [Neurontin*] 800 mg PO TID 02/20/17 Aspirin [Aspirin EC 81 MG] 81 mg PO DAILY 09/24/19 Levothyroxine Sodium 137 mcg PO DAILY 09/24/19 Montelukast Sodium 10 mg PO DAILY 09/24/19 Acetaminophen [Tylenol Extra Strength] 650 mg PO Q6H PRN 09/25/22 Bisacodyl [Dulcolax] 5 mg PO DAILY 09/25/22 Buspirone HCl [Buspar] 10 mg PO BID 09/25/22 Escitalopram [Lexapro*] 20 mg PO DAILY 09/25/22 Insulin Glargine,Hum.rec.anlog [Lantus] 10 unit SQ BID 09/25/22 Insulin Lispro [Humalog*] 8 unit SQ AC 09/25/22 Ipratropium Neb [Atrovent*] 0.5 mg IH Q6H PRN 09/25/22 Lidocaine 4% Patch [Lidoderm 5% Patch*] 1 patch TOP DAILY 09/25/22 Lubiprostone [Amitiza] 8 mcg PO BIDWM 09/25/22 Metformin HCl [Glucophage*] 500 mg PO BIDWM 07/19/23 Oxycodone HCl/Acetaminophen [Percocet 5-325 mg Tablet] 1 each PO Q4H PRN 09/25/22 Polyethyl Gly 3350 [Glycolax*] 17 gm PO DAILY PRN 09/25/22 Sennosides/Docusate Sodium [Senna-S Tablet] 2 tab PO BEDTIME PRN 09/25/22 Tamsulosin [Flomax*] 0.4 mg PO BEDTIME 09/25/22 Clopidogrel Bisulfate [Plavix] 75 mg PO DAILY #30 10/03/22 - Past Medical/Surgical History Diabetic: Yes -: Hypertension -: Diabetes mellitus type 2 -: Hypothyroidism -: Obesity -: Asthma -: Obstructive sleep apnea -: Former tobacco abuse -: Depression with anxiety -: Hyperlipidemia -: GERD -: CAD -: x2 -: Tubal ligation -: Appendectomy -: Tonsillectomy Psychosocial/ Personal History: The patient is . 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 - Family History Mother -: Heart disease, Hypertension, Diabetes, Stroke Father -: Heart disease, Hypertension, Cancer Brother -: Hypertension Sister -: Hypertension - Social History Alcohol use: No CD- Drugs: No Caffeine use: No Review of Systems 10-point ROS is otherwise unremarkable Respiratory: Dry, Shortness of Breath Physical Examination - Vital Signs Temperature: 97.0 F Blood Pressure: 133/68 Pulse: 65 Respirations: 18 Pulse Ox (%): 95 - Physical Exam General: Alert, In no apparent distress HEENT: Atraumatic, PERRLA, Mucous membr. moist/pink, EOMI, Sclerae nonicteric Neck: Supple, 2+ carotid pulse no bruit, No LAD, Without JVD or thyroid abnormality Respiratory: Clear to auscultation bilaterally, Diminished Cardiovascular: Regular rate/rhythm, Normal S1 S2 Gastrointestinal: Normal bowel sounds, No tenderness Musculoskeletal: No tenderness Integumentary: No rashes Neurological: Normal gait, Normal speech, Normal strength at 5/5 x4 extr, Normal tone, Normal affect Lymphatics: No axilla or inguinal lymphadenopathy - Studies Laboratory Data (last 24 hrs) 05/02/23 05/02/23 05/02/23 10:05 10:05 10:05 WBC 8.10 Hgb 11.2 L Hct 34.5 L Plt Count 274 PT 11.8 INR 1.07 APTT 33.5 Sodium 140 Potassium 3.8 BUN 19 H Creatinine 0.95 Glucose 115 H Magnesium 1.9 Total Bilirubin 0.2 AST 6 L ALT 24 Alkaline Phosphatase 98 Microbiology Data (last 24 hrs): 05/02/23 10:05 Nasopharnyx Influenza Type A Antigen Screen - Final 05/02/23 10:05 Nasopharnyx Influenza Type B Antigen Screen - Final Assessment and Plan - Problems (Diagnosis) (1) Acute asthma exacerbation Current Visit: Yes Status: Acute Plan: She normally only needs to use her albuterol 1-2 times a week. will start her on iv steroids and decongestants with scheduled levoalbuterol Qualifiers: Asthma severity: mild Asthma persistence: intermittent Qualified Code(s): J45.21 - Mild intermittent asthma with (acute) exacerbation (2) CAD (coronary artery disease) Onset Date: 02/21/17 Current Visit: No Status: Chronic Plan: Patient is stable. Will restart her home medications. Qualifiers: Coronary Disease-Associated Artery/Lesion type: [place] artery [place] vs. transplanted heart: [place] heart Associated angina: without angina Qualified Code(s): I25.10 - Atherosclerotic heart disease of [place] coronary artery without angina pectoris (3) Diabetes mellitus Onset Date: 02/21/17 Current Visit: No Status: Chronic Plan: Will start her on home metformin and insulin. Sliding scale. and carb controlled Qualifiers: Diabetes mellitus type: type 2 Diabetes mellitus fpc insulin use: with termite treater helper use Diabetes mellitus complication status: without complication Qualified Code(s): E11.9 - Type 2 diabetes mellitus without complications; Z79.4 - adjunct faculty for medical terminology (current) use of insulin (4) Hypertension Onset Date: 02/21/17 Current Visit: No Status: Chronic Plan: restart the patients home meds Qualifiers: Hypertension type: primary hypertension Qualified Code(s): I10 - Essential (primary) hypertension (5) Obstructive sleep apnea Onset Date: 02/21/17 Current Visit: No Status: Suspected Plan: start the patient on bipap on his Discharge Plan: Home Plan to discharge in: 24 Hours - Advance Directives Does patient have a Living Will: No Does patient have a Durable POA for Healthcare: No - Code Status/Comfort Care Code Status Assessed: No Code Status: Full Code Physician Review: Patient Assessed, Agree with Above Assessment and Plan Critical Care: No Time Spent Managing Pts Care (In Minutes): 50
[2023-05-02] MEDS: BUSPIRONE HCL 5 MG TABLET PO SCH (21:00)
[2023-05-02] MEDS: INSULIN GLARGINE 100 UNIT/ML SQ SCH (21:00)
[2023-05-02] MEDS: GABAPENTIN 400 MG CAP PO SCH (21:00)
[2023-05-02] MEDS: ATORVASTATIN 20 MG TAB PO SCH (21:00)
[2023-05-03] MEDS: LEVOTHYROXINE SOD 0.025 MG TAB PO SCH (06:00)
[2023-05-03] MEDS: LEVOTHYROXINE SOD 0.112 MG TAB PO SCH (06:00)
[2023-05-03] MEDS: LEVALBUTEROL 0.63 MG/3 ML NEB NEB SCH (09:11)
[2023-05-03] MEDS ORDERED: GLUCAGON 1 MG/VIAL IM PRN (09:11)
[2023-05-03] MEDS: INSULIN REGULAR (HUMAN) 100 UNIT/ML SQ SCH (09:11)
[2023-05-03] MEDS ORDERED: D50W 25 GM/50 ML SYRINGE IV PRN (09:11)
[2023-05-03] MEDS: MONTELUKAST 10 MG TAB PO SCH (09:22)
[2023-05-03] MEDS: ASPIRIN EC 81 MG TAB PO SCH (09:22)
[2023-05-03] MEDS: BISACODYL E.C. 5 MG TAB PO SCH (09:23)
[2023-05-03] MEDS: ESCITALOPRAM 20 MG TAB PO SCH (09:23)
[2023-05-03] MEDS: CLOPIDOGREL 75 MG TABLET PO SCH (09:23)
[2023-05-03] MEDS: METFORMIN HCL 500 MG TAB PO SCH (09:23)
[2023-05-03] MEDS: dexAMETHasone 10 MG/ML VIAL IV SCH (10:11)
--- NOTE | 2023-05-03 11:30 | P.PN ---
Subjective Date of Service: 05/03/23 Primary Care Provider: Caleb Chief Complaint: asthma exacerbation Subjective: Improving (better. however still gets sob when ambulating) Review of Systems 10-point ROS is otherwise unremarkable Respiratory: SOB with Excertion Physical Examination - Vital Signs Temperature: 97.3 F Blood Pressure: 131/58 Pulse: 79 Respirations: 22 Pulse Ox (%): 94 - Physical Exam General: Alert, In no apparent distress HEENT: Atraumatic, PERRLA, EOMI Neck: Supple, JVD not distended Respiratory: Clear to auscultation bilaterally, Normal air movement Cardiovascular: Regular rate/rhythm, Normal S1 S2 Gastrointestinal: Normal bowel sounds, No tenderness Musculoskeletal: No tenderness Integumentary: No rashes Neurological: Normal speech, Normal tone, Normal affect Lymphatics: No axilla or inguinal lymphadenopathy - Studies Microbiology Data (last 24 hrs): 05/02/23 10:05 Nasopharnyx Influenza Type A Antigen Screen - Final 05/02/23 10:05 Nasopharnyx Influenza Type B Antigen Screen - Final Assessment And Plan - Current Problems (Diagnosis) (1) Acute asthma exacerbation Current Visit: Yes Status: Acute Plan: She normally only needs to use her albuterol 1-2 times a week. will start her on iv steroids and decongestants with scheduled levoalbuterol 05/03 will keep her here for one more day Qualifiers: Asthma severity: mild Asthma persistence: intermittent Qualified Code(s): J45.21 - Mild intermittent asthma with (acute) exacerbation (2) CAD (coronary artery disease) Onset Date: 02/21/17 Current Visit: No Status: Chronic Plan: Patient is stable. Will restart her home medications. Qualifiers: Coronary Disease-Associated Artery/Lesion type: [place] artery [place] vs. transplanted heart: [place] heart Associated angina: without angina Qualified Code(s): I25.10 - Atherosclerotic heart disease of [place] coronary artery without angina pectoris (3) Diabetes mellitus Onset Date: 02/21/17 Current Visit: No Status: Chronic Plan: Will start her on home metformin and insulin. Sliding scale. and carb controlled Qualifiers: Diabetes mellitus type: type 2 Diabetes mellitus fpc insulin use: with ferry terminal supervisor use Diabetes mellitus complication status: without complication Qualified Code(s): E11.9 - Type 2 diabetes mellitus without complications; Z79.4 - half-way (current) use of insulin (4) Hypertension Onset Date: 02/21/17 Current Visit: No Status: Chronic Plan: restart the patients home meds Qualifiers: Hypertension type: primary hypertension Qualified Code(s): I10 - Essential (primary) hypertension (5) Obstructive sleep apnea Onset Date: 02/21/17 Current Visit: No Status: Suspected Plan: start the patient on bipap on his Discharge Plan: Home Plan to discharge in: 24 Hours - Code Status/Comfort Care Code Status Assessed: No Physician Review: Patient Assessed, Agree with Above Assessment and Plan Critical Care: No Time Spent Managing PTS Care (In Minutes): 20
[2023-05-03 20:36] VITALS: O2SAT 95
[2023-05-04 06:58] LABS: Absolute Lymphocytes (CBC) 1.5 K/uL (0.7-4.9); Hematocrit 35.2 % (36.0-45.0); Lymphocytes % 9.6 % (15.3-44.8); MCV 80.2 fL (80-100); MPV 8.1 fL (7.6-11.3); Platelets 280 thou/uL (152-406); RBC Red Blood Cell Count 4.39 M/uL (3.86-4.86)
[2023-05-04 07:31] LABS: Albumin 3.2 g/dL (3.4-5.0); Bilirubin Total 0.2 mg/dL (0.2-1.0); Magnesium 2.1 mg/dL (1.6-2.4); Protein, Total 7.2 g/dL (6.4-8.2); Thyroid Stimulating Hormone 0.202 uIU/mL (0.358-3.740)
[2023-05-04 08:00] LABS: Blood Morphology Comment NOTED (NOT SEEN); Platelet Estimate ADEQ; Poikilocytosis 1+; Teardrop Cell FEW; White Blood Cell Scan OK (OK)
[2023-05-04] MEDS: ACETAMINOPHEN 325 MG TABLET PO PRN (08:05)
--- NOTE | 2023-05-04 12:42 | P.DS ---
Admission Date: 05/03/23 Discharge Date: 05/04/23 Primary Care Provider: Caleb Disposition: ROUTINE DISCHARGE Reason for Admission: asthma exacerbation - Problems (1) Acute asthma exacerbation Current Visit: Yes Status: Acute Qualifiers: Asthma severity: mild Asthma persistence: intermittent Qualified Code(s): J45.21 - Mild intermittent asthma with (acute) exacerbation (2) CAD (coronary artery disease) Onset Date: 02/21/17 Current Visit: No Status: Chronic Qualifiers: Coronary Disease-Associated Artery/Lesion type: [place] artery [place] vs. transplanted heart: [place] heart Associated angina: without angina Qualified Code(s): I25.10 - Atherosclerotic heart disease of [place] coronary artery without angina pectoris (3) Diabetes mellitus Onset Date: 02/21/17 Current Visit: No Status: Chronic Qualifiers: Diabetes mellitus type: type 2 Diabetes mellitus [facility] insulin use: with [facility] use Diabetes mellitus complication status: without complication Qualified Code(s): E11.9 - Type 2 diabetes mellitus without complications; Z79.4 - manager terminal (current) use of insulin (4) Hypertension Onset Date: 02/21/17 Current Visit: No Status: Chronic Qualifiers: Hypertension type: primary hypertension Qualified Code(s): I10 - Essential (primary) hypertension (5) Obstructive sleep apnea Onset Date: 02/21/17 Current Visit: No Status: Suspected Brief History of Present Illness: Patient has a history of cad, dm2, mild intermittent asthma. She has been having sob for the past 2 weeks. She went to Mrs Ellis and got a 3 day course of prednisone. The patient then got a zpac. She was not complaining of nasal congestion. However she would not sleep in a bed as she has been having worsening breathing. She has a dry sore throat in the morning though Hospital Course: Patient was admitted for asthma exacerbation. She has been having a lot of allergy symptoms. She had 2 days of steroids and breathing treatments. Will discharge her on tapering doses of prednisone. Will have her follow up with Mrs. Ellis. Will also fill decongestants and albuterol for the patient. Thank you for allowing me to take part in her care Vital Signs/Physical Exam: Temp Pulse Resp BP Pulse Ox 97.5 F 74 18 130/66 93 05/04/23 08:00 05/04/23 08:00 05/04/23 08:00 05/04/23 08:00 05/04/23 08:00 General: Alert, In no apparent distress HEENT: Atraumatic, PERRLA, EOMI Neck: Supple, JVD not distended Respiratory: Clear to auscultation bilaterally, Normal air movement Cardiovascular: Regular rate/rhythm, Normal S1 S2 Gastrointestinal: Normal bowel sounds, No tenderness Musculoskeletal: No tenderness Integumentary: No rashes Neurological: Normal speech, Normal tone, Normal affect Lymphatics: No axilla or inguinal lymphadenopathy Laboratory Data at Discharge: WBC 15.20 thou/uL (4.3-10.9) H 05/04/23 06:42 Hgb 11.3 g/dL (12.0-15.0) L 05/04/23 06:42 Hct 35.2 % (36.0-45.0) L 05/04/23 06:42 Plt Count 280 thou/uL (152-406) 05/04/23 06:42 PT 11.8 SECONDS (9.5-12.5) 05/02/23 10:05 INR 1.07 05/02/23 10:05 APTT 33.5 SECONDS (24.3-36.9) 05/02/23 10:05 Sodium 142 mEq/L (136-145) 05/04/23 06:42 Potassium 4.0 mEq/L (3.5-5.1) 05/04/23 06:42 BUN 20 mg/dL (7-18) H 05/04/23 06:42 Creatinine 0.81 mg/dL (0.55-1.02) 05/04/23 06:42 Glucose 162 mg/dL (74-106) H 05/04/23 06:42 Magnesium 2.1 mg/dL (1.6-2.4) 05/04/23 06:42 Total Bilirubin 0.2 mg/dL (0.2-1.0) 05/04/23 06:42 AST 8 U/L (15-37) L 05/04/23 06:42 ALT 18 U/L (13-56) 05/04/23 06:42 Alkaline Phosphatase 85 U/L (45-117) 05/04/23 06:42 Home Medications: Atorvastatin Calcium [Lipitor*] 20 mg PO BEDTIME #30 tab 02/01/17 Gabapentin [Neurontin*] 800 mg PO TID 02/20/17 Aspirin [Aspirin EC 81 MG] 81 mg PO DAILY 09/24/19 Levothyroxine Sodium 137 mcg PO DAILY 09/24/19 Montelukast Sodium 10 mg PO DAILY 09/24/19 Bisacodyl [Dulcolax] 5 mg PO DAILY 09/25/22 Buspirone HCl [Buspar] 10 mg PO BID 09/25/22 Escitalopram [Lexapro*] 20 mg PO DAILY 09/25/22 Ipratropium Neb [Atrovent*] 0.5 mg IH Q6H PRN 09/25/22 Lidocaine 4% Patch [Lidoderm 5% Patch*] 1 patch TOP DAILY 09/25/22 Lubiprostone [Amitiza] 8 mcg PO BIDWM 09/25/22 Metformin HCl [Glucophage*] 500 mg PO BIDWM 09/25/22 Clopidogrel Bisulfate [Plavix] 75 mg PO DAILY #30 10/03/22 Bimatoprost [Lumigan Opthalmic Drops*] 1 gtts OPTH BEDTIME 05/03/23 Ergocalciferol (Vitamin D2) [Vitamin D2] 50,000 units PO 1X 05/03/23 Ferrous Sulfate [Feosol] 325 mg PO DAILY 05/03/23 Fluticasone/Umeclidin/Vilanter [Trelegy Ellipta 200-62.5-25] 1 puff .ROUTE DAILY 05/03/23 Hydrocodone Bit/Acetaminophen [Hydrocodon-Acetaminoph 7.5-325] 1 each PO BID 05/03/23 Ibuprofen 800 mg PO TID 05/03/23 Losartan/Hydrochlorothiazide [Losartan-Hctz 100-25 mg Tab] 1 tab PO DAILY 05/03/23 Promethazine/Dextrometh Syr [Phenergan Dm Oral Syrup] 10 ml PO Q6HP PRN 05/03/23 Spironolactone 1 tab PO DAILY 05/03/23 Tizanidine [Zanaflex] 4 mg PO BID 05/03/23 Trazodone HCl 50 mg PO BEDTIME 05/03/23 Albuterol Neb [Proventil 0.083% Neb Soln] 2.5 mg IH Q6HP PRN #90 ml 05/04/23 Fluticasone [Flonase 50MCG Nasal [place]*] 2 sprays NS DAILY 30 Days #1 btl 05/04/23 Montelukast [Singulair*] 10 mg PO DAILY 90 Days #90 tab 05/04/23 Prednisone [Sterapred Ds] 10 mg PO BID #21 tab 05/04/23 New Medications: Fluticasone [Flonase 50MCG Nasal [place]*] 2 sprays NS DAILY 30 Days #1 btl Albuterol Neb [Proventil 0.083% Neb Soln] 2.5 mg IH Q6HP PRN #90 ml PRN Reason: Shortness Of Breath Montelukast [Singulair*] 10 mg PO DAILY 90 Days #90 tab Prednisone [Sterapred Ds] 10 mg PO BID #21 tab Diet: ADA Followup: Mackenzie Ellis FNP [Primary Care Provider] - 1 Week Time spent managing pt's care (in minutes): 30
[2023-05-04 13:19] VITALS: BP 123/61; TEMP 97.6
--- NOTE | 2023-05-05 14:40 | EKG ---
Test Date: 2023-05-02 Test Time: 10:08:47 Batter Mixer: Jennifer CARBAJAL MEASUREMENT RESULTS: Intervals: Rate: 77 [place]: 164 QRSD: 80 QT: 400 QTc: 452 [place]: P: 64 [place]: 164 QRS: 19 T: 38 INTERPRETIVE STATEMENTS: Normal sinus rhythm Low voltage QRS Borderline ECG Compared to ECG 09/25/2022 20:06:53 Low QRS voltage now present Sinus tachycardia no longer present Myocardial infarct finding no longer present T-wave abnormality no longer present Possible ischemia no longer present Electronically Signed On 05-05-23 14:30:58 COMMUNITY ORGANIZATION DIRECTOR by Mike Elizabeth
== END 2023-05-04 14:56 | disposition home or self-care (01) | DRG 202 ==
LOC: ER 09:39 → ERHOLD 13:29 → 2ND 14:22 → OBSVTOIN 05-03 11:30
PROVIDERS: ADMIT Internal Medicine; ATTEND Internal Medicine
PROC: 5A09457 Assistance with Respiratory Ventilation, 24-96 Consecutive Hours, Continuous Positive Airway Pressure (ICD-10-PCS; principal; 2023-05-03)
DX: J45.21 Mild intermittent asthma with (acute) exacerbation (principal); E87.20 Acidosis, unspecified; I10 Essential (primary) hypertension; E03.9 Hypothyroidism, unspecified; J20.9 Acute bronchitis, unspecified; E78.00 Pure hypercholesterolemia, unspecified; G47.33 Obstructive sleep apnea (adult) (pediatric); E11.40 Type 2 diabetes mellitus with diabetic neuropathy, unspecified; K21.9 Gastro-esophageal reflux disease without esophagitis; I25.10 Atherosclerotic heart disease of native coronary artery without angina pectoris; Z79.4 Long term (current) use of insulin; Z88.8 Allergy status to other drugs, medicaments and biological substances; Z90.49 Acquired absence of other specified parts of digestive tract; Z79.82 Long term (current) use of aspirin; Z11.52 Encounter for screening for COVID-19; Z79.02 Long term (current) use of antithrombotics/antiplatelets; Z79.899 Other long term (current) drug therapy; Z87.891 Personal history of nicotine dependence; Z79.890 Hormone replacement therapy
CPT/HCPCS: 36415; 71045; 80048; 80053; 80076; 81001; 82947; 83036; 83605; 83735; 83880; 84443; 84484; 85025; 85610; 85730; 87040; 87804; 87811; 93005; 94640; 94660; 96361; 96374; 99285; G0378; J1100; J1815; J2930; J7030; J7613; J7614; J7644

== ENCOUNTER 2023-09-23 05:30 | Inpatient (IN) | payer OTHER ==
[2023-09-18 10:55] LABS: Absolute Basophils 0.1 K/uL (0-0.5); Absolute Eosinophils 0.2 K/uL (0-0.5); Absolute Lymphocytes (CBC) 2.3 K/uL (0.7-4.9); Absolute Monocytes 0.6 K/uL (0.1-1.3); Absolute Neutrophil 4.6 K/uL (1.8-8.0); Hematocrit 36.2 % (36.0-45.0); Hemoglobin 11.4 g/dL (12.0-15.0); Lymphocytes % 30.1 % (15.3-44.8); MCH 26.1 pg (27.0-35.0); MCHC 31.6 g/dL (32.0-36.0); MCV 82.5 fL (80-100); MPV 7.7 fL (7.6-11.3); Monocytes % 7.3 % (3.3-12.3); Neutrophils % 58.6 % (41.7-73.7); Nucleated Red Blood Cells % 0.2 % (0-0); Platelets 285 thou/uL (152-406); RBC Red Blood Cell Count 4.39 M/uL (3.86-4.86); Red Cell Distribution Width 15.1 % (12.1-15.2)
[2023-09-18 10:59] LABS: Calcium Oxalate Crystals- Ur Few /HPF (None Seen); Specific Gravity 1.029 (1.005-1.030); Sqamous Epithelial <5 /HPF (None Seen); Urine Bacteria <20 /HPF (<20); Urine Bilirubin NEGATIVE (Negative); Urine Blood Negative (Negative); Urine Clarity Clear (Clear); Urine Color Light-Yellow (Yellow); Urine Culture Reflex Order NOT NEEDED; Urine Glucose NEGATIVE (Negative); Urine Ketones NEGATIVE (Negative); Urine Microscopic Reflex YN ORDER UMIC; Urine Mucus Slight /HPF (None Seen); Urine Nitrite NEGATIVE (Negative); Urine Protein TRACE (Negative); Urine RBC <5 /HPF (None Seen); Urine Urobilinogen 1+ (Normal); Urine WBC <5 /HPF (<5); Urine pH 5.5 (5.0-7.0)
[2023-09-18 11:02] LABS: PT Prothrombin Time 11.8 SECONDS (9.4-12.5); Protime INR 1.06
[2023-09-18 11:16] LABS: Albumin 3.3 g/dL (3.4-5.0); Albumin/Globulin Ratio 0.8 (1.1-1.8); Anion Gap 7.5 mEq/L (5.0-15.0); Bilirubin Total 0.4 mg/dL (0.2-1.0); Globulin 3.9 g/dL (2.3-3.5); Potassium 3.5 mEq/L (3.5-5.1); Protein, Total 7.2 g/dL (6.4-8.2)
[2023-09-23] MEDS: NA CHLORIDE 0.9% 1,000 ML ONE (06:01)
[2023-09-23] MEDS: CELECOXIB 100 MG CAPSULE ONE (06:30)
[2023-09-23] MEDS: ACETAMINOPHEN 500 MG TAB ONE (06:30)
[2023-09-23] MEDS: Oxycodone HCl/Acetaminophen 5/325 MG TAB ONE (06:30)
[2023-09-23] MEDS: GABAPENTIN 100 MG CAP ONE ×2 (06:30→06:46)
[2023-09-23] MEDS: dexAMETHasone 10 MG/ML VIAL ONE (06:34)
[2023-09-23] MEDS: FENTANYL CITR 100 MCG/2 ML ONE (06:35)
[2023-09-23] MEDS: LIDOCAINE 1% MPF 5 ML VIAL ONE (06:35)
[2023-09-23] MEDS: EPINEPHRINE 1 MG/ML VIAL ONE (06:35)
[2023-09-23] MEDS: DEXMEDETOMIDINE HCL 200 MCG/2 ML VIAL ONE (06:36)
[2023-09-23] MEDS: MIDAZOLAM HCL 2 MG/2 ML INJ ONE (06:36)
[2023-09-23] MEDS: BUPIVACAINE 0.25% PF 30 ML VIAL ONE (06:36)
[2023-09-23] MEDS: MAGNESIUM SULFATE 1 gm IVPB 1 GM/100 ML BAG IV ONE (06:37)
[2023-09-23] MEDS: TRANEXAMIC ACID 1,000 MG/10 ML VIAL IV ONE (06:52)
[2023-09-23] MEDS: CEFAZOLIN SODIUM 2 GM/VIAL ONE (07:11)
[2023-09-23] MEDS ORDERED: propofoL 200 MG/20 ML VIAL IV ONE ×2 (07:22→07:59)
[2023-09-23] MEDS ORDERED: LIDOCAINE 2% MPF 5 ML VIAL ONE ×2 (07:22→07:35)
[2023-09-23] MEDS ORDERED: dexAMETHasone 10 MG/ML VIAL ONE (07:35)
[2023-09-23] MEDS ORDERED: ONDANSETRON 4 MG/2 ML VIAL ONE (07:35)
[2023-09-23] MEDS ORDERED: KETOROLAC 30 MG/ML INJ ONE (07:35)
[2023-09-23] MEDS ORDERED: KETAMINE HCL IN 0.9 % NACL 50 MG/5 ML SYRINGE IV ONE (07:37)
[2023-09-23] MEDS ORDERED: NS 0.9% VIAL 10 ML ONE ×2 (09:13)
--- NOTE | 2023-09-23 09:54 | P.BOP ---
Preoperative diagnosis: right knee arthritis Postoperative diagnosis: same Primary procedure: right total knee arthroplasty Estimated blood loss: 100ccs Anesthesia: General Transferred to: Recovery Room Condition: Good
[2023-09-23] MEDS: HYDROMORPHONE HCL 2 MG/ML inj ONE (11:03)
--- NOTE | 2023-09-23 12:09 | OP ---
Date of Procedure: 09/23/2023 Surgeon: James Kaur MD Preoperative Diagnosis: Severe right knee arthritis. Postoperative Diagnosis: Severe right knee arthritis. Procedure: Right total knee arthroplasty using the Biomet Vanguard system. Estimated Blood Loss: 100 cc. Complication: There are no complications. Indications For Operation: Ms. Link is a 58-year-old female who unfortunately has been suffering f rom bilateral knee arthritis for quite some time. This did persist despite conservative management i ncluding arthroscopy as well as injections, and at this point, has a knee flexion contracture as well as extension contracture as well as profound pain and arthritic changes. Risks, benefits, and alter natives to total knee arthroplasty had been discussed with the patient. She states she understands t baciliongs as presented and wishes to proceed. Description Of Procedure: The patient was given a block in the holding area. Following this, she wa s then taken to the operating room, placed in the supine position. General anesthesia was easily obt ained by the Anesthesia staff. Following this, a well-padded tourniquet was placed on superior right thigh. Right lower extremity was then prepped and draped in usual sterile fashion for the procedure . Following this, a standard incision was taken down carefully through skin and soft tissues. It sh ould be noted that the knee bends to approximately 80 degrees. The appropriate level was obtained an d the extensor mechanism was then exposed. After this, a vinod was made at the superior medial border of the patella and a standard medial parapatellar arthrotomy was then performed. Approximately 30 c c of rather normal-appearing synovial fluid was expressed. This was followed by removal of both the medial and lateral menisci as well as the anterior and posterior cruciate ligament to allow for ernie r mobilization of the patella and attempt to bridger the patella was somewhat difficult. Therefore, a quadriceps snip was performed at the apex of the incision. This allowed for easier eversion. The pa tella was then everted and osteophytes were removed to allow for better visualization. This was foll owed by placement of intramedullary alignment guide and the distal femur was cut in standard fashion. Following this, it was then sized to a size 70. The cuts were made. Extreme care was made with th e posterior cut as we could only get the knee flexed at this point to approximately 90 degrees and it did take a while being extremely careful not to extend these incisions too deeply. The posterior cu ts being particularly careful. The bone was then removed and attention was turned to the tibia. She does have a flexion and extension contracture. We did remove slightly more tibia than we normally w ould have. However, this was done with 1 cut and was removed easily. Again, care being taken to pre serve posterior structures. This now allowed for much better visualization and proceeds in a more or less normal fashion from this point with sizing of the tibia. It was then trialed with a size 75 ti karon, size 70 femur, and 10 poly. It comes to full extension. It may be very slightly tight in full flexion, however, does appear to be otherwise well balanced. Decision was made not to cut more slope as she does now have flexion with implants in place to at least 120 degrees without undue stress as well as full extension. Attention was then turned to the patella, which was then calipered and cut. Trial patella was placed, brought through range of motion, and glides easily. The trial implants we re then removed and the box was cut and the tibia was punched. It was copiously irrigated. Followin g this, all of the implants are placed with the exception of the final tibial polyethylene. The tria l polyethylene was left in place until the cement hardened. After this, it was again tested and it d oes come to full flexion at least 125 degrees without undue stress limited by habitus. The knee come s to full extension easily, but not hyperextension and it appears to be well balanced in medial and l ateral. The final tibial size 10 polyethylene was placed after irrigation and again checked and the extensor mechanism was closed using heavy Ethibond sutures followed by irrigation and closure of skin using Vicryl followed by piyush. The patient was then placed in a well-padded sterile dressing, awakened, and taken to the recovery room in good condition. No compl ications. SE/MODL Voice ID: [id number] Report ID: [id number]
[2023-09-23 13:13] VITALS: BMI 35.6
[2023-09-23 14:39] LABS: Absolute Lymphocytes (CBC) 0.9 K/uL (0.7-4.9); Absolute Monocytes 0.2 K/uL (0.1-1.3); Absolute Neutrophil 12.1 K/uL (1.8-8.0); Basophils % 0.4 % (0-1.3); Hematocrit 34.8 % (36.0-45.0); Hemoglobin 10.4 g/dL (12.0-15.0); Lymphocytes % 6.6 % (15.3-44.8); MCV 83.4 fL (80-100); MPV 8.5 fL (7.6-11.3); Monocytes % 1.6 % (3.3-12.3); Neutrophils % 91.4 % (41.7-73.7); Platelets 239 thou/uL (152-406); RBC Red Blood Cell Count 4.17 M/uL (3.86-4.86); Red Cell Distribution Width 15.2 % (12.1-15.2)
[2023-09-23 14:50] LABS: Anion Gap 13.4 mEq/L (5.0-15.0); Potassium 4.4 mEq/L (3.5-5.1)
--- NOTE | 2023-09-23 14:54 | P.CNS ---
Date of Consult: 09/23/23 Reason for Consult: Medicine management consult Requesting Physician: James Kaur Primary Care Provider: Mackenzie Ellis Chief Complaint: Right knee surgery Right total knee arthroplasty using the Biomet Vanguard History of Present Illness: Ms. Link is a 58-year-old female with a past medical history of hypertension, hyperlipidemia, CAD, diabetes, anemia, hypothyroidism, asthma, GERD, obstructive sleep apnea, and significant musculoskeletal osteoarthritis and stenosis. After extensive medical management, it was decided Ms. Link needed a total right knee arthroplasty. This was performed this morning. Patient is hospitalized and will need her regular medications. The Hospitalist program was asked to assist with evaluation and treatment of her chronic medical problems. Home medications list reviewed: Yes - Past Medical/Surgical History Diabetic: Yes -: glaucoma -: asthma -: diabetes -: spinal stenosis -: htn -: TIA 2022 during cervical surgery -: Former tobacco abuse -: Depression with anxiety -: Hyperlipidemia -: GERD -: CAD -: tonsilectomy -: appendectomy -: cholecystectomy -: 2 c section -: knee arthoscopy -: tubal ligation Psychosocial/ Personal History: The patient is . 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 She lives in a 1st floor [facility] and has a rollator and a walk in shower. - Family History Mother Medical History: Hypertension Father Medical History: Heart disease, Lung disease, Cancer Brother Medical History: Hypertension Sister Medical History: Hypertension - Social History Smoking Status: Former smoker Alcohol use: No CD- Drugs: No Caffeine use: Yes Place of Residence: Home <Soledad Rai - Last Filed: 09/23/23 14:49> <Cheryl Harris - Last Filed: 09/23/23 17:29> Allergies lisinopril Adverse Reaction (Verified 09/18/23 09:51) cough Home Medications: Atorvastatin Calcium [Lipitor*] 20 mg PO BEDTIME #30 tab 02/01/17 Gabapentin [Neurontin*] 800 mg PO TID 02/20/17 Aspirin [Aspirin EC 81 MG] 81 mg PO DAILY 09/24/19 Levothyroxine Sodium 137 mcg PO DAILY 09/24/19 Buspirone HCl [Buspar] 10 mg PO BID 09/25/22 Escitalopram [Lexapro*] 20 mg PO DAILY 09/25/22 Lubiprostone [Amitiza] 8 mcg PO BIDWM 09/25/22 Metformin HCl [Glucophage*] 1,000 mg PO DAILY 09/25/22 Clopidogrel Bisulfate [Plavix] 75 mg PO DAILY #30 10/03/22 Bimatoprost [Lumigan Opthalmic Drops*] 1 gtts OPTH BEDTIME 05/03/23 Ferrous Sulfate [Feosol] 325 mg PO DAILY 05/03/23 Hydrocodone Bit/Acetaminophen [Hydrocodon-Acetaminoph 7.5-325] 1 each PO BID 05/03/23 Ibuprofen 800 mg PO TID 05/03/23 Losartan/Hydrochlorothiazide [Losartan-Hctz 100-25 mg Tab] 0.5 tab PO DAILY 05/03/23 Spironolactone 1 tab PO DAILY 05/03/23 Tizanidine [Zanaflex] 4 mg PO BID 05/03/23 Trazodone HCl 50 mg PO BEDTIME 05/03/23 Fluticasone [Flonase 50MCG Nasal [place]*] 2 sprays NS DAILY 30 Days #1 btl 05/04/23 Montelukast [Singulair*] 10 mg PO DAILY 90 Days #90 tab 05/04/23 Albuterol Sulfate [Albuterol Sulfate Hfa] 1 puff IH PRN PRN 09/18/23 Ergocalciferol (Vitamin D2) [Vitamin D2] 400 unit PO DAILY 09/18/23 Fluticasone Propion/Salmeterol [Wixela 250-50 Inhub] 1 each IH BID 09/18/23 Insulin Lispro [Humalog*] 2 unit SQ PRN PRN 09/18/23 Semaglutide [Ozempic] 0.25 mg SQ EVERY 7TH DAY 09/18/23 Review of Systems 10-point ROS is otherwise unremarkable Musculoskeletal: As per HPI <Soledad Rai - Last Filed: 09/23/23 14:49> Physical Examination Temp Pulse Resp BP Pulse Ox 97.3 F 63 17 116/61 93 09/23/23 12:00 09/23/23 12:00 09/23/23 12:00 09/23/23 12:00 09/23/23 12:00 General: Alert, In no apparent distress, Oriented x3 HEENT: Atraumatic, Normocephalic Neck: Supple Respiratory: Normal air movement Cardiovascular: Normal pulses, Regular rate/rhythm, Normal S1 S2 Capillary refill: <2 Seconds Gastrointestinal: Soft and benign Musculoskeletal: Other (right knee s/p surgery, clean and dry dressing in place, in constant motion at this time, peripheral pulses + without pedal edema) Integumentary: No rashes Neurological: Normal speech, Normal tone, Normal affect Lymphatics: No axilla or inguinal lymphadenopathy External genitalia: Deferred Rectal: Deferred Laboratory Data (last 24 hrs) 09/23/23 14:26 WBC 13.20 H Hgb 10.4 L Hct 34.8 L Plt Count 239 <Soledad Rai - Last Filed: 09/23/23 14:49> Temp Pulse Resp BP Pulse Ox 97 F 69 16 138/72 92 09/23/23 16:00 09/23/23 16:00 09/23/23 16:00 09/23/23 16:00 09/23/23 16:00 Laboratory Data (last 24 hrs) 09/23/23 09/23/23 14:26 14:26 WBC 13.20 H Hgb 10.4 L Hct 34.8 L Plt Count 239 Sodium 138 Potassium 4.4 BUN 19 H Creatinine 0.85 Glucose 210 H <Cheryl Harris - Last Filed: 09/23/23 17:29> Conclusions/Impression: Hypertension with CAD Monitor and trend blood pressure Hydralazine 10 mg IV as needed systolic blood pressure greater than 160 q 4h Hyperlipidemia Continue atorvastatin 20 mg p.o. nightly Hypothyroidism Continue levothyroxine 0.137 mg p.o. daily Diabetes ADA diet Monitor and trend glucose Fingerstick blood glucose monitoring with SSI coverage Anemia Monitor and trend H/H Continue p.o. iron Asthma Nebulizer treatments and pulmonary toilet GERD Protonix TAMMIE Head of bed elevated 30 degrees VTE/GI prophylaxis SCDs, early ambulation/Protonix Thank you Dr. Kaur for allowing us to share in the care of your patient. <Soledad Rai - Last Filed: 09/23/23 14:49> Conclusions/Impression: Pt seen and examined. I agree with the note by the SALES EFFECTIVENESS MANAGER. Pt is a 58 yo male with past medical history of hypertension, hyperlipidemia, CAD, diabetes, anemia, hypothyroidism, asthma, GERD, obstructive sleep apnea, and significant musculoskeletal osteoarthritis and stenosis who had right total knee arthroplasty due to arthritis. Dr. Kaur did right TKA today and consulted medicine for medical management. Lab studies show wbc 13.2, Hgb 10.4, K 4.4, Cr 0.85. At bedside, pt is in NAD. A/P: Leukocytosis: WBC is 13.2. Likely reactive. Will r/o infection. Will check UA. Continue to monitor WBC Anemia: Hgb is 10.4. Will monitor H/H Right TKA: Will continue post-op care with prn pain med, IVF and abx. Will consult PT. Morbid obesity: Pt will benefit from weight loss. Will continue home meds for other chronic medical problems. <Cheryl Harris - Last Filed: 09/23/23 17:29>
[2023-09-23] MEDS ORDERED: HYDRALAZINE HCL 20 MG/ML VIAL IV PRN (15:38)
[2023-09-23] MEDS ORDERED: LACTULOSE 20 GM/30 ML UCUP PO PRN (15:43)
[2023-09-23] MEDS: CEFAZOLIN 1 GM in NA CHLORIDE 0.9% 50 ML IVPB SCH (16:39)
[2023-09-23] MEDS: INSULIN REGULAR (HUMAN) 100 UNIT/ML SQ SCH (16:39)
[2023-09-23 17:55] LABS: Platelet Estimate ADEQ; White Blood Cell Scan OK (OK)
[2023-09-23 17:56] LABS: Anisocytosis 1+; Blood Morphology Comment NOTED (NOT SEEN); Poikilocytosis 1+
[2023-09-23] MEDS: ALBUTEROL 2.5 MG/3 ML NEB SOL NEB SCH (19:00)
[2023-09-23] MEDS: HYDROCODONE/APAP 7.5/325 MG TAB PO PRN (19:05)
[2023-09-23] MEDS: ARFORMOTEROL TARTRATE 15 MCG/2 ML VIAL.NEB NEB SCH (19:47)
[2023-09-23] MEDS: BIMATOPROST OPTH SCH (21:00)
[2023-09-23] MEDS ORDERED: BIMATOPROST OPHTH DROPS/2.5 ML BTL OPTH SCH (21:00)
[2023-09-23] MEDS: TRAZODONE 50 MG TABLET PO PRN (21:55)
[2023-09-23] MEDS: ATORVASTATIN 20 MG TAB PO SCH (21:55)
[2023-09-23] MEDS: FLUTICASONE 50MCG NASAL SPRAY NAS SCH (21:55)
[2023-09-24] MEDS: LEVOTHYROXINE SOD 0.025 MG TAB PO SCH (05:47)
[2023-09-24] MEDS: ENOXAPARIN 30 MG/0.3 ML SQ SCH (05:47)
[2023-09-24] MEDS: LEVOTHYROXINE SOD 0.112 MG TAB PO SCH (05:47)
[2023-09-24 05:49] LABS: Hemoglobin 10.1 g/dL (12.0-15.0)
[2023-09-24] MEDS: ESCITALOPRAM 20 MG TAB PO SCH (08:00)
[2023-09-24] MEDS: CLOPIDOGREL 75 MG TABLET PO SCH (08:00)
[2023-09-24] MEDS: FE SULF/FA/VIT B COMP & C TAB PO SCH (08:00)
--- NOTE | 2023-09-24 12:55 | P.PN ---
Subjective Date of Service: 09/24/23 Primary Care Provider: Mackenzie Ellis Chief Complaint: Right knee surgery Right total knee arthroplasty using the Biomet Vanguard Subjective: Improving (more awake today) <Jazmin Raiy Master - Last Filed: 09/24/23 12:56> Date of Service: 09/24/23 <Cheryl Harris - Last Filed: 09/24/23 13:25> Review of Systems 10-point ROS is otherwise unremarkable General: As per HPI Musculoskeletal: As per HPI <RaiJazminy Master - Last Filed: 09/24/23 12:56> Physical Examination - Vital Signs Temperature: 97.4 F Blood Pressure: 118/54 Pulse: 69 Respirations: 16 Pulse Ox (%): 90 - Physical Exam General: Alert, In no apparent distress, Oriented x3 HEENT: Atraumatic, Normocephalic Neck: Supple Respiratory: Normal air movement Cardiovascular: Normal pulses, Regular rate/rhythm, Normal S1 S2 Capillary refill: <2 Seconds Gastrointestinal: Soft and benign Musculoskeletal: No clubbing, No swelling, Other (+ nvs, right leg in Continuous movement device, surgical dressing dry, intact) Integumentary: No rashes Neurological: Normal speech, Normal tone, Normal affect Lymphatics: No axilla or inguinal lymphadenopathy External genitalia: Deferred Rectal: Deferred - Studies Laboratory Data (last 24 hrs) 09/24/23 09/23/23 09/23/23 05:33 14:26 14:26 WBC 13.20 H Hgb 10.1 L 10.4 L Hct 33.0 L 34.8 L Plt Count 239 Sodium 138 Potassium 4.4 BUN 19 H Creatinine 0.85 Glucose 210 H <Jazmin Raiy Master - Last Filed: 09/24/23 12:56> - Studies Laboratory Data (last 24 hrs) 09/24/23 09/23/23 09/23/23 05:33 14:26 14:26 WBC 13.20 H Hgb 10.1 L 10.4 L Hct 33.0 L 34.8 L Plt Count 239 Sodium 138 Potassium 4.4 BUN 19 H Creatinine 0.85 Glucose 210 H <Cheryl Harris - Last Filed: 09/24/23 13:25> Assessment And Plan - Plan Conclusions/Impression: Hypertension with CAD Monitor and trend blood pressure Hydralazine 10 mg IV as needed systolic blood pressure greater than 160 q 4h Pt has antihypertensives as home meds but has been on the low end of BP readings, hold for now Hyperlipidemia Continue atorvastatin 20 mg p.o. nightly Hypothyroidism Continue levothyroxine 0.137 mg p.o. daily Diabetes ADA diet Monitor and trend glucose Fingerstick blood glucose monitoring with SSI coverage Anemia Monitor and trend H/H Continue p.o. iron Asthma Nebulizer treatments and pulmonary toilet SpO2 90%, make sure IS is being performed expedite OOB as soon as ok per Dr. Kaur - PT to assist with transfers to chair GERD Protonix TAMMIE Head of bed elevated 30 degrees VTE/GI prophylaxis SCDs, early ambulation/Protonix Discharge Plan: Home Plan to discharge in: 24 Hours <Soledad Rai - Last Filed: 09/24/23 12:56> - Plan Pt seen and examined. I agree with the note by the CLARITY DEVELOPER. Pt is s/p right knee arthroplasty, POD #1. She denies any severe pain of the right knee but reports nausea during PT session. She received zofran. Will continue home meds for other chronic medical problems. <Cheryl Harris - Last Filed: 09/24/23 13:25>
[2023-09-25 05:30] LABS: Absolute Basophils 0.1 K/uL (0-0.5); Absolute Lymphocytes (CBC) 2.7 K/uL (0.7-4.9); Absolute Monocytes 0.8 K/uL (0.1-1.3); Absolute Neutrophil 4.9 K/uL (1.8-8.0); Basophils % 0.7 % (0-1.3); Eosinophils % 0.3 % (0-4.4); Hematocrit 28.8 % (36.0-45.0); Hemoglobin 9.3 g/dL (12.0-15.0); Lymphocytes % 31.6 % (15.3-44.8); MCH 26.2 pg (27.0-35.0); MCHC 32.1 g/dL (32.0-36.0); MCV 81.5 fL (80-100); MPV 8.2 fL (7.6-11.3); Monocytes % 9.2 % (3.3-12.3); Neutrophils % 58.2 % (41.7-73.7); Nucleated Red Blood Cells % 0.2 % (0-0); Platelets 219 thou/uL (152-406); RBC Red Blood Cell Count 3.54 M/uL (3.86-4.86); Red Cell Distribution Width 15.6 % (12.1-15.2)
[2023-09-25 05:48] LABS: Anion Gap 4.6 mEq/L (5.0-15.0); Potassium 3.6 mEq/L (3.5-5.1)
[2023-09-25] MEDS: ONDANSETRON 4 MG/2 ML VIAL IV PRN (09:57)
--- NOTE | 2023-09-25 16:13 | P.PN ---
Subjective Date of Service: 09/25/23 Primary Care Provider: Mackenzie Ellis Chief Complaint: Right knee surgery Right total knee arthroplasty using the Biomet Vanguard Subjective: Improving (doing well, denies nausea this am) Review of Systems 10-point ROS is otherwise unremarkable Musculoskeletal: As per HPI Physical Examination - Vital Signs Temperature: 98.3 F Blood Pressure: 158/83 Pulse: 78 Respirations: 18 Pulse Ox (%): 92 - Physical Exam General: Alert, In no apparent distress, Oriented x3 HEENT: Atraumatic, Normocephalic Neck: Supple Respiratory: Normal air movement Cardiovascular: Normal pulses, Regular rate/rhythm, Normal S1 S2 Capillary refill: <2 Seconds Gastrointestinal: Soft and benign Musculoskeletal: No swelling, No contractures Integumentary: Other (dressing to right knee wound clean and dry) Neurological: Normal speech, Normal tone, Normal affect Lymphatics: No axilla or inguinal lymphadenopathy External genitalia: Deferred Rectal: Deferred - Studies Laboratory Data (last 24 hrs) 09/25/23 09/25/23 05:08 05:08 WBC 8.40 Hgb 9.3 L Hct 28.8 L Plt Count 219 Sodium 141 Potassium 3.6 BUN 19 H Creatinine 0.56 Glucose 135 H Assessment And Plan - Plan Conclusions/Impression: Hypertension with CAD Monitor and trend blood pressure Hydralazine 10 mg IV as needed systolic blood pressure greater than 160 q 4h Pt has antihypertensives as home meds but has been on the low end of BP readings, hold for now Hyperlipidemia Continue atorvastatin 20 mg p.o. nightly Hypothyroidism Continue levothyroxine 0.137 mg p.o. daily Diabetes ADA diet Monitor and trend glucose Fingerstick blood glucose monitoring with SSI coverage Anemia Monitor and trend H/H Continue p.o. iron Asthma Nebulizer treatments and pulmonary toilet SpO2 90%, make sure IS is being performed expedite OOB as soon as ok per Dr. Kaur - PT to assist with transfers to chair 09/24/ had a little O2 requirement overnight, states she has sleep apnea and suspects this is her norm GERD Protonix TAMMIE Head of bed elevated 30 degrees VTE/GI prophylaxis SCDs, early ambulation/Protonix
--- NOTE | 2023-09-25 18:40 | RAD REPORT ---
EXAM DESCRIPTION: CT - Chest For Pe Angio - 09/25/2023 6:26 pm CLINICAL HISTORY: Chest pain. Dyspnea; post-op COMPARISON: <Comparisons> TECHNIQUE: CT angiogram of the pulmonary arteries was performed with MIP. All CT scans are performed using dose optimization technique as appropriate and may include automated exposure control or mA/KV adjustment according to patient size. FINDINGS: No evidence of pulmonary thromboembolism. No acute aortic finding demonstrated. Mild atelectasis is present in the right lung base. The lungs are otherwise clear. No significant pericardial or pleural fluid. No concerning bony finding. IMPRESSION: No evidence of pulmonary thromboembolism. Mild atelectasis is present in the right lung base.
[2023-09-26 07:40] LABS: Absolute Basophils 0.1 K/uL (0-0.5); Absolute Eosinophils 0.3 K/uL (0-0.5); Absolute Lymphocytes (CBC) 2.6 K/uL (0.7-4.9); Absolute Monocytes 0.7 K/uL (0.1-1.3); Absolute Neutrophil 4.6 K/uL (1.8-8.0); Basophils % 0.7 % (0-1.3); Eosinophils % 3.8 % (0-4.4); Hemoglobin 9.3 g/dL (12.0-15.0); Lymphocytes % 31.8 % (15.3-44.8); MCH 26.3 pg (27.0-35.0); MCHC 32.2 g/dL (32.0-36.0); MCV 81.8 fL (80-100); MPV 8.2 fL (7.6-11.3); Monocytes % 8.2 % (3.3-12.3); Neutrophils % 55.5 % (41.7-73.7); Nucleated Red Blood Cells % 0.1 % (0-0); Platelets 244 thou/uL (152-406); RBC Red Blood Cell Count 3.55 M/uL (3.86-4.86); Red Cell Distribution Width 15.7 % (12.1-15.2)
[2023-09-26 07:49] LABS: ALT/SGPT 23 U/L (13-56); AST/SGOT 11 U/L (15-37); Albumin 2.6 g/dL (3.4-5.0); Albumin/Globulin Ratio 0.8 (1.1-1.8); Alkaline Phosphatase 65 U/L (45-117); Anion Gap 5.8 mEq/L (5.0-15.0); BUN Blood Urea Nitrogen 15 mg/dL (7-18); Bicarbonate 32 mEq/L (21-32); Bilirubin Total 0.3 mg/dL (0.2-1.0); Ferritin 17.1 ng/mL (8-388); Globulin 3.1 g/dL (2.3-3.5); Glomerular Filtration Rate 110 ml/min (=/>90); Glucose Level 123 mg/dL (74-106); Magnesium 2.3 mg/dL (1.6-2.4); NT PRO-BNP 61 pg/mL (<125); Potassium 3.8 mEq/L (3.5-5.1); Protein, Total 5.7 g/dL (6.4-8.2); Sodium Level 140 mEq/L (136-145)
[2023-09-26 07:53] LABS: Troponin High Sensitivity < 3.0 pg/mL (<58.9)
[2023-09-26] MEDS ORDERED: LOSARTAN POTASSIUM 50 MG TABLET PO SCH (09:00)
[2023-09-26] MEDS ORDERED: SOD FERRIC GLUC COMPLX/SUCROSE 125 MG in NA CHLORIDE 0.9% 100 ML IV SCH (09:00)
--- NOTE | 2023-09-26 12:53 | ECHO ---
HEIGHT: 5 ft 11 in WEIGHT: 256 lb 0 oz DATE OF STUDY: 09/26/[address]: Luis Esposito MD 2-DIMENSIONAL: YES M.MODE: YES DOPPLER: YES COLOR FLOW: YES TDS: PORTABLE: YES DEFINITY: BUBBLE STUDY: DIAGNOSIS: CONGESTIVE HEART FAILURE CARDIAC HISTORY: CATHERIZATION: NO SURGERY: NO PROSTHETIC VALVE: NO PACEMAKER: NO MEASUREMENTS (cm) DIASTOLIC (NORMALS) SYSTOLIC (NORMALS) IVSd 1.1 (0.6-1.2) LA Diam 2.8 (1.9-4.0) LVEF 60-65% LVIDd 4.4 (3.5-5.7) LVIDs 2.8 (2.0-3.5) %FS 37% LVPWd 1.1 (0.6-1.2) Ao Diam 2.6 (2.0-3.7) 2 DIMENSIONAL ASSESSMENT: RIGHT ATRIUM: NORMAL LEFT ATRIUM: NORMAL RIGHT VENTRICLE: NORMAL LEFT VENTRICLE: NORMAL TRICUSPID VALVE: NORMAL MITRAL VALVE: NORMAL PULMONIC VALVE: NORMAL AORTIC VALVE: NORMAL PERICARDIAL EFFUSION: NONE AORTIC ROOT: NORMAL LEFT VENTRICULAR WALL MOTION: NORMAL DOPPLER/COLOR FLOW: NORMAL COMMENTS: 1. NORMAL LEFT VENRICULAR SYSTOLIC FUNCTION, EJECTION FRACTION 60-65%, NORMAL WALL MOTION 2. NORMAL DIASTOLIC FUNCTION 3. NORMAL FILLING PRESSURE TECHNOLOGIST: MONCHO HUI
[2023-09-26] MEDS ORDERED: SILVER NITRATE 1 APPL TOP ONE (14:47)
--- NOTE | 2023-09-26 19:42 | P.DS ---
Admission Date: 09/25/23 Discharge Date: 09/26/23 Primary Care Provider: Mackenzie Ellis Disposition: ROUTINE DISCHARGE Discharge Condition: GOOD Reason for Admission: Right knee surgery Right total knee arthroplasty using the [employer] Consultations: Hospitalist program Procedures: Right knee surgery Brief History of Present Illness: Ms. Link is a 58-year-old female with a past medical history of hypertension, hyperlipidemia, CAD, diabetes, anemia, hypothyroidism, asthma, GERD, obstructive sleep apnea, and significant musculoskeletal osteoarthritis and stenosis. After extensive medical management, it was decided Ms. Link needed a total right knee arthroplasty. This was performed this morning. Patient is hospitalized and will need her regular medications. The Hospitalist program was asked to assist with evaluation and treatment of her chronic medical problems. Hospital Course: Ms. Link has no complaints of increasing pain. She has been working with physical therapy. Her discharge was delayed secondary to some difficulty with nausea during ambulation with physical therapy. She did have a little shortness of breath at night that necessitated oxygen via nasal cannula and she she states she has a history of obstructive sleep apnea. Last evening, secondary to complaint of shortness of breath she did have a CTA to rule out PE which was negative. Echo also negative. There was a transient mild drop in hemoglobin and it was noted she is iron deficient. Iron supplementation started and a pre scription for iron will be given upon discharge. Ms. Link did well with PT today and will be discharged home. Her bandage was changed and the stapled incision is clean and dry except for the medial distal aspect had a small persistent bleeding site. Area cauterized with silver nitrate. Bleeding stopped. Aquaseal dressing replaced. She should follow-up with Dr. Kaur next week, and with her PCP in 1 week. Vital Signs/Physical Exam: Temp Pulse Resp BP Pulse Ox 97.5 F 71 16 137/65 90 L 09/26/23 04:00 09/26/23 04:00 09/26/23 04:00 09/26/23 04:00 09/26/23 04:00 General: Alert, In no apparent distress, Oriented x3 HEENT: Atraumatic, Normocephalic Neck: Supple, 2+ carotid pulse no bruit, JVD not distended Respiratory: Clear to auscultation bilaterally, Normal air movement Cardiovascular: Normal pulses, Regular rate/rhythm, Normal S1 S2 Capillary refill: <2 Seconds Gastrointestinal: Normal bowel sounds, Soft and benign Musculoskeletal: Other (mild right lower extremity edema, postop bandage with lenore to right knee, medial aspect with tiny area of blood just distal to patella area) Integumentary: No rashes Neurological: Normal speech, Normal tone, Normal affect Lymphatics: No axilla or inguinal lymphadenopathy External genitalia: Deferred Rectal: Deferred Laboratory Data at Discharge: WBC 8.30 thou/uL (4.3-10.9) 09/26/23 06:48 Hgb 9.3 g/dL (12.0-15.0) L 09/26/23 06:48 Hct 29.0 % (36.0-45.0) L 09/26/23 06:48 Plt Count 244 thou/uL (152-406) 09/26/23 06:48 PT 11.8 SECONDS (9.4-12.5) 09/18/23 10:28 INR 1.06 09/18/23 10:28 APTT 35.0 SECONDS (24.3-36.9) 09/18/23 10:28 Sodium 140 mEq/L (136-145) 09/26/23 06:48 Potassium 3.8 mEq/L (3.5-5.1) 09/26/23 06:48 BUN 15 mg/dL (7-18) 09/26/23 06:48 Creatinine 0.48 mg/dL (0.55-1.02) L 09/26/23 06:48 Glucose 123 mg/dL (74-106) H 09/26/23 06:48 Magnesium 2.3 mg/dL (1.6-2.4) 09/26/23 06:48 Total Bilirubin 0.3 mg/dL (0.2-1.0) 09/26/23 06:48 AST 11 U/L (15-37) L 09/26/23 06:48 ALT 23 U/L (13-56) 09/26/23 06:48 Alkaline Phosphatase 65 U/L (45-117) 09/26/23 06:48 Home Medications: RX: Atorvastatin Calcium [Lipitor*] 20 mg PO BEDTIME #30 tab 02/01/17 RX: Gabapentin [Neurontin*] 800 mg PO TID 02/20/17 RX: Aspirin [Aspirin EC 81 MG] 81 mg PO DAILY 09/24/19 RX: Levothyroxine Sodium 137 mcg PO DAILY 09/24/19 RX: Buspirone HCl [Buspar] 10 mg PO BID 09/25/22 RX: Escitalopram [Lexapro*] 20 mg PO DAILY 09/25/22 RX: Lubiprostone [Amitiza] 8 mcg PO BIDWM 09/25/22 RX: Metformin HCl [Glucophage*] 1,000 mg PO DAILY 09/25/22 RX: Clopidogrel Bisulfate [Plavix] 75 mg PO DAILY #30 10/03/22 RX: Bimatoprost [Lumigan Opthalmic Drops*] 1 gtts OPTH BEDTIME 05/03/23 RX: Hydrocodone Bit/Acetaminophen [Hydrocodon-Acetaminoph 7.5-325] 1 each PO BID 05/03/23 RX: Ibuprofen 800 mg PO TID 05/03/23 RX: Losartan/Hydrochlorothiazide [Losartan-Hctz 100-25 mg Tab] 0.5 tab PO DAILY 05/03/23 RX: Spironolactone 1 tab PO DAILY 05/03/23 RX: Tizanidine [Zanaflex*] 4 mg PO BID 05/03/23 RX: Trazodone HCl 50 mg PO BEDTIME 05/03/23 RX: Fluticasone [Flonase 50MCG Nasal [place]*] 2 sprays NS DAILY 30 Days #1 btl 05/04/23 RX: Montelukast [Singulair*] 10 mg PO DAILY 90 Days #90 tab 05/04/23 RX: Albuterol Sulfate [Albuterol Sulfate Hfa] 1 puff IH PRN PRN 09/18/23 RX: Ergocalciferol (Vitamin D2) [Vitamin D2] 400 unit PO DAILY 09/18/23 RX: Fluticasone Propion/Salmeterol [Wixela 250-50 Inhub] 1 each IH BID 09/18/23 RX: Semaglutide [Ozempic] 0.25 mg SQ EVERY 7TH DAY 09/18/23 RX: Arformoterol Tartrate [Brovana] 15 mcg NEB BIDRESP #60 vial.neb 09/26/23 RX: Iron/FA/Vit B-Com W/C [Hemocyte Plus*] 1 tab PO DAILY WITH BREAKFAST #90 tab 09/26/23 New Medications: RX: Arformoterol Tartrate [Brovana] 15 mcg NEB BIDRESP #60 vial.neb RX: Iron/FA/Vit B-Com W/C [Hemocyte Plus*] 1 tab PO DAILY WITH BREAKFAST #90 tab Physician Discharge Instructions: Ms. Link has no complaints of increasing pain. She has been working with physical therapy. Her discharge was delayed secondary to some difficulty with nausea during ambulation with physical therapy. She did have a little shortness of breath at night that necessitated oxygen via nasal cannula and she she states she has a history of obstructive sleep apnea. Last evening, secondary to complaint of shortness of breath she did have a CTA to rule out PE which was negative. Echo also negative. There was a transient mild drop in hemoglobin and it was noted she is iron deficient. Iron supplementation started and a prescription for iron will be given upon discharge. Ms. Link did well with PT today and will be discharged home. She should follow-up with Dr. Kaur next week, and with her PCP in 1 week. Okay to DC IV and DC home Follow-up with primary care provider in 1 to 2 weeks Follow-up with Dr. Kaur in 1 week Please call the inpatient unit for any questions or concerns regarding hospital stay Return to the ER for worsening symptoms Diet: AHA Activity: with rollator per PT/Dr. Kaur direction Followup: James Kaur MD [ACTIVE - CAN ADMIT] - Mackenzie Ellis FNP [OUTSIDE PHYSICIAN] -
[2023-10-02 12:37] VITALS: O2SAT 95
[2023-10-02 12:41] VITALS: BP 114/61; TEMP 97.4
== END 2023-09-26 17:00 | disposition home health service (06) | DRG 470 ==
LOC: OR 05:30 → 2ND 09:54 → OBSVTOIN 09-25 12:05
PROVIDERS: ADMIT Orthopaedic Surgery; ATTEND Orthopaedic Surgery
PROC: 0SRC0JZ Replacement of Right Knee Joint with Synthetic Substitute, Open Approach (ICD-10-PCS; principal; 2023-09-23 07:00)
DX: M13.861 Other specified arthritis, right knee (principal); E78.5 Hyperlipidemia, unspecified; E11.9 Type 2 diabetes mellitus without complications; E03.9 Hypothyroidism, unspecified; D64.9 Anemia, unspecified; E66.01 Morbid (severe) obesity due to excess calories; K21.9 Gastro-esophageal reflux disease without esophagitis; G47.33 Obstructive sleep apnea (adult) (pediatric); J45.909 Unspecified asthma, uncomplicated; I25.10 Atherosclerotic heart disease of native coronary artery without angina pectoris; Z79.4 Long term (current) use of insulin; Z98.51 Tubal ligation status; Z79.82 Long term (current) use of aspirin; Z68.35 Body mass index [BMI] 35.0-35.9, adult; Z79.84 Long term (current) use of oral hypoglycemic drugs; Z79.02 Long term (current) use of antithrombotics/antiplatelets; Z90.49 Acquired absence of other specified parts of digestive tract; Z79.890 Hormone replacement therapy; Z87.891 Personal history of nicotine dependence; Z79.899 Other long term (current) drug therapy
CPT/HCPCS: 36415; 71275; 80048; 80053; 81001; 82728; 82947; 83540; 83735; 83880; 84484; 85014; 85018; 85025; 85610; 85730; 88305; 88311; 93306; 94010; 94640; 97110; 97116; 97139; 97161; 97530; A4216; G0378; G0379; J0171; J0690; J1100; J1170; J1650; J2001; J2250; J2405; J2704; J2916; J3010; J3475; J7030; J7605; J7613; Q9967

== ENCOUNTER 2024-05-04 08:57 | Inpatient (IN) | payer OTHER ==
--- NOTE | 2024-04-30 10:15 | RAD REPORT ---
EXAMINATION: TWO VIEW CHEST XR CLINICAL INDICATION: PRE OP TECHNIQUE: 2 views of the chest was performed. COMPARISON: 05/02/2023 FINDINGS: Mild linear opacities in both lung bases. Lungs are otherwise grossly clear. The heart is upper limit of normal in size. No displaced fractures evident. Small hiatal hernia. Cervical hardware partially imaged.
[2024-04-30 10:45] LABS: Absolute Eosinophils 0.1 K/uL (0-0.5); Absolute Lymphocytes (CBC) 2.5 K/uL (0.7-4.9); Absolute Monocytes 0.6 K/uL (0.1-1.3); Absolute Neutrophil 4.6 K/uL (1.8-8.0); Basophils % 0.5 % (0-1.3); Eosinophils % 1.6 % (0-4.4); Hematocrit 39.6 % (36.0-45.0); Hemoglobin 12.8 g/dL (12.0-15.0); Lymphocytes % 31.1 % (15.3-44.8); MCH 26.7 pg (27.0-35.0); MCHC 32.3 g/dL (32.0-36.0); MCV 82.8 fL (80-100); MPV 8.6 fL (7.6-11.3); Neutrophils % 58.8 % (41.7-73.7); Platelets 262 thou/uL (152-406); RBC Red Blood Cell Count 4.78 M/uL (3.86-4.86); Red Cell Distribution Width 15.1 % (12.1-15.2)
[2024-04-30 10:48] LABS: Urine Bacteria 20-50 /HPF (<20); Urine Bilirubin NEGATIVE (Negative); Urine Blood Negative (Negative); Urine Clarity Extremely Turbid (Clear); Urine Color Yellow (Yellow); Urine Culture Reflex Order NOT NEEDED; Urine Glucose NEGATIVE (Negative); Urine Ketones NEGATIVE (Negative); Urine Microscopic Reflex YN ORDER UMIC; Urine Mucus 4+ /HPF (None Seen); Urine Nitrite NEGATIVE (Negative); Urine Protein 1+ (Negative); Urine RBC None Seen /HPF (None Seen); Urine Urobilinogen 2+ (Normal)
[2024-04-30 10:56] LABS: PT Prothrombin Time 11.5 SECONDS (9.4-12.5); Protime INR 1.1
[2024-04-30 10:57] LABS: Albumin 3.3 g/dL (3.4-5.0); Albumin/Globulin Ratio 0.8 (1.1-1.8); Anion Gap 5.9 mEq/L (5.0-15.0); Bilirubin Total 0.4 mg/dL (0.2-1.0); Globulin 3.9 g/dL (2.3-3.5); Potassium 3.9 mEq/L (3.5-5.1); Protein, Total 7.2 g/dL (6.4-8.2)
--- NOTE | 2024-05-03 12:12 | EKG ---
Test Date: 2024-04-30 Test Time: 10:35:54 Maternity Floor Supervisor: VASILE MEASUREMENT RESULTS: Intervals: Rate: 68 KS: 166 QRSD: 80 QT: 394 QTc: 418 Greer: P: 64 KS: 166 QRS: 29 T: 31 INTERPRETIVE STATEMENTS: Normal sinus rhythm Nonspecific T wave abnormality Abnormal ECG Compared to ECG 05/02/2023 10:08:47 T-wave abnormality now present Electronically Signed On 05-03-24 12:10:32 GAS PLUMBING INSPECTOR by Jacob Aguilar
[2024-05-04] MEDS: ALBUTEROL 2.5 MG/3 ML NEB SOL ONE (09:15)
[2024-05-04] MEDS: MIDAZOLAM HCL 2 MG/2 ML INJ ONE (09:37)
[2024-05-04] MEDS: FENTANYL CITR 100 MCG/2 ML ONE (09:37)
[2024-05-04] MEDS: DEXMEDETOMIDINE HCL 200 MCG/2 ML VIAL ONE (09:38)
[2024-05-04] MEDS: BUPIVACAINE 0.25% PF 30 ML VIAL ONE (09:38)
[2024-05-04] MEDS: MAGNESIUM SULFATE 1 gm IVPB 1 GM/100 ML BAG IV ONE (09:38)
[2024-05-04] MEDS: ACETAMINOPHEN 500 MG TAB ONE (09:40)
[2024-05-04] MEDS: GABAPENTIN 100 MG CAP ONE (09:40)
[2024-05-04] MEDS: Oxycodone HCl/Acetaminophen 5/325 MG TAB ONE (09:40)
[2024-05-04] MEDS: CELECOXIB 100 MG CAPSULE ONE (09:40)
[2024-05-04] MEDS: NA CHLORIDE 0.9% 1,000 ML ONE ×2 (09:50→13:19)
[2024-05-04] MEDS ORDERED: LIDOCAINE 2% MPF 5 ML VIAL ONE (10:41)
[2024-05-04] MEDS ORDERED: propofoL 200 MG/20 ML VIAL IV ONE (10:41)
[2024-05-04] MEDS ORDERED: ONDANSETRON 4 MG/2 ML VIAL ONE (10:41)
[2024-05-04] MEDS: TRANEXAMIC ACID 1,000 MG/10 ML VIAL IV ONE (10:51)
[2024-05-04] MEDS ORDERED: EPHEDRINE SULF 50 MG/ML VIAL ONE (11:06)
[2024-05-04] MEDS ORDERED: KETAMINE HCL IN 0.9 % NACL 50 MG/5 ML SYRINGE IV ONE (11:13)
[2024-05-04] MEDS ORDERED: dexAMETHasone 10 MG/ML VIAL ONE (11:16)
[2024-05-04] MEDS: CEFAZOLIN SODIUM 2 GM/VIAL ONE (11:20)
[2024-05-04] MEDS ORDERED: ALBUTEROL INHALER 200 PUFF/6.7 GM IH ONE (12:55)
[2024-05-04] MEDS ORDERED: ONDANSETRON 4 MG/2 ML VIAL IV PRN (13:41)
--- NOTE | 2024-05-04 13:46 | P.BOP ---
Preoperative diagnosis: left knee arthritis Postoperative diagnosis: same Primary procedure: let TKA Estimated blood loss: 100 ccs Anesthesia: General Transferred to: Recovery Room Condition: Good
[2024-05-04] MEDS: HYDROMORPHONE HCL 1 MG/ML INJ ONE ×2 (14:43→15:28)
[2024-05-04 16:16] VITALS: BMI 39.9
[2024-05-04] MEDS: CEFAZOLIN 1 GM in NA CHLORIDE 0.9% 50 ML IVPB SCH (16:33)
[2024-05-04] MEDS: HYDROCODONE/APAP 7.5/325 MG TAB PO PRN (18:12)
--- NOTE | 2024-05-04 18:59 | P.HP ---
Certification for Inpatient Patient admitted to: Inpatient With expected LOS: >2 Midnights Practitioner: I am a practitioner with admitting privileges, knowledge of patient current condition, hospital course, and medical plan of care. Services: Services provided to patient in accordance with Admission requirements found in Title 42 Section 412.3 of the Code of Federal Regulations Patient History Date of Service: 05/04/24 Reason for admission: SOB post surgery History of Present Illness: 59-year-old female with past medical history of asthma, hypertension, hyperlipidemia, sleep apnea, diabetes, hypothyroidism,, GERD, anxiety who underwent total knee arthroplasty by Dr. Kaur and was admitted for postoperative monitoring. Postoperatively patient was hypoxic and was short of breath and also had generalized weakness and medicine was consulted Patient denies any chest pain No fever or chills. Patient has presyncopal episodes Allergies lisinopril Adverse Reaction (Verified 04/30/24 09:02) cough Home medications list reviewed: Yes Home Medications: Atorvastatin Calcium [Lipitor*] 20 mg PO BEDTIME #30 tab 02/01/17 Gabapentin [Neurontin*] 800 mg PO TID 02/20/17 Aspirin [Aspirin EC 81 MG] 81 mg PO DAILY 09/24/19 Levothyroxine Sodium 137 mcg PO DAILY 09/24/19 Buspirone HCl [Buspar] 10 mg PO BID 09/25/22 Escitalopram [Lexapro*] 20 mg PO DAILY 09/25/22 Lubiprostone [Amitiza] 8 mcg PO BIDWM 09/25/22 Metformin HCl [Glucophage*] 1,000 mg PO BID 09/25/22 Clopidogrel Bisulfate [Plavix] 75 mg PO DAILY #30 10/03/22 Bimatoprost [Lumigan Opthalmic Drops*] 1 gtts OPTH BEDTIME 05/03/23 Hydrocodone Bit/Acetaminophen [Hydrocodon-Acetaminoph 7.5-325] 1 each PO BID 05/03/23 Ibuprofen 800 mg PO TID 05/03/23 Losartan/Hydrochlorothiazide [Losartan-Hctz 100-25 mg Tab] 0.5 tab PO DAILY 05/03/23 Spironolactone 1 tab PO DAILY 05/03/23 Tizanidine [Zanaflex*] 4 mg PO BID 05/03/23 Trazodone HCl 50 mg PO BEDTIME 05/03/23 Fluticasone [Flonase 50MCG Nasal [place]*] 2 sprays NS DAILY 30 Days #1 btl 05/04/23 Montelukast [Singulair*] 10 mg PO DAILY 90 Days #90 tab 05/04/23 Albuterol Sulfate [Albuterol Sulfate Hfa] 1 puff IH PRN PRN 09/18/23 Ergocalciferol (Vitamin D2) [Vitamin D2] 400 unit PO DAILY 09/18/23 Dulaglutide [Trulicity] 0.75 mg SQ EVERY 7TH DAY 04/30/24 Ferrous Sulfate 325 mg PO DAILY 04/30/24 Fluticasone Propion/Salmeterol [Wixela 250-50 Inhub] 1 each IH DAILY 04/30/24 - Past Medical/Surgical History Has patient received pneumonia vaccine in the past: No Diabetic: Yes Past Medical History: Reviewed- Non-Contributory -: Spinal Stenosis, -: Asthma, -: mini stroke, -: HTN, -: HLD, -: Hypothyroid -: Former tobacco abuse -: Depression with anxiety -: Hyperlipidemia -: GERD -: CAD Past Surgical History: Reviewed- Non-Contributory -: x2 -: Tubal ligation -: Appendectomy -: Tonsillectomy -: knee arthoscopy -: tubal ligation Psychosocial/ Personal History: The patient is . 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 She lives in a 1st floor [facility] and has a rollator and a walk in shower. - Family History Family History: Reviewed- Non-Contributory - Family History Mother -: Hypertension Father -: Heart disease, Lung disease, Cancer Brother -: Hypertension Sister -: Hypertension - Social History Smoking Status: Former smoker Alcohol use: No CD- Drugs: No Caffeine use: Yes Place of Residence: Home Review of Systems 10-point ROS is otherwise unremarkable Physical Examination - Vital Signs Temperature: 97.7 F Blood Pressure: 142/69 Pulse: 98 Respirations: 18 Pulse Ox (%): 93 - Physical Exam General: Alert, Mild distress HEENT: Atraumatic, Normocephalic Neck: Supple, JVD not distended Respiratory: Diminished, Crackles/rales, Expiratory wheezes Cardiovascular: Regular rate/rhythm, Normal S1 S2 Capillary refill: <2 Seconds Gastrointestinal: Soft and benign, W/out hepatosplenomegaly Musculoskeletal: No clubbing, No swelling, Tenderness, Other (Dressing intact ) Integumentary: No rashes, No tenderness/swelling Neurological: Normal speech Lymphatics: No axilla or inguinal lymphadenopathy Assessment and Plan - Plan Acute hypoxic respiratory failure Oxygen supplementation Monitor closely on telemetry Will get a CT chest PE protocol Pain control Bronchodilators as needed Asthma Bronchodilators as needed Will obtain CBC CMP Hypertension Antihypertensives titrated Continue home medications and titrate as needed Hyperlipidemia Continue statin GI/DVT prophylaxis Advanced directive full code This is a consult note rather than an H&P The patient was seen and examined on 05/04/[address] Kaur Discharge Plan: Home Plan to discharge in: 48 Hours - Advance Directives Does patient have a Living Will: No Does patient have a Durable POA for Healthcare: No - Code Status/Comfort Care Code Status: Full Code Time Spent Managing Pts Care (In Minutes): 48
[2024-05-04] MEDS: TRAZODONE 50 MG TABLET PO SCH (21:14)
--- NOTE | 2024-05-04 23:13 | RAD REPORT ---
EXAM: CT Chest For Pe Angio TECHNIQUE: CT angiogram of the chest was performed following intravenous contrast administration, inc luding sagittal and coronal as well as maximum intensity projection reformats. One or more of the following dose reduction techniques were used: Automated exposure control, adjustment of the mA and k V according to patient size, and iterative reconstruction. Unless otherwise specified, incidental findings do not require dedicated imaging follow-up. INDICATION: [facility] MAIN PE protocol Y COMPARISON: 09/25/2023 CTA chest. Chest radiograph 04/30/2024. FINDINGS: LINES/TUBES: None. PULMONARY ARTERIES: Main pulmonary arteries are normal in caliber. No filling defects within the pul monary arteries to suggest pulmonary embolus. LUNGS AND AIRWAYS: Patchy airspace opacities within the left lower lobe. Wedge-shaped dependent right lower lobe segmental atelectasis. PLEURA: No effusion or pneumothorax. HEART AND MEDIASTINUM: The visualized thyroid gland is normal. No mediastinal, hilar, or axillary lym phadenopathy. Heart is unremarkable. No pericardial effusion. SOFT TISSUES AND BONES: No acute osseous abnormality. No significant soft tissue finding. UPPER ABDOMEN: Unremarkable. IMPRESSION: No evidence of acute central pulmonary emboli. Patchy airspace opacities within the left lower lobe, concerning for pneumonia
--- NOTE | 2024-05-04 23:13 | RAD REPORT ---
EXAMINATION: ONE VIEW CHEST XR CLINICAL INDICATION: Female, 59 years old.,Cough TECHNIQUE: Frontal chest projection is submitted. Examination is limited by patient positioning and t echnique. COMPARISON: 04/30/2024 FINDINGS: Developing retrocardiac airspace opacities. No pneumothorax or sizable effusion. The heart is normal in size. Mediastinal contours are unremarkable. IMPRESSION: Developing retrocardiac airspace opacities concerning for pneumonia
--- NOTE | 2024-05-05 00:25 | OP ---
Date of Procedure: 05/04/2024 Surgeon: James Kaur MD Preop DX: left knee djd Post op Dx: same Procedure: left TKA EBL:100 no complications Preoperative Diagnosis: Severe left knee arthritis with continued pain, walking with assistive device, interfering with activities of daily living despite conservative measures. Risks, benefits, and alternatives to total knee arthroplasty have been discussed with her. She has had a previous right total knee arthroplasty done by me, which did extremely well and she definitely wants to proceed. She does have multiple medical problems and is being managed by Cardiology with regard to blood thinners and other issues. She has been cleared for surgery. All of her questions have been answered. Description Of Procedure: The patient had a block done in the holding area and was then taken to the operating room. General anesthesia was easily obtained by Anesthesia staff. Following this, a well-padded tourniquet was placed on superior left thigh. Left lower extremity was then prepped and draped in the usual sterile fashion for the procedure. The lower extremity was then gently exsanguinated using an Aleksey wrap. The knee was bent to its endpoint, which was approximately 90 degrees. She does lack approximately 5 degrees from full extension. The tourniquet was then raised. Following this, a standard anterior incision was taken down carefully through skin and soft tissues. Meticulous hemostasis being maintained using Bovie electrocautery. This leads down to the appropriate level, which was exploited for visualization of the extensor mechanism. A standard medial parapatellar arthrotomy was then performed with liberation of approximately 60 cc of rather normal-appearing synovial fluid. There were generous amounts of osteophytes in the patella as well as throughout the knee. There were also loose bodies, which were easily seen. The medial and lateral menisci were then excised as well as the anterior cruciate ligament. Osteophytes were removed from both the patella as well as the femur and tibia, as well as the notch osteophyte to facilitate placement of the intramedullary alignment guide, which was placed without difficulty. After this, the distal cutting block was then used and it was incised to 67.5. It should be noted that she did have a 70 on the contralateral side; however, 67.5 appeared to be more appropriate and better size and the final femoral cuts were then made. Following this, attention was then turned to the tibia and a tibial cut was then made. There were some remaining meniscal tissues as well as generous osteophytes, which were removed. It was then sized to a size 75. The trial femur as well as the trial tibia with a 10 poly was then placed. It appeared to be extremely well balanced with full flexion. When it comes to extension, maybe a very slight bit of over pressure to achieve full extension, although this is very slight. She felt that further tibial cut may facilitate more extension; however, given the patient's loss of extension before as well as her weight, there was concern that it may cause some degree of instability. Therefore, it was felt that it was acceptable at least at this point. Following this, the patella was then calipered and cut, and trial patella was placed. It was brought through range of motion. Patella appeared to glide excellently. After this, the trial components were removed and the box was then cut in the femur. Removing the box, some more posterior osteophytes were identified and it was felt that this would be beneficial to assist with extension. The tibia was also punched. The knee was then prepared for cementation, and the tibia and femur as well as patella were then cemented with a trial poly. Any unsupported cement was removed. Following this, the knee was brought through range of motion. It was felt that further removal of osteophyte was very helpful. It did not come to full extension easily, and appeared to be balanced in both flexion and extension, and the patella glided ideally. A small amount of facetectomy was done on the lateral patellar facet and it still glided fluidly. After this, it was again irrigated and the final polyethylene was placed. It was then checked. It did come to full flexion and full extension, and appeared to be well balanced, and the patella glided with no pressure or with mild thumb pressure. Following this, it was irrigated and the extensor mechanism was closed using heavy Ethibond sutures. It was again irrigated and the skin was closed using 2- 0 Vicryl sutures and piyush. The patient was then placed in a very well-padded sterile dressing, awakened, and taken to recovery room in good condition. No complications. /MODL Voice ID: [id number] Report ID: [id number] ELLEN
[2024-05-05 06:21] LABS: Absolute Lymphocytes (CBC) 1.1 K/uL (0.7-4.9); Absolute Monocytes 0.7 K/uL (0.1-1.3); Absolute Neutrophil 11.5 K/uL (1.8-8.0); Basophils % 0.1 % (0-1.3); Hematocrit 37.4 % (36.0-45.0); Hemoglobin 12.1 g/dL (12.0-15.0); Lymphocytes % 8.2 % (15.3-44.8); MCH 26.5 pg (27.0-35.0); MCHC 32.3 g/dL (32.0-36.0); MPV 8.6 fL (7.6-11.3); Monocytes % 5.1 % (3.3-12.3); Neutrophils % 86.6 % (41.7-73.7); Platelets 245 thou/uL (152-406); RBC Red Blood Cell Count 4.56 M/uL (3.86-4.86); Red Cell Distribution Width 14.6 % (12.1-15.2)
[2024-05-05 06:37] LABS: Albumin 3.1 g/dL (3.4-5.0); Albumin/Globulin Ratio 0.8 (1.1-1.8); Anion Gap 8.1 mEq/L (5.0-15.0); Bilirubin Total 0.3 mg/dL (0.2-1.0); Globulin 3.9 g/dL (2.3-3.5); Potassium 4.1 mEq/L (3.5-5.1)
[2024-05-05] MEDS: ENOXAPARIN 30 MG/0.3 ML SQ SCH (06:39)
--- NOTE | 2024-05-05 07:22 | P.PN ---
Date of Service: 05/05/24 Subjective: feels a little better today still feeling short of breath at times requiring O2 no new/worsening symptoms ROS: 10 point ROS as noted above, otherwise negative Physical Exam: GEN: Alert, oriented, NAD CV: Regular rate and rhythm, no edema Pulm: Nonlabored respirations on #3L NC, clear bilaterally ABD: soft, nontender, nondistended Neuro: Normal speech, normal affect Problem List: Acute hypoxic respiratory failure secondary to pneumonia Left knee arthritis, now s/p left TKA (05/04) Hypertension Hyperlipidemia Hypothyroidism Depression/Anxiety GERD Hx of asthma Hx of CAD Acute hypoxic respiratory failure secondary to pneumonia Left knee arthritis, now s/p left TKA (05/04) Patient underwent left TKA with Dr. Kaur on 05/04. Patient was noted to be hypoxic, SOB associated with generalized weakness post- op. CTA chest (05/04): no PE. Patchy airspace opacities within the left lower lobe, concerning for pneumonia CXR (05/04): Developing retrocardiac airspace opacities concerning for pneumonia continue oral levaquin, post-op cefazolin. Wean oxygen as tolerated. Does not use oxygen at home. states she did require home O2 for several months ~1 year ago [place]. Pain control. PT/OT consult due to above, will be made inpatient Hypertension Hyperlipidemia Hypothyroidism Depression/Anxiety GERD Hx of asthma Hx of CAD confirm home meds, restart as appropriate continue statin, lexapro, buspirone, spironolactone VTE: Start lovenox Code: Full Dispo: per ortho ss/cm consulted. home in ~1-2 days Time Spent Managing Pts Care (In Minutes): 55
[2024-05-05 07:54] LABS: Blood Morphology Comment NOTED (NOT SEEN); Burr Cells FEW; Platelet Estimate ADEQ; Platelets Clumped NOTED; White Blood Cell Scan OK (OK)
[2024-05-05] MEDS: levoFLOXacin 750 MG TAB PO SCH (08:32)
[2024-05-05] MEDS: BUSPIRONE HCL 5 MG TABLET PO SCH (08:33)
[2024-05-05] MEDS: SPIRONOLACTONE 25 MG TABLET PO SCH (08:33)
[2024-05-05] MEDS: MONTELUKAST 10 MG TAB PO SCH (08:33)
[2024-05-05] MEDS: ESCITALOPRAM 20 MG TAB PO SCH (08:33)
[2024-05-05] MEDS: ASPIRIN EC 81 MG TAB PO SCH (08:33)
[2024-05-05] MEDS: HOME MED 1 EA UNK (Fluticasone Propion/Salmeterol [Wixela 250-50 Inhub] Blst.W.Dev) IH SCH (09:00)
[2024-05-05] MEDS: ALBUTEROL 2.5 MG/3 ML NEB SOL NEB PRN (13:23)
[2024-05-05] MEDS: IPRATROPIUM BROM 0.5MG/2.5ML NEB PRN (13:23)
[2024-05-05] MEDS: ATORVASTATIN 20 MG TAB PO SCH (20:13)
[2024-05-05] MEDS ORDERED: BIMATOPROST OPHTH DROPS/2.5 ML BTL OPTH SCH (21:00)
[2024-05-05] MEDS: TRAZODONE 50 MG TABLET PO SCH (21:00)
[2024-05-06 05:57] LABS: Absolute Lymphocytes (CBC) 2.5 K/uL (0.7-4.9); Absolute Monocytes 0.9 K/uL (0.1-1.3); Absolute Neutrophil 7.2 K/uL (1.8-8.0); Basophils % 0.5 % (0-1.3); Eosinophils % 0.1 % (0-4.4); Hematocrit 33.2 % (36.0-45.0); Hemoglobin 10.8 g/dL (12.0-15.0); Lymphocytes % 23.2 % (15.3-44.8); MCH 26.6 pg (27.0-35.0); MCHC 32.7 g/dL (32.0-36.0); MCV 81.3 fL (80-100); MPV 8.5 fL (7.6-11.3); Monocytes % 8.6 % (3.3-12.3); Neutrophils % 67.6 % (41.7-73.7); Platelets 212 thou/uL (152-406); RBC Red Blood Cell Count 4.08 M/uL (3.86-4.86)
[2024-05-06 06:16] LABS: Anion Gap 6.8 mEq/L (5.0-15.0); Magnesium 2.2 mg/dL (1.6-2.4); Potassium 3.8 mEq/L (3.5-5.1)
--- NOTE | 2024-05-06 22:30 | P.PN ---
Date of Service: 05/06/24 Subjective: still slightly short of breath O2 weaned to 1.5L NC no new/worsening symptoms afebrile ROS: 10 point ROS as noted above, otherwise negative Physical Exam: GEN: Alert, oriented, NAD CV: Regular rate and rhythm, no edema Pulm: Nonlabored respirations on 1.5L NC, clear bilaterally ABD: soft, nontender, nondistended Neuro: Normal speech, normal affect Problem List: Acute hypoxic respiratory failure secondary to pneumonia Left knee arthritis, now s/p left TKA (05/04) Hypertension Hyperlipidemia Hypothyroidism Depression/Anxiety GERD Hx of asthma Hx of CAD Acute hypoxic respiratory failure secondary to pneumonia Left knee arthritis, now s/p left TKA (05/04) Patient underwent left TKA with Dr. Kaur on 05/04. Patient was noted to be hypoxic, SOB associated with generalized weakness post- op. CTA chest (05/04): no PE. Patchy airspace opacities within the left lower lobe, concerning for pneumonia CXR (05/04): Developing retrocardiac airspace opacities concerning for pneumonia continue oral levaquin, post-op cefazolin. Wean oxygen as tolerated. Does not use oxygen at home. states she did require home O2 for several months ~1 year ago [place]. Pain control. PT/OT consult still hypoxic, but improving possibly able to wean off O2 in next 24hrs, dc home once stable off O2 Hypertension Hyperlipidemia Hypothyroidism Depression/Anxiety GERD Hx of asthma Hx of CAD confirm home meds, restart as appropriate continue statin, lexapro, buspirone, spironolactone VTE: lovenox Code: Full Dispo: per ortho; home with home health ss/cm consulted. home in ~1-2 days once O2 weaned off Time Spent Managing Pts Care (In Minutes): 45
[2024-05-06 22:47] VITALS: O2SAT 94
[2024-05-07 06:01] LABS: Hematocrit 35.4 % (36.0-45.0); Hemoglobin 11.3 g/dL (12.0-15.0)
[2024-05-07 09:06] VITALS: BP 135/66; TEMP 97.9
--- NOTE | 2024-05-07 11:55 | P.PN ---
Date of Service: 05/07/24 Subjective: feeling better breathing more comfortably afebrile weaned to room air this morning ROS: 10 point ROS as noted above, otherwise negative Physical Exam: GEN: Alert, oriented, NAD CV: Regular rate and rhythm, no edema Pulm: Nonlabored respirations on room air, clear bilaterally ABD: soft, nontender, nondistended Neuro: Normal speech, normal affect Problem List: Acute hypoxic respiratory failure secondary to pneumonia Left knee arthritis, now s/p left TKA (05/04) Hypertension Hyperlipidemia Hypothyroidism Depression/Anxiety GERD Hx of asthma Hx of CAD Acute hypoxic respiratory failure secondary to pneumonia Left knee arthritis, now s/p left TKA (05/04) Patient underwent left TKA with Dr. Kaur on 05/04. Patient was noted to be hypoxic, SOB associated with generalized weakness post- op. CTA chest (05/04): no PE. Patchy airspace opacities within the left lower lobe, concerning for pneumonia CXR (05/04): Developing retrocardiac airspace opacities concerning for pneumonia continue oral levaquin, post-op cefazolin. Wean oxygen as tolerated. Does not use oxygen at home. states she did require home O2 for several months ~1 year ago Breathing more comfortably on room air this morning dc with 5 days of oral levaquin Hypertension Hyperlipidemia Hypothyroidism Depression/Anxiety GERD Hx of asthma Hx of CAD confirm home meds, restart as appropriate continue statin, lexapro, buspirone, spironolactone VTE: lovenox Code: Full Dispo: per ortho; home with home health ok from medical standpoint once weaned off oxygen to complete 5 more days PO levaquin Time Spent Managing Pts Care (In Minutes): 35
== END 2024-05-07 10:03 | disposition home health service (06) | DRG 981 ==
LOC: OR 08:57 → 4TH 13:41 → OR 05-05 19:53 → 4TH 05-05 23:03
PROVIDERS: ADMIT Hospitalist; ATTEND Orthopaedic Surgery
PROC: 0SRD0J9 Replacement of Left Knee Joint with Synthetic Substitute, Cemented, Open Approach (ICD-10-PCS; principal; 2024-05-04 11:15)
DX: J18.9 Pneumonia, unspecified organism (principal); J96.01 Acute respiratory failure with hypoxia; M17.12 Unilateral primary osteoarthritis, left knee; J45.909 Unspecified asthma, uncomplicated; I10 Essential (primary) hypertension; E78.5 Hyperlipidemia, unspecified; F41.9 Anxiety disorder, unspecified; F32.A Depression, unspecified; E11.9 Type 2 diabetes mellitus without complications; E03.9 Hypothyroidism, unspecified; K21.9 Gastro-esophageal reflux disease without esophagitis; I25.10 Atherosclerotic heart disease of native coronary artery without angina pectoris; Z79.899 Other long term (current) drug therapy; Z88.8 Allergy status to other drugs, medicaments and biological substances; Z79.82 Long term (current) use of aspirin; Z79.890 Hormone replacement therapy; Z79.84 Long term (current) use of oral hypoglycemic drugs; Z79.02 Long term (current) use of antithrombotics/antiplatelets; Z87.891 Personal history of nicotine dependence; Z90.49 Acquired absence of other specified parts of digestive tract
CPT/HCPCS: 36415; 71045; 71046; 71275; 80048; 80053; 81001; 82947; 83735; 85014; 85018; 85025; 85610; 85730; 88305; 88311; 93005; 94010; 94640; 97116; 97139; 97161; 97530; J0690; J1100; J1171; J1650; J2003; J2250; J2405; J2704; J3010; J3475; J7030; J7613; J7644; Q9967

== ENCOUNTER 2024-05-12 16:52 | Inpatient (IN) | payer OTHER ==
[2024-05-12 20:28] LABS: Absolute Basophils 0.1 K/uL (0-0.5); Absolute Eosinophils 0.4 K/uL (0-0.5); Absolute Lymphocytes (CBC) 2.5 K/uL (0.7-4.9); Absolute Neutrophil 7.2 K/uL (1.8-8.0); Basophils % 0.9 % (0-1.3); Eosinophils % 3.2 % (0-4.4); Hematocrit 37.3 % (36.0-45.0); Hemoglobin 11.7 g/dL (12.0-15.0); Lymphocytes % 22.1 % (15.3-44.8); MCH 26.2 pg (27.0-35.0); MCHC 31.4 g/dL (32.0-36.0); MCV 83.4 fL (80-100); MPV 7.9 fL (7.6-11.3); Monocytes % 8.9 % (3.3-12.3); Neutrophils % 64.9 % (41.7-73.7); Nucleated Red Blood Cells % 0.1 % (0-0); Platelets 288 thou/uL (152-406); RBC Red Blood Cell Count 4.47 M/uL (3.86-4.86)
[2024-05-12] MEDS ORDERED: IPRATROPIUM BROM 0.5MG/2.5ML ONE (20:33)
[2024-05-12] MEDS ORDERED: ALBUTEROL 2.5 MG/3 ML NEB SOL ONE (20:33)
[2024-05-12 22:13] LABS: ALT/SGPT 28 U/L (13-56); AST/SGOT 24 U/L (15-37); Albumin 3.2 g/dL (3.4-5.0); Albumin/Globulin Ratio 0.7 (1.1-1.8); Alkaline Phosphatase 95 U/L (45-117); BUN Blood Urea Nitrogen 15 mg/dL (7-18); Bicarbonate 33 mEq/L (21-32); Bilirubin Direct 0.2 mg/dL (0-0.2); Bilirubin Indirect, Calculated 0.6 mg/dL (0.2-0.8); Bilirubin Total 0.8 mg/dL (0.2-1.0); Globulin 4.5 g/dL (2.3-3.5); Glomerular Filtration Rate 78 ml/min (=/>90); Glucose Level 125 mg/dL (74-106); NT PRO-BNP 13 pg/mL (<125); Protein, Total 7.7 g/dL (6.4-8.2); Sodium Level 136 mEq/L (136-145)
[2024-05-12 22:14] LABS: Troponin High Sensitivity < 3.0 pg/mL (<58.9)
--- NOTE | 2024-05-13 00:03 | RAD REPORT ---
ADDENDUM #1 THIS REPORT CONTAINS FINDINGS THAT MAY BE CRITICAL TO PATIENT CARE: I communicated the above findings by telephone with Dr. Dontrell Jackson on 05/12/2024 11:08 PM CORPORATE WEBMASTER who demonstrated understanding of the above finding(s)/recommendation(s). Electronically signed by: Kaitlin He MD 05/12/2024 11:08 PM CORPORATE WEBMASTER End of Addendum EXAM: CT Angiography Chest With Intravenous Contrast CLINICAL HISTORY: The patient is 59 years old and is Female; chest pain, dyspnea TECHNIQUE: Axial computed tomographic angiography images of the chest with intravenous contrast. Sagittal an d coronal reformatted images were created and reviewed. This CT exam was performed using one or more of the following dose reduction techniques: automated exposure control, adjustment of the mA a nd/or kV according to patient size, and/or use of iterative reconstruction technique. MIP reconstructed images were created and reviewed. COMPARISON: No relevant prior studies available. FINDINGS: TRACHEA: The tracheobronchial tree is patent. PULMONARY ARTERIES: Small filling defect within right upper lobe pulmonary artery extending into the segmental and subsegmental branches is noted. Filling defect within the right middle lobe segmental and subsegmental pulmonary artery branches is noted. Few small filling defects within the l eft lower lobe segmental and subsegmental pulmonary artery branches are noted. There is no saddle embolus. The remainder of the pulmonary vessels are patent. The main pulmonary artery measures 3.5 cm. AORTA: No acute findings. No thoracic aortic aneurysm. LUNGS: Minimal atelectasis within the bilateral lower lobes is noted. The lungs are otherwise wel l-inflated and clear. There is no lobar consolidation. PLEURAL SPACE: Unremarkable. No significant effusion. No pneumothorax. HEART: Unremarkable. No cardiomegaly. No significant pericardial effusion. No evidence of R V dysfunction. BONES/JOINTS: No acute fracture. No dislocation. SOFT TISSUES: Unremarkable. LYMPH NODES: Unremarkable. No enlarged lymph nodes. IMPRESSION: 1. Small right upper, right middle, left lower lobe segmental and subsegmental pulmonary thromboemb garret. No saddle embolus. No evidence to suggest right heart strain. 2. Dilatation of the central pulmonary arteries which can be related to pulmonary arterial hyperten estella, chronic pulmonary embolism, or other pulmonary diseases. Electronically signed by: Kaitlin He MD 05/12/2024 11:00 PM [facility] Due to temporary technical issues with the PACS/AmigoCAT reporting system, reports are being lev d by the in-house radiologist without review as a courtesy to ensure prompt reporting the interpreting radiologist is fully responsible for the content of the report. Transcribed Date/Time: 05/13/2024 12:03 AM
--- NOTE | 2024-05-13 00:40 | ER ---
Nurse's Notes [facility] Name: Ernestina Link Age: 59 yrs Sex: Female : 1965 Arrival Date: 05/12/2024 Time: 16:52 Bed 8 Private MD: Diagnosis: Bilateral pulmonary emboli, acute dyspnea, atypical chest pain, DVT left lower extremity. Presentation: 05/12 17:14 Chief complaint: EMS states: patient has been having chest pain and shortness of breath ap3 since yesterday. patient also has reportedly had a knee replacement on 05/04. Coronavirus screen: At this time, the client does not indicate any symptoms associated with coronavirus-19. Ebola Screen: No symptoms or risks identified at this time. Risk Assessment: Do you want to hurt yourself or someone else? Patient reports no desire to harm self or others. Onset of symptoms was May 12, 2024. Care prior to arrival: Medication(s) given: ASA, 81 mg, x 4. 17:14 Acuity: TAHIRA 2 ap3 17:14 Method Of Arrival: EMS: [facility] ap3 05/13 02:48 Initial Sepsis Screen: Does the patient meet any 2 criteria? No. Patient's initial cp4 sepsis screen is negative. Does the patient have a suspected source of infection? No. Patient's initial sepsis screen is negative. Triage Assessment: 05/12 17:16 General: Appears in no apparent distress. Behavior is calm, cooperative, appropriate ap3 for age. Pain: Complains of pain in chest. Neuro: Level of Consciousness is awake, alert, obeys commands, Oriented to person, place, time, situation. Cardiovascular: Reports chest pain, shortness of breath, Patient's skin is warm and dry. Respiratory: Airway is patent Respiratory effort is even, unlabored, Respiratory pattern is regular, symmetrical, tachypnea. Historical: - Allergies: 17:16 Lisinopril; ap3 - PMHx: 17:16 Asthma; Diabetes - NIDDM; Hypercholesterolemia; Hypertension; Hypothyroidism; ap3 neuropathy; spinostenosis; - PSHx: 17:16 Appendectomy; Cholecystectomy; knee (Cholecystectomy); ap3 - Immunization history:: Client reports receiving the 2nd dose of the Covid vaccine. - Infectious Disease History:: Denies. - Social history:: Smoking status: Patient denies any tobacco usage or history of. - Family history:: not pertinent. Screenin:17 [facility] ED Fall Risk Assessment (Adult) History of falling in the last 3 months, ap3 including since admission No falls in past 3 months (0 pts) Confusion or Disorientation No (0 pts) Intoxicated or Sedated No (0 pts) Impaired Gait Yes (1 pt) Mobility Assist Device Used Yes (1 pt) Altered Elimination No (0 pt) Score/Fall Risk Level 0 - 2 = Low Risk Oriented to surroundings, Maintained a safe environment, Educated pt \T\ family on fall prevention, incl call for assistance when getting out of bed, Assessed \T\ reinforced patient's understanding of fall precautions, Hourly rounding (assess needs \T\ fall precautionary measures) done, Used ambulatory aids as needed (educated on \T\ assisted with). Abuse screen: Denies threats or abuse. Nutritional screening: No deficits noted. Tuberculosis screening: No symptoms or risk factors identified. Assessment: 17:17 General:. ap3 Vital Signs: 17:14 Resp 24; Temp 98.1; Weight 119.29 kg; ap3 18:12 BP 104 / 67; Pulse 87; Pulse Ox 93% on R/A; ap3 19:00 BP 133 / 75; Pulse 88; Resp 22; Pulse Ox 94% on R/A; al5 20:00 BP 149 / 70; Pulse 73; Resp 21; Pulse Ox 95% on R/A; al5 21:00 BP 155 / 66; Pulse 70; Resp 23; Pulse Ox 95% on R/A; al5 22:00 BP 156 / 69; Pulse 74; Resp 15; Pulse Ox 100% on R/A; al5 23:00 BP 152 / 62; Pulse 80; Resp 21; Pulse Ox 93% on R/A; al5 03/06 00:00 BP 141 / 63; Pulse 79; Resp 24; Pulse Ox 94% on R/A; al5 01:00 BP 150 / 78; Pulse 79; Resp 18; Pulse Ox 91% on R/A; cp4 02:51 BP 131 / 67; Pulse 82; Resp 18; Pulse Ox 93% on 2 lpm NC; cp4 [place] Coma Score: 00:35 Eye Response: spontaneous(4). Motor Response: obeys commands(6). Verbal Response: sp4 oriented(5). Total: 15. ED Course: 05/12 17:13 Patient arrived in ED. ap3 17:14 Jordan Zepeda MD is Attending Physician. rt 17:16 Triage completed. ap3 17:17 Arm band placed on right wrist. ap3 18:13 Client placed on continuous cardiac and pulse oximetry monitoring. NIBP monitoring ap3 applied. panel monitor on. Pulse ox on. NIBP on. 19:39 Radiology exam delayed due to lab results not completed at this time. (BUN/Creatinine) nj IV insertion attempt and/or patient not having appropriate IV at this time. 20:11 Radiology exam delayed due to lab results not completed at this time. (BUN/Creatinine) nj IV insertion attempt and/or patient not having appropriate IV at this time. 20:24 Georgia Dee is Primary Nurse. cp4 20:24 No provider procedures requiring assistance completed. Initial lab(s) drawn, by vt, cp4 sent to lab. Inserted saline lock: 20 gauge in right antecubital area, using aseptic technique. Blood collected. Flushed with 10 mL NS. 20:38 Attending Physician role handed off by Jordan Zepeda MD sp4 20:38 Dontrell Jackson MD is Attending Physician. sp4 21:09 Radiology exam delayed due to lab results not completed at this time. (BUN/Creatinine) sj IV insertion attempt and/or patient not having appropriate IV at this time. 22:42 CT Chest For PE Angio In Process Unspecified. EDMS 05/13 00:38 Victor Hugo Allen MD is Hospitalizing Provider. sp4 01:03 Extrem Venous W Compression Eddie US In Process Unspecified. EDMS 02:48 Placed in gown. Bed in low position. Side rails up X2. Provided Education on: admission.cp4 02:48 Patient admitted, IV remains in place. cp4 Administered Medications: 05/12 21:49 Drug: Albuterol Inhalation 2.5 mg Inhalation once Route: Inhalation; cp4 21:49 Drug: Ipratropium Inhalation Aerosol 0.5 mg Inhalation once Route: Inhalation; cp4 05/13 02:15 Drug: morphine IVP or IV 4 mg IVP once over 4 mins Route: IVP; Infused Over: 4 mins; al5 Site: right antecubital; 02:45 Follow up: Response: No adverse reaction cp4 02:15 Drug: Ondansetron IVP 4 mg IVP once; over 2 minutes Route: IVP; Site: right antecubital;al5 02:46 Follow up: Response: No adverse reaction cp4 02:15 Drug: Enoxaparin Sub-Q 1 mg/kg Sub-Q once Route: Sub-Q; Site: left lower abdomen; al5 02:46 Follow up: Response: No adverse reaction cp4 Medication: 02:48 VIS not applicable for this client. cp4 Outcome: 00:39 Decision to Hospitalize by Provider. sp4 04:57 Admitted to Med/surg accompanied by nurse, via stretcher, room 228, with oxygen, with cp4 chart, 04:57 Condition: stable 04:57 Instructed on the need for admit, 04:58 Patient left the ED. cp4 Signatures: Dispatcher [employer] Sherly Sprague Nathan nj Prokisch, Amanda, VOLODYMYR HELM ap3 Jordan Zepeda MD MD rt Potepalov, Sergey, MD MD sp4 Georgia Dee cp4 Claudia Matthews RN RN al5
--- NOTE | 2024-05-13 00:40 | EDPHYS ---
Physician Documentation [facility] Name: Ernestina Link Age: 59 yrs Sex: Female : 1965 Arrival Date: 05/12/2024 Time: 16:52 Bed 8 Private MD: ED Physician Dontrell Jackson HPI: 05/12 17:30 This 59 yrs old Black Female presents to ER via EMS with complaints of chest pain, rt dyspnea. 17:30 Patient presents to the ED with chest pain, dyspnea starting last night. Describes the rt chest pain as tightness in nature, is been intermittent since last night, states that she feels dizzy like she might pass out when she stands up. Of note, she is about 1 week out from a left total knee replacement, reportedly uncomplicated. Denies other acute complaints at this time, symptoms are moderate in severity, no other aggravating or alleviating factors.. 05/13 00:35 History of left total knee arthroplasty 05/04/2024 medication list includes sp4 atorvastatin, gabapentin, aspirin, Synthroid, buspirone, escitalopram, Amitiza, metformin, glipizide Grell, Lum[place], hydrocodone, ibuprofen, losartan, HCTZ, spironolactone, tizanidine, trazodone, fluticasone, montelukast, albuterol, ergocalciferol, Trulicity, ferrous sulfate, fluticasone. Past medical history spinal stenosis, asthma, TIA, HTN, hyperlipidemia, hypothyroidism, depression anxiety, hyperlipidemia, GERD, CAD, x 2, tubal ligation, appendectomy, tonsillectomy, right total knee arthroplasty, left total knee arthroplasty, tubal ligation.. Historical: - Allergies: 05/12 17:16 Lisinopril; ap3 - PMHx: 17:16 Asthma; Diabetes - NIDDM; Hypercholesterolemia; Hypertension; Hypothyroidism; ap3 neuropathy; spinostenosis; - PSHx: 17:16 Appendectomy; Cholecystectomy; knee (Cholecystectomy); ap3 - Immunization history:: Client reports receiving the 2nd dose of the Covid vaccine. - Infectious Disease History:: Denies. - Social history:: Smoking status: Patient denies any tobacco usage or history of. - Family history:: not pertinent. ROS: 17:30 Constitutional: Negative for fever, chills, and weight loss, Abdomen/GI: Negative for rt abdominal pain, nausea, vomiting, diarrhea, and constipation, MS/Extremity: Negative for injury and deformity, 17:30 Cardiovascular: Positive for chest pain, Negative for edema, 17:30 Respiratory: Positive for shortness of breath, Negative for cough, 17:30 Skin: Positive for 17:30 Neuro: Positive for dizziness, Negative for loss of consciousness, 05/13 00:35 Constitutional: Positive for dyspnea and chest pain sp4 Exam: 05/12 17:30 Constitutional: This is a well developed, well nourished patient who is awake, alert, rt and in no acute distress. Head/Face: Normocephalic, atraumatic. Chest/axilla: Normal chest wall appearance and motion. Nontender with no deformity. No lesions are appreciated. Cardiovascular: Regular rate and rhythm with a normal S1 and S2. No gallops, murmurs, or rubs. Normal PMI, no JVD. No pulse deficits. Respiratory: Lungs have equal breath sounds bilaterally, clear to auscultation and percussion. No rales, rhonchi or wheezes noted. No increased work of breathing, no retractions or nasal flaring. Abdomen/GI: Soft, non-tender, with normal bowel sounds. No distension or tympany. No guarding or rebound. No evidence of tenderness throughout. Skin: Warm, dry with normal turgor. Normal color with no rashes, no lesions, and no evidence of cellulitis. MS/ Extremity: Pulses equal, no cyanosis. Neurovascular intact. Full, normal range of motion. Neuro: Awake and alert, GCS 15, oriented to person, place, time, and situation. Cranial nerves II-XII grossly intact. Motor strength 5/5 in all extremities. Sensory grossly intact. Cerebellar exam normal. Normal gait. 19:16 ECG was reviewed by the Attending Physician. rt Vital Signs: 17:14 Resp 24; Temp 98.1; Weight 119.29 kg; ap3 18:12 BP 104 / 67; Pulse 87; Pulse Ox 93% on R/A; ap3 19:00 BP 133 / 75; Pulse 88; Resp 22; Pulse Ox 94% on R/A; al5 20:00 BP 149 / 70; Pulse 73; Resp 21; Pulse Ox 95% on R/A; al5 21:00 BP 155 / 66; Pulse 70; Resp 23; Pulse Ox 95% on R/A; al5 22:00 BP 156 / 69; Pulse 74; Resp 15; Pulse Ox 100% on R/A; al5 23:00 BP 152 / 62; Pulse 80; Resp 21; Pulse Ox 93% on R/A; al5 03/06 00:00 BP 141 / 63; Pulse 79; Resp 24; Pulse Ox 94% on R/A; al5 01:00 BP 150 / 78; Pulse 79; Resp 18; Pulse Ox 91% on R/A; cp4 02:51 BP 131 / 67; Pulse 82; Resp 18; Pulse Ox 93% on 2 lpm NC; cp4 [place] Coma Score: 00:35 Eye Response: spontaneous(4). Motor Response: obeys commands(6). Verbal Response: sp4 oriented(5). Total: 15. MDM: 05/12 17:18 Medical Screening Exam initiated rt 23:06 ED course: COMPARISON: No relevant prior studies available. FINDINGS: TRACHEA: The sp4 tracheobronchial tree is patent. PULMONARYARTERIES: Small filling defect within right upper lobe pulmonary artery extending into the segmental and subsegmental branches is noted. Filling defect within the right middle lobe segmental and subsegmental pulmonary artery branches is noted. Few small filling defects within the left lower lobe segmental and subsegmental pulmonary artery branches are noted. There is no saddle embolus. The remainder of the pulmonary vessels are patent. The main pulmonary artery measures 3.5 cm. AORTA: No acute findings. No thoracic aortic aneurysm. LUNGS: Minimal atelectasis within the bilateral lower lobes is noted. The lungs are otherwise well-inflated and clear. There is no lobar consolidation. PLEURAL SPACE: Unremarkable. No significant effusion. No pneumothorax. HEART: Unremarkable. No cardiomegaly. No significant pericardial effusion. No evidence of RV dysfunction. BONES/JOINTS: No acute fracture. No dislocation. SOFT TISSUES: Unremarkable. LYMPH NODES: Unremarkable. No enlarged lymph nodes. IMPRESSION: 1. Small right upper, right middle, left lower lobe segmental and subsegmental pulmonary thromboemboli. No saddle embolus. No evidence to suggest right heart strain. 2. Dilatation of the central pulmonary arteries which can be related to pulmonary arterial hypertension, chronic pulmonary embolism, or other pulmonary diseases. Electronically signed by: Kaitlin He MD 05/12/2024 11:00 PM . 05/13 00:35 Differential Diagnosis altered mental status, sepsis, flu, Bilateral pulmonary emboli. sp4 Data reviewed: vital signs, nurses notes, lab test result(s), EKG, radiologic studies, CT scan. Consideration of Admission/Observation Patient was admitted/placed on observation. Escalation of care including admission/observation considered. Management of patient was discussed with the following: Hospitalist: Dr. Allen . 05/12 17:27 Order name: Basic Metabolic Panel; Complete Time: 23:05 rt 05/12 17:27 Order name: CBC with Diff; Complete Time: 20:35 rt 05/12 17:27 Order name: LFT's; Complete Time: 23:05 rt 05/12 17:27 Order name: NT PRO-BNP; Complete Time: 23:05 rt 05/12 17:27 Order name: Troponin HS; Complete Time: 23:05 rt 05/13 02:10 Order name: Urinalysis w/ reflexes EDMS 05/13 02:10 Order name: Basic Metabolic Panel EDMS 05/13 02:10 Order name: Basic Metabolic Panel EDMS 05/13 02:10 Order name: CBC with Automated Diff EDMS 05/13 02:10 Order name: CBC with Automated Diff EDMS 05/12 17:27 Order name: CT Chest For PE Angio rt 05/13 00:21 Order name: Extrem Venous W Compression Eddie US sp4 05/13 02:10 Order name: CONS Physician Consult EDMS 05/12 17:27 Order name: Cardiac monitoring; Complete Time: 18:13 rt 05/12 17:27 Order name: EKG - Nurse/Tech; Complete Time: 19:51 rt 05/12 17:27 Order name: IV Saline Lock; Complete Time: 20:24 rt 05/12 17:27 Order name: Labs collected and sent; Complete Time: 20:24 rt 05/12 17:27 Order name: O2 Per Protocol; Complete Time: 18:13 rt 05/12 17:27 Order name: O2 Sat Monitoring; Complete Time: 18:13 rt 05/12 20:33 Order name: Misc. Order: RECOLLECT GREEN TOP; Complete Time: 21:49 rv1 EC/05 19:16 Rate is 90 beats/min. Rhythm is regular, Normal Sinus Rhythm with No ectopy. QRS [place] rt is Normal. [place] interval is normal. QRS interval is normal. QT interval is normal. No Q waves. No ST changes noted. Interpreted by me. Administered Medications: 21:49 Drug: Albuterol Inhalation 2.5 mg Inhalation once Route: Inhalation; cp4 21:49 Drug: Ipratropium Inhalation Aerosol 0.5 mg Inhalation once Route: Inhalation; cp4 05/13 02:15 Drug: morphine IVP or IV 4 mg IVP once over 4 mins Route: IVP; Infused Over: 4 mins; al5 Site: right antecubital; 02:45 Follow up: Response: No adverse reaction cp4 02:15 Drug: Ondansetron IVP 4 mg IVP once; over 2 minutes Route: IVP; Site: right antecubital;al5 02:46 Follow up: Response: No adverse reaction cp4 02:15 Drug: Enoxaparin Sub-Q 1 mg/kg Sub-Q once Route: Sub-Q; Site: left lower abdomen; al5 02:46 Follow up: Response: No adverse reaction cp4 Disposition Summary: 05/13/24 00:39 Hospitalization Ordered Notes: Hospitalization Status: Inpatient Admission sp4 Provider: Victor Hugo Allen sp4 Condition: Stable sp4 Problem: new sp4 Symptoms: have improved sp4 Bed/Room Type: Standard 4 Location: Telemetry/MedSurg (Inpatient)(05/13/24 02:39) vc1 Room Assignment: 228(05/13/24 02:39) vc1 Diagnosis - Bilateral pulmonary emboli, acute dyspnea, atypical chest pain, DVT left lower sp4 extremity. Forms: - Medication Reconciliation Form sp4 - SBAR form sp4 - Leadership Thank You Letter sp4 Signatures: Dispatcher [employer] EDMS Claudia Enriquez RN RN ap3 Esperanza Young RN RN vc1 Jordan Zepeda MD MD rt Anais Mercer rv1 Dontrell Jackson MD MD sp4 Georgia Dee cp4 Claudia Matthews RN RN al5 Corrections: (The following items were deleted from the chart) 05/12 17:27 17:27 BASIC METABOLIC PANEL+C.LAB.BRZ ordered. EDMS EDMS 17:27 17:27 CBC+H.LAB.BRZ ordered. EDMS EDMS 17: 17:27 HEPATIC FUNCTION+C.LAB.BRZ ordered. EDMS EDMS 17: 17:27 PROBNP+C.LAB.BRZ ordered. EDMS EDMS 17: 17:27 Troponin High Sensitivity+C.LAB.BRZ ordered. EDMS EDMS 17:28 17:28 Chest For PE Angio+CT.RAD.BRZ ordered. EDMS EDMS 05/13 01:44 00:39 Telemetry/MedSurg (Inpatient) sp4 vc1 01:44 00:39 sp4 vc1 02:39 01:44 [facility] ER HOLD vc1 vc1 02:39 01:44 ERHOLD- vc1 vc1
[2024-05-13] MEDS ORDERED: ONDANSETRON 4 MG/2 ML VIAL ONE (02:06)
[2024-05-13] MEDS ORDERED: ENOXAPARIN 100 MG/ML SYR SQ ONE (02:06)
[2024-05-13] MEDS ORDERED: MORPHINE 4 MG/ML SYR ONE (02:06)
[2024-05-13] MEDS ORDERED: ENOXAPARIN 30 MG/0.3 ML SQ ONE (02:07)
--- NOTE | 2024-05-13 02:12 | RAD REPORT ---
EXAM: US Duplex Bilateral Lower Extremities Veins CLINICAL HISTORY: The patient is 59 years old and is Female; bilateral leg pain TECHNIQUE: Real-time duplex ultrasound scan of the bilateral lower extremity veins integrating B-mode two-dime nsional vascular structure, Doppler spectral analysis, color flow Doppler imaging and compression. COMPARISON: No relevant prior studies available. FINDINGS: LIMITATIONS: Suboptimal study secondary to artifact related to patient body habitus. RIGHT DEEP VEINS: Unremarkable. No DVT in the visualized common femoral, femoral, proximal deep femoral, popliteal, posterior tibial veins. The veins demonstrate normal color flow, are normally compressible, with normal phasic flow and/or augmentation response. RIGHT SUPERFICIAL VEINS: Unremarkable. No thrombus in the visualized right great saphenous vein . LEFT DEEP VEINS: Unremarkable. No DVT in the visualized common femoral, femoral, proximal deep femoral, popliteal, posterior tibial veins. The veins demonstrate normal color flow, are normally compressible, with normal phasic flow and/or augmentation response. LEFT SUPERFICIAL VEINS: Unremarkable. No thrombus in the visualized left great saphenous vein. SOFT TISSUES: No acute findings. No popliteal cyst. IMPRESSION: No acute findings in the bilateral lower extremity veins. Electronically signed by: Kaitlin He MD 05/13/2024 02:05 AM [facility] Due to temporary technical issues with the PACS/Lokof[employer] reporting system, reports are being signed by the in-house radiologist without review as a courtesy to ensure prompt reporting the interpreting radiologist is fully responsible for the content of the report. Transcribed Date/Time: 05/13/2024 2:11 AM
--- NOTE | 2024-05-13 02:22 | P.HP ---
Certification for Inpatient With expected LOS: >2 Midnights Practitioner: I am a practitioner with admitting privileges, knowledge of patient current condition, hospital course, and medical plan of care. Services: Services provided to patient in accordance with Admission requirements found in Title 42 Section 412.3 of the Code of Federal Regulations Patient History Date of Service: 05/13/24 Reason for admission: Shortness of breath History of Present Illness: 59-year-old with a past medical history of hypertension, diabetes, hypothyroidism, neuropathy presenting with shortness of breath after a left knee replacement in late April. CTA in the ED revealed pulmonary emboli. She states she experienced tightness in her chest earlier today. Associated symptoms include diaphoresis. She measured her blood pressure at home which was low at 79/53. She states she did not want to come into the ER. Because she kept feeling fatigued and unwell she decided to come in. Furthermore she has redness of her eyes with crusting. Allergies lisinopril Adverse Reaction (Verified 04/30/24 09:02) cough Home Medications: Atorvastatin Calcium [Lipitor*] 20 mg PO BEDTIME #30 tab 02/01/17 Gabapentin [Neurontin*] 800 mg PO TID 02/20/17 Aspirin [Aspirin EC 81 MG] 81 mg PO DAILY 09/24/19 Levothyroxine Sodium 137 mcg PO DAILY 09/24/19 Buspirone HCl [Buspar] 10 mg PO BID 09/25/22 Escitalopram [Lexapro*] 20 mg PO DAILY 09/25/22 Lubiprostone [Amitiza] 8 mcg PO BIDWM 09/25/22 Metformin HCl [Glucophage*] 1,000 mg PO BID 09/25/22 Clopidogrel Bisulfate [Plavix] 75 mg PO DAILY #30 10/03/22 Bimatoprost [Lumigan Opthalmic Drops*] 1 gtts OPTH BEDTIME 05/03/23 Hydrocodone Bit/Acetaminophen [Hydrocodon-Acetaminoph 7.5-325] 1 each PO BID 05/03/23 Ibuprofen 800 mg PO TID 05/03/23 Losartan/Hydrochlorothiazide [Losartan-Hctz 100-25 mg Tab] 0.5 tab PO DAILY 05/03/23 Spironolactone 1 tab PO DAILY 05/03/23 Tizanidine [Zanaflex*] 4 mg PO BID 05/03/23 Trazodone HCl 50 mg PO BEDTIME 05/03/23 Fluticasone [Flonase 50MCG Nasal [place]*] 2 sprays NS DAILY 30 Days #1 btl 05/04/23 Montelukast [Singulair*] 10 mg PO DAILY 90 Days #90 tab 05/04/23 Albuterol Sulfate [Albuterol Sulfate Hfa] 1 puff IH PRN PRN 09/18/23 Ergocalciferol (Vitamin D2) [Vitamin D2] 400 unit PO DAILY 09/18/23 Dulaglutide [Trulicity] 0.75 mg SQ EVERY 7TH DAY 04/30/24 Ferrous Sulfate 325 mg PO DAILY 04/30/24 Fluticasone Propion/Salmeterol [Wixela 250-50 Inhub] 1 each IH DAILY 04/30/24 levoFLOXacin [Levaquin*] 750 mg PO DAILY 5 Days #5 tab 05/07/24 - Past Medical/Surgical History Diabetic: Yes -: Spinal Stenosis, -: Asthma, -: mini stroke, -: HTN, -: HLD, -: Hypothyroid -: Former tobacco abuse -: Depression with anxiety -: Hyperlipidemia -: GERD -: CAD -: x2 -: Tubal ligation -: Appendectomy -: Tonsillectomy -: knee arthoscopy -: tubal ligation Psychosocial/ Personal History: The patient is . 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 She lives in a [facility]st floor [facility] and has a rollator and a walk in shower. - Family History Mother -: Hypertension Father -: Heart disease, Lung disease, Cancer Brother -: Hypertension Sister -: Hypertension - Social History Alcohol use: No CD- Drugs: No Caffeine use: Yes Review of Systems General: Weakness Eyes: Conjunctivae Inflammation ENT: Unremarkable Respiratory: Shortness of Breath Cardiovascular: Chest Pain Gastrointestinal: Unremarkable Genitourinary: Unremarkable Musculoskeletal: Unremarkable Integumentary: Unremarkable Neurological: Unremarkable Physical Examination - Physical Exam General: Alert, In no apparent distress HEENT: Atraumatic, Normocephalic Neck: Supple Respiratory: Clear to auscultation bilaterally, Normal air movement Cardiovascular: No edema Capillary refill: <2 Seconds Gastrointestinal: Normal bowel sounds Musculoskeletal: No clubbing, No swelling Integumentary: No rashes, No breakdown Neurological: Normal gait, Normal speech Lymphatics: No axilla or inguinal lymphadenopathy - Studies Laboratory Data (last 24 hrs) 05/12/24 05/12/24 21:47 20:19 WBC 11.10 H Hgb 11.7 L Hct 37.3 Plt Count 288 Sodium 136 Potassium 4.0 BUN 15 Creatinine 0.86 Glucose 125 H Total Bilirubin 0.8 AST 24 ALT 28 Alkaline Phosphatase 95 Assessment and Plan - Plan Pulmonary embolus Conjunctivitis Diabetes mellitus CAD History of CVA Hypertension Hypothyroid Hypercholesterolemia Neuropathy Continue therapeutic Lovenox, no evidence of right heart strain, echo Consider pulmonary consult in the a.m. Morphine for pain control Continue statin, Plavix, ASA Continue bimatoprost, erythromycin ointment Continue levothyroxine Continue Singulair Continue trazodone nightly Continue gabapentin 3 times daily Continue Lexapro - Advance Directives Does patient have a Living Will: No Does patient have a Durable POA for Healthcare: No
[2024-05-13 04:48] VITALS: BMI 33.0
[2024-05-13] MEDS: LEVOTHYROXINE SOD 0.025 MG TAB PO SCH (05:53)
[2024-05-13] MEDS: LEVOTHYROXINE SOD 0.112 MG TAB PO SCH (05:53)
[2024-05-13 06:52] LABS: Specific Gravity > 1.030 (1.005-1.030); Sqamous Epithelial <5 /HPF (None Seen); Transitional Epithelial <5 /HPF (None Seen); Urine Bacteria <20 /HPF (<20); Urine Bilirubin NEGATIVE (Negative); Urine Blood Negative (Negative); Urine Clarity Clear (Clear); Urine Color Light-Yellow (Yellow); Urine Culture Reflex Order REFLEXED; Urine Glucose NEGATIVE (Negative); Urine Ketones NEGATIVE (Negative); Urine Microscopic Reflex YN ORDER UMIC; Urine Mucus Slight /HPF (None Seen); Urine Nitrite NEGATIVE (Negative); Urine Protein NEGATIVE (Negative); Urine RBC <5 /HPF (None Seen); Urine Urobilinogen 1+ (Normal); Urine Yeast (Budding) Trace /HPF (None Seen)
[2024-05-13] MEDS: MONTELUKAST 10 MG TAB PO SCH (08:19)
[2024-05-13] MEDS: GABAPENTIN 400 MG CAP PO SCH (08:19)
[2024-05-13] MEDS: CLOPIDOGREL 75 MG TABLET PO SCH (08:19)
[2024-05-13] MEDS: LOSARTAN/HCTZ 50-12.5 PO SCH (08:19)
[2024-05-13] MEDS: ESCITALOPRAM 20 MG TAB PO SCH (08:20)
[2024-05-13] MEDS ORDERED: LEVOTHYROXINE SOD 0.112 MG TAB PO SCH (09:00)
--- NOTE | 2024-05-13 12:37 | P.CNS ---
Date of Consult: 05/13/24 Reason for Consult: Pulmonary embolism Chief Complaint: Shortness of breath History of Present Illness: Patient is 59 years of age she had a left knee replacement on Friday came to the hospital started having worsening dyspnea chest discomfort chest tightness and was diagnosed with pulmonary embolism no prior history of pulmonary embolism denies any fever or chills has history of of asthma Allergies lisinopril Adverse Reaction (Verified 05/13/24 04:48) cough Home Medications: Gabapentin [Neurontin*] 800 mg PO TID 02/20/17 Aspirin [Aspirin EC 81 MG] 81 mg PO DAILY 09/24/19 Levothyroxine Sodium 137 mcg PO DAILY 09/24/19 Buspirone HCl [Buspar] 10 mg PO BID 09/25/22 Escitalopram [Lexapro*] 20 mg PO DAILY 09/25/22 Lubiprostone [Amitiza] 24 mcg PO DAILY 09/25/22 Metformin HCl [Glucophage*] 1,000 mg PO BID 09/25/22 Clopidogrel Bisulfate [Plavix] 75 mg PO DAILY #30 10/03/22 Bimatoprost [Lumigan Opthalmic Drops*] 1 gtts OPTH BEDTIME 05/03/23 Hydrocodone Bit/Acetaminophen [Hydrocodon-Acetaminoph 7.5-325] 1 each PO TID 05/03/23 Ibuprofen 800 mg PO TIDP PRN 05/03/23 Losartan/Hydrochlorothiazide [Losartan-Hctz 100-25 mg Tab] 1 tab PO DAILY 05/03/23 Spironolactone 50 mg PO DAILY 05/03/23 Tizanidine [Zanaflex*] 4 mg PO BID 05/03/23 Trazodone HCl 50 mg PO BEDTIME 05/03/23 Montelukast [Singulair*] 10 mg PO DAILY 90 Days #90 tab 05/04/23 Albuterol Sulfate [Albuterol Sulfate Hfa] 2 puff IH PRN PRN 09/18/23 Ergocalciferol (Vitamin D2) [Vitamin D2] 400 unit PO DAILY 09/18/23 Ferrous Sulfate 325 mg PO DAILY 04/30/24 Fluticasone Propion/Salmeterol [Wixela 250-50 Inhub] 1 each IH DAILY 04/30/24 Atorvastatin Calcium [Lipitor] 40 mg PO BEDTIME 05/13/24 Fluticasone [Flonase 50MCG Nasal [place]*] 1 inh IH BID 05/13/24 Furosemide 20 mg PO DAILY 05/13/24 - Past Medical/Surgical History Diabetic: Yes -: Spinal Stenosis, -: Asthma, -: mini stroke, -: HTN, -: HLD, -: Hypothyroid -: Former tobacco abuse -: Depression with anxiety -: CAD -: IDDDM -: CAD -: x2 -: Tubal ligation -: Appendectomy -: Tonsillectomy -: knee arthoscopyx 2 -: tubal ligation Psychosocial/ Personal History: The patient is . 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 - Family History Mother Medical History: Hypertension Father Medical History: Heart disease, Lung disease, Cancer Brother Medical History: Hypertension Sister Medical History: Hypertension - Social History Smoking Status: Former smoker Alcohol use: No CD- Drugs: No Caffeine use: Yes Place of Residence: Home Review of Systems 10-point ROS is otherwise unremarkable General: Weakness Respiratory: Shortness of Breath Cardiovascular: Chest Pain Physical Examination Temp Pulse Resp BP Pulse Ox 97.5 F 84 16 123/65 95 05/13/24 08:00 05/13/24 08:00 05/13/24 08:00 05/13/24 08:00 05/13/24 08:00 General: Alert, In no apparent distress, Oriented x3 HEENT: Atraumatic Neck: Supple Respiratory: Clear to auscultation bilaterally Cardiovascular: No edema, Regular rate/rhythm, Normal S1 S2 Gastrointestinal: Normal bowel sounds, Soft and benign Musculoskeletal: Other (Left leg is swollen from her recent surgery) Integumentary: No rashes, No breakdown Laboratory Data (last 24 hrs) 05/12/24 05/12/24 21:47 20:19 WBC 11.10 H Hgb 11.7 L Hct 37.3 Plt Count 288 Sodium 136 Potassium 4.0 BUN 15 Creatinine 0.86 Glucose 125 H Total Bilirubin 0.8 AST 24 ALT 28 Alkaline Phosphatase 95 - Problems (1) Pulmonary embolism Current Visit: Yes Status: Acute Plan: Patient is 59 years of age she had knee surgery done last week came admitted with acute onset of shortness of breath chest discomfort diagnosed with bilateral pulmonary embolism patient is currently stable vital signs oxygenation satisfactory this pulmonary embolism was precipitated by her recent surgery recommend total duration of 3 months hold off Plavix for now continue with aspirin ambulate changed to Xarelto labs CT scans all reviewed Qualifiers: Chronicity: unspecified
[2024-05-13] MEDS: ACETAMINOPHEN 325 MG TABLET PO PRN (13:14)
[2024-05-13] MEDS: RIVAROXABAN 15 MG TABLET PO SCH (13:15)
[2024-05-13] MEDS: PNEUMOCOCCAL VACCINE 0.5 ML IMVAC ONE (13:15)
[2024-05-13] MEDS ORDERED: Enoxaparin 120 MG/0.8 ML SYR SQ SCH (14:00)
--- NOTE | 2024-05-13 15:04 | P.PN ---
Date of Service: 05/13/24 Patient seen and examined. She is complaining of shortness of breath. Patient is tolerating room air. It appears her thromboembolic event was provoked by recent surgery. Pulmonary input appreciated Lovenox transitioned to oral Xarelto. Follow echocardiogram. Anticipating possible discharge in a.m. Analgesics as needed.
[2024-05-13] MEDS: HYDROCODONE/APAP 7.5/325 MG TAB PO PRN (16:13)
[2024-05-13] MEDS: ATORVASTATIN 40 MG TAB PO SCH (20:23)
[2024-05-13] MEDS: TIZANIDINE 4 MG TABLET PO SCH (20:23)
[2024-05-13] MEDS: FLUTICASONE 50MCG NASAL SPRAY NAS SCH (20:23)
[2024-05-13] MEDS: BUSPIRONE HCL 5 MG TABLET PO SCH (20:23)
[2024-05-13] MEDS: TRAZODONE 50 MG TABLET PO SCH (20:23)
[2024-05-13] MEDS: BIMATOPROST OPTH SCH (20:24)
[2024-05-13] MEDS ORDERED: HYDROCODONE/APAP 7.5/325 MG TAB PO PRN (21:00)
[2024-05-13] MEDS ORDERED: RIVAROXABAN 15 MG TABLET PO SCH (21:00)
[2024-05-13] MEDS ORDERED: ATORVASTATIN 20 MG TAB PO SCH (21:00)
[2024-05-14] MEDS: IBUPROFEN 400 MG TAB PO PRN (03:00)
[2024-05-14 06:02] LABS: Absolute Basophils 0.1 K/uL (0-0.5); Absolute Eosinophils 0.5 K/uL (0-0.5); Absolute Lymphocytes (CBC) 2.6 K/uL (0.7-4.9); Absolute Monocytes 0.9 K/uL (0.1-1.3); Absolute Neutrophil 6.4 K/uL (1.8-8.0); Basophils % 0.8 % (0-1.3); Eosinophils % 4.4 % (0-4.4); Hematocrit 35.1 % (36.0-45.0); Hemoglobin 11.3 g/dL (12.0-15.0); Lymphocytes % 24.9 % (15.3-44.8); MCH 26.9 pg (27.0-35.0); MCHC 32.2 g/dL (32.0-36.0); MCV 83.7 fL (80-100); Monocytes % 8.6 % (3.3-12.3); Neutrophils % 61.3 % (41.7-73.7); Nucleated Red Blood Cells % 0.1 % (0-0); Platelets 326 thou/uL (152-406); RBC Red Blood Cell Count 4.19 M/uL (3.86-4.86); Red Cell Distribution Width 14.7 % (12.1-15.2)
[2024-05-14 06:03] LABS: Anion Gap 6.3 mEq/L (5.0-15.0); Potassium 4.3 mEq/L (3.5-5.1)
[2024-05-14] MEDS: VITAMIN D 400 UNIT TAB PO SCH (08:44)
[2024-05-14] MEDS: SPIRONOLACTONE 25 MG TABLET PO SCH (08:45)
[2024-05-14] MEDS: FUROSEMIDE 20 MG TABLET PO SCH (08:45)
[2024-05-14] MEDS: FERROUS SULFATE 325 MG TAB PO SCH (08:46)
[2024-05-14] MEDS: HOME MED 1 EA UNK (Fluticasone Propion/Salmeterol [Wixela 250-50 Inhub] Blst.W.Dev) IH SCH (08:47)
[2024-05-14] MEDS: LUBIPROSTONE 8 MCG PO SCH (08:47)
--- NOTE | 2024-05-14 11:37 | P.PN ---
Subjective Date of Service: 05/14/24 Chief Complaint: Pulmonary embolism Subjective: Improving (Patient is improving doing well no new complaints his room air sat is 92%) Review of Systems Unremarkable Physical Examination - Vital Signs Temperature: 97.0 F Blood Pressure: 102/56 Pulse: 77 Respirations: 14 Pulse Ox (%): 96 - Physical Exam General: Alert, Oriented x3 Respiratory: Clear to auscultation bilaterally Gastrointestinal: Normal bowel sounds, Soft and benign Assessment And Plan - Current Problems (Diagnosis) (1) Pulmonary embolism Current Visit: Yes Status: Acute Plan: Patient admitted with pulmonary embolism is doing much better room air sat is over 90% plan to ambulate weight for home oxygen with Xarelto 15 mg twice a day for 3 weeks then 20 mg once a day patient to remain on Xarelto for at least 3 months labs chemistries all reviewed Qualifiers: Chronicity: unspecified
--- NOTE | 2024-05-14 18:29 | P.PN ---
Subjective Date of Service: 05/14/24 Chief Complaint: Pulmonary embolism Patient states she feels better. She was noted to be hypoxic on room air and was placed on oxygen. She denies any chest pain. No recorded fever. Patient reports she has a history of hypoxia during sleep. Physical Examination - Vital Signs Temperature: 97.7 F Blood Pressure: 91/48 Pulse: 80 Respirations: 14 Pulse Ox (%): 94 Assessment And Plan - Plan Physical examination General: Alert and oriented x3, NAD, HEENT: Conjunctiva not pale, anicteric sclera Neck: Supple, no elevated JVD Heart: Heart sounds 1 and 2 normal, regular rhythm, normal rate, no pedal edema Lungs: Clear to auscultation bilaterally, adequate breath sounds bilaterally, no rhonchi or crackles. Abdomen: Soft, nondistended, nontender, normal bowel sounds. Extremities: No tenderness, left leg swollen compared to the right Skin: Normal skin turgor, no rash, no nodules or ulcers. Neuro: No focal motor deficit. Normal speech. Psychiatry: Normal mood, no agitation. Diagnosis Acute pulmonary embolism History of left knee replacement Morbid obesity Obesity hypoventilation syndrome Acute on chronic respiratory failure with hypoxia Conjunctivitis Diabetes mellitus CAD History of CVA Hypertension Hypothyroid Hypercholesterolemia Neuropathy Plan: Acute pulmonary embolism Lovenox transition to oral Xarelto Pulmonary input appreciated Lower extremity venous Doppler negative for DVT. Echocardiogram is pending. Increase activity as tolerated. Hypertension Patient with intermittent low BP. Hold antihypertensives. Hold Lasix. Acute on chronic respiratory failure with hypoxia Obesity hypoventilation syndrome Patient is hypoxic with ambulation. She also reports some hypoxia during sleep. Hypoxia likely secondary to PE superimposed on obesity hypoventilation syndrome. Arranging for home oxygen. Follow-up with pulmonary for sleep study recommended. Diabetes mellitus type 2 Insulin sliding scale for glucose management. Metformin is on hold. Conjunctivitis Viral conjunctivitis suspected. Supportive measures Antibiotic eyedrops. History of knee replacement Resume PT Hypothyroidism Continue home dose Synthroid. DVT prophylaxis: On Xarelto. Advanced directive: Full code.
[2024-05-15 05:21] LABS: Absolute Basophils 0.1 K/uL (0-0.5); Absolute Eosinophils 0.4 K/uL (0-0.5); Absolute Lymphocytes (CBC) 3.1 K/uL (0.7-4.9); Absolute Monocytes 0.9 K/uL (0.1-1.3); Absolute Neutrophil 6.8 K/uL (1.8-8.0); Basophils % 0.7 % (0-1.3); Eosinophils % 3.6 % (0-4.4); Hemoglobin 11.3 g/dL (12.0-15.0); Lymphocytes % 27.3 % (15.3-44.8); MCH 26.5 pg (27.0-35.0); MCHC 32.3 g/dL (32.0-36.0); MCV 82.2 fL (80-100); MPV 8.3 fL (7.6-11.3); Monocytes % 8.2 % (3.3-12.3); Neutrophils % 60.2 % (41.7-73.7); Platelets 309 thou/uL (152-406); RBC Red Blood Cell Count 4.26 M/uL (3.86-4.86); Red Cell Distribution Width 14.8 % (12.1-15.2)
[2024-05-15 05:38] LABS: Anion Gap 6.9 mEq/L (5.0-15.0); Potassium 3.9 mEq/L (3.5-5.1)
--- NOTE | 2024-05-15 15:57 | P.PN ---
Subjective Date of Service: 05/15/24 Chief Complaint: Pulmonary embolism Patient denies any new complain. She is maintained on oxygen by nasal cannula She denies any chest pain. No recorded fever. Physical Examination - Vital Signs Temperature: 97.2 F Blood Pressure: 101/58 Pulse: 86 Respirations: 17 Pulse Ox (%): 94 Assessment And Plan - Plan Physical examination General: Alert and oriented x3, NAD, Neck: No elevated JVD Heart: Heart sounds 1 and 2 normal, regular rhythm, normal rate, no pedal edema Lungs: Clear to auscultation bilaterally, adequate breath sounds bilaterally, no rhonchi or crackles. Abdomen: Soft, nondistended, nontender, normal bowel sounds. Extremities: No tenderness. Skin: Normal skin turgor, no rash, no nodules or ulcers. Neuro: No focal motor deficit. Normal speech. Psychiatry: Normal mood, no agitation. Diagnosis Acute pulmonary embolism History of left knee replacement Morbid obesity Obesity hypoventilation syndrome Acute on chronic respiratory failure with hypoxia Conjunctivitis Diabetes mellitus CAD History of CVA Hypertension Hypothyroid Hypercholesterolemia Neuropathy Plan: Acute pulmonary embolism Lovenox transition to oral Xarelto Pulmonary input appreciated Lower extremity venous Doppler negative for DVT. Echocardiogram is pending. Increase activity as tolerated. Hypertension Patient with intermittent low BP. Hold antihypertensives. Hold Lasix. Acute on chronic respiratory failure with hypoxia Obesity hypoventilation syndrome Patient is hypoxic with ambulation. She also reports some hypoxia during sleep. Hypoxia likely secondary to PE superimposed on obesity hypoventilation syndrome. Arranging for home oxygen. Follow-up with pulmonary for sleep study recommended. Diabetes mellitus type 2 Insulin sliding scale for glucose management. Metformin is on hold. Conjunctivitis Viral conjunctivitis suspected. Supportive measures Antibiotic eyedrops. History of knee replacement Resume PT Hypothyroidism Continue home dose Synthroid. 05/15 Respiratory status is stable. Home oxygen being arranged. Urine culture growing ESBL E. coli. Patient states she was treated for UTI prior to her orthopedic surgery 3 weeks ago. Start IV meropenem. Patient to complete 7 days of treatment. Midline for outpatient IV antibiotics requested. Continue Xarelto for PE. PT consult. DVT prophylaxis: On Xarelto. Advanced directive: Full code.
[2024-05-15] MEDS: Meropenem 500 MG in NA CHLORIDE 0.9% 100 ML IV SCH (16:56)
[2024-05-15] MEDS: Mupirocin NASAL 2 APPL/1 GM TUBE NAS SCH (21:31)
[2024-05-16 05:32] LABS: Absolute Basophils 0.1 K/uL (0-0.5); Absolute Eosinophils 0.3 K/uL (0-0.5); Absolute Neutrophil 6.7 K/uL (1.8-8.0); Basophils % 0.8 % (0-1.3); Eosinophils % 2.9 % (0-4.4); Hematocrit 33.3 % (36.0-45.0); Hemoglobin 10.8 g/dL (12.0-15.0); Lymphocytes % 27.3 % (15.3-44.8); MCH 26.6 pg (27.0-35.0); MCHC 32.3 g/dL (32.0-36.0); MCV 82.1 fL (80-100); MPV 8.1 fL (7.6-11.3); Monocytes % 8.7 % (3.3-12.3); Neutrophils % 60.3 % (41.7-73.7); Platelets 275 thou/uL (152-406); RBC Red Blood Cell Count 4.05 M/uL (3.86-4.86); Red Cell Distribution Width 14.9 % (12.1-15.2)
[2024-05-16 05:42] LABS: Anion Gap 6.9 mEq/L (5.0-15.0); Potassium 3.9 mEq/L (3.5-5.1)
--- NOTE | 2024-05-16 16:50 | P.PN ---
Subjective Date of Service: 05/16/24 Chief Complaint: Pulmonary embolism Patient complaining of an episode of epistaxis last night. She is maintained on oxygen by nasal cannula She denies any chest pain. No recorded fever. Physical Examination - Vital Signs Temperature: 98.4 F Blood Pressure: 128/71 Pulse: 79 Respirations: 20 Pulse Ox (%): 97 Assessment And Plan - Plan Physical examination General: Alert and oriented x3, NAD, Heart: Heart sounds 1 and 2 normal, regular rhythm, normal rate, no pedal edema Lungs: Clear to auscultation bilaterally, adequate breath sounds bilaterally, no rhonchi or crackles. Abdomen: Soft, nondistended, nontender, normal bowel sounds. Extremities: No tenderness. Skin: Normal skin turgor, no rash, no nodules or ulcers. Neuro: No focal motor deficit. Normal speech. Psychiatry: Normal mood, no agitation. Diagnosis Acute pulmonary embolism History of left knee replacement Morbid obesity Obesity hypoventilation syndrome Acute on chronic respiratory failure with hypoxia Conjunctivitis Diabetes mellitus CAD History of CVA Hypertension Hypothyroid Hypercholesterolemia Neuropathy Plan: Acute pulmonary embolism Lovenox transition to oral Xarelto Pulmonary input appreciated Lower extremity venous Doppler negative for DVT. Echocardiogram is pending. Increase activity as tolerated. Hypertension Patient with intermittent low BP. Hold antihypertensives. Hold Lasix. Acute on chronic respiratory failure with hypoxia Obesity hypoventilation syndrome Patient is hypoxic with ambulation. She also reports some hypoxia during sleep. Hypoxia likely secondary to PE superimposed on obesity hypoventilation syndrome. Arranging for home oxygen. Follow-up with pulmonary for sleep study recommended. Diabetes mellitus type 2 Insulin sliding scale for glucose management. Metformin is on hold. Conjunctivitis Viral conjunctivitis suspected. Supportive measures Antibiotic eyedrops. History of knee replacement Resume PT Hypothyroidism Continue home dose Synthroid. 05/15 Respiratory status is stable. Home oxygen being arranged. Urine culture growing ESBL E. coli. Patient states she was treated for UTI prior to her orthopedic surgery 3 weeks ago. Start IV meropenem. Patient to complete 7 days of treatment. Midline for outpatient IV antibiotics requested. Continue Xarelto for PE. PT consult. 05/16 Patient had 1 episode of epistaxis last night, her oxygen was humidified after which she had no more epistaxis episode. Continue anticoagulation for PE. Continue IV meropenem for ESBL. PICC line placed in the left medial arm. Social service to arrange for outpatient IV antibiotics. Increase activity as tolerated PT to evaluate. Analgesics as needed. DVT prophylaxis: On Xarelto. Advanced directive: Full code.
[2024-05-16] MEDS: HEPARIN/D5W 25,000 UNIT/500 ML BAG IV PRN (18:40)
--- NOTE | 2024-05-17 06:53 | ECHO ---
HEIGHT: 5 ft 11 in WEIGHT: 237 lb 0 oz DATE OF STUDY: 05/14/[address]: Jose Luis Griggs MD 2-DIMENSIONAL: YES M.MODE: YES DOPPLER: YES COLOR FLOW: YES TDS: YES PORTABLE: YES DEFINITY: BUBBLE STUDY: DIAGNOSIS: PULMONARY EMBOLISM CARDIAC HISTORY: CATHERIZATION: NO SURGERY: NO PROSTHETIC VALVE: NO PACEMAKER: NO MEASUREMENTS (cm) DIASTOLIC (NORMALS) SYSTOLIC (NORMALS) IVSd 0.9 (0.6-1.2) LA Diam 3.3 (1.9-4.0) LVEF 60-65% LVIDd 4.8 (3.5-5.7) LVIDs 3.0 (2.0-3.5) %FS 37% LVPWd 1.2 (0.6-1.2) Ao Diam 2.8 (2.0-3.7) 2 DIMENSIONAL ASSESSMENT: RIGHT ATRIUM: NORMAL LEFT ATRIUM: NORMAL RIGHT VENTRICLE: APPEARS NORMAL LEFT VENTRICLE: NORMAL TRICUSPID VALVE: NORMAL MITRAL VALVE: TRACE MITRAL REGURGITATION PULMONIC VALVE: NORMAL AORTIC VALVE: NORMAL PERICARDIAL EFFUSION: NONE AORTIC ROOT: NORMAL LEFT VENTRICULAR WALL MOTION: NORMAL DOPPLER/COLOR FLOW: SEE BELOW COMMENTS: 1. NORMAL LEFT VENTRICULAR EJECTION FRACTION 60-65% 2. NORMAL WALL MOTION 3. RIGHT VENTRICLE IS NOT SEEN VERY WELL BUT FUNCTION APPEARS NORMAL TECHNOLOGIST: MACHO BRENNAN
[2024-05-17 06:55] LABS: Absolute Basophils 0.1 K/uL (0-0.5); Absolute Eosinophils 0.4 K/uL (0-0.5); Absolute Monocytes 0.8 K/uL (0.1-1.3); Absolute Neutrophil 7.1 K/uL (1.8-8.0); Basophils % 1.1 % (0-1.3); Eosinophils % 3.1 % (0-4.4); Hematocrit 34.8 % (36.0-45.0); Lymphocytes % 26.3 % (15.3-44.8); MCH 26.5 pg (27.0-35.0); MCHC 31.7 g/dL (32.0-36.0); MCV 83.6 fL (80-100); MPV 7.8 fL (7.6-11.3); Monocytes % 7.4 % (3.3-12.3); Neutrophils % 62.1 % (41.7-73.7); Nucleated Red Blood Cells % 0.1 % (0-0); Platelets 293 thou/uL (152-406); RBC Red Blood Cell Count 4.16 M/uL (3.86-4.86); Red Cell Distribution Width 14.6 % (12.1-15.2)
[2024-05-17] MEDS: Meropenem 500 MG in NA CHLORIDE 0.9% 100 ML IV ONE (11:15)
--- NOTE | 2024-05-17 15:08 | CON ---
History Of Present Illness: This is a 59-year-old female whom I was consulted for urinary tract infe ction secondary to E coli ESBL. The patient was initially admitted on May 12 with complaints of s hortness of breath. She had left knee replacement surgery done on 04 of May and the CTA in th e emergency room showed a pulmonary embolism. The patient also has significant past medical history of hypertension, diabetes mellitus, hypothyroidism, neuropathy. The patient feels much better today. Denies any other problems. Denies any headache, nausea, vomiting, chest pain, abdominal pain, or c onstipation. Past Medical History: As per HPI. Social History: Nonsmoker. Nondrinker. Family History: Noncontributory. Medications: Meropenem. See MARs for other medications. Allergies: LISINOPRIL. Review of Systems: A 10-point review was performed. Physical Examination: General: This is a 59-year-old female, lying in bed, not in any acute cardiopulmonary distress. Vital Signs: Temperature 98, pulse 78, respirations 20, blood pressure 105/58, on 2 L nasal cannula. HEENT: Unremarkable. Neck: Supple. Lungs: Basal crackles. Heart: S1, S2. Regular. Abdomen: Soft, nontender. Bowel sounds present. Extremities: Left knee is in surgical dressing noted. Laboratory Data: Shows WBC 11.4, hemoglobin 11, platelets are 293. Chemistry shows BUN of 20, creat inine 0.6. Urinalysis shows wbc of 10 to 20, and micro data shows 10 to 100,000 E coli ESBL. Currently, patient on meropenem. See MARs for other medications. Assessment And Plan: 59-year-old female with significant history of left knee replacement surgery, c oming in with shortness of breath secondary to acute pulmonary embolism. Morbid obesity. Obesity hypoventilation syndrome. Urinary tract infection secondary to E coli ESBL. Continue meropenem for total of 7 days. Can be sw itched to Invanz on discharge. Diabetes mellitus. Leukocytosis. Hypothyroidism. Anemia of chronic disease. Monitor signs of infection with WBC and fever trends. NF/MODL Voice ID: [id number] Report ID: [id number]
--- NOTE | 2024-05-17 15:33 | P.PN ---
Subjective Date of Service: 05/17/24 Chief Complaint: Pulmonary embolism Patient had epistaxis yesterday, no more epistaxis today on heparin drip. She is maintained on oxygen by nasal cannula She denies any chest pain. Physical Examination - Vital Signs Temperature: 97.9 F Blood Pressure: 105/58 Pulse: 76 Respirations: 22 Pulse Ox (%): 95 Assessment And Plan - Plan Physical examination General: Alert and oriented x3, NAD, Heart: Heart sounds 1 and 2 normal, regular rhythm, normal rate, no pedal edema Lungs: Clear to auscultation bilaterally, adequate breath sounds bilaterally, no rhonchi or crackles. Abdomen: Soft, nondistended, nontender, normal bowel sounds. Extremities: No tenderness. Skin: Normal skin turgor, no rash, no nodules or ulcers. Neuro: No focal motor deficit. Normal speech. Psychiatry: Normal mood, no agitation. Diagnosis Acute pulmonary embolism History of left knee replacement Morbid obesity Obesity hypoventilation syndrome Acute on chronic respiratory failure with hypoxia Conjunctivitis Diabetes mellitus CAD History of CVA Hypertension Hypothyroid Hypercholesterolemia Neuropathy Plan: Acute pulmonary embolism Lovenox transition to oral Xarelto Pulmonary input appreciated Lower extremity venous Doppler negative for DVT. Echocardiogram is pending. Increase activity as tolerated. Hypertension Patient with intermittent low BP. Hold antihypertensives. Hold Lasix. Acute on chronic respiratory failure with hypoxia Obesity hypoventilation syndrome Patient is hypoxic with ambulation. She also reports some hypoxia during sleep. Hypoxia likely secondary to PE superimposed on obesity hypoventilation syndrome. Arranging for home oxygen. Follow-up with pulmonary for sleep study recommended. Diabetes mellitus type 2 Insulin sliding scale for glucose management. Metformin is on hold. Conjunctivitis Viral conjunctivitis suspected. Supportive measures Antibiotic eyedrops. History of knee replacement Resume PT Hypothyroidism Continue home dose Synthroid. 05/15 Respiratory status is stable. Home oxygen being arranged. Urine culture growing ESBL E. coli. Patient states she was treated for UTI prior to her orthopedic surgery 3 weeks ago. Start IV meropenem. Patient to complete 7 days of treatment. Midline for outpatient IV antibiotics requested. Continue Xarelto for PE. PT consult. 05/16 Patient had 1 episode of epistaxis last night, her oxygen was humidified after which she had no more epistaxis episode. Continue anticoagulation for PE. Continue IV meropenem for ESBL. Midlline placed in the left medial arm. Social service to arrange for outpatient IV antibiotics. Increase activity as tolerated PT to evaluate. Analgesics as needed. 05/17 No more epistaxis despite significantly elevated PTT level on heparin drip. Change heparin drip back to Xarelto. Infectious disease consulted regarding ESBL UTI. Dr. Jules recommends 7 days of IV antibiotics. Outpatient IV Invanz via midline ordered. Increase activity as tolerated Continue PT Awaiting home oxygen to be delivered. DVT prophylaxis: On Xarelto. Advanced directive: Full code.
[2024-05-17] MEDS: RIVAROXABAN 15 MG TABLET PO SCH (16:42)
[2024-05-17] MEDS: Meropenem 1,000 MG in NA CHLORIDE 0.9% 100 ML IV SCH (16:42)
[2024-05-17] MEDS ORDERED: RIVAROXABAN 15 MG TABLET PO SCH (21:00)
[2024-05-18 05:24] LABS: MPV 8.2 fL (7.6-11.3); Platelets 299 thou/uL (152-406)
--- NOTE | 2024-05-18 08:28 | P.PN ---
Subjective Date of Service: 05/18/24 Chief Complaint: Pulmonary embolism/ESBL urinary tract infection Subjective: Improving (Is improving still short of breath has home O2) Review of Systems General: Malaise Respiratory: Shortness of Breath Physical Examination - Vital Signs Temperature: 97.3 F Blood Pressure: 111/58 Pulse: 73 Respirations: 18 Pulse Ox (%): 95 - Physical Exam General: Alert, Oriented x3 Respiratory: Clear to auscultation bilaterally Cardiovascular: No edema, Regular rate/rhythm Assessment And Plan - Current Problems (Diagnosis) (1) Pulmonary embolism Current Visit: Yes Status: Acute Plan: Pulmonary embolism continue with Xarelto 15 mg twice a day for 3 weeks then 20 mg daily 3 months Qualifiers: Chronicity: unspecified (2) ESBL (extended spectrum beta-lactamase) producing bacteria infection Current Visit: Yes Status: Acute Plan: Patient has ESBL infection will need meropenem for 7 days labs chemistries reviewed white count is mildly elevated discharge planning
--- NOTE | 2024-05-18 11:26 | EKG ---
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
--- NOTE | 2024-05-18 11:29 | PN ---
Subjective: The patient is lying in bed, feels much better today. Denies any other problems. Objective: Vital Signs: Reviewed. Lungs: Basal crackles. Heart: S1, S2. Regular. Abdomen: Soft, nontender. Bowel sounds present. Extremities: Trace edema. Left knee wounds noted. Laboratory Data: Reviewed. The patient currently is on meropenem for E coli ESBL in the urine. Assessment And Plan: 1. Status post left knee replacement. 2. Pulmonary embolism causing dyspnea. 3. Leukocytosis. 4. Urinary tract infection secondary to Escherichia coli extended-spectrum beta-lactamase, total cour se of meropenem 7 days. We will follow the patient closely. NF/MODL Voice ID: [id number] Report ID: [id number]
--- NOTE | 2024-05-18 12:02 | P.PN ---
Date of Service: 05/18/24 Subjective: Feeling better each day Reports breathing more comfortably No new/worsening symptoms Starting to feel like she is going back to her usual self No further bleeding ROS: 10 point ROS as noted above, otherwise negative Physical Exam: GEN: Alert, oriented, NAD CV: Regular rate and rhythm, no edema Pulm: Nonlabored respirations on 2L NC, clear bilaterally ABD: soft, nontender, nondistended Neuro: Normal speech, normal affect Problem List: Acute pulmonary embolism, provoked s/p recent left TKA (05/04) UTI - E. coli ESBL Acute on chronic respiratory failure with hypoxia Obesity hypoventilation syndrome Conjunctivitis Hypertension Hyperlipidemia Hypothyroidism Depression/Anxiety GERD Hx of CAD History of CVA Acute pulmonary embolism, provoked s/p recent left TKA (05/04) on admission, presented with shortness of breath, chest tightness following a recent left knee replacement last month CTA chest noted small right upper, right middle, left lower lobe segmental and subsegmental PE. No evidence of right heart strain. Echocardiogram noted normal 60-65% EF with normal wall motion and trace TR. Venous ultrasound was negative for DVT bilaterally. Therapeutic lovenox transitioned to Xarelto 05/17 Dr. Begum, pulm is following Increase activity as tolerated. Home oxygen being setup continue PT UTI - E. coli ESBL Urine culture grew E. coli ESBL ID consulted - recommending 1 week IV abx Midline placed for IV antibiotics Continue IV mo invanz on dc(05/16-05/21) Acute on chronic respiratory failure with hypoxia Obesity hypoventilation syndrome Patient is hypoxic with ambulation. She also reports some hypoxia during sleep. Hypoxia likely secondary to PE superimposed on obesity hypoventilation syndrome. home oxygen set up Consider following up with pulmonology for outpatient sleep study Hypertension Patient with intermittent low BP. Hold antihypertensives and Lasix. Conjunctivitis Viral conjunctivitis suspected. Supportive measures Antibiotic eyedrops. Hypertension Hyperlipidemia Hypothyroidism Depression/Anxiety GERD Hx of CAD History of CVA Continue home meds. VTE: Xarelto Code: Full Dispo: Home Pending IV abx setup, home O2 Time Spent Managing Pts Care (In Minutes): 55
[2024-05-19] MEDS: IBUPROFEN 400 MG TAB PO PRN (05:43)
[2024-05-19 06:04] LABS: Hematocrit 33.2 % (36.0-45.0); Hemoglobin 10.7 g/dL (12.0-15.0); MCH 26.9 pg (27.0-35.0); MCHC 32.3 g/dL (32.0-36.0); MCV 83.4 fL (80-100); MPV 7.6 fL (7.6-11.3); Platelets 311 thou/uL (152-406); RBC Red Blood Cell Count 3.99 M/uL (3.86-4.86)
[2024-05-19 06:20] LABS: Magnesium 1.9 mg/dL (1.6-2.4)
[2024-05-19] MEDS ORDERED: ERTAPENEM SODIUM 1 GM VIAL IVPB ONE (08:00)
[2024-05-19] MEDS: ERTAPENEM NA 1 GM in NA CHLORIDE 0.9% 100 ML IVPB SCH (08:51)
[2024-05-19 09:08] VITALS: O2SAT 96
--- NOTE | 2024-05-19 11:34 | P.PN ---
Date of Service: 05/19/24 Subjective: denies chest pain or worsening SOB. no acute events overnight ROS: 10 point ROS as noted above, otherwise negative Physical Exam: GEN: Alert, oriented, NAD CV: Regular rate and rhythm, no edema Pulm: Nonlabored respirations on 2L NC, clear bilaterally ABD: soft, nontender, nondistended Neuro: Normal speech, normal affect Problem List: Acute pulmonary embolism, provoked s/p recent left TKA (05/04) UTI - E. coli ESBL Acute on chronic respiratory failure with hypoxia Obesity hypoventilation syndrome Conjunctivitis Hypertension Hyperlipidemia Hypothyroidism Depression/Anxiety GERD Hx of CAD History of CVA Acute pulmonary embolism, provoked s/p recent left TKA (05/04) on admission, presented with shortness of breath, chest tightness following a recent left knee replacement last month CTA chest noted small right upper, right middle, left lower lobe segmental and subsegmental PE. No evidence of right heart strain. Echocardiogram noted normal 60-65% EF with normal wall motion and trace TR. Venous ultrasound was negative for DVT bilaterally. Therapeutic lovenox transitioned to Xarelto 05/17 Dr. Begum, pulm is following Increase activity as tolerated. home oxygen set up and delivered continue PT UTI - E. coli ESBL Urine culture grew E. coli ESBL ID consulted - recommending 1 week IV abx Midline placed for IV antibiotics IV merrem (05/16-05/18) switched to IV invanz (05/19) continue IV invanz (05/19-05/21) Acute on chronic respiratory failure with hypoxia Obesity hypoventilation syndrome Patient is hypoxic with ambulation. She also reports some hypoxia during sleep. Hypoxia likely secondary to PE superimposed on obesity hypoventilation syndrome. Home oxygen set up and delivered Consider following up with pulmonology for outpatient sleep study Hypertension Patient with intermittent low BP. Hold antihypertensives and Lasix. Conjunctivitis Viral conjunctivitis suspected. Supportive measures Antibiotic eyedrops. Hypertension Hyperlipidemia Hypothyroidism Depression/Anxiety GERD Hx of CAD History of CVA Continue home meds. VTE: Xarelto Code: Full Dispo: Home Time Spent Managing Pts Care (In Minutes): 55
--- NOTE | 2024-05-19 12:54 | PN ---
Subjective: The patient is lying in bed. No new acute event. Chart reviewed. Objective: Vital signs: Reviewed. Lungs: Basal crackles. Heart: S1, S2. Regular. Abdomen: Soft, nontender. Bowel sounds present. Extremities: Trace edema. Left knee wound noted. Laboratory Data: Reviewed. Assessment And Plan: Status post left knee replacement and pulmonary embolism. The patient has urin samuel tract infection with Escherichia coli extended-spectrum beta-lactamase. Continue Merrem for tota l of 7 days and monitor signs of infection with WBC and fever trends. Continue supportive care. We will follow the patient as needed. NF/MODL Voice ID: [id number] Report ID: [id number]
[2024-05-19 13:06] VITALS: BP 98/56; TEMP 98.4
--- NOTE | 2024-05-20 12:18 | P.DS ---
Admission Date: 05/13/24 Discharge Date: 05/19/24 Disposition: DC HOME/HOME HEALTH CARE Discharge Condition: GOOD Reason for Admission: Pulmonary embolism/ESBL urinary tract infection Consultations: Pulmonology - Dr. Begum ID - Dr. Jules Brief History of Present Illness: 59 yo F, PMH: hypertension, diabetes, hypothyroidism, neuropathy Patient presenting with shortness of breath after a left knee replacement in late April. CTA in the ED revealed pulmonary emboli. She states she experienced tightness in her chest earlier today. Associated symptoms include diaphoresis. She measured her blood pressure at home which was low at 79/53. She states she did not want to come into the ER. Because she kept feeling fatigued and unwell she decided to come in. Furthermore she has redness of her eyes with crusting. Hospital Course: Problem List: Acute pulmonary embolism, provoked s/p recent left TKA (05/04) UTI - E. coli ESBL Acute on chronic respiratory failure with hypoxia Obesity hypoventilation syndrome Conjunctivitis Hypertension Hyperlipidemia Hypothyroidism Depression/Anxiety GERD Hx of CAD History of CVA Physician discharge instructions: Patient presented with shortness of breath and chest tightness following a recent left knee replacement last month. She was found to have an acute p ulmonary embolism in the ED. CTA chest noted small right upper, right middle, left lower lobe segmental and subsegmental pulmonary thromboemboli. No evidence of right heart strain. Venous ultrasound was negative for DVT bilaterally. Echocardiogram noted normal 60-65% EF with normal wall motion and trace tricuspid regurgitation. Patient was started on therapeutic lovenox in the ED, and eventually transitioned to oral xarelto on 05/17. Dr. Begum, pulm was consulted. Patient clinically improved, however was still requiring oxygen supplementation. Room O2 sats were checked, and patient quali fied for home oxygen - delivered at bedside prior to discharge. Patient was feeling better, breathing more comfortably, chest pain resolved, and was deemed stable for discharge. Consider following up with pulmonology for outpatient sleep study to evaluate for possible sleep apnea/obesity hypoventilation syndrome which could also be contributing to shortness of breath. Home Oxygen was set up. She was also found to have a UTI this hospitalization. Urine culture grew E. coli ESBL. ID was consulted and recommended patient complete 1 week of IV antibiotics on discharge. Midline was placed for IV antibiotics. She was started on IV merrem while hospitalized and is to complete the 7 day course with Invanz on discharge. (end date: 05/21) Patient's home antihypertensives and diuretics were held since admission secondary to low to low-normal blood pressure. Advised patient to continue to hold her home Losartan-HCTZ and Lasix (furosemide) for now until you follow up with PCP. She was maintained on her spironolactone while hospitalized. Check blood pressure around the same time each day. Keep daily log of blood pressure readings to take to follow up appointment for further adjustments of m edications. Medications: IV invanz 1g daily (end date: 05/21) Xarelto 15 mg BID x3 weeks (until June 07 2024), then 20 mg daily for at least 3 months Continue aspirin 81 mg Stop Plavix. Do not take plavix while on Xarelto. Stop Losartan-HCTZ and Lasix -until follow up with PCP and instructed to restart. Avoid NSAIDs (inbuprofen/naproxen) while on Xarelto, due to increased bleeding risk. Follow up: PCP 3-5 days Pulmonology 2-4 weeks Please call to schedule / confirm appointments Physical Exam: GEN: Alert, oriented, NAD CV: Regular rate and rhythm, no edema Pulm: Nonlabored respirations on 2L NC, clear bilaterally ABD: soft, nontender, nondistended Neuro: Normal speech, normal affect Vital Signs/Physical Exam: Temp Pulse Resp BP Pulse Ox 98.4 F 85 18 98/56 L 100 05/19/24 12:00 05/19/24 12:00 05/19/24 12:00 05/19/24 12:00 05/19/24 12:00 Laboratory Data at Discharge: WBC 9.60 thou/uL (4.3-10.9) 05/19/24 05:42 Hgb 10.7 g/dL (12.0-15.0) L 05/19/24 05:42 Hct 33.2 % (36.0-45.0) L 05/19/24 05:42 Plt Count 311 thou/uL (152-406) 05/19/24 05:42 APTT 39.2 SECONDS (27.2-37.4) H 05/17/24 12:54 Sodium 136 mEq/L (136-145) 05/19/24 05:42 Potassium 4.0 mEq/L (3.5-5.1) 05/19/24 05:42 BUN 16 mg/dL (7-18) 05/19/24 05:42 Creatinine 0.56 mg/dL (0.55-1.02) 05/19/24 05:42 Glucose 125 mg/dL (74-106) H 05/19/24 05:42 Magnesium 1.9 mg/dL (1.6-2.4) 05/19/24 05:42 Total Bilirubin 0.8 mg/dL (0.2-1.0) 05/12/24 21:47 AST 24 U/L (15-37) 05/12/24 21:47 ALT 28 U/L (13-56) 05/12/24 21:47 Alkaline Phosphatase 95 U/L (45-117) 05/12/24 21:47 Home Medications: Gabapentin [Neurontin*] 800 mg PO TID 02/20/17 Aspirin [Aspirin EC 81 MG] 81 mg PO DAILY 09/24/19 Levothyroxine Sodium 137 mcg PO DAILY 09/24/19 Buspirone HCl [Buspar] 10 mg PO BID 09/25/22 Escitalopram [Lexapro*] 20 mg PO DAILY 09/25/22 Lubiprostone [Amitiza] 24 mcg PO DAILY 09/25/22 Metformin HCl [Glucophage*] 1,000 mg PO BID 09/25/22 Bimatoprost [Lumigan Opthalmic Drops*] 1 gtts OPTH BEDTIME 05/03/23 Hydrocodone Bit/Acetaminophen [Hydrocodon-Acetaminoph 7.5-325] 1 each PO TID 05/03/23 Losartan/Hydrochlorothiazide [Losartan-Hctz 100-25 mg Tab] 1 tab PO DAILY 05/03/23 Spironolactone 50 mg PO DAILY 05/03/23 Tizanidine [Zanaflex*] 4 mg PO BID 05/03/23 Trazodone HCl 50 mg PO BEDTIME 05/03/23 Montelukast [Singulair*] 10 mg PO DAILY 90 Days #90 tab 05/04/23 Albuterol Sulfate [Albuterol Sulfate Hfa] 2 puff IH PRN PRN 09/18/23 Ergocalciferol (Vitamin D2) [Vitamin D2] 400 unit PO DAILY 09/18/23 Ferrous Sulfate 325 mg PO DAILY 04/30/24 Fluticasone Propion/Salmeterol [Wixela 250-50 Inhub] 1 each IH DAILY 04/30/24 Atorvastatin Calcium [Lipitor] 40 mg PO BEDTIME 05/13/24 Fluticasone [Flonase 50MCG Nasal [place]*] 1 inh IH BID 05/13/24 Furosemide 20 mg PO DAILY 05/13/24 Rivaroxaban [Xarelto] 15 mg PO BIDWM 20 Days #40 tablet 05/18/24 Rivaroxaban [Xarelto] 20 mg PO DAILY AT SUPPER 30 Days #30 tab 05/18/24 New Medications: Rivaroxaban [Xarelto] 20 mg PO DAILY AT SUPPER 30 Days #30 tab Rivaroxaban [Xarelto] 15 mg PO BIDWM 20 Days #40 tablet Physician Discharge Instructions: Physician discharge instructions: Patient presented with shortness of breath and chest tightness following a recent left knee replacement last month. She was found to have an acute pulmonary embolism in the ED. CTA chest noted small right upper, right middle, left lower lobe segmental and subsegmental pulmonary thromboemboli. No evidence of right heart strain. Venous ultrasound was negative for DVT bilaterally. Echocardiogram noted normal 60-65% EF with normal wall motion and trace tricuspid regurgitation. Patient was started on therapeutic lovenox in the ED, and eventually transitioned to oral xarelto on 05/17. Dr. Begum pulelidia was consulted. Patient clinically improved, however was still requiring oxygen supplementation. Room O2 sats were checked, and patient qualified for home oxygen - delivered at bedside prior to discharge. Patient was feeling better, breathing more comfortably, chest pain resolved, and was deemed stable for discharge. Consider following up with pulmonology for outpatient sleep study to evaluate for possible sleep apnea/obesity hypoventilation syndrome which could also be contributing to shortness of breath. Home Oxygen was set up. She was also found to have a UTI this hospitalization. Urine culture grew E. coli ESBL. ID was consulted and recommended patient complete 1 week of IV antibiotics on discharge. Midline was placed for IV antibiotics. She was started on IV merrem while hospitalized and is to complete the 7 day course with Invanz on discharge. (end date: 05/21) Patient's home antihypertensives and diuretics were held since admission secondary to low to low-normal blood pressure. Advised patient to continue to hold her home Losartan-HCTZ and Lasix (furosemide) for now until you follow up with PCP. She was maintained on her spironolactone while hospitalized. Check blood pressure around the same time each day. Keep daily log of blood pressure readings to take to follow up appointment for further adjustments of medications. Medications: IV invanz 1g daily (end date: 05/21) Xarelto 15 mg BID x3 weeks (until June 07 2024), then 20 mg daily for at least 3 months Continue aspirin 81 mg Stop Plavix. Do not take plavix while on Xarelto. Stop Losartan-HCTZ and Lasix -until follow up with PCP and instructed to restart. Avoid NSAIDs (inbuprofen/naproxen) while on Xarelto, due to increased bleeding risk. Follow up: PCP 3-5 days Pulmonology 2-4 weeks Please call to schedule / confirm appointments Followup: Paulo Begum MD [ACTIVE - CAN ADMIT] - 1-2 Weeks Bisi Quintanilla MD [Primary Care Provider] - 1-2 Weeks Time spent managing pt's care (in minutes): 45
== END 2024-05-19 16:02 | disposition home health service (06) | DRG 299 ==
LOC: ER 16:52 → ERHOLD 05-13 02:05 → 2ND 05-13 04:01
PROVIDERS: ADMIT Family Medicine; ATTEND Hospitalist
PROC: 02HV33Z Insertion of Infusion Device into Superior Vena Cava, Percutaneous Approach (ICD-10-PCS; principal; 2024-05-13)
DX: T81.718A Complication of other artery following a procedure, not elsewhere classified, initial encounter (principal); J96.21 Acute and chronic respiratory failure with hypoxia; E66.2 Morbid (severe) obesity with alveolar hypoventilation; Z16.12 Extended spectrum beta lactamase (ESBL) resistance; N39.0 Urinary tract infection, site not specified; I26.99 Other pulmonary embolism without acute cor pulmonale; I10 Essential (primary) hypertension; E03.9 Hypothyroidism, unspecified; K21.9 Gastro-esophageal reflux disease without esophagitis; E11.40 Type 2 diabetes mellitus with diabetic neuropathy, unspecified; E78.00 Pure hypercholesterolemia, unspecified; H10.9 Unspecified conjunctivitis; D63.8 Anemia in other chronic diseases classified elsewhere; F32.A Depression, unspecified; F41.9 Anxiety disorder, unspecified; I07.1 Rheumatic tricuspid insufficiency; I25.10 Atherosclerotic heart disease of native coronary artery without angina pectoris; R04.0 Epistaxis; B96.20 Unspecified Escherichia coli [E. coli] as the cause of diseases classified elsewhere; Z23 Encounter for immunization; Z79.82 Long term (current) use of aspirin; Z68.33 Body mass index [BMI] 33.0-33.9, adult; Z79.84 Long term (current) use of oral hypoglycemic drugs; Z79.02 Long term (current) use of antithrombotics/antiplatelets; Z90.49 Acquired absence of other specified parts of digestive tract; Z86.73 Personal history of transient ischemic attack (TIA), and cerebral infarction without residual deficits; Z96.652 Presence of left artificial knee joint; Z87.891 Personal history of nicotine dependence; Z79.899 Other long term (current) drug therapy
CPT/HCPCS: 36415; 71275; 80048; 80076; 81001; 82947; 83735; 83880; 84484; 85025; 85027; 85049; 85730; 87077; 87086; 87088; 87186; 90471; 90732; 93005; 93306; 93970; 94760; 96372; 96374; 96375; 97110; 97116; 97161; 97530; 99285; J1335; J1650; J2185; J2405; J7613; J7644; Q9967